=== PATIENT | female | born 1960 | race Native Hawaiian/Other Pacific Islander ===

== ENCOUNTER 2018-09-24 17:10 | Inpatient (IN) | payer MEDICAID ==
[2018-09-24 17:11] VITALS: BMI 19.1
[2018-09-24] MEDS ORDERED: Albuterol-Ipratrop 3 mg / 0.5 (3 ml) UD INH STA (17:33)
[2018-09-24] MEDS ORDERED: Albuterol-Ipratrop 3 mg / 0.5 (3 ml) UD IH STA ×2 (17:33→18:46)
--- NOTE | 2018-09-24 17:37 | ED PDOC ---
HPI: SOB/CHF/COPD Time Seen by Provider: 09/24/18 17:21 Chief Complaint (Nursing): Respiratory Distress Chief Complaint (Provider): Syncope History Per: Patient History/Exam Limitations: clinical condition Onset/Duration Of Symptoms: Days (today) Additional Complaint(s): Pt. with hx of renal failure who missed dialysis today had a syncope episode today morning. Also sats went to 95% on RA. Dx pneumonia and is non antibiotics, unclear which on the notes. Not talking, but moves extremities on will and squirms to pain. Limited H and P due to condition. Past Medical History Reviewed: Historical Data, Nursing Documentation, Vital Signs Vital Signs: Last Vital Signs Temp 96.7 F L 09/24/18 17:15 Pulse 67 09/24/18 17:15 Resp 18 09/24/18 17:15 BP 141/61 09/24/18 17:15 Pulse Ox 99 09/24/18 17:15 - Medical History PMH: HTN, Pneumonia, End Stage Renal Disease, Chronic Kidney Disease - Family History Family History: States: Unknown Family Hx - Living Arrangements Living Arrangements: [facility] - Home Medications Home Medications: Ambulatory Orders Medication Instructions Recorded Aspirin [Ecotrin] 81 mg PO DAILY 09/02/18 amLODIPine [Norvasc] 10 mg PO DAILY 09/02/18 Acetaminophen [Tylenol 325mg tab] 650 mg PO Q4 PRN 09/24/18 Acetaminophen [Tylenol 325mg tab] 650 mg PO Q4 PRN 09/24/18 Atorvastatin [Lipitor] 40 mg PO HS 09/24/18 B Complex W-C No.20/Folic Acid 1 cap PO DAILY 09/24/18 [Nephrocaps Softgel] Carvedilol [Coreg] 12.5 mg PO Q12 09/24/18 Insulin Regular [HumuLIN R] 1 - 7 unit SC ACHS 09/24/18 Levothyroxine [Synthroid] 50 mcg PO DAILY 09/24/18 Losartan [Cozaar] 100 mg PO DAILY 09/24/18 SITagliptin [Januvia] 25 mg PO DAILY 09/24/18 Sevelamer Carbonate [Renvela] 800 mg PO TID 09/24/18 Ticagrelor [Brilinta] 90 mg PO Q12 09/24/18 Vancomycin 750mg [Vancomycin 750 750 mg IVPB TUTHSA 09/24/18 mg in NS] Vitamin A & D [Vitamin A & D Oint 1 appl TOP DAILY 09/24/18 UD Foilpak] ceFAZolin [Ancef] 1 g[facility] 09/24/18 hydrALAZINE [Apresoline] 50 mg PO .BID@MOWEFR 09/24/18 hydrALAZINE [Apresoline] 50 mg PO .TID@SUTUTH 09/24/18 - Allergies Allergies/Adverse Reactions: Allergies Allergy/AdvReac Type Severity Reaction Status Date / Time shrimp Allergy Severe ANAPHYLAXIS Verified 09/24/18 17:14 Review of Systems Review Of Systems: ROS cannot be obtained secondary to pt's inabilty to answer questions. Physical Exam - Reviewed Nursing Documentation Reviewed: Yes Vital Signs Reviewed: Yes - Physical Exam Appears: Positive for: Uncomfortable Head Exam: Positive for: ATRAUMATIC, NORMAL INSPECTION, NORMOCEPHALIC Skin: Positive for: Normal Color, Warm, DRY Eye Exam: Positive for: EOMI, Normal appearance, PERRL ENT: Positive for: Normal ENT Inspection Neck: Positive for: Normal, Painless ROM, Supple Cardiovascular/Chest: Positive for: Regular Rate, Rhythm. Negative for: Edema Respiratory: Positive for: Decreased Breath Sounds, Crackles (diffuse). Negative for: Respiratory Distress Gastrointestinal/Abdominal: Positive for: Normal Exam, Soft. Negative for: Tenderness Back: Positive for: Normal Inspection. Negative for: L CVA Tenderness, R CVA Tenderness Extremity: Negative for: Tenderness, Pedal Edema Neurologic/Psych: Positive for: Other (not answering questions; but responds to name; moving all extremities with no issues on her own will.) - Laboratory Results Result Diagrams: 09/24/18 17:45 09/24/18 17:45 Lab Results: 34 bun - ECG ECG: Positive for: Interpreted By Me, Viewed By Me ECG Rhythm: Positive for: Normal QRS, Normal ST Segment, Sinus Rhythm O2 Sat by Pulse Oximetry: 99 Pulse Ox Interpretation: Normal - Radiology X-Ray: Read By Radiologist X-Ray Interpretation: Other (chf and infiltrates) - Progress ED Course And Treament: 1900: Stable. Sats go down to 85%. Will give 2019: Feels better and more awake. Tolerating bipap well. Wants to eat. 2030: Sats go down, so will continue bipap. Will consider ICU. Spoke with Dr. Higginbotham. Will admit. Spoke with Dr. Mojica. Will admit ICU. Does not meet sepsis criteria. - Critical Care Total Time (In Min): 30 Documented Critical Care: Time excludes all time spent performint seperately b illable procedures Disposition - Clinical Impression Clinical Impression: Pneumonia, CHF (congestive heart failure) - Patient ED Disposition Is Patient to be Admitted: Yes Counseled Patient/Family Regarding: Studies Performed, Diagnosis - Disposition Disposition Time: 18:30 Condition: FAIR - Pt Status Changed To: Hospital Disposition Of: Inpatient - Admit Certification Admit to Inpatient:: After my assessment, the patient will require hospitalization for at least two midnights. This is because of the severity of symptoms shown, intensity of services needed, and/or the medical risk in this patient being treated as an outpatient. - POA Present On Arrival: None
[2018-09-24] MEDS ORDERED: cefTRIAXone (Rocephin) 1 gm Inj IV ONE (17:38)
[2018-09-24] MEDS ORDERED: Albuterol-Ipratrop 3 mg / 0.5 (3 ml) UD ONE (17:42)
[2018-09-24] MEDS ORDERED: Azithromycin 500 MG in Sodium Chloride 0.9% 250 ML IVPB ONE (17:45)
[2018-09-24] MEDS: Sodium Chloride 0.9% 500 ML IV STA ×2 (17:57→21:51)
[2018-09-24] MEDS ORDERED: cefTRIAXone (Rocephin) 1 gm Inj ONE (18:10)
[2018-09-24] MEDS ORDERED: Azithromycin 500 MG IV IVPB ONE (18:10)
[2018-09-24 18:16] LABS: BASO # 0.2 K/uL (0.0-0.2); BASO % 1.1 % (0.0-2.0); EOS # 0.1 K/uL (0.0-0.7); EOS % 1.1 % (0.0-4.0); HEMOGLOBIN 8.9 g/dL (12.0-16.0); LYMPH # 0.7 K/uL (1.0-4.3); LYMPH % 4.9 % (20.0-40.0); MEAN CELL VOLUME 86.8 fl (81.0-99.0); MEAN CORPUSCULAR HEMOGLOBIN 28.2 pg (27.0-31.0); MEAN CORPUSCULAR HGB CONC 32.5 g/dL (33.0-37.0); MEAN PLATELET VOLUME 8.5 fl (7.2-11.7); MONO % 7.2 % (0.0-10.0); NEUT # 11.6 K/uL (1.8-7.0); NEUT % 85.7 % (50.0-75.0); NRBC % 0.1 % (0.0-0.0); PLATELET COUNT 263 K/uL (130-400); RBC 3.16 Mil/uL (3.80-5.20); RED CELL DISTRIBUTION WIDTH 16.1 % (11.5-14.5); WHITE BLOOD COUNT 13.6 K/uL (4.8-10.8)
[2018-09-24 18:26] LABS: ALB/GLOB RATIO 0.8 (1.0-2.1); ALBUMIN 3.2 g/dL (3.5-5.0); CALCIUM 7.7 mg/dL (8.4-10.2)
[2018-09-24 18:33] LABS: ABG ALLEN TEST YES; ARTERIAL BLOOD GAS HCO3 32.4 mmol/L (21-28); ARTERIAL BLOOD GAS O2 SAT 98.6 % (95-98); ARTERIAL BLOOD GAS PCO2 51 mm/Hg (35-45); ARTERIAL BLOOD GAS PH 7.45 (7.35-7.45); ARTERIAL BLOOD GAS PO2 65 mm/Hg (80-100)
[2018-09-24 18:34] LABS: PROTHROMBIN TIME 11.8 Seconds (9.8-13.1)
[2018-09-24 18:37] LABS: PARTIAL THROMBOPLASTIN TIME 36.2 Seconds (25.6-37.1)
--- NOTE | 2018-09-24 19:13 | RAD ---
Date of service: 09/24/2018 HISTORY: dyspnea COMPARISON: No prior. FINDINGS: LUNGS: Total right central venous dialysis catheter identified terminating at the cavoatrial junction. Left chest catheter questioned position terminating at the mid to inferior left hemithorax. Hazy density at the bilateral lung bases appreciate as well as prominent vascular markings suspicious for pulmonary vascular congestion and bilateral pleural effusions, left greater than right. Underlying airspace disease not excluded bilaterally. No pneumothorax bilaterally. PLEURA: As above. CARDIOVASCULAR: No aortic atherosclerotic calcification present. Prominent appearing cardiac silhouette with some component due to technical magnification. See discussion in lung section above. OSSEOUS STRUCTURES: No significant abnormalities. VISUALIZED UPPER ABDOMEN: Normal. OTHER FINDINGS: None. IMPRESSION: Likely CHF with bilateral pleural effusions and potential infiltrates at the bases. Atelectasis is the differential diagnosis for basilar patchy density.
[2018-09-24 21:03] LABS: ANISOCYTOSIS MODERATE; BANDS 1 % (0-2); BASOPHIL 1 % (0-2); EOSINOPHIL 2 % (0-7); LYMPHOCYTE 7 % (20-50); MONOCYTE 6 % (0-10); NEUTROPHIL 83 % (42-75); PLATELET ESTIMATE NORMAL (NORMAL); POIKILOCYTOSIS SLIGHT; TOTAL CELLS COUNTED 100
[2018-09-24 21:04] LABS: TARGET CELLS SLIGHT
[2018-09-24] MEDS ORDERED: Oxycodone/Acetaminophen 5/325 mg Tab PO PRN (21:27)
--- NOTE | 2018-09-24 21:49 | CP.PCM.CON ---
History of Present Illness - History of Present Illness History of Present Illness: 57 yo Female with hx of HTN, DM-II, HLD, hypothyroidism, CAD s/p PCI, ESRD on HD via left chest permacath MWF with chronic left sided effusion (work up apparently transudate) s/p left pigtail cath and chronic hypoxic respiratory failure on home O2 was sent from [facility] to ED with syncopal episode. Apparently patient refused to go to his HD today and c/o generalized body ache and malaise and later on had a syncopal episode and was unresponsive briefly and confused after that and was sent to the ED. Still somewhat confused and not able to provide much information and the data mostly coming for ED physician and MD papers. In the ED patient was found to be hypoxic in 80s requiring bipap and medical consult was called to assess. Unable to obtain ROS and PMSF as patient is confused Review of Systems - Review of Systems Systems not reviewed;Unavailable: Altered Mental Status Past Patient History - Past Social History Smoking Status: Heavy Smoker > 10 Cigarettes Daily - CARDIAC Hx Hypertension: Yes - PULMONARY Hx Pneumonia: Yes - RENAL Hx Chronic Kidney Disease: Yes - ENDOCRINE/METABOLIC Hx Diabetes Mellitus Type 2: Yes - PSYCHIATRIC Hx Substance Use: No - SURGICAL HISTORY Hx Hysterectomy: Yes Meds Allergies/Adverse Reactions: Allergies Allergy/AdvReac Type Severity Reaction Status Date / Time shrimp Allergy Severe ANAPHYLAXIS Verified 09/24/18 17:14 - Medications Medications: Current Medications Acetaminophen (Tylenol 325mg Tab) 650 mg PO Q6H PRN PRN Reason: Pain, Mild (1-3) Acetaminophen (Tylenol 325mg Tab) 650 mg PO Q6H PRN PRN Reason: Fever >100.4 F Amlodipine Besylate (Norvasc) 10 mg PO DAILY [facility] Aspirin (Ecotrin) 81 mg PO DAILY [facility] Atorvastatin Calcium (Lipitor) 40 mg PO HS [facility] Carvedilol (Coreg) 12.5 mg PO Q12 [facility] Heparin Sodium (Porcine) (Heparin) 5,000 units SC Q12 [facility]; Protocol Hydralazine HCl (Apresoline) 50 mg PO .BID@MOWEFR [facility] Sodium Chloride (Sodium Chloride 0.9%) 500 mls @ 100 mls/hr IV .Q5H STA Stop: 09/24/18 22:32 Insulin Human Regular (Humulin R) 0 units SC ACHS [facility]; Protocol Levothyroxine Sodium (Synthroid) 50 mcg PO DAILY [facility] Losartan Potassium (Cozaar) 100 mg PO DAILY [facility] Ondansetron HCl (Zofran Inj) 4 mg IVP Q6H PRN PRN Reason: Nausea/Vomiting Oxycodone/Acetaminophen (Percocet 5/325 Mg Tab) 1 tab PO Q4H PRN PRN Reason: Pain, moderate (4-7) Stop: 09/27/18 21:28 Pantoprazole Sodium (Protonix Ec Tab) 40 mg PO DAILY [facility] Sevelamer Carbonate (Renvela) 800 mg PO TID [facility] Sitagliptin Phosphate (Januvia) 25 mg PO DAILY [facility] Ticagrelor (Brilinta) 90 mg PO Q12 [facility] Vitamin A (Vitamin A & D Oint Ud Foilpak) ea TOP DAILY [facility] Vitamin B Complex/Vit C/Folic Acid (Nephro-Buster) 1 tab PO DAILY [facility] Physical Exam - Constitutional Appears: Non-toxic, Confused - Head Exam Head Exam: ATRAUMATIC, NORMOCEPHALIC - Eye Exam Eye Exam: EOMI, PERRL - ENT Exam ENT Exam: Mucous Membranes Moist, Normal Exam - Neck Exam Neck exam: Positive for: Full Rom - Respiratory Exam Additional comments: Decreased breathing sounds bibasilarly - Cardiovascular Exam Cardiovascular Exam: REGULAR RHYTHM, RRR, +S1, +S2 - GI/Abdominal Exam GI & Abdominal Exam: Soft Additional comments: NT/ND - Rectal Exam Rectal Exam: Deferred - Exam Additional comments: deferred - Extremities Exam Extremities exam: Positive for: full ROM Additional comments: no joint deformity - Neurological Exam Additional comments: Patient mildly confused but oriented x2 and to the extent possible exam was non- focal Results - Vital Signs Recent Vital Signs: Last Vital Signs Temp 96.8 F L 09/24/18 18:19 Pulse 65 09/24/18 21:27 Resp 16 09/24/18 21:27 BP 139/64 09/24/18 21:27 Pulse Ox 98 09/24/18 21:27 - Labs Result Diagrams: 09/24/18 17:45 09/24/18 17:45 Labs: Laboratory Results - last 24 hr 09/24/18 09/24/18 09/24/18 17:45 17:45 17:45 WBC 13.6 H RBC 3.16 L Hgb 8.9 L Hct 27.4 L MCV 86.8 MCH 28.2 MCHC 32.5 L RDW 16.1 H Plt Count 263 MPV 8.5 Neut % (Auto) 85.7 H Lymph % (Auto) 4.9 L Gregory % (Auto) 7.2 Eos % (Auto) 1.1 Baso % (Auto) 1.1 Neut # (Auto) 11.6 H Lymph # (Auto) 0.7 L Gregory # (Auto) 1.0 H Eos # (Auto) 0.1 Baso # (Auto) 0.2 Neutrophils % (Manual) 83 H Band Neutrophils % 1 Lymphocytes % (Manual) 7 L Monocytes % (Manual) 6 Eosinophils % (Manual) 2 Basophils % (Manual) 1 Platelet Estimate Normal Poikilocytosis (manual Slight Anisocytosis (manual) Moderate Target Cells Slight PT 11.8 INR 1.0 APTT 36.2 pCO2 pO2 HCO3 ABG pH ABG Total CO2 ABG O2 Saturation ABG Base Excess Praveen Test ABG Potassium A-a O2 Difference Glucose Lactate FiO2 Sodium 134 Potassium 3.9 Chloride 91 L Carbon Dioxide 29 Anion Gap 18 BUN 34 H Creatinine 4.2 H Est GFR ( Amer) 13 Est GFR (Non-Af Amer) 11 Random Glucose 148 H Calcium 7.7 L Phosphorus 5.2 H Magnesium 2.3 Total Bilirubin 0.4 AST 43 H ALT 7 L Alkaline Phosphatase 114 Total Protein 7.1 Albumin 3.2 L Globulin 3.9 Albumin/Globulin Ratio 0.8 L Arterial Blood Potassium Influenza Typ A,B (EIA) 09/24/18 09/24/18 17:45 18:28 WBC RBC Hgb Hct MCV MCH MCHC RDW Plt Count MPV Neut % (Auto) Lymph % (Auto) Gregory % (Auto) Eos % (Auto) Baso % (Auto) Neut # (Auto) Lymph # (Auto) Gregory # (Auto) Eos # (Auto) Baso # (Auto) Neutrophils % (Manual) Band Neutrophils % Lymphocytes % (Manual) Monocytes % (Manual) Eosinophils % (Manual) Basophils % (Manual) Platelet Estimate Poikilocytosis (manual Anisocytosis (manual) Target Cells PT INR APTT pCO2 51 H pO2 65 L HCO3 32.4 H ABG pH 7.45 ABG Total CO2 37.0 H ABG O2 Saturation 98.6 H ABG Base Excess 9.7 H Praveen Test Yes ABG Potassium 3.7 A-a O2 Difference 584.0 Glucose 133 H Lactate 1.2 FiO2 100.0 Sodium 134.0 Potassium Chloride 100.0 Carbon Dioxide Anion Gap BUN Creatinine Est GFR ( Amer) Est GFR (Non-Af Amer) Random Glucose Calcium Phosphorus Magnesium Total Bilirubin AST ALT Alkaline Phosphatase Total Protein Albumin Globulin Albumin/Globulin Ratio Arterial Blood Potassium 3.7 Influenza Typ A,B (EIA) Negative for flu a/b - EKG Data EKG Interpreted by: Myself EKG shows normal: Sinus rhythm Rate: Normal - EKG Data EKG comments: NSR at 64/min with Poor R progression - Imaging and Cardiology Chest x-ray Status: Image reviewed by me Additional comment: Bibasilar infiltrate/effusion Assessment & Plan - Assessment and Plan (Free Text) Assessment: Sycope Acute on chronic hypoxic respiratory failure Plan: Likely acute on chronic hypoxic respiratory failure due to fluid overload and non-compliance with HD Continue bipap Admit to ICU Monitor hemodynamic and respiratory status closely Consult nephrology for HD in am Received Rocephin and Zithromax in the ED; was on Ancef and Vanco at [facility]. Not frankly septic. Will hold antibiotic and will clarify wit primary attending in the morning. Meanwhile will follow culture results I spent total of 30 min of critical care time trying to stabilize this critically unstable patient excluding any time spent for procedures
[2018-09-25 05:12] LABS: HEMOGLOBIN 8.7 g/dL (12.0-16.0); MEAN CELL VOLUME 86.6 fl (81.0-99.0); MEAN CORPUSCULAR HEMOGLOBIN 28.6 pg (27.0-31.0); RBC 3.04 Mil/uL (3.80-5.20); RED CELL DISTRIBUTION WIDTH 16.1 % (11.5-14.5); WHITE BLOOD COUNT 8.5 K/uL (4.8-10.8)
[2018-09-25 05:27] LABS: CALCIUM 7.3 mg/dL (8.4-10.2)
[2018-09-25] MEDS: Levothyroxine 50 MCG TAB PO SCH (06:40)
[2018-09-25] MEDS: Insulin Regular 100 units/ml SC SCH ×5 (06:41→21:05)
[2018-09-25] MEDS: Multivitamin Vitamin B Complex (Nephro-Vite) Tab PO SCH (08:47)
[2018-09-25] MEDS: Vitamins A & D Oint UD Foilpak TOP SCH (08:47)
[2018-09-25] MEDS: Pantoprazole 40 mg EC Tab PO SCH (08:47)
--- NOTE | 2018-09-25 09:04 | CT ---
Date of service: 09/24/2018 PROCEDURE: CT HEAD WITHOUT CONTRAST. HISTORY: headache COMPARISON: None available. TECHNIQUE: Axial computed tomography images were obtained through the head/brain without intravenous contrast. Radiation dose: Total exam DLP = 775.32 mGy-cm. This CT exam was performed using one or more of the following dose reduction techniques: Automated exposure control, adjustment of the mA and/or kV according to patient size, and/or use of iterative reconstruction technique. FINDINGS: HEMORRHAGE: No intracranial hemorrhage. BRAIN: No mass effect or edema. Mild atrophy. Mild chronic microvascular ischemic changes. 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 VENTRICLES: Unremarkable. No hydrocephalus. CALVARIUM: Unremarkable. PARANASAL SINUSES: Unremarkable as visualized. No significant inflammatory changes. MASTOID AIR CELLS: Unremarkable as visualized. No inflammatory changes. OTHER FINDINGS: None. IMPRESSION: No acute intracranial pathology. 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 Age-related changes.
[2018-09-25] MEDS ORDERED: EPOETIN ALFA 10,000 UNIT/ML ML IV SCH (10:00)
--- NOTE | 2018-09-25 10:58 | CP.CCUPN ---
CCU Subjective - Physician Review Subjective (Free Text): Sitting up in bed, dislikes and now is off BiPAP, on nasal cannula with 98% SPO2. Denies any CP, or SOB now at bed rest. She confirms missing HD yesterday, denies any increase in congestive symptoms which she is wary of. s/p cardiac stent 2 weeks ago and plans for AVF were placed on hold. Afebrile, no fever spikes, BP 140/60, HR 70s, RR 22. No other distress noted. ROS: No other pertinent negs or positive on 10+ system review obtainable due to sedation. Other PMSFH: All other Nursing and physician documentation reviewed to date; no new pertinent info noted relevant to current medical problems. EXAM- HEENT: no icterus, pupils equal, 3 mm and reactive, no gaze preference NECK: no visible JVD, supple, carotids equal upstroke bilat/no bruits CHEST: decreased BS bases, no wheezes audible, Rt chest permacath HEART: regular, distant, tachy S1S2, no murmur audible, no rubs. ABD: soft, no distention, no focal tenderness, BS hypoactive EXT: NO edema LEs, no calf tenderness or palpable cords, distal pulses intact and symmetrical NEURO: no gross focal motor deficits SKIN: no rashes LABS: WBC= 8.5 HGB= 8.7 PLTs = 243K Na= 135 K= 4.0 Cl= 93 HCO3= 28 BUN/Cr= 39/4.3 BS= 213 7.45/51/65 in BiPAP 10/, 40% CXR: (my interp)- R chest HD catheter in place, Left chest catheter intact, L>R effusion, + bilat congestive changes. EKG; sinus 64/min, old AWMI. IMPRESSION / MAJOR PROBLEMS NOW: 1. Acute Resp Insuff , 2 bilat pneumonia / CHF 2. S/p Syncopal Episode 3. Chronic Disease Anemia 4. ESRD on MWF HD schedule. PLAN: 1. Nasal cannula oxygen as tolerated. 2. Empiric abx coverage. Check Procalcitonin level. If CXR findings show no improvement post HD, consider empiric abx. 3. Consider CT Chest to further evaluate extent of bibasilar infiltrates and left effusion. 4. Schedule for HD today. 5. Check repeat EKG, Serial Trops, BNP. Resume Brilinta, statin, beta blockers, ASA.
--- NOTE | 2018-09-25 13:54 | CP.PCM.CON ---
History of Present Illness - History of Present Illness History of Present Illness: Nephrology Consultation Note: Assessment: Stable syncope CHF with fluid overload, missed HD Diabetic chronic Kidney Disease (E11.22) Hypertensive Chronic Kidney Disease (I12.0) End stage renal disease (N18.6) dependence on hemodialysis (Z99.2) MWF) via PC Anemia (D64.9), Hyperphosphatemia (E83.39), Secondary Hyperparathyroidism (E 21.1), HTN (I12.0) Plan: Will plan for HD today as ordered. Continue with Nephrovite 1 tab/day. PRBC as needed for anemia. on BREANA with dialysis as last Hb 8.7 Continue with phos binders, last phos level 5.2 BP control with meds as ordered. Patient on RAAS windy Glycemic control, Dialysis consistent diet Further work up/management as per primary team Dose meds/antibiotics (if needed) for ESRD status. Avoid fleets enema/magnesium based laxatives. Thanks for allowing me to participate in care of your patient. Will follow patient with you. Please call if any Qs. had d/w team Dr Lanre Sherman Office: [phone] Chief Complaint; syncope HPI: Pt is a57 F with hx of ESRD on hemodialysis (MWF) via PC, last dialysis Wed, chronic anemia, hyperphosphatemia, secondary hyperparathyroidism, Diabetes Mellitus, hypertension CHF, left pleural effusion s/p drainage and pleurax catheter cad s/p stent presented with complaints of syncope and she missed HD. feels better now Renal consult requested for ESRD management. ROS: Cardiovascular: No chest pain. Pulmonary: improved shortness of breath Gastrointestinal: denies abdominal pain No nausea. No vomiting. Genitourinary: No pain while urinating. Denies blood in urine. All other negative except as mentioned in HPI Physical Examination: General Appearance: Comfortable, in no acute respiratory distress, co-operative . Vitals reviewed and noted as below Head; Atraumatic, normocephalic ENT: no ulcers no thrush. Tongue is midline. Oropharynx: no rash or ulcers. EYES: Pupils are equal, round and reactive to light accommodation. Eye muscles and extraocular movement intact. Sclera is anicteric. Neck; supple no lymphadenopathy, no thyromegaly or bruit Lungs: Normal respiratory rate/effort. Breath sounds bilateral reduced at bases with crackles Heart: Normal rate. s1s2 normal. No rub or gallop. Extremities: no edema. No varicose veins Neurological: Patient is alert, awake and oriented to person, place and time. No focal deficit. Strength bilateral appropriate and equal Skin: Warm and dry. Normal turgor. No rash. Palpitation: Normal elasticity for age Abdomen: Abdomen is soft. Bowel sounds +. There is no abdominal tenderness, no guarding/rigidity or organomegaly Psych: normal insight and normal affect/mood MSK: no joint tenderness or swelling. Digits and nails normal, no deformity : kidney or bladder not palpable Access: pc Labs/imaging reviewed. Past medical history, past surgical history, family history, social history, allergy reviewed and noted as below Family Hx: no hx of CKD. Non contributory Past Patient History - Past Medical History & Family History Past Medical History?: Yes - Past Social History Smoking Status: Former Smoker - CARDIAC Hx Cardiac Disorders: Yes Hx Congestive Heart Failure: Yes Hx Hypercholesterolemia: Yes Hx Hypertension: Yes Other/Comment: Left chest pleural cath - PULMONARY Hx Respiratory Disorders: Yes Hx Chronic Obstructive Pulmonary Disease (COPD): Yes Hx Pneumonia: Yes - NEUROLOGICAL Hx Neurological Disorder: No - HEENT Hx HEENT Problems: No - RENAL Hx Chronic Kidney Disease: Yes Hx Dialysis: Yes Type of Dialysis Access: Right chest Permacath Date of Last Dialysis Treatment: 10/20/18 - ENDOCRINE/METABOLIC Hx Endocrine Disorders: Yes Hx Diabetes Mellitus Type 2: Yes Hx Hypothyroidism: Yes - HEMATOLOGICAL/ONCOLOGICAL Hx Blood Disorders: No - INTEGUMENTARY Hx Dermatological Problems: No - MUSCULOSKELETAL/RHEUMATOLOGICAL Hx Musculoskeletal Disorders: Yes Hx Arthritis: Yes Hx Falls: No - GASTROINTESTINAL Hx Gastrointestinal Disorders: No - GENITOURINARY/GYNECOLOGICAL Hx Genitourinary Disorders: No - PSYCHIATRIC Hx Psychophysiologic Disorder: No Hx Substance Use: No - SURGICAL HISTORY Hx Surgeries: Yes Hx Hysterectomy: Yes - ANESTHESIA Hx Anesthesia: Yes Hx Anesthesia Reactions: No Hx Malignant Hyperthermia: No Meds Allergies/Adverse Reactions: Allergies Allergy/AdvReac Type Severity Reaction Status Date / Time shrimp Allergy Severe ANAPHYLAXIS Verified 09/24/18 17:14 - Medications Medications: Current Medications Acetaminophen (Tylenol 325mg Tab) 650 mg PO Q6H PRN PRN Reason: Pain, Mild (1-3) Acetaminophen (Tylenol 325mg Tab) 650 mg PO Q6H PRN PRN Reason: Fever >100.4 F Amlodipine Besylate (Norvasc) 10 mg PO DAILY [facility] Last Admin: 09/25/18 08:42 Dose: 10 mg Aspirin (Ecotrin) 81 mg PO DAILY [facility] Last Admin: 09/25/18 08:45 Dose: 81 mg Atorvastatin Calcium (Lipitor) 40 mg PO HS [facility] Last Admin: 09/25/18 00:16 Dose: 40 mg Carvedilol (Coreg) 12.5 mg PO Q12 [facility] Last Admin: 09/25/18 08:46 Dose: 12.5 mg Epoetin Steve (Procrit) 10,000 unit IV TTS [facility] Heparin Sodium (Porcine) (Heparin) 5,000 units SC Q12 [facility]; Protocol Last Admin: 09/25/18 08:55 Dose: Not Given Hydralazine HCl (Apresoline) 50 mg PO .BID@MOWEFR [facility] Insulin Human Regular (Humulin R) 0 units SC ACHS [facility]; Protocol Last Admin: 09/25/18 12:30 Dose: 2 unit Levothyroxine Sodium (Synthroid) 50 mcg PO DAILY@0630 [facility] Last Admin: 09/25/18 06:40 Dose: 50 mcg Losartan Potassium (Cozaar) 100 mg PO DAILY [facility] Last Admin: 09/25/18 08:45 Dose: 100 mg Ondansetron HCl (Zofran Inj) 4 mg IVP Q6H PRN PRN Reason: Nausea/Vomiting Oxycodone/Acetaminophen (Percocet 5/325 Mg Tab) 1 tab PO Q4H PRN PRN Reason: Pain, moderate (4-7) Stop: 09/27/18 21:28 Pantoprazole Sodium (Protonix Ec Tab) 40 mg PO DAILY [facility] Last Admin: 09/25/18 08:47 Dose: 40 mg Sevelamer Carbonate (Renvela) 800 mg PO TID [facility] Last Admin: 09/25/18 08:46 Dose: 800 mg Sitagliptin Phosphate (Januvia) 25 mg PO DAILY [facility] Last Admin: 09/25/18 08:46 Dose: 25 mg Ticagrelor (Brilinta) 90 mg PO Q12 [facility] Last Admin: 09/25/18 11:05 Dose: 90 mg Vitamin A (Vitamin A & D Oint Ud Foilpak) 1 ea TOP DAILY [facility] Last Admin: 09/25/18 08:47 Dose: 1 ea Vitamin B Complex/Vit C/Folic Acid (Nephro-Buster) 1 tab PO DAILY [facility] Last Admin: 09/25/18 08:47 Dose: 1 tab Results - Vital Signs Recent Vital Signs: Last Vital Signs Temp 98.2 F 09/25/18 12:00 Pulse 72 09/25/18 12:00 Resp 22 09/25/18 12:00 BP 144/57 L 09/25/18 12:00 Pulse Ox 96 09/25/18 12:00 - Labs Result Diagrams: 09/25/18 04:15 09/25/18 04:15 Labs: Laboratory Results - last 24 hr 09/24/18 09/24/18 09/24/18 17:45 17:45 17:45 WBC 13.6 H RBC 3.16 L Hgb 8.9 L Hct 27.4 L MCV 86.8 MCH 28.2 MCHC 32.5 L RDW 16.1 H Plt Count 263 MPV 8.5 Neut % (Auto) 85.7 H Lymph % (Auto) 4.9 L [place] % (Auto) 7.2 Eos % (Auto) 1.1 Baso % (Auto) 1.1 Neut # (Auto) 11.6 H Lymph # (Auto) 0.7 L [place] # (Auto) 1.0 H Eos # (Auto) 0.1 Baso # (Auto) 0.2 Neutrophils % (Manual) 83 H Band Neutrophils % 1 Lymphocytes % (Manual) 7 L Monocytes % (Manual) 6 Eosinophils % (Manual) 2 Basophils % (Manual) 1 Platelet Estimate Normal Poikilocytosis (manual Slight Anisocytosis (manual) Moderate Target Cells Slight PT 11.8 INR 1.0 APTT 36.2 pCO2 pO2 HCO3 ABG pH ABG Total CO2 ABG O2 Saturation ABG Base Excess Praveen Test ABG Potassium A-a O2 Difference Glucose Lactate FiO2 Sodium 134 Potassium 3.9 Chloride 91 L Carbon Dioxide 29 Anion Gap 18 BUN 34 H Creatinine 4.2 H Est GFR ( Amer) 13 Est GFR (Non-Af Amer) 11 POC Glucose (mg/dL) Random Glucose 148 H Calcium 7.7 L Phosphorus 5.2 H Magnesium 2.3 Total Bilirubin 0.4 AST 43 H ALT 7 L Alkaline Phosphatase 114 Total Protein 7.1 Albumin 3.2 L Globulin 3.9 Albumin/Globulin Ratio 0.8 L Arterial Blood Potassium Influenza Typ A,B (EIA) 09/24/18 09/24/18 09/24/18 17:45 18:28 22:46 WBC RBC Hgb Hct MCV MCH MCHC RDW Plt Count MPV Neut % (Auto) Lymph % (Auto) [place] % (Auto) Eos % (Auto) Baso % (Auto) Neut # (Auto) Lymph # (Auto) [place] # (Auto) Eos # (Auto) Baso # (Auto) Neutrophils % (Manual) Band Neutrophils % Lymphocytes % (Manual) Monocytes % (Manual) Eosinophils % (Manual) Basophils % (Manual) Platelet Estimate Poikilocytosis (manual Anisocytosis (manual) Target Cells PT INR APTT pCO2 51 H pO2 65 L HCO3 32.4 H ABG pH 7.45 ABG Total CO2 37.0 H ABG O2 Saturation 98.6 H ABG Base Excess 9.7 H Praveen Test Yes ABG Potassium 3.7 A-a O2 Difference 584.0 Glucose 133 H Lactate 1.2 FiO2 100.0 Sodium 134.0 Potassium Chloride 100.0 Carbon Dioxide Anion Gap BUN Creatinine Est GFR ( Amer) Est GFR (Non-Af Amer) POC Glucose (mg/dL) 135 H Random Glucose Calcium Phosphorus Magnesium Total Bilirubin AST ALT Alkaline Phosphatase Total Protein Albumin Globulin Albumin/Globulin Ratio Arterial Blood Potassium 3.7 Influenza Typ A,B (EIA) Negative for flu a/b 09/25/18 09/25/18 09/25/18 04:15 04:15 05:53 WBC 8.5 RBC 3.04 L Hgb 8.7 L Hct 26.3 L MCV 86.6 MCH 28.6 MCHC 33.0 RDW 16.1 H Plt Count 243 MPV Neut % (Auto) Lymph % (Auto) [place] % (Auto) Eos % (Auto) Baso % (Auto) Neut # (Auto) Lymph # (Auto) [place] # (Auto) Eos # (Auto) Baso # (Auto) Neutrophils % (Manual) Band Neutrophils % Lymphocytes % (Manual) Monocytes % (Manual) Eosinophils % (Manual) Basophils % (Manual) Platelet Estimate Poikilocytosis (manual Anisocytosis (manual) Target Cells PT INR APTT pCO2 pO2 HCO3 ABG pH ABG Total CO2 ABG O2 Saturation ABG Base Excess Praveen Test ABG Potassium A-a O2 Difference Glucose Lactate FiO2 Sodium 135 Potassium 4.0 Chloride 93 L Carbon Dioxide 28 Anion Gap 18 BUN 39 H Creatinine 4.3 H Est GFR ( Amer) 13 Est GFR (Non-Af Amer) 11 POC Glucose (mg/dL) 181 H Random Glucose 213 H Calcium 7.3 L Phosphorus Magnesium Total Bilirubin AST ALT Alkaline Phosphatase Total Protein Albumin Globulin Albumin/Globulin Ratio Arterial Blood Potassium Influenza Typ A,B (EIA) 09/25/18 12:09 WBC RBC Hgb Hct MCV MCH MCHC RDW Plt Count MPV Neut % (Auto) Lymph % (Auto) [place] % (Auto) Eos % (Auto) Baso % (Auto) Neut # (Auto) Lymph # (Auto) [place] # (Auto) Eos # (Auto) Baso # (Auto) Neutrophils % (Manual) Band Neutrophils % Lymphocytes % (Manual) Monocytes % (Manual) Eosinophils % (Manual) Basophils % (Manual) Platelet Estimate Poikilocytosis (manual Anisocytosis (manual) Target Cells PT INR APTT pCO2 pO2 HCO3 ABG pH ABG Total CO2 ABG O2 Saturation ABG Base Excess Praveen Test ABG Potassium A-a O2 Difference Glucose Lactate FiO2 Sodium Potassium Chloride Carbon Dioxide Anion Gap BUN Creatinine Est GFR ( Amer) Est GFR (Non-Af Amer) POC Glucose (mg/dL) 239 H Random Glucose Calcium Phosphorus Magnesium Total Bilirubin AST ALT Alkaline Phosphatase Total Protein Albumin Globulin Albumin/Globulin Ratio Arterial Blood Potassium Influenza Typ A,B (EIA)
[2018-09-26 05:18] LABS: HEMOGLOBIN 8.6 g/dL (12.0-16.0); MEAN CELL VOLUME 87.3 fl (81.0-99.0); MEAN CORPUSCULAR HEMOGLOBIN 28.3 pg (27.0-31.0); MEAN CORPUSCULAR HGB CONC 32.4 g/dL (33.0-37.0); RBC 3.05 Mil/uL (3.80-5.20); RED CELL DISTRIBUTION WIDTH 16.2 % (11.5-14.5); WHITE BLOOD COUNT 14.9 K/uL (4.8-10.8)
[2018-09-26 05:59] LABS: CALCIUM 7.4 mg/dL (8.4-10.2)
[2018-09-26] MEDS: Insulin Regular 100 units/ml SC SCH ×4 (06:36→22:00)
[2018-09-26] MEDS: Levothyroxine 50 MCG TAB PO SCH (06:37)
--- NOTE | 2018-09-26 08:05 | CP.CCUPN ---
CCU Subjective - Physician Review Subjective (Free Text): Underwent uneventful HD yesterday, 3.5L UF removed. Afebrile, no fever spikes, BP 148/60, HR 70s, RR improved 16. No other distress noted. ROS: No other pertinent negs or positive on 10+ system review obtainable due to sedation. Other PMSFH: All other Nursing and physician documentation reviewed to date; no new pertinent info noted relevant to current medical problems. EXAM- HEENT: no icterus, pupils equal, 3 mm and reactive, no gaze preference NECK: no visible JVD, supple, carotids equal upstroke bilat/no bruits CHEST: decreased BS bases, no wheezes audible, Rt chest permacath HEART: regular, distant, tachy S1S2, no murmur audible, no rubs. ABD: soft, no distention, no focal tenderness, BS hypoactive EXT: NO edema LEs, no calf tenderness or palpable cords, distal pulses intact and symmetrical NEURO: no gross focal motor deficits, SCDs on bilaterally. SKIN: no rashes LABS: WBC= 14.9 HGB= 8.6 PLTs = 225K Na= 134 K= 3.5 Cl= 96 HCO3= 28 BUN/Cr= 21/2.5 BS= 146 IMPRESSION / MAJOR PROBLEMS NOW: 1. Acute Resp Insuff , 2 bilat pneumonia / CHF 2. S/p Syncopal Episode 3. Chronic Disease Anemia 4. ESRD on MWF HD schedule. PLAN: 1. Nasal cannula oxygen as tolerated. No further need for BiPAP. 2. Check Procalcitonin level. If CXR findings show no improvement post HD, consider empiric abx. 3. Consider CT Chest to further evaluate extent of bibasilar infiltrates and left effusion. 4. Resumed Brilinta, statin, beta blockers, ASA.
[2018-09-26] MEDS: Multivitamin Vitamin B Complex (Nephro-Vite) Tab PO SCH (08:30)
[2018-09-26] MEDS: Vitamins A & D Oint UD Foilpak TOP SCH (08:31)
[2018-09-26] MEDS: Pantoprazole 40 mg EC Tab PO SCH (08:46)
--- NOTE | 2018-09-26 10:20 | CARD ---
APPROVED REPORT Date of service: 09/24/2018 EKG Measurement Heart [id number] <Conclusion> Normal sinus rhythm Possible Anterior infarct, age undetermined Abnormal ECG
--- NOTE | 2018-09-26 12:26 | CP.PCM.PN ---
Subjective - Date & Time of Evaluation Date of Evaluation: 09/26/18 Time of Evaluation: 12:26 - Subjective Subjective: Nephrology Consultation Note: Assessment: Stable syncope CHF with fluid overload, missed HD Diabetic chronic Kidney Disease (E11.22) Hypertensive Chronic Kidney Disease (I12.0) End stage renal disease (N18.6) dependence on hemodialysis (Z99.2) MWF) via PC Anemia (D64.9), Hyperphosphatemia (E83.39), Secondary Hyperparathyroidism (E2 1.1), HTN (I12.0) Plan: Will plan for HD tomorrow as ordered. Continue with Nephrovite 1 tab/day. PRBC as needed for anemia. on BREANA with dialysis as last Hb 8.6 Continue with phos binders, last phos level 5.2 BP control with meds as ordered. Patient on RAAS windy Glycemic control, Dialysis consistent diet Further work up/management as per primary team Dose meds/antibiotics (if needed) for ESRD status. Avoid fleets enema/magnesium based laxatives. Thanks for allowing me to participate in care of your patient. Will follow patient with you. Please call if any Qs. had d/w team Dr Lanre Sherman Office: [phone] Chief Complaint; syncope HPI: Pt is a57 F with hx of ESRD on hemodialysis (MWF) via PC, last dialysis Wed, chronic anemia, hyperphosphatemia, secondary hyperparathyroidism, Diabetes Mellitus, hypertension CHF, left pleural effusion s/p drainage and pleurax catheter cad s/p stent presented with complaints of syncope and she missed HD. f eels better now Renal consult requested for ESRD management. ROS: Cardiovascular: No chest pain. Pulmonary: improved shortness of breath Gastrointestinal: denies abdominal pain No nausea. No vomiting. Genitourinary: No pain while urinating. Denies blood in urine. All other negative except as mentioned in HPI Physical Examination: General Appearance: Comfortable, in no acute respiratory distress, co-operative . Vitals reviewed and noted as below Head; Atraumatic, normocephalic ENT: no ulcers no thrush. Tongue is midline. Oropharynx: no rash or ulcers. EYES: Pupils are equal, round and reactive to light accommodation. Eye muscles and extraocular movement intact. Sclera is anicteric. Neck; supple no lymphadenopathy, no thyromegaly or bruit Lungs: Normal respiratory rate/effort. Breath sounds bilateral reduced at bases with crackles Heart: Normal rate. s1s2 normal. No rub or gallop. Extremities: no edema. No varicose veins Neurological: Patient is alert, awake and oriented to person, place and time. No focal deficit. Strength bilateral appropriate and equal Skin: Warm and dry. Normal turgor. No rash. Palpitation: Normal elasticity for age Abdomen: Abdomen is soft. Bowel sounds +. There is no abdominal tenderness, no guarding/rigidity or organomegaly Psych: normal insight and normal affect/mood MSK: no joint tenderness or swelling. Digits and nails normal, no deformity : kidney or bladder not palpable Access: pc Labs/imaging reviewed. Past medical history, past surgical history, family history, social history, allergy reviewed and noted as below Family Hx: no hx of CKD. Non contributory Objective - Vital Signs/Intake and Output Vital Signs (last 24 hours): Temp Pulse Resp BP Pulse Ox 98.1 F 66 16 153/58 H 96 09/26/18 08:00 09/26/18 10:00 09/26/18 10:00 09/26/18 10:00 09/26/18 10:00 - Medications Medications: Current Medications Acetaminophen (Tylenol 325mg Tab) 650 mg PO Q6H PRN PRN Reason: Pain, Mild (1-3) Acetaminophen (Tylenol 325mg Tab) 650 mg PO Q6H PRN PRN Reason: Fever >100.4 F Amlodipine Besylate (Norvasc) 10 mg PO DAILY [facility] Last Admin: 09/26/18 08:30 Dose: 10 mg Aspirin (Ecotrin) 81 mg PO DAILY [facility] Last Admin: 09/26/18 08:30 Dose: 81 mg Atorvastatin Calcium (Lipitor) 40 mg PO HS [facility] Last Admin: 09/25/18 21:05 Dose: 40 mg Carvedilol (Coreg) 12.5 mg PO Q12 [facility] Last Admin: 09/26/18 08:31 Dose: 12.5 mg Epoetin Steve (Procrit) 10,000 unit IV MWF [facility] Heparin Sodium (Porcine) (Heparin) 5,000 units SC Q12 [facility]; Protocol Last Admin: 09/25/18 20:47 Dose: Not Given Hydralazine HCl (Apresoline) 50 mg PO .BID@MOWEFR [facility] Insulin Human Regular (Humulin R) 0 units SC ACHS [facility]; Protocol Last Admin: 09/26/18 06:36 Dose: 2 unit Levothyroxine Sodium (Synthroid) 50 mcg PO DAILY@0630 [facility] Last Admin: 09/26/18 06:37 Dose: 50 mcg Losartan Potassium (Cozaar) 100 mg PO DAILY [facility] Last Admin: 09/26/18 08:30 Dose: 100 mg Ondansetron HCl (Zofran Inj) 4 mg IVP Q6H PRN PRN Reason: Nausea/Vomiting Oxycodone/Acetaminophen (Percocet 5/325 Mg Tab) 1 tab PO Q4H PRN PRN Reason: Pain, moderate (4-7) Stop: 09/27/18 21:28 Pantoprazole Sodium (Protonix Ec Tab) 40 mg PO DAILY [facility] Last Admin: 09/25/18 08:47 Dose: 40 mg Sevelamer Carbonate (Renvela) 800 mg PO TID [facility] Last Admin: 09/26/18 08:25 Dose: 800 mg Sitagliptin Phosphate (Januvia) 25 mg PO DAILY [facility] Last Admin: 09/25/18 08:46 Dose: 25 mg Ticagrelor (Brilinta) 90 mg PO Q12 [facility] Last Admin: 09/26/18 08:31 Dose: 90 mg Vitamin A (Vitamin A & D Oint Ud Foilpak) 1 ea TOP DAILY [facility] Last Admin: 09/26/18 08:31 Dose: 1 ea Vitamin B Complex/Vit C/Folic Acid (Nephro-Buster) 1 tab PO DAILY [facility] Last Admin: 09/26/18 08:30 Dose: 1 tab - Labs Labs: 09/26/18 05:00 09/26/18 05:00 PT 11.8 Seconds (9.8-13.1) 09/24/18 17:45 INR 1.0 09/24/18 17:45 APTT 36.2 Seconds (25.6-37.1) 09/24/18 17:45
--- NOTE | 2018-09-26 14:43 | RAD ---
Date of service: 09/26/2018 PROCEDURE: CHEST RADIOGRAPH, 1 VIEW HISTORY: eval of pleural effusions, CHF COMPARISON: Chest radiograph dated 09/24/2018. FINDINGS: LUNGS: Pulmonary vascular congestion. Bibasilar atelectasis. PLEURA: Small bilateral pleural effusions. CARDIOVASCULAR: Aortic atherosclerotic calcifications. Cardiomediastinal silhouette stably enlarged. OSSEOUS STRUCTURES: Unchanged. VISUALIZED UPPER ABDOMEN: Normal. OTHER FINDINGS: Left-sided large-bore chest tube unchanged. Right internal jugular access tunneled hemodialysis catheter, unchanged. IMPRESSION: Stable tubes and lines. Pulmonary vascular congestion with small bilateral pleural effusions, not significantly changed.
--- NOTE | 2018-09-27 00:35 | CP.PCM.HP ---
History of Present Illness - History of Present Illness History of Present Illness: HPI: 57 y/o female patient with hx of CKD admitted from [facility], where she had a syncopal episode and associated dyspnea. The pt missed her scheduled dialysis session prior to hospitalization. On admission, she required BIPAP for oxygenation, however her respiratory status has improved and she is now on nasal cannula O2. PMH: CKD (on dialysis -W-), CHF, hypercholesterolemia, HTN, COPD, Pneumonia, DM2, Hypothyroidism, Arthritis. PSH: Left chest pleural cath, Hysterectomy, cardiac stent (08/2018). Social History: Former smoker. Allergies: Shrimp. Present on Admission - Present on Admission Any Indicators Present on Admission: No Review of Systems - Review of Systems All systems: reviewed and no additional remarkable complaints except - Constitutional Constitutional: Fatigue, Malaise - Respiratory Additional comments: intermittent dyspnea Past Patient History - Past Medical History & Family History Past Medical History?: Yes - Past Social History Smoking Status: Former Smoker - CARDIAC Hx Cardiac Disorders: Yes Hx Congestive Heart Failure: Yes Hx Hypercholesterolemia: Yes Hx Hypertension: Yes Other/Comment: Left chest pleural cath - PULMONARY Hx Respiratory Disorders: Yes Hx Chronic Obstructive Pulmonary Disease (COPD): Yes Hx Pneumonia: Yes - NEUROLOGICAL Hx Neurological Disorder: No - HEENT Hx HEENT Problems: No - RENAL Hx Chronic Kidney Disease: Yes Hx Dialysis: Yes Type of Dialysis Access: Right chest Permacath Date of Last Dialysis Treatment: 09/22/18 - ENDOCRINE/METABOLIC Hx Endocrine Disorders: Yes Hx Diabetes Mellitus Type 2: Yes Hx Hypothyroidism: Yes - HEMATOLOGICAL/ONCOLOGICAL Hx Blood Disorders: No - INTEGUMENTARY Hx Dermatological Problems: No - MUSCULOSKELETAL/RHEUMATOLOGICAL Hx Musculoskeletal Disorders: Yes Hx Arthritis: Yes Hx Falls: No - GASTROINTESTINAL Hx Gastrointestinal Disorders: No - GENITOURINARY/GYNECOLOGICAL Hx Genitourinary Disorders: No - PSYCHIATRIC Hx Psychophysiologic Disorder: No Hx Substance Use: No - SURGICAL HISTORY Hx Surgeries: Yes Hx Hysterectomy: Yes Other/Comment: cardiac stent (08/2018) - ANESTHESIA Hx Anesthesia: Yes Hx Anesthesia Reactions: No Hx Malignant Hyperthermia: No Meds Allergies/Adverse Reactions: Allergies Allergy/AdvReac Type Severity Reaction Status Date / Time shrimp Allergy Severe ANAPHYLAXIS Verified 09/24/18 17:14 Physical Exam - Constitutional Appears: Older Than Stated Age, Chronically Ill - Head Exam Head Exam: ATRAUMATIC, NORMAL INSPECTION, NORMOCEPHALIC - Eye Exam Eye Exam: EOMI, Normal appearance, PERRL Pupil Exam: NORMAL ACCOMODATION, PERRL - ENT Exam ENT Exam: Mucous Membranes Moist, Normal Exam - Neck Exam Neck exam: Positive for: Normal Inspection - Respiratory Exam Respiratory Exam: Decreased Breath Sounds Additional comments: left chest pleural catheter. - Cardiovascular Exam Cardiovascular Exam: REGULAR RHYTHM, +S1, +S2 - GI/Abdominal Exam GI & Abdominal Exam: Normal Bowel Sounds, Soft Additional comments: Right chest permacath. - Extremities Exam Extremities exam: Positive for: full ROM, normal inspection, pedal pulses present - Back Exam Back exam: NORMAL INSPECTION - Neurological Exam Neurological exam: Alert, CN II-XII Intact, Oriented x3 - Psychiatric Exam Psychiatric exam: Normal Affect, Normal Mood - Skin Skin Exam: Dry, Pallor, Warm Results - Vital Signs Recent Vital Signs: Last Vital Signs Temp 97.5 F L 09/26/18 18:54 Pulse 72 09/26/18 21:18 Resp 18 09/26/18 18:54 BP 148/61 09/26/18 21:18 Pulse Ox 91 L 09/26/18 18:54 - Labs Result Diagrams: 09/26/18 05:00 09/26/18 05:00 Labs: Laboratory Results - last 24 hr 09/26/18 09/26/18 09/26/18 05:00 05:00 05:38 WBC 14.9 H D RBC 3.05 L Hgb 8.6 L Hct 26.6 L MCV 87.3 MCH 28.3 MCHC 32.4 L RDW 16.2 H Plt Count 225 Sodium 134 Potassium 3.5 L Chloride 96 L Carbon Dioxide 28 Anion Gap 14 BUN 21 H Creatinine 2.5 H Est GFR ( Amer) 24 Est GFR (Non-Af Amer) 20 POC Glucose (mg/dL) 203 H Random Glucose 146 H Calcium 7.4 L Procalcitonin 09/26/18 09/26/18 09/26/18 11:34 13:33 21:51 WBC RBC Hgb Hct MCV MCH MCHC RDW Plt Count Sodium Potassium Chloride Carbon Dioxide Anion Gap BUN Creatinine Est GFR ( Amer) Est GFR (Non-Af Amer) POC Glucose (mg/dL) 149 H 157 H Random Glucose Calcium Procalcitonin 0.38 Assessment & Plan (1) Pneumonia Assessment and Plan: 1.) Pneumonia/Pleural effusion/Respiratory insufficiency -previously on BIPAP, now on 3L O2 via nasal cannula. Saturating well. -consults input appreciated. -Left sided pleural catheter has scant drainage; pt reports draining it T. -Consider pulmonology referral for eval of pleural effusion and pleural cath. -serial CXR's ordered. Status: Acute (2) Chronic kidney disease Assessment and Plan: 2.) CKD -Nephrology consult input appreciated. -Resume dialysis. -monitor renal studies + electrolytes; eval for worsening anemia. Status: Acute
--- NOTE | 2018-09-27 01:04 | CP.PCM.PN ---
Subjective - Date & Time of Evaluation Date of Evaluation: 09/26/18 Time of Evaluation: 13:30 - Subjective Subjective: Pt seen and assessed at bedside. No new complaints, respiratory status has improved. Currently on nasal cannula and saturating well. At this time, the pt is stable for transfer to telemetry. Review of Systems - Review of Systems All systems: reviewed and no additional remarkable complaints except - Constitutional Constitutional: Weakness, Malaise Objective - Vital Signs/Intake and Output Vital Signs (last 24 hours): Temp Pulse Resp BP Pulse Ox 98.5 F 73 19 151/67 H 96 09/27/18 00:44 09/27/18 00:44 09/27/18 00:44 09/27/18 00:44 09/27/18 00:44 Intake and Output: 09/26/18 09/27/18 18:59 06:59 Intake Total 520 Balance 520 - Medications Medications: Current Medications Acetaminophen (Tylenol 325mg Tab) 650 mg PO Q6H PRN PRN Reason: Pain, Mild (1-3) Acetaminophen (Tylenol 325mg Tab) 650 mg PO Q6H PRN PRN Reason: Fever >100.4 F Amlodipine Besylate (Norvasc) 10 mg PO DAILY [facility] Last Admin: 09/26/18 08:30 Dose: 10 mg Aspirin (Ecotrin) 81 mg PO DAILY [facility] Last Admin: 09/26/18 08:30 Dose: 81 mg Atorvastatin Calcium (Lipitor) 40 mg PO HS [facility] Last Admin: 09/26/18 21:18 Dose: 40 mg Carvedilol (Coreg) 12.5 mg PO Q12 [facility] Last Admin: 09/26/18 21:18 Dose: 12.5 mg Epoetin Steve (Procrit) 10,000 unit IV [facility] Heparin Sodium (Porcine) (Heparin) 5,000 units SC Q12 [facility]; Protocol Last Admin: 09/26/18 21:19 Dose: Not Given Hydralazine HCl (Apresoline) 50 mg PO .BID@MOWEFR [facility] Insulin Human Regular (Humulin R) 0 units SC ACHS [facility]; Protocol Last Admin: 09/26/18 22:00 Dose: Not Given Levothyroxine Sodium (Synthroid) 50 mcg PO DAILY@0630 [facility] Last Admin: 09/26/18 06:37 Dose: 50 mcg Losartan Potassium (Cozaar) 100 mg PO DAILY [facility] Last Admin: 09/26/18 08:30 Dose: 100 mg Ondansetron HCl (Zofran Inj) 4 mg IVP Q6H PRN PRN Reason: Nausea/Vomiting Oxycodone/Acetaminophen (Percocet 5/325 Mg Tab) 1 tab PO Q4H PRN PRN Reason: Pain, moderate (4-7) Stop: 09/27/18 21:28 Pantoprazole Sodium (Protonix Ec Tab) 40 mg PO DAILY [facility] Last Admin: 09/26/18 08:46 Dose: 40 mg Sevelamer Carbonate (Renvela) 800 mg PO TID [facility] Last Admin: 09/26/18 17:02 Dose: 800 mg Sitagliptin Phosphate (Januvia) 25 mg PO DAILY [facility] Last Admin: 09/26/18 08:45 Dose: 25 mg Ticagrelor (Brilinta) 90 mg PO Q12 [facility] Last Admin: 09/26/18 21:18 Dose: 90 mg Vitamin A (Vitamin A & D Oint Ud Foilpak) 1 ea TOP DAILY [facility] Last Admin: 09/26/18 08:31 Dose: 1 ea Vitamin B Complex/Vit C/Folic Acid (Nephro-Buster) 1 tab PO DAILY [facility] Last Admin: 09/26/18 08:30 Dose: 1 tab - Labs Labs: 09/26/18 05:00 09/26/18 05:00 PT 11.8 Seconds (9.8-13.1) 09/24/18 17:45 INR 1.0 09/24/18 17:45 APTT 36.2 Seconds (25.6-37.1) 09/24/18 17:45 - Constitutional Appears: Older Than Stated Age, Chronically Ill - Head Exam Head Exam: ATRAUMATIC, NORMAL INSPECTION, NORMOCEPHALIC - Eye Exam Eye Exam: EOMI, Normal appearance, PERRL Pupil Exam: NORMAL ACCOMODATION, PERRL - ENT Exam ENT Exam: Mucous Membranes Moist, Normal Exam - Neck Exam Neck Exam: Full ROM, Normal Inspection - Respiratory Exam Respiratory Exam: Decreased Breath Sounds Additional comments: Left chest pleural catheter in place. - Cardiovascular Exam Cardiovascular Exam: REGULAR RHYTHM, +S1, +S2 Additional comments: Right chest permacath. - GI/Abdominal Exam GI & Abdominal Exam: Soft, Normal Bowel Sounds - Extremities Exam Extremities Exam: Full ROM, Normal Inspection - Back Exam Back Exam: NORMAL INSPECTION - Neurological Exam Neurological Exam: Alert, Awake, CN II-XII Intact, Oriented x3 - Psychiatric Exam Psychiatric exam: Normal Affect, Normal Mood - Skin Skin Exam: Dry, Pallor, Warm Additional comments: scabs on bilateral knees. Assessment and Plan (1) Pleural effusion Assessment & Plan: 1.) Pleural effusion -CXR ordered to monitor severity of effusions; added pulmonology consult. -Procalcitonin ordered to assess for bacterial etiology. -Maintained on 3L O2 via nasal cannula, respiratory status seems to be improving. -hx of CHF, ECHO ordered. -monitor output from left pleural catheter. Status: Acute (2) Chronic kidney disease Assessment & Plan: 2.) CKD -Nephrology consult input appreciated. -Pt resumed dialysis 09/25/18, tolerated well. -Slight downward trend in Hgb, monitor for PRBC transfusion if necessary. -Continue current tx. Status: Acute
[2018-09-27 05:34] LABS: BASO # 0.2 K/uL (0.0-0.2); BASO % 1.4 % (0.0-2.0); EOS # 0.5 K/uL (0.0-0.7); EOS % 3.1 % (0.0-4.0); HEMOGLOBIN 8.6 g/dL (12.0-16.0); LYMPH # 0.7 K/uL (1.0-4.3); LYMPH % 4.1 % (20.0-40.0); MEAN CELL VOLUME 87.2 fl (81.0-99.0); MEAN CORPUSCULAR HEMOGLOBIN 28.3 pg (27.0-31.0); MEAN CORPUSCULAR HGB CONC 32.5 g/dL (33.0-37.0); MEAN PLATELET VOLUME 8.5 fl (7.2-11.7); MONO # 1.2 K/uL (0.0-0.8); MONO % 7.1 % (0.0-10.0); NEUT # 14.3 K/uL (1.8-7.0); NEUT % 84.3 % (50.0-75.0); RBC 3.05 Mil/uL (3.80-5.20); RED CELL DISTRIBUTION WIDTH 16.5 % (11.5-14.5); WHITE BLOOD COUNT 16.9 K/uL (4.8-10.8)
[2018-09-27 05:54] LABS: ALB/GLOB RATIO 0.8 (1.0-2.1); CALCIUM 7.4 mg/dL (8.4-10.2)
[2018-09-27] MEDS: Insulin Regular 100 units/ml SC SCH ×4 (08:21→21:51)
[2018-09-27] MEDS: Multivitamin Vitamin B Complex (Nephro-Vite) Tab PO SCH (08:23)
[2018-09-27] MEDS: Pantoprazole 40 mg EC Tab PO SCH (08:24)
[2018-09-27] MEDS: Vitamins A & D Oint UD Foilpak TOP SCH (08:25)
[2018-09-27] MEDS: Levothyroxine 50 MCG TAB PO SCH (08:25)
[2018-09-27 08:55] LABS: HEPATITIS B SURFACE AG Negative (NEGATIVE)
[2018-09-27 09:01] LABS: HEPATITIS B CORE AB NEGATIVE (NEGATIVE)
--- NOTE | 2018-09-27 10:15 | CP.PCM.PN ---
Subjective - Date & Time of Evaluation Date of Evaluation: 09/27/18 Time of Evaluation: 10:17 - Subjective Subjective: Patient awake and conscious Sitting up in bed Vital signs noted and stable Objective - Vital Signs/Intake and Output Vital Signs (last 24 hours): Temp Pulse Resp BP Pulse Ox 98.6 F 76 18 163/60 H 94 L 09/27/18 08:49 09/27/18 08:49 09/27/18 08:49 09/27/18 08:49 09/27/18 08:49 Intake and Output: 09/27/18 09/27/18 06:59 18:59 Intake Total 180 Balance 180 - Medications Medications: Current Medications Acetaminophen (Tylenol 325mg Tab) 650 mg PO Q6H PRN PRN Reason: Pain, Mild (1-3) Acetaminophen (Tylenol 325mg Tab) 650 mg PO Q6H PRN PRN Reason: Fever >100.4 F Amlodipine Besylate (Norvasc) 10 mg PO DAILY [facility] Last Admin: 09/27/18 08:23 Dose: Not Given Aspirin (Ecotrin) 81 mg PO DAILY [facility] Last Admin: 09/27/18 08:20 Dose: 81 mg Atorvastatin Calcium (Lipitor) 40 mg PO HS [facility] Last Admin: 09/26/18 21:18 Dose: 40 mg Carvedilol (Coreg) 12.5 mg PO Q12 [facility] Last Admin: 09/27/18 08:19 Dose: Not Given Epoetin Steve (Procrit) 10,000 unit IV MWF [facility] Heparin Sodium (Porcine) (Heparin) 5,000 units SC Q12 [facility]; Protocol Last Admin: 09/27/18 08:20 Dose: Not Given Hydralazine HCl (Apresoline) 50 mg PO MWF@0900,1700 [facility] Ceftriaxone Sodium 1 gm/ (Sodium Chloride) 100 mls @ 100 mls/hr IVPB DAILY [facility]; Protocol Azithromycin 500 mg/ Sodium (Chloride) 250 mls @ 250 mls/hr IVPB DAILY [facility]; Protocol Insulin Human Regular (Humulin R) 0 units SC ACHS [facility]; Protocol Last Admin: 09/27/18 08:21 Dose: 1 unit Levothyroxine Sodium (Synthroid) 50 mcg PO DAILY@0630 [facility] Last Admin: 09/27/18 08:25 Dose: 50 mcg Losartan Potassium (Cozaar) 100 mg PO DAILY [facility] Last Admin: 09/27/18 08:19 Dose: Not Given Ondansetron HCl (Zofran Inj) 4 mg IVP Q6H PRN PRN Reason: Nausea/Vomiting Oxycodone/Acetaminophen (Percocet 5/325 Mg Tab) 1 tab PO Q4H PRN PRN Reason: Pain, moderate (4-7) Stop: 09/27/18 21:28 Pantoprazole Sodium (Protonix Ec Tab) 40 mg PO DAILY [facility] Last Admin: 09/27/18 08:24 Dose: 40 mg Sevelamer Carbonate (Renvela) 800 mg PO TID [facility] Last Admin: 09/27/18 08:25 Dose: 800 mg Sitagliptin Phosphate (Januvia) 25 mg PO DAILY [facility] Last Admin: 09/27/18 08:22 Dose: 25 mg Ticagrelor (Brilinta) 90 mg PO Q12 [facility] Last Admin: 09/27/18 08:18 Dose: 90 mg Vitamin A (Vitamin A & D Oint Ud Foilpak) 1 ea TOP DAILY [facility] Last Admin: 09/27/18 08:25 Dose: 1 ea Vitamin B Complex/Vit C/Folic Acid (Nephro-Buster) 1 tab PO DAILY [facility] Last Admin: 09/27/18 08:23 Dose: 1 tab - Labs Labs: 09/27/18 04:30 09/27/18 04:30 PT 11.8 Seconds (9.8-13.1) 09/24/18 17:45 INR 1.0 09/24/18 17:45 APTT 36.2 Seconds (25.6-37.1) 09/24/18 17:45 - Constitutional Appears: No Acute Distress - Eye Exam Eye Exam: Conjunctival injection - ENT Exam ENT Exam: Mucous Membranes Moist - Neck Exam Neck Exam: absent: Lymphadenopathy - Respiratory Exam Respiratory Exam: NORMAL BREATHING PATTERN - Cardiovascular Exam Cardiovascular Exam: absent: Gallop, JVD, Rubs - GI/Abdominal Exam GI & Abdominal Exam: Soft, Normal Bowel Sounds - Extremities Exam Extremities Exam: absent: Calf Tenderness - Back Exam Back Exam: absent: CVA tenderness (L), CVA tenderness (R) - Neurological Exam Neurological Exam: Alert - Psychiatric Exam Psychiatric exam: Normal Affect - Skin Skin Exam: absent: Cyanosis Assessment and Plan (1) Chronic kidney disease with end stage renal failure on dialysis Assessment & Plan: syncope Leukocytosis CHF with fluid overload, missed HD Small bilateral pleural effusion Diabetic chronic Kidney Disease (E11.22) Hypertensive Chronic Kidney Disease (I12.0) End stage renal disease (N18.6) dependence on hemodialysis (Z99.2) MWF) via PC Anemia (D64.9), Hyperphosphatemia (E83.39), Secondary Hyperparathyroidism (E21.1), HTN (I12.0) Plan: Scheduled for hemodialysis shortly as ordered. Continue with Nephrovite 1 tab/day. PRBC as needed for anemia. on BREANA with dialysis as last Hb 8.6 Continue with phos binders, last phos level 5.2 BP control with meds as ordered. Patient on RAAS windy Glycemic control, Dialysis consistent diet Further work up/management as per primary team Dose meds/antibiotics for ESRD status. Status: Acute
--- NOTE | 2018-09-27 11:06 | CT ---
Date of service: 09/27/2018 PROCEDURE: CT Chest without contrast HISTORY: Pneumonia, pleural effusion. COMPARISON: September 26, 2018. Single-view chest. TECHNIQUE: Contiguous axial images were obtained through the chest without intravenous contrast enhancement. Sagittal and coronal reconstructions were performed. Radiation dose: Total exam DLP = 191.24 mGy-cm. This CT exam was performed using one or more of the following dose reduction techniques: Automated exposure control, adjustment of the mA and/or kV according to patient size, and/or use of iterative reconstruction technique. FINDINGS: LUNGS: Pulmonary nodules and masses bilaterally. Spiculated mass left upper lobe measures 12 mm. Adjacent pulmonary nodule anterior segment of the left upper lobe measures 9 mm. Additional smaller pulmonary nodules identified bilaterally. Compressive atelectasis related to left pleural effusion. Subsegmental infiltrate right lower lobe. MEDIASTINUM: Unremarkable thoracic aorta. No aneurysm. Marked cardiomegaly. Trace pericardial effusion. Moderate pulmonary vascular congestion noted associated with marked cardiac enlargement. Main pulmonary artery unremarkable. No vascular congestion. No lymphadenopathy. Venous access catheter in stable, satisfactory position. Atherosclerotic calcifications identified primarily aortic arch. Similar less pronounced changes noted in the descending thoracic and upper abdominal aorta which is not aneurysmal. PLEURA: Residual partially loculated left pleural effusion without visible pneumothorax. Trace right pleural effusion. Chest tube identified inserted anteriorly and laterally left 5th intercostal space. The chest tube courses superiorly along the pericardial reflection and then courses posteriorly and medially. BONES: No fracture. No destructive lesion. UPPER ABDOMEN: Grossly unremarkable. OTHER FINDINGS: Cutaneous and subcutaneous edema and anasarca. Etiology, significance/acuity unknown. Cystic nodule left thyroid lobe. Elective ultrasound may be beneficial. IMPRESSION: 1. Bilateral pleural effusions left larger than right. 2. Chest tube in the left pleural space course and location described above. 3. Nodular densities bilaterally suspicious for metastatic disease. 4. Cardiomegaly/pulmonary vascular congestion. Additional benign and/or incidental findings described above.
[2018-09-27] MEDS: EPOETIN ALFA 10,000 UNIT/ML ML IV SCH (12:52)
--- NOTE | 2018-09-27 15:52 | CP.PCM.CON ---
History of Present Illness - History of Present Illness History of Present Illness: Pulmonary consult. 57 y/o F, P brought on 09/24/18 from [facility] to ER Ne[facility] via EMS for evaluation of syncope episode on DOA, associated to dyspnea, DOA, saturation 95%, requiring BIPAP on admission. Multiple PMHx including: COPD, PNA, ESRD on HD with missed Tx on DOA, CHF, CAD with Cardiac stent, Hypothyroidism, O/A., Left Pigtail for draining of chronic left pleural effusion Worsening symptoms: Currently Tx for PNA, Headache, anemia Hgb 8.9, WBC 13.6 Aggravated factor: ADL's. No report of: Fever, chills, n/v/d, abdominal pain, urinary symptoms, CP, palpitations, cough, sick contact. Chest CT shows: B/L pleural effusion L>R, infiltrate RLL, Cardiomegaly, pulmonary vascular congestion, pulmonary nodules and masses b/l, PAL mass 12 mm. Nodular density b/l suspicious for metastatic disease. Head CT: No acute intracranial pathology. 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 EKG: Normal sinus rhythm, possible anterior infarct, age undetermined. Review of Systems - Constitutional Constitutional: Weakness - EENT Eyes: Other (negative) Ears: Other (negtaive) Nose/Mouth/Throat: Other (negative) - Cardiovascular Cardiovascular: Other (negative) - Respiratory Respiratory: Dyspnea, Dyspnea on Exertion, Chest Congestion - Gastrointestinal Gastrointestinal: Other (negative) - Genitourinary Genitourinary: Other (negative) - Musculoskeletal Musculoskeletal: Arthralgias - Integumentary Integumentary: Other (negative) - Neurological Neurological: Headaches, Syncope - Psychiatric Psychiatric: Other (negative) - Endocrine Endocrine: Other (negative) - Hematologic/Lymphatic Hematologic: Other (anemia.) Past Patient History - Past Medical History & Family History Past Medical History?: Yes Pertinent Family History: Unknown - Past Social History Smoking Status: Former Smoker Alcohol: None Drugs: Denies Home Situation {Lives}: With Family - CARDIAC Hx Cardiac Disorders: Yes Hx Congestive Heart Failure: Yes Hx Hypercholesterolemia: Yes Hx Hypertension: Yes Other/Comment: Left chest pleural cath - PULMONARY Hx Respiratory Disorders: Yes Hx Chronic Obstructive Pulmonary Disease (COPD): Yes Hx Pneumonia: Yes - NEUROLOGICAL Hx Neurological Disorder: No - HEENT Hx HEENT Problems: No - RENAL Hx Chronic Kidney Disease: Yes Hx Dialysis: Yes Type of Dialysis Access: Right chest Permacath Date of Last Dialysis Treatment: 09/22/18 - ENDOCRINE/METABOLIC Hx Endocrine Disorders: Yes Hx Diabetes Mellitus Type 2: Yes Hx Hypothyroidism: Yes - HEMATOLOGICAL/ONCOLOGICAL Hx Blood Disorders: No - INTEGUMENTARY Hx Dermatological Problems: No - MUSCULOSKELETAL/RHEUMATOLOGICAL Hx Musculoskeletal Disorders: Yes Hx Arthritis: Yes Hx Falls: No - GASTROINTESTINAL Hx Gastrointestinal Disorders: No - GENITOURINARY/GYNECOLOGICAL Hx Genitourinary Disorders: No - PSYCHIATRIC Hx Psychophysiologic Disorder: No Hx Substance Use: No - SURGICAL HISTORY Hx Surgeries: Yes Hx Hysterectomy: Yes Other/Comment: cardiac stent (08/2018) - ANESTHESIA Hx Anesthesia: Yes Hx Anesthesia Reactions: No Hx Malignant Hyperthermia: No Meds Allergies/Adverse Reactions: Allergies Allergy/AdvReac Type Severity Reaction Status Date / Time shrimp Allergy Severe ANAPHYLAXIS Verified 09/24/18 17:14 - Medications Medications: Current Medications Acetaminophen (Tylenol 325mg Tab) 650 mg PO Q6H PRN PRN Reason: Pain, Mild (1-3) Acetaminophen (Tylenol 325mg Tab) 650 mg PO Q6H PRN PRN Reason: Fever >100.4 F Amlodipine Besylate (Norvasc) 10 mg PO DAILY [facility] Last Admin: 09/27/18 08:23 Dose: Not Given Aspirin (Ecotrin) 81 mg PO DAILY [facility] Last Admin: 09/27/18 08:20 Dose: 81 mg Atorvastatin Calcium (Lipitor) 40 mg PO HS [facility] Last Admin: 09/26/18 21:18 Dose: 40 mg Carvedilol (Coreg) 12.5 mg PO Q12 [facility] Last Admin: 09/27/18 08:19 Dose: Not Given Epoetin Steve (Procrit) 10,000 unit IV MWF [facility] Last Admin: 09/27/18 12:52 Dose: 10,000 unit Heparin Sodium (Porcine) (Heparin) 5,000 units SC Q12 [facility]; Protocol Last Admin: 09/27/18 08:20 Dose: Not Given Hydralazine HCl (Apresoline) 50 mg PO MWF@0900,1700 [facility] Last Admin: 09/27/18 12:49 Dose: Not Given Ceftriaxone Sodium 1 gm/ (Sodium Chloride) 100 mls @ 100 mls/hr IVPB DAILY [facility]; Protocol Azithromycin 500 mg/ Sodium (Chloride) 250 mls @ 250 mls/hr IVPB DAILY [facility]; Protocol Insulin Human Regular (Humulin R) 0 units SC ACHS [facility]; Protocol Last Admin: 09/27/18 12:50 Dose: 1 unit Levothyroxine Sodium (Synthroid) 50 mcg PO DAILY@0630 [facility] Last Admin: 09/27/18 08:25 Dose: 50 mcg Losartan Potassium (Cozaar) 100 mg PO DAILY [facility] Last Admin: 09/27/18 08:19 Dose: Not Given Ondansetron HCl (Zofran Inj) 4 mg IVP Q6H PRN PRN Reason: Nausea/Vomiting Oxycodone/Acetaminophen (Percocet 5/325 Mg Tab) 1 tab PO Q4H PRN PRN Reason: Pain, moderate (4-7) Stop: 09/27/18 21:28 Pantoprazole Sodium (Protonix Ec Tab) 40 mg PO DAILY [facility] Last Admin: 09/27/18 08:24 Dose: 40 mg Sevelamer Carbonate (Renvela) 800 mg PO TID [facility] Last Admin: 09/27/18 13:10 Dose: Not Given Sitagliptin Phosphate (Januvia) 25 mg PO DAILY [facility] Last Admin: 09/27/18 08:22 Dose: 25 mg Ticagrelor (Brilinta) 90 mg PO Q12 [facility] Last Admin: 09/27/18 08:18 Dose: 90 mg Vitamin A (Vitamin A & D Oint Ud Foilpak) 1 ea TOP DAILY [facility] Last Admin: 09/27/18 08:25 Dose: 1 ea Vitamin B Complex/Vit C/Folic Acid (Nephro-Buster) 1 tab PO DAILY [facility] Last Admin: 09/27/18 08:23 Dose: 1 tab Physical Exam - Constitutional Appears: No Acute Distress - Head Exam Head Exam: NORMAL INSPECTION - Eye Exam Eye Exam: PERRL - ENT Exam ENT Exam: Mucous Membranes Moist - Neck Exam Neck exam: Positive for: Normal Inspection - Respiratory Exam Respiratory Exam: Decreased Breath Sounds (b/l) Additional comments: L chest pig tail. - Cardiovascular Exam Cardiovascular Exam: REGULAR RHYTHM Additional comments: R chest Perma Cath - GI/Abdominal Exam GI & Abdominal Exam: Normal Bowel Sounds, Soft - Extremities Exam Additional comments: edema L/E - Back Exam Back exam: NORMAL INSPECTION - Neurological Exam Neurological exam: Alert, CN II-XII Intact Additional comments: Confused but oriented x2, moves all extremities - Psychiatric Exam Psychiatric exam: Normal Mood - Skin Skin Exam: Dry, Warm Results - Vital Signs Recent Vital Signs: Last Vital Signs Temp 98.4 F 09/27/18 12:59 Pulse 74 09/27/18 12:59 Resp 20 09/27/18 12:59 BP 162/72 H 09/27/18 12:59 Pulse Ox 93 L 09/27/18 12:59 reviewed Venecia - Labs Result Diagrams: 09/28/18 05:05 09/28/18 05:05 Labs: Laboratory Results - last 24 hr 09/25/18 09/26/18 09/26/18 10:00 08:56 13:33 WBC RBC Hgb Hct MCV MCH MCHC RDW Plt Count MPV Neut % (Auto) Lymph % (Auto) Walsh % (Auto) Eos % (Auto) Baso % (Auto) Neut # (Auto) Lymph # (Auto) Walsh # (Auto) Eos # (Auto) Baso # (Auto) Sodium Potassium Chloride Carbon Dioxide Anion Gap BUN Creatinine Est GFR ( Amer) Est GFR (Non-Af Amer) POC Glucose (mg/dL) Random Glucose Calcium Total Bilirubin AST ALT Alkaline Phosphatase Total Protein Albumin Globulin Albumin/Globulin Ratio Procalcitonin 0.38 Hep Bs Antigen Negative Hep B Core IgM Ab Negative Hepatitis C Antibody Negative 09/26/18 09/26/18 09/27/18 16:30 21:51 04:30 WBC 16.9 H RBC 3.05 L Hgb 8.6 L Hct 26.6 L MCV 87.2 MCH 28.3 MCHC 32.5 L RDW 16.5 H Plt Count 238 MPV 8.5 Neut % (Auto) 84.3 H Lymph % (Auto) 4.1 L Walsh % (Auto) 7.1 Eos % (Auto) 3.1 Baso % (Auto) 1.4 Neut # (Auto) 14.3 H Lymph # (Auto) 0.7 L Walsh # (Auto) 1.2 H Eos # (Auto) 0.5 Baso # (Auto) 0.2 Sodium Potassium Chloride Carbon Dioxide Anion Gap BUN Creatinine Est GFR ( Amer) Est GFR (Non-Af Amer) POC Glucose (mg/dL) 171 H 157 H Random Glucose Calcium Total Bilirubin AST ALT Alkaline Phosphatase Total Protein Albumin Globulin Albumin/Globulin Ratio Procalcitonin Hep Bs Antigen Hep B Core IgM Ab Hepatitis C Antibody 09/27/18 09/27/18 09/27/18 04:30 04:47 11:32 WBC RBC Hgb Hct MCV MCH MCHC RDW Plt Count MPV Neut % (Auto) Lymph % (Auto) Walsh % (Auto) Eos % (Auto) Baso % (Auto) Neut # (Auto) Lymph # (Auto) Walsh # (Auto) Eos # (Auto) Baso # (Auto) Sodium 133 Potassium 4.0 Chloride 99 Carbon Dioxide 28 Anion Gap 10 BUN 41 H Creatinine 3.8 H Est GFR ( Amer) 15 Est GFR (Non-Af Amer) 12 POC Glucose (mg/dL) 155 H 173 H Random Glucose 146 H Calcium 7.4 L Total Bilirubin 0.4 AST 35 ALT 16 Alkaline Phosphatase 123 Total Protein 6.6 Albumin 3.0 L Globulin 3.7 Albumin/Globulin Ratio 0.8 L Procalcitonin Hep Bs Antigen Hep B Core IgM Ab Hepatitis C Antibody reviewed J.P. - EKG Data EKG comments: reviewed J.P. - Imaging and Cardiology CT scan - chest Status: Report reviewed by me (Venecia) Chest x-ray Status: Report reviewed by me (Venecia) CT scan - head Status: Report reviewed by me (Venecia) Assessment & Plan (1) Respiratory insufficiency Status: Acute (2) PNA (pneumonia) Status: Acute Priority: High (3) Pulmonary nodules Status: Acute Priority: High Comment: r/o primary or metastatic malignancy (4) Recurrent left pleural effusion Status: Chronic Comment: Chronic , Left pigtail (5) Pleural effusion, right Status: Acute Comment: trace - Assessment and Plan (Free Text) Assessment: Nodular density b/l suspicious for metastasis. Mass PAL 12 mm. Plan: NC 3 L/m, Rocephin, Zithromax, Cytology and C-S L Pleural fluid, sputum C-S and Cytology - Date & Time Date: 09/27/18 Time: 13:30
--- NOTE | 2018-09-27 17:14 | CARD ---
APPROVED REPORT Date of service: 09/27/2018 EXAM: Two-dimensional and M-mode echocardiogram with Doppler and color Doppler. Other Information Quality : GoodRhythm : NSR INDICATION Congestive Heart Failure Surgery/Intervention Status/Post Intervention: Stent 2D DIMENSIONS IVSd1.09 (0.7-1.1cm)LVDd4.29 (3.9-5.9cm) LVOT Diameter2.24 (1.8-2.4cm)PWd0.92 (0.7-1.1cm) IVSs1.68 (0.8-1.2cm)LVDs2.34 (2.5-4.0cm) FS (%) 45.5 %PWs2.01 (0.8-1.2cm) M-Mode DIMENSIONS Left Atrium (MM)5.59 (2.5-4.0cm)IVSd1.29 (0.7-1.1cm) Aortic Root2.65 (2.2-3.7cm)LVDd4.83 (4.0-5.6cm) Aortic Cusp Exc.1.36 (1.5-2.0cm)PWd1.03 (0.7-1.1cm) IVSs1.49 cmFS (%) 49 % LVDs2.45 (2.0-3.8cm)PWs1.92 cm Aortic Valve AoV Peak Occmtnxo347.8cm/sAoV VTI33.6cmAO Peak GR.11mmHg LVOT Peak Dlcncgrb91.4cm/sLVOT VTI18.65cmAO Mean GR.5mmHg LOW (VMAX)1.43ib5SAA (VTI)1.55cm2 Mitral Valve MV E Sjsewgup420.7cm/sMV DECEL [id number] A Ovpffgud07.3cm/s MV VZT41gzV/A ratio1.2MVA (PHT)3.66cm2 TDI Lateral E' Peak V7.17cm/sMedial E' Peak V5.54cm/sE/Lateral E'16.4 E/Medial E'21.2 LEFT VENTRICLE The left ventricle is normal size. There is borderline concentric left ventricular hypertrophy. The left ventricular systolic function is normal. The estimated ejection fraction is 55-60% No regional wall motion abnormalities noted.. Transmitral Doppler flow pattern is Grade II-pseudonormal filling dynamics. No left ventricle thrombus noted on this study. There is no ventricular septal defect visualized. There is no left ventricular aneurysm. There is no mass noted in the left ventricle. RIGHT VENTRICLE The right ventricle is normal size. There is normal right ventricular wall thickness. The right ventricular systolic function is normal. ATRIA The left atrium is mild to moderately dilated. The right atrium size is normal. The interatrial septum is intact with no evidence for an atrial septal defect. AORTIC VALVE The aortic valve is normal in structure. No aortic regurgitation is present. There is no aortic valvular stenosis. There is no aortic valvular vegetation. MITRAL VALVE The mitral valve is normal in structure. There is no evidence of mitral valve prolapse. There is no mitral valve stenosis. There is mild mitral valve regurgitation noted. TRICUSPID VALVE The tricuspid valve is normal in structure. There is trace tricuspid valve regurgitation noted. There is no tricuspid valve prolapse or vegetation. There is no tricuspid valve stenosis. PULMONIC VALVE The pulmonary valve is normal in structure. There is trace pulmonic valvular regurgitation. There is no pulmonic valvular stenosis. GREAT VESSELS The aortic root is normal in size. The ascending aorta is normal in size. The pulmonary artery is normal. The IVC is normal in size and collapses >50% with inspiration. PERICARDIAL EFFUSION There is no pericardial effusion. There is large left pleural effusion. <Conclusion> There is borderline concentric left ventricular hypertrophy. The estimated ejection fraction is 55-60% Transmitral Doppler flow pattern is Grade II-pseudonormal filling dynamics. The left atrium is mild to moderately dilated. There is mild mitral valve regurgitation noted. There is trace tricuspid valve regurgitation noted. The IVC is normal in size and collapses >50% with inspiration.
[2018-09-27] MEDS: Azithromycin 500 MG in Sodium Chloride 0.9% 250 ML IVPB SCH (17:52)
--- NOTE | 2018-09-27 18:31 | CP.PCM.PN ---
Subjective - Date & Time of Evaluation Date of Evaluation: 09/27/18 Time of Evaluation: 10:00 - Subjective Subjective: patient away for echocardiogram chart reviewed discussed case with nursing staff and [employer] all available diagnostic data reviewed follow up test results monitor vitals monitor labs cont tx rest of plan as ordered Objective - Vital Signs/Intake and Output Vital Signs (last 24 hours): Temp Pulse Resp BP Pulse Ox 98.1 F 75 18 171/69 H 98 09/27/18 16:05 09/27/18 16:48 09/27/18 16:05 09/27/18 16:48 09/27/18 16:05 Intake and Output: 09/27/18 09/27/18 06:59 18:59 Intake Total 180 Balance 180 - Medications Medications: Current Medications Acetaminophen (Tylenol 325mg Tab) 650 mg PO Q6H PRN PRN Reason: Pain, Mild (1-3) Acetaminophen (Tylenol 325mg Tab) 650 mg PO Q6H PRN PRN Reason: Fever >100.4 F Amlodipine Besylate (Norvasc) 10 mg PO DAILY [facility] Last Admin: 09/27/18 16:48 Dose: 10 mg Aspirin (Ecotrin) 81 mg PO DAILY [facility] Last Admin: 09/27/18 08:20 Dose: 81 mg Atorvastatin Calcium (Lipitor) 40 mg PO HS [facility] Last Admin: 09/26/18 21:18 Dose: 40 mg Carvedilol (Coreg) 12.5 mg PO Q12 [facility] Last Admin: 09/27/18 08:19 Dose: Not Given Epoetin Steve (Procrit) 10,000 unit IV MWF [facility] Last Admin: 09/27/18 12:52 Dose: 10,000 unit Heparin Sodium (Porcine) (Heparin) 5,000 units SC Q12 [facility]; Protocol Last Admin: 09/27/18 08:20 Dose: Not Given Hydralazine HCl (Apresoline) 50 mg PO MWF@0900,1700 [facility] Last Admin: 09/27/18 16:45 Dose: 50 mg Ceftriaxone Sodium 1 gm/ (Sodium Chloride) 100 mls @ 100 mls/hr IVPB DAILY [facility]; Protocol Last Admin: 09/27/18 16:39 Dose: 100 mls/hr Azithromycin 500 mg/ Sodium (Chloride) 250 mls @ 250 mls/hr IVPB DAILY [facility]; Protocol Last Admin: 09/27/18 17:52 Dose: 250 mls/hr Insulin Human Regular (Humulin R) 0 units SC ACHS [facility]; Protocol Last Admin: 09/27/18 16:47 Dose: Not Given Levothyroxine Sodium (Synthroid) 50 mcg PO DAILY@0630 [facility] Last Admin: 09/27/18 08:25 Dose: 50 mcg Losartan Potassium (Cozaar) 100 mg PO DAILY [facility] Last Admin: 09/27/18 16:46 Dose: 100 mg Ondansetron HCl (Zofran Inj) 4 mg IVP Q6H PRN PRN Reason: Nausea/Vomiting Oxycodone/Acetaminophen (Percocet 5/325 Mg Tab) 1 tab PO Q4H PRN PRN Reason: Pain, moderate (4-7) Stop: 09/27/18 21:28 Pantoprazole Sodium (Protonix Ec Tab) 40 mg PO DAILY [facility] Last Admin: 09/27/18 08:24 Dose: 40 mg Sevelamer Carbonate (Renvela) 800 mg PO TID [facility] Last Admin: 09/27/18 16:48 Dose: 800 mg Sitagliptin Phosphate (Januvia) 25 mg PO DAILY [facility] Last Admin: 09/27/18 08:22 Dose: 25 mg Ticagrelor (Brilinta) 90 mg PO Q12 [facility] Last Admin: 09/27/18 08:18 Dose: 90 mg Vitamin A (Vitamin A & D Oint Ud Foilpak) 1 ea TOP DAILY [facility] Last Admin: 09/27/18 08:25 Dose: 1 ea Vitamin B Complex/Vit C/Folic Acid (Nephro-Buster) 1 tab PO DAILY [facility] Last Admin: 09/27/18 08:23 Dose: 1 tab - Labs Labs: 09/27/18 04:30 09/27/18 04:30 PT 11.8 Seconds (9.8-13.1) 09/24/18 17:45 INR 1.0 09/24/18 17:45 APTT 36.2 Seconds (25.6-37.1) 09/24/18 17:45
[2018-09-28 05:51] LABS: HEMOGLOBIN 8.6 g/dL (12.0-16.0); MEAN CELL VOLUME 87.1 fl (81.0-99.0); MEAN CORPUSCULAR HEMOGLOBIN 28.8 pg (27.0-31.0); RBC 3.01 Mil/uL (3.80-5.20); RED CELL DISTRIBUTION WIDTH 16.5 % (11.5-14.5); WHITE BLOOD COUNT 12.7 K/uL (4.8-10.8)
[2018-09-28 06:18] LABS: CALCIUM 7.5 mg/dL (8.4-10.2)
[2018-09-28] MEDS: Levothyroxine 50 MCG TAB PO SCH (06:23)
[2018-09-28] MEDS: Insulin Regular 100 units/ml SC SCH ×4 (09:05→22:19)
[2018-09-28] MEDS: Multivitamin Vitamin B Complex (Nephro-Vite) Tab PO SCH (09:06)
[2018-09-28] MEDS: Pantoprazole 40 mg EC Tab PO SCH (09:07)
[2018-09-28] MEDS: Vitamins A & D Oint UD Foilpak TOP SCH (09:10)
--- NOTE | 2018-09-28 10:26 | CP.PCM.PN ---
Subjective - Date & Time of Evaluation Date of Evaluation: 09/28/18 Time of Evaluation: 07:30 - Subjective Subjective: Patient awake and conscious feeling much better and less shortness of breath. Vital signs noted to be stable no nausea no vomiting Continue to have dialysis on schedule Thursday. Objective - Vital Signs/Intake and Output Vital Signs (last 24 hours): Temp Pulse Resp BP Pulse Ox 98.4 F 70 18 158/66 H 95 09/28/18 08:00 09/28/18 09:06 09/28/18 08:00 09/28/18 09:06 09/28/18 08:00 - Medications Medications: Current Medications Acetaminophen (Tylenol 325mg Tab) 650 mg PO Q6H PRN PRN Reason: Pain, Mild (1-3) Acetaminophen (Tylenol 325mg Tab) 650 mg PO Q6H PRN PRN Reason: Fever >100.4 F Amlodipine Besylate (Norvasc) 10 mg PO DAILY [facility] Last Admin: 09/28/18 09:06 Dose: 10 mg Aspirin (Ecotrin) 81 mg PO DAILY [facility] Last Admin: 09/28/18 09:03 Dose: 81 mg Atorvastatin Calcium (Lipitor) 40 mg PO HS [facility] Last Admin: 09/27/18 21:11 Dose: 40 mg Carvedilol (Coreg) 12.5 mg PO Q12 [facility] Last Admin: 09/28/18 09:02 Dose: 12.5 mg Epoetin Steve (Procrit) 10,000 unit IV MWF [facility] Last Admin: 09/27/18 12:52 Dose: 10,000 unit Heparin Sodium (Porcine) (Heparin) 5,000 units SC Q12 [facility]; Protocol Last Admin: 09/28/18 09:04 Dose: Not Given Hydralazine HCl (Apresoline) 50 mg PO MWF@0900,1700 [facility] Last Admin: 09/27/18 16:45 Dose: 50 mg Ceftriaxone Sodium 1 gm/ (Sodium Chloride) 100 mls @ 100 mls/hr IVPB DAILY [facility]; Protocol Last Admin: 09/27/18 16:39 Dose: 100 mls/hr Azithromycin 500 mg/ Sodium (Chloride) 250 mls @ 250 mls/hr IVPB DAILY [facility]; Protocol Last Admin: 09/27/18 17:52 Dose: 250 mls/hr Insulin Human Regular (Humulin R) 0 units SC ACHS [facility]; Protocol Last Admin: 09/28/18 09:05 Dose: 1 unit Levothyroxine Sodium (Synthroid) 50 mcg PO DAILY@0630 [facility] Last Admin: 09/28/18 06:23 Dose: 50 mcg Losartan Potassium (Cozaar) 100 mg PO DAILY [facility] Last Admin: 09/28/18 09:03 Dose: 100 mg Ondansetron HCl (Zofran Inj) 4 mg IVP Q6H PRN PRN Reason: Nausea/Vomiting Pantoprazole Sodium (Protonix Ec Tab) 40 mg PO DAILY [facility] Last Admin: 09/28/18 09:07 Dose: 40 mg Sevelamer Carbonate (Renvela) 800 mg PO TID [facility] Last Admin: 09/28/18 09:09 Dose: 800 mg Sitagliptin Phosphate (Januvia) 25 mg PO DAILY [facility] Last Admin: 09/28/18 09:06 Dose: 25 mg Ticagrelor (Brilinta) 90 mg PO Q12 [facility] Last Admin: 09/28/18 09:01 Dose: 90 mg Vitamin A (Vitamin A & D Oint Ud Foilpak) 1 ea TOP DAILY [facility] Last Admin: 09/28/18 09:10 Dose: 1 ea Vitamin B Complex/Vit C/Folic Acid (Nephro-Buster) 1 tab PO DAILY [facility] Last Admin: 09/28/18 09:06 Dose: 1 tab - Labs Labs: 09/28/18 05:05 09/28/18 05:05 PT 11.8 Seconds (9.8-13.1) 09/24/18 17:45 INR 1.0 09/24/18 17:45 APTT 36.2 Seconds (25.6-37.1) 09/24/18 17:45 - Constitutional Appears: No Acute Distress - Eye Exam Eye Exam: Conjunctival injection - ENT Exam ENT Exam: absent: Mucous Membranes Moist - Respiratory Exam Respiratory Exam: NORMAL BREATHING PATTERN - Cardiovascular Exam Cardiovascular Exam: absent: Clicks - GI/Abdominal Exam GI & Abdominal Exam: Soft, Normal Bowel Sounds - Extremities Exam Extremities Exam: absent: Calf Tenderness - Back Exam Back Exam: absent: CVA tenderness (L), CVA tenderness (R) - Neurological Exam Neurological Exam: Alert, Awake - Psychiatric Exam Psychiatric exam: Normal Affect - Skin Skin Exam: absent: Cyanosis Assessment and Plan (1) Chronic kidney disease with end stage renal failure on dialysis Assessment & Plan: Leukocytosis, trending down CHF with fluid overload, missed HD , improving Small bilateral pleural effusion Diabetic chronic Kidney Disease (E11.22) Hypertensive Chronic Kidney Disease (I12.0) End stage renal disease (N18.6) dependence on hemodialysis (Z99.2) MWF) via PC Anemia (D64.9), Hyperphosphatemia (E83.39), Secondary Hyperparathyroidism (E21.1), HTN (I12.0) Plan: Scheduled for hemodialysis as ordered. Continue with Nephrovite 1 tab/day. PRBC as needed for anemia. on BREANA with dialysis as last Hb 8.6 Continue with phos binders, last phos level 5.2 BP control with meds as ordered. Patient on RAAS windy Glycemic control, Dialysis consistent diet Further work up/management as per primary team Dose meds/antibiotics for ESRD status. Status: Acute
[2018-09-28] MEDS: Azithromycin 500 MG in Sodium Chloride 0.9% 250 ML IVPB SCH (11:53)
--- NOTE | 2018-09-28 13:37 | CP.PCM.PN ---
Subjective - Date & Time of Evaluation Date of Evaluation: 09/28/18 Time of Evaluation: 11:30 - Subjective Subjective: F/U Pulmonary Consult Less SOB, no cough, SOB without O2, on NC 2 l/M. No CP. Objective - Vital Signs/Intake and Output Vital Signs (last 24 hours): Temp Pulse Resp BP Pulse Ox 97.9 F 77 18 161/70 H 97 09/28/18 12:00 09/28/18 12:00 09/28/18 12:00 09/28/18 12:00 09/28/18 12:00 - Medications Medications: Current Medications Acetaminophen (Tylenol 325mg Tab) 650 mg PO Q6H PRN PRN Reason: Pain, Mild (1-3) Acetaminophen (Tylenol 325mg Tab) 650 mg PO Q6H PRN PRN Reason: Fever >100.4 F Amlodipine Besylate (Norvasc) 10 mg PO DAILY [facility] Last Admin: 09/28/18 09:06 Dose: 10 mg Aspirin (Ecotrin) 81 mg PO DAILY [facility] Last Admin: 09/28/18 09:03 Dose: 81 mg Atorvastatin Calcium (Lipitor) 40 mg PO HS [facility] Last Admin: 09/27/18 21:11 Dose: 40 mg Carvedilol (Coreg) 12.5 mg PO Q12 [facility] Last Admin: 09/28/18 09:02 Dose: 12.5 mg Epoetin Steve (Procrit) 10,000 unit IV MWF [facility] Last Admin: 09/27/18 12:52 Dose: 10,000 unit Heparin Sodium (Porcine) (Heparin) 5,000 units SC Q12 [facility]; Protocol Last Admin: 09/28/18 09:04 Dose: Not Given Hydralazine HCl (Apresoline) 50 mg PO MWF@0900,1700 [facility] Last Admin: 09/27/18 16:45 Dose: 50 mg Ceftriaxone Sodium 1 gm/ (Sodium Chloride) 100 mls @ 100 mls/hr IVPB DAILY [facility]; Protocol Last Admin: 09/28/18 10:44 Dose: 100 mls/hr Azithromycin 500 mg/ Sodium (Chloride) 250 mls @ 250 mls/hr IVPB DAILY [facility]; Protocol Last Admin: 09/28/18 11:53 Dose: 250 mls/hr Insulin Human Regular (Humulin R) 0 units SC ACHS [facility]; Protocol Last Admin: 09/28/18 12:56 Dose: 1 unit Levothyroxine Sodium (Synthroid) 50 mcg PO DAILY@0630 [facility] Last Admin: 09/28/18 06:23 Dose: 50 mcg Losartan Potassium (Cozaar) 100 mg PO DAILY [facility] Last Admin: 09/28/18 09:03 Dose: 100 mg Ondansetron HCl (Zofran Inj) 4 mg IVP Q6H PRN PRN Reason: Nausea/Vomiting Pantoprazole Sodium (Protonix Ec Tab) 40 mg PO DAILY [facility] Last Admin: 09/28/18 09:07 Dose: 40 mg Sevelamer Carbonate (Renvela) 800 mg PO TID [facility] Last Admin: 09/28/18 12:56 Dose: 800 mg Sitagliptin Phosphate (Januvia) 25 mg PO DAILY [facility] Last Admin: 09/28/18 09:06 Dose: 25 mg Ticagrelor (Brilinta) 90 mg PO Q12 [facility] Last Admin: 09/28/18 09:01 Dose: 90 mg Vitamin A (Vitamin A & D Oint Ud Foilpak) 1 ea TOP DAILY [facility] Last Admin: 09/28/18 09:10 Dose: 1 ea Vitamin B Complex/Vit C/Folic Acid (Nephro-Buster) 1 tab PO DAILY [facility] Last Admin: 09/28/18 09:06 Dose: 1 tab - Labs Labs: 09/28/18 05:05 09/28/18 05:05 PT 11.8 Seconds (9.8-13.1) 09/24/18 17:45 INR 1.0 09/24/18 17:45 APTT 36.2 Seconds (25.6-37.1) 09/24/18 17:45 - Constitutional Appears: No Acute Distress - Head Exam Head Exam: NORMAL INSPECTION - Eye Exam Eye Exam: PERRL - ENT Exam ENT Exam: Mucous Membranes Moist - Neck Exam Neck Exam: Normal Inspection - Respiratory Exam Respiratory Exam: Decreased Breath Sounds (b/l) Additional comments: L chest pig teal - Cardiovascular Exam Cardiovascular Exam: REGULAR RHYTHM - GI/Abdominal Exam GI & Abdominal Exam: Soft, Normal Bowel Sounds - Extremities Exam Additional comments: Edema L/E - Back Exam Back Exam: NORMAL INSPECTION - Neurological Exam Neurological Exam: Alert, CN II-XII Intact Additional comments: Confused but oriented x 2, moves all extremities. - Psychiatric Exam Psychiatric exam: Normal Mood - Skin Skin Exam: Dry, Warm Assessment and Plan (1) Respiratory insufficiency Status: Acute (2) PNA (pneumonia) Status: Acute (3) Pulmonary nodules Status: Acute (4) Recurrent left pleural effusion Status: Chronic (5) Pleural effusion, right Status: Acute - Assessment and Plan (Free Text) Plan: Continue Zithromax, Ceftriaxone and rest of Tx.
--- NOTE | 2018-09-28 22:04 | CP.PCM.CON ---
History of Present Illness - History of Present Illness History of Present Illness: 57 year old female with a history of uterine cancer s/p surgery 2007, HTN, DM, ESRD on HD, chronic pleural effusion s/p pleurex catheter, admitted with syncopal episode. The patient is well known to me. She had a PET CT scan in 10/2017 which did not reveal overt evidence of recurrent malignancy. Multiple cytology evaluations of her pleural fluid have returned negative for malignant cells. The patient continues to require pleural fluid drainage. A CT chest revealed b/l densities concerning for metastatic disease. Past medical history: uterine cancer s/p surgery 2007, HTN, DM, ESRD on HD, chronic pleural effusion s/p pleurex catheter, Past surgical history: Radical hysterectomy Family history: Mother had stomach cancer Social history: Former tobacco abuse Allergies: NKDA Review of systems: All remaining review of systems including HEENT, cardiovascular, respiratory, gastrointestinal, genitourinary, musculoskeletal, dermatologic, neurologic and psychiatric are negative unless mentioned in the HPI. Past Patient History - Past Medical History & Family History Past Medical History?: Yes - Past Social History Smoking Status: Former Smoker Alcohol: None Drugs: Denies Home Situation {Lives}: With Family - CARDIAC Hx Cardiac Disorders: Yes Hx Congestive Heart Failure: Yes Hx Hypercholesterolemia: Yes Hx Hypertension: Yes Other/Comment: Left chest pleural cath - PULMONARY Hx Respiratory Disorders: Yes Hx Chronic Obstructive Pulmonary Disease (COPD): Yes Hx Pneumonia: Yes - NEUROLOGICAL Hx Neurological Disorder: No - HEENT Hx HEENT Problems: No - RENAL Hx Chronic Kidney Disease: Yes Hx Dialysis: Yes Type of Dialysis Access: Right chest Permacath Date of Last Dialysis Treatment: 09/22/18 - ENDOCRINE/METABOLIC Hx Endocrine Disorders: Yes Hx Diabetes Mellitus Type 2: Yes Hx Hypothyroidism: Yes - HEMATOLOGICAL/ONCOLOGICAL Hx Blood Disorders: No - INTEGUMENTARY Hx Dermatological Problems: No - MUSCULOSKELETAL/RHEUMATOLOGICAL Hx Musculoskeletal Disorders: Yes Hx Arthritis: Yes Hx Falls: No - GASTROINTESTINAL Hx Gastrointestinal Disorders: No - GENITOURINARY/GYNECOLOGICAL Hx Genitourinary Disorders: No - PSYCHIATRIC Hx Psychophysiologic Disorder: No Hx Substance Use: No - SURGICAL HISTORY Hx Surgeries: Yes Hx Hysterectomy: Yes Other/Comment: cardiac stent (08/2018) - ANESTHESIA Hx Anesthesia: Yes Hx Anesthesia Reactions: No Hx Malignant Hyperthermia: No Meds Allergies/Adverse Reactions: Allergies Allergy/AdvReac Type Severity Reaction Status Date / Time shrimp Allergy Severe ANAPHYLAXIS Verified 09/24/18 17:14 - Medications Medications: Current Medications Acetaminophen (Tylenol 325mg Tab) 650 mg PO Q6H PRN PRN Reason: Pain, Mild (1-3) Acetaminophen (Tylenol 325mg Tab) 650 mg PO Q6H PRN PRN Reason: Fever >100.4 F Amlodipine Besylate (Norvasc) 10 mg PO DAILY [facility] Last Admin: 09/28/18 09:06 Dose: 10 mg Aspirin (Ecotrin) 81 mg PO DAILY [facility] Last Admin: 09/28/18 09:03 Dose: 81 mg Atorvastatin Calcium (Lipitor) 40 mg PO HS [facility] Last Admin: 09/27/18 21:11 Dose: 40 mg Carvedilol (Coreg) 12.5 mg PO Q12 [facility] Last Admin: 09/28/18 09:02 Dose: 12.5 mg Epoetin Steve (Procrit) 10,000 unit IV MWF [facility] Last Admin: 09/27/18 12:52 Dose: 10,000 unit Heparin Sodium (Porcine) (Heparin) 5,000 units SC Q12 [facility]; Protocol Last Admin: 09/28/18 09:04 Dose: Not Given Hydralazine HCl (Apresoline) 50 mg PO MWF@0900,1700 [facility] Last Admin: 09/27/18 16:45 Dose: 50 mg Ceftriaxone Sodium 1 gm/ (Sodium Chloride) 100 mls @ 100 mls/hr IVPB DAILY [facility]; Protocol Last Admin: 09/28/18 10:44 Dose: 100 mls/hr Azithromycin 500 mg/ Sodium (Chloride) 250 mls @ 250 mls/hr IVPB DAILY [facility]; Protocol Last Admin: 09/28/18 11:53 Dose: 250 mls/hr Insulin Human Regular (Humulin R) 0 units SC ACHS [facility]; Protocol Last Admin: 09/28/18 16:54 Dose: Not Given Levothyroxine Sodium (Synthroid) 50 mcg PO DAILY@0630 [facility] Last Admin: 09/28/18 06:23 Dose: 50 mcg Losartan Potassium (Cozaar) 100 mg PO DAILY [facility] Last Admin: 09/28/18 09:03 Dose: 100 mg Ondansetron HCl (Zofran Inj) 4 mg IVP Q6H PRN PRN Reason: Nausea/Vomiting Pantoprazole Sodium (Protonix Ec Tab) 40 mg PO DAILY [facility] Last Admin: 09/28/18 09:07 Dose: 40 mg Sevelamer Carbonate (Renvela) 800 mg PO TID [facility] Last Admin: 09/28/18 16:55 Dose: 800 mg Sitagliptin Phosphate (Januvia) 25 mg PO DAILY [facility] Last Admin: 09/28/18 09:06 Dose: 25 mg Ticagrelor (Brilinta) 90 mg PO Q12 [facility] Last Admin: 09/28/18 09:01 Dose: 90 mg Vitamin A (Vitamin A & D Oint Ud Foilpak) 1 ea TOP DAILY [facility] Last Admin: 09/28/18 09:10 Dose: 1 ea Vitamin B Complex/Vit C/Folic Acid (Nephro-Buster) 1 tab PO DAILY [facility] Last Admin: 09/28/18 09:06 Dose: 1 tab Physical Exam - Head Exam Head Exam: ATRAUMATIC - Eye Exam Eye Exam: Normal appearance - ENT Exam ENT Exam: Mucous Membranes Dry - Respiratory Exam Respiratory Exam: Decreased Breath Sounds - Cardiovascular Exam Cardiovascular Exam: +S1, +S2 - GI/Abdominal Exam GI & Abdominal Exam: Normal Bowel Sounds - Neurological Exam Neurological exam: Oriented x3 - Psychiatric Exam Psychiatric exam: Normal Affect, Normal Mood - Skin Skin Exam: Warm Results - Vital Signs Recent Vital Signs: Last Vital Signs Temp 98.2 F 09/28/18 19:58 Pulse 72 09/28/18 19:58 Resp 18 09/28/18 19:58 BP 133/73 09/28/18 19:58 Pulse Ox 94 L 09/28/18 19:58 - Labs Result Diagrams: 09/28/18 05:05 09/28/18 05:05 Labs: Laboratory Results - last 24 hr 09/25/18 09/27/18 09/28/18 10:00 12:28 05:05 WBC 12.7 H RBC 3.01 L Hgb 8.6 L Hct 26.2 L MCV 87.1 MCH 28.8 MCHC 33.0 RDW 16.5 H Plt Count 199 Sodium Potassium Chloride Carbon Dioxide Anion Gap BUN Creatinine Est GFR ( Amer) Est GFR (Non-Af Amer) POC Glucose (mg/dL) Random Glucose Calcium Cold Agglutinins Negative Hep Bs Antibody, Quant <5 L 09/28/18 09/28/18 09/28/18 05:05 05:30 10:41 WBC RBC Hgb Hct MCV MCH MCHC RDW Plt Count Sodium 132 Potassium 3.9 Chloride 98 Carbon Dioxide 28 Anion Gap 10 BUN 23 H Creatinine 2.7 H Est GFR ( Amer) 22 Est GFR (Non-Af Amer) 18 POC Glucose (mg/dL) 169 H 194 H Random Glucose 145 H Calcium 7.5 L Cold Agglutinins Hep Bs Antibody, Quant 09/28/18 16:01 WBC RBC Hgb Hct MCV MCH MCHC RDW Plt Count Sodium Potassium Chloride Carbon Dioxide Anion Gap BUN Creatinine Est GFR ( Amer) Est GFR (Non-Af Amer) POC Glucose (mg/dL) 139 H Random Glucose Calcium Cold Agglutinins Hep Bs Antibody, Quant Assessment & Plan (1) Pulmonary nodules Assessment and Plan: recommend discussing with IR if amenable to percutaneous biopsy Status: Acute Priority: High (2) Pleural effusion Assessment and Plan: chronic multiple cytology evaluations negative for malignancy Status: Acute (3) Anemia Assessment and Plan: retic count,b12, folate, ferritin to further characterize anemia of CKD on BREANA per renal Status: Acute (4) Leukocytosis Assessment and Plan: on antibiotics Thank you for this interesting consult. Status: Acute
--- NOTE | 2018-09-28 22:07 | CP.PCM.PN ---
Subjective - Date & Time of Evaluation Date of Evaluation: 09/28/18 Time of Evaluation: 11:30 - Subjective Subjective: Patient is less SOB Still with decreased breath sounds melissa on the left lower and mid lung Has no fever WBC 12 Less SOB Had HD. Objective - Vital Signs/Intake and Output Vital Signs (last 24 hours): Temp Pulse Resp BP Pulse Ox 98.2 F 72 18 133/73 94 L 09/28/18 19:58 09/28/18 19:58 09/28/18 19:58 09/28/18 19:58 09/28/18 19:58 Intake and Output: 09/28/18 09/29/18 18:59 06:59 Intake Total 1050 Balance 1050 - Medications Medications: Current Medications Acetaminophen (Tylenol 325mg Tab) 650 mg PO Q6H PRN PRN Reason: Pain, Mild (1-3) Acetaminophen (Tylenol 325mg Tab) 650 mg PO Q6H PRN PRN Reason: Fever >100.4 F Amlodipine Besylate (Norvasc) 10 mg PO DAILY [facility] Last Admin: 09/28/18 09:06 Dose: 10 mg Aspirin (Ecotrin) 81 mg PO DAILY [facility] Last Admin: 09/28/18 09:03 Dose: 81 mg Atorvastatin Calcium (Lipitor) 40 mg PO HS [facility] Last Admin: 09/27/18 21:11 Dose: 40 mg Carvedilol (Coreg) 12.5 mg PO Q12 [facility] Last Admin: 09/28/18 09:02 Dose: 12.5 mg Epoetin Steve (Procrit) 10,000 unit IV MWF [facility] Last Admin: 09/27/18 12:52 Dose: 10,000 unit Heparin Sodium (Porcine) (Heparin) 5,000 units SC Q12 [facility]; Protocol Last Admin: 09/28/18 09:04 Dose: Not Given Hydralazine HCl (Apresoline) 50 mg PO MWF@0900,1700 [facility] Last Admin: 09/27/18 16:45 Dose: 50 mg Ceftriaxone Sodium 1 gm/ (Sodium Chloride) 100 mls @ 100 mls/hr IVPB DAILY [facility]; Protocol Last Admin: 09/28/18 10:44 Dose: 100 mls/hr Azithromycin 500 mg/ Sodium (Chloride) 250 mls @ 250 mls/hr IVPB DAILY [facility]; Protocol Last Admin: 09/28/18 11:53 Dose: 250 mls/hr Insulin Human Regular (Humulin R) 0 units SC ACHS [facility]; Protocol Last Admin: 09/28/18 16:54 Dose: Not Given Levothyroxine Sodium (Synthroid) 50 mcg PO DAILY@0630 [facility] Last Admin: 09/28/18 06:23 Dose: 50 mcg Losartan Potassium (Cozaar) 100 mg PO DAILY [facility] Last Admin: 09/28/18 09:03 Dose: 100 mg Ondansetron HCl (Zofran Inj) 4 mg IVP Q6H PRN PRN Reason: Nausea/Vomiting Pantoprazole Sodium (Protonix Ec Tab) 40 mg PO DAILY [facility] Last Admin: 09/28/18 09:07 Dose: 40 mg Sevelamer Carbonate (Renvela) 800 mg PO TID [facility] Last Admin: 09/28/18 16:55 Dose: 800 mg Sitagliptin Phosphate (Januvia) 25 mg PO DAILY [facility] Last Admin: 09/28/18 09:06 Dose: 25 mg Ticagrelor (Brilinta) 90 mg PO Q12 [facility] Last Admin: 09/28/18 09:01 Dose: 90 mg Vitamin A (Vitamin A & D Oint Ud Foilpak) 1 ea TOP DAILY [facility] Last Admin: 09/28/18 09:10 Dose: 1 ea Vitamin B Complex/Vit C/Folic Acid (Nephro-Buster) 1 tab PO DAILY [facility] Last Admin: 09/28/18 09:06 Dose: 1 tab - Labs Labs: 09/28/18 05:05 09/28/18 05:05 PT 11.8 Seconds (9.8-13.1) 09/24/18 17:45 INR 1.0 09/24/18 17:45 APTT 36.2 Seconds (25.6-37.1) 09/24/18 17:45 - Head Exam Head Exam: NORMAL INSPECTION - Eye Exam Eye Exam: Normal appearance - ENT Exam ENT Exam: Mucous Membranes Moist - Respiratory Exam Respiratory Exam: Decreased Breath Sounds - Cardiovascular Exam Cardiovascular Exam: REGULAR RHYTHM - GI/Abdominal Exam GI & Abdominal Exam: Normal Bowel Sounds Assessment and Plan - Assessment and Plan (Free Text) Plan: Con tmeds Con ttx Cont HD cont phy stherapy
[2018-09-29] MEDS: Levothyroxine 50 MCG TAB PO SCH (05:56)
[2018-09-29] MEDS: Insulin Regular 100 units/ml SC SCH ×4 (08:45→21:47)
[2018-09-29] MEDS: Pantoprazole 40 mg EC Tab PO SCH (09:32)
[2018-09-29] MEDS: Multivitamin Vitamin B Complex (Nephro-Vite) Tab PO SCH (09:32)
[2018-09-29] MEDS: Vitamins A & D Oint UD Foilpak TOP SCH (09:33)
[2018-09-29] MEDS: EPOETIN ALFA 10,000 UNIT/ML ML IV SCH (09:33)
--- NOTE | 2018-09-29 13:07 | CP.PCM.PN ---
Subjective - Date & Time of Evaluation Date of Evaluation: 09/29/18 Time of Evaluation: 13:07 - Subjective Subjective: Dialysis note Patient is awake and conscious vital signs stable. She was seen on hemodialysis now discussed with the dialysis nurse Ultrafiltration of about 2000 cc as tolerated No nausea no vomiting . Objective - Vital Signs/Intake and Output Vital Signs (last 24 hours): Temp Pulse Resp BP Pulse Ox 98.7 F 75 20 156/63 H 96 09/29/18 08:46 09/29/18 08:46 09/29/18 08:46 09/29/18 08:46 09/29/18 08:46 Intake and Output: 09/29/18 09/29/18 06:59 18:59 Intake Total 1050 Balance 1050 - Medications Medications: Current Medications Acetaminophen (Tylenol 325mg Tab) 650 mg PO Q6H PRN PRN Reason: Pain, Mild (1-3) Acetaminophen (Tylenol 325mg Tab) 650 mg PO Q6H PRN PRN Reason: Fever >100.4 F Amlodipine Besylate (Norvasc) 10 mg PO DAILY [facility] Last Admin: 09/29/18 09:32 Dose: 10 mg Aspirin (Ecotrin) 81 mg PO DAILY [facility] Last Admin: 09/29/18 09:32 Dose: 81 mg Atorvastatin Calcium (Lipitor) 40 mg PO HS [facility] Last Admin: 09/28/18 22:10 Dose: 40 mg Carvedilol (Coreg) 12.5 mg PO Q12 [facility] Last Admin: 09/29/18 09:32 Dose: 12.5 mg Epoetin Steve (Procrit) 10,000 unit IV MWF [facility] Last Admin: 09/29/18 09:33 Dose: 10,000 unit Heparin Sodium (Porcine) (Heparin) 5,000 units SC Q12 [facility]; Protocol Last Admin: 09/29/18 08:38 Dose: Not Given Hydralazine HCl (Apresoline) 50 mg PO MWF@0900,1700 [facility] Last Admin: 09/29/18 09:34 Dose: 50 mg Ceftriaxone Sodium 1 gm/ (Sodium Chloride) 100 mls @ 100 mls/hr IVPB DAILY [facility]; Protocol Last Admin: 09/28/18 10:44 Dose: 100 mls/hr Azithromycin 500 mg/ Sodium (Chloride) 250 mls @ 250 mls/hr IVPB DAILY [facility]; Protocol Last Admin: 09/28/18 11:53 Dose: 250 mls/hr Insulin Human Regular (Humulin R) 0 units SC ACHS [facility]; Protocol Last Admin: 09/29/18 12:08 Dose: Not Given Levothyroxine Sodium (Synthroid) 50 mcg PO DAILY@0630 [facility] Last Admin: 09/29/18 05:56 Dose: 50 mcg Losartan Potassium (Cozaar) 100 mg PO DAILY [facility] Last Admin: 09/29/18 09:34 Dose: 100 mg Ondansetron HCl (Zofran Inj) 4 mg IVP Q6H PRN PRN Reason: Nausea/Vomiting Pantoprazole Sodium (Protonix Ec Tab) 40 mg PO DAILY [facility] Last Admin: 09/29/18 09:32 Dose: 40 mg Sevelamer Carbonate (Renvela) 800 mg PO TID [facility] Last Admin: 09/29/18 12:06 Dose: 800 mg Sitagliptin Phosphate (Januvia) 25 mg PO DAILY [facility] Last Admin: 09/29/18 09:32 Dose: 25 mg Ticagrelor (Brilinta) 90 mg PO Q12 [facility] Last Admin: 09/29/18 09:32 Dose: 90 mg Vitamin A (Vitamin A & D Oint Ud Foilpak) 1 ea TOP DAILY [facility] Last Admin: 09/29/18 09:33 Dose: 1 ea Vitamin B Complex/Vit C/Folic Acid (Nephro-Buster) 1 tab PO DAILY [facility] Last Admin: 09/29/18 09:32 Dose: 1 tab - Labs Labs: 09/28/18 05:05 09/28/18 05:05 PT 11.8 Seconds (9.8-13.1) 09/24/18 17:45 INR 1.0 09/24/18 17:45 APTT 36.2 Seconds (25.6-37.1) 09/24/18 17:45 - Constitutional Appears: No Acute Distress - Eye Exam Eye Exam: Conjunctival injection - ENT Exam ENT Exam: Mucous Membranes Moist - Respiratory Exam Respiratory Exam: NORMAL BREATHING PATTERN. absent: Chest Wall Tenderness - Cardiovascular Exam Cardiovascular Exam: absent: JVD - GI/Abdominal Exam GI & Abdominal Exam: Soft, Normal Bowel Sounds - Extremities Exam Extremities Exam: absent: Calf Tenderness - Back Exam Back Exam: absent: CVA tenderness (L), CVA tenderness (R) - Neurological Exam Neurological Exam: Alert - Psychiatric Exam Psychiatric exam: Normal Affect - Skin Skin Exam: absent: Cyanosis Assessment and Plan (1) Chronic kidney disease with end stage renal failure on dialysis Assessment & Plan: ESRD Leukocytosis, trending down CHF with fluid overload, missed HD , improving Small bilateral pleural effusion Bilateral nodular density on CT scan suggestive? Metastatic disease Diabetic chronic Kidney Disease (E11.22) Hypertensive Chronic Kidney Disease (I12.0) End stage renal disease (N18.6) dependence on hemodialysis (Z99.2) MWF) via PC Anemia (D64.9), Hyperphosphatemia (E83.39), Secondary Hyperparathyroidism (E21.1), HTN (I12.0) Plan: She was seen on hemodialysis at bedside Vital signs stable Discussed with the dialysis nurse Tolerating hemodialysis well. Discussed with the pulmonary for the CAT scan finding patient being evaluated to rule out malignancy Status: Acute
--- NOTE | 2018-09-29 15:11 | CP.PCM.PN ---
Subjective - Date & Time of Evaluation Date of Evaluation: 09/29/18 Time of Evaluation: 09:30 - Subjective Subjective: F/U Pulmonary consult. Pt feels better, breathing better, no SOB. Objective - Vital Signs/Intake and Output Vital Signs (last 24 hours): Temp Pulse Resp BP Pulse Ox 97.9 F 67 20 113/56 L 97 09/29/18 14:41 09/29/18 14:41 09/29/18 14:41 09/29/18 14:41 09/29/18 14:41 Intake and Output: 09/29/18 09/29/18 06:59 18:59 Intake Total 1050 Balance 1050 - Medications Medications: Current Medications Acetaminophen (Tylenol 325mg Tab) 650 mg PO Q6H PRN PRN Reason: Pain, Mild (1-3) Acetaminophen (Tylenol 325mg Tab) 650 mg PO Q6H PRN PRN Reason: Fever >100.4 F Amlodipine Besylate (Norvasc) 10 mg PO DAILY [facility] Last Admin: 09/29/18 09:32 Dose: 10 mg Aspirin (Ecotrin) 81 mg PO DAILY [facility] Last Admin: 09/29/18 09:32 Dose: 81 mg Atorvastatin Calcium (Lipitor) 40 mg PO HS [facility] Last Admin: 09/28/18 22:10 Dose: 40 mg Carvedilol (Coreg) 12.5 mg PO Q12 [facility] Last Admin: 09/29/18 09:32 Dose: 12.5 mg Epoetin Steve (Procrit) 10,000 unit IV MWF [facility] Last Admin: 09/29/18 09:33 Dose: 10,000 unit Heparin Sodium (Porcine) (Heparin) 5,000 units SC Q12 [facility]; Protocol Last Admin: 09/29/18 08:38 Dose: Not Given Hydralazine HCl (Apresoline) 50 mg PO MWF@0900,1700 [facility] Last Admin: 09/29/18 09:34 Dose: 50 mg Ceftriaxone Sodium 1 gm/ (Sodium Chloride) 100 mls @ 100 mls/hr IVPB DAILY [facility]; Protocol Last Admin: 09/28/18 10:44 Dose: 100 mls/hr Azithromycin 500 mg/ Sodium (Chloride) 250 mls @ 250 mls/hr IVPB DAILY [facility]; Protocol Last Admin: 09/28/18 11:53 Dose: 250 mls/hr Insulin Human Regular (Humulin R) 0 units SC ACHS [facility]; Protocol Last Admin: 09/29/18 12:08 Dose: Not Given Levothyroxine Sodium (Synthroid) 50 mcg PO DAILY@0630 [facility] Last Admin: 09/29/18 05:56 Dose: 50 mcg Losartan Potassium (Cozaar) 100 mg PO DAILY [facility] Last Admin: 09/29/18 09:34 Dose: 100 mg Ondansetron HCl (Zofran Inj) 4 mg IVP Q6H PRN PRN Reason: Nausea/Vomiting Pantoprazole Sodium (Protonix Ec Tab) 40 mg PO DAILY [facility] Last Admin: 09/29/18 09:32 Dose: 40 mg Sevelamer Carbonate (Renvela) 800 mg PO TID [facility] Last Admin: 09/29/18 12:06 Dose: 800 mg Sitagliptin Phosphate (Januvia) 25 mg PO DAILY [facility] Last Admin: 09/29/18 09:32 Dose: 25 mg Ticagrelor (Brilinta) 90 mg PO Q12 [facility] Last Admin: 09/29/18 09:32 Dose: 90 mg Vitamin A (Vitamin A & D Oint Ud Foilpak) 1 ea TOP DAILY [facility] Last Admin: 09/29/18 09:33 Dose: 1 ea Vitamin B Complex/Vit C/Folic Acid (Nephro-Buster) 1 tab PO DAILY [facility] Last Admin: 09/29/18 09:32 Dose: 1 tab - Labs Labs: 09/28/18 05:05 09/28/18 05:05 PT 11.8 Seconds (9.8-13.1) 09/24/18 17:45 INR 1.0 09/24/18 17:45 APTT 36.2 Seconds (25.6-37.1) 09/24/18 17:45 - Constitutional Appears: No Acute Distress - Head Exam Head Exam: NORMAL INSPECTION - Eye Exam Eye Exam: PERRL - ENT Exam ENT Exam: Mucous Membranes Moist - Neck Exam Neck Exam: Normal Inspection - Respiratory Exam Respiratory Exam: Decreased Breath Sounds (at bases) Additional comments: L chest pig tail - Cardiovascular Exam Cardiovascular Exam: REGULAR RHYTHM - GI/Abdominal Exam GI & Abdominal Exam: Soft, Normal Bowel Sounds - Extremities Exam Additional comments: Edema L/E - Back Exam Back Exam: CVA tenderness (L) - Neurological Exam Neurological Exam: Alert, CN II-XII Intact Additional comments: Ox2, moves all extremities. - Psychiatric Exam Psychiatric exam: Normal Mood - Skin Skin Exam: Dry, Warm Assessment and Plan (1) Respiratory insufficiency Status: Acute (2) PNA (pneumonia) Status: Acute (3) Pulmonary nodules Status: Acute (4) Recurrent left pleural effusion Status: Chronic (5) Pleural effusion, right Status: Acute - Assessment and Plan (Free Text) Plan: f/u Sputum Cytology, L pleural fluid Cytology, if negative for malignancy, repeat PET as out Patient if negative, consider L Pleurodesis and DC Left Pigtail, continue O2 NC 3 L/M, Zithromax, Rocephin, and rest of Tx.
[2018-09-29] MEDS: Azithromycin 500 MG in Sodium Chloride 0.9% 250 ML IVPB SCH (15:30)
--- NOTE | 2018-09-29 21:35 | CP.PCM.PN ---
Subjective - Date & Time of Evaluation Date of Evaluation: 09/29/18 Time of Evaluation: 18:35 - Subjective Subjective: Feeling better Discussed imaging with IR Dr. Lorenzana; no significant pathology ammenable to biopsy. Repeat imaging/PET as outpatient Objective - Vital Signs/Intake and Output Vital Signs (last 24 hours): Temp Pulse Resp BP Pulse Ox 99.1 F 81 17 128/68 99 09/29/18 19:53 09/29/18 19:53 09/29/18 19:53 09/29/18 19:53 09/29/18 19:53 - Medications Medications: Current Medications Acetaminophen (Tylenol 325mg Tab) 650 mg PO Q6H PRN PRN Reason: Pain, Mild (1-3) Acetaminophen (Tylenol 325mg Tab) 650 mg PO Q6H PRN PRN Reason: Fever >100.4 F Amlodipine Besylate (Norvasc) 10 mg PO DAILY [facility] Last Admin: 09/29/18 09:32 Dose: 10 mg Aspirin (Ecotrin) 81 mg PO DAILY [facility] Last Admin: 09/29/18 09:32 Dose: 81 mg Atorvastatin Calcium (Lipitor) 40 mg PO HS [facility] Last Admin: 09/28/18 22:10 Dose: 40 mg Carvedilol (Coreg) 12.5 mg PO Q12 [facility] Last Admin: 09/29/18 09:32 Dose: 12.5 mg Epoetin Steve (Procrit) 10,000 unit IV MWF [facility] Last Admin: 09/29/18 09:33 Dose: 10,000 unit Heparin Sodium (Porcine) (Heparin) 5,000 units SC Q12 [facility]; Protocol Last Admin: 09/29/18 08:38 Dose: Not Given Hydralazine HCl (Apresoline) 50 mg PO MWF@0900,1700 [facility] Last Admin: 09/29/18 17:40 Dose: 50 mg Ceftriaxone Sodium 1 gm/ (Sodium Chloride) 100 mls @ 100 mls/hr IVPB DAILY [facility]; Protocol Last Admin: 09/29/18 15:45 Dose: 100 mls/hr Azithromycin 500 mg/ Sodium (Chloride) 250 mls @ 250 mls/hr IVPB DAILY [facility]; Pr otocol Last Admin: 09/29/18 15:30 Dose: 250 mls/hr Insulin Human Regular (Humulin R) 0 units SC ACHS [facility]; Protocol Last Admin: 09/29/18 17:49 Dose: 1 unit Levothyroxine Sodium (Synthroid) 50 mcg PO DAILY@0630 [facility] Last Admin: 09/29/18 05:56 Dose: 50 mcg Losartan Potassium (Cozaar) 100 mg PO DAILY [facility] Last Admin: 09/29/18 09:34 Dose: 100 mg Ondansetron HCl (Zofran Inj) 4 mg IVP Q6H PRN PRN Reason: Nausea/Vomiting Pantoprazole Sodium (Protonix Ec Tab) 40 mg PO DAILY [facility] Last Admin: 09/29/18 09:32 Dose: 40 mg Sevelamer Carbonate (Renvela) 800 mg PO TID [facility] Last Admin: 09/29/18 17:40 Dose: 800 mg Sitagliptin Phosphate (Januvia) 25 mg PO DAILY [facility] Last Admin: 09/29/18 09:32 Dose: 25 mg Ticagrelor (Brilinta) 90 mg PO Q12 [facility] Last Admin: 09/29/18 09:32 Dose: 90 mg Vitamin A (Vitamin A & D Oint Ud Foilpak) 1 ea TOP DAILY [facility] Last Admin: 09/29/18 09:33 Dose: 1 ea Vitamin B Complex/Vit C/Folic Acid (Nephro-Buster) 1 tab PO DAILY [facility] Last Admin: 09/29/18 09:32 Dose: 1 tab - Labs Labs: 09/28/18 05:05 09/28/18 05:05 PT 11.8 Seconds (9.8-13.1) 09/24/18 17:45 INR 1.0 09/24/18 17:45 APTT 36.2 Seconds (25.6-37.1) 09/24/18 17:45 - Head Exam Head Exam: ATRAUMATIC - Eye Exam Eye Exam: Normal appearance - ENT Exam ENT Exam: Mucous Membranes Dry - Respiratory Exam Respiratory Exam: Decreased Breath Sounds - Cardiovascular Exam Cardiovascular Exam: +S1, +S2 - GI/Abdominal Exam GI & Abdominal Exam: Normal Bowel Sounds Assessment and Plan (1) Pulmonary nodules Assessment & Plan: reviewed by IR; not amenable to biopsy repeat outpatient imaging Status: Acute (2) Pleural effusion Assessment & Plan: several cytology evaluations negative for malignancy Status: Acute (3) Anemia Assessment & Plan: anemia of CKD BREANA per renal Status: Acute (4) Leukocytosis Assessment & Plan: on antibiotics Status: Acute
[2018-09-30] MEDS: Levothyroxine 50 MCG TAB PO SCH (05:52)
[2018-09-30 06:08] LABS: HEMOGLOBIN 8.5 g/dL (12.0-16.0); MEAN CELL VOLUME 87.6 fl (81.0-99.0); MEAN CORPUSCULAR HEMOGLOBIN 29.3 pg (27.0-31.0); MEAN CORPUSCULAR HGB CONC 33.4 g/dL (33.0-37.0); RBC 2.91 Mil/uL (3.80-5.20); RED CELL DISTRIBUTION WIDTH 17.3 % (11.5-14.5); WHITE BLOOD COUNT 10.5 K/uL (4.8-10.8)
[2018-09-30 06:20] LABS: CALCIUM 7.9 mg/dL (8.4-10.2)
[2018-09-30] MEDS: Vitamins A & D Oint UD Foilpak TOP SCH (09:01)
[2018-09-30] MEDS: Multivitamin Vitamin B Complex (Nephro-Vite) Tab PO SCH (09:02)
[2018-09-30] MEDS: Pantoprazole 40 mg EC Tab PO SCH (09:02)
[2018-09-30] MEDS: Insulin Regular 100 units/ml SC SCH ×4 (09:04→22:19)
--- NOTE | 2018-09-30 10:41 | CP.PCM.PN ---
Subjective - Date & Time of Evaluation Date of Evaluation: 09/30/18 Time of Evaluation: 10:41 - Subjective Subjective: Patient awake and conscious not in acute distress Patient feeling much better Vital signs noted Objective - Vital Signs/Intake and Output Vital Signs (last 24 hours): Temp Pulse Resp BP Pulse Ox 98.3 F 70 18 154/66 H 92 L 09/30/18 08:33 09/30/18 08:33 09/30/18 08:33 09/30/18 08:33 09/30/18 08:33 - Medications Medications: Current Medications Acetaminophen (Tylenol 325mg Tab) 650 mg PO Q6H PRN PRN Reason: Pain, Mild (1-3) Acetaminophen (Tylenol 325mg Tab) 650 mg PO Q6H PRN PRN Reason: Fever >100.4 F Amlodipine Besylate (Norvasc) 10 mg PO DAILY [facility] Last Admin: 09/30/18 09:02 Dose: 10 mg Aspirin (Ecotrin) 81 mg PO DAILY [facility] Last Admin: 09/30/18 09:02 Dose: 81 mg Atorvastatin Calcium (Lipitor) 40 mg PO HS [facility] Last Admin: 09/29/18 21:46 Dose: 40 mg Carvedilol (Coreg) 12.5 mg PO Q12 [facility] Last Admin: 09/29/18 21:46 Dose: 12.5 mg Epoetin Steve (Procrit) 10,000 unit IV MWF [facility] Last Admin: 09/29/18 09:33 Dose: 10,000 unit Heparin Sodium (Porcine) (Heparin) 5,000 units SC Q12 [facility]; Protocol Last Admin: 09/30/18 09:12 Dose: Not Given Hydralazine HCl (Apresoline) 50 mg PO MWF@0900,1700 [facility] Last Admin: 09/29/18 17:40 Dose: 50 mg Ceftriaxone Sodium 1 gm/ (Sodium Chloride) 100 mls @ 100 mls/hr IVPB DAILY [facility]; Protocol Last Admin: 09/30/18 09:01 Dose: 100 mls/hr Azithromycin 500 mg/ Sodium (Chloride) 250 mls @ 250 mls/hr IVPB DAILY [facility]; Protocol Last Admin: 09/29/18 15:30 Dose: 250 mls/hr Insulin Human Regular (Humulin R) 0 units SC ACHS [facility]; Protocol Last Admin: 09/30/18 09:04 Dose: 1 unit Levothyroxine Sodium (Synthroid) 50 mcg PO DAILY@0630 [facility] Last Admin: 09/30/18 05:52 Dose: 50 mcg Losartan Potassium (Cozaar) 100 mg PO DAILY [facility] Last Admin: 09/30/18 09:00 Dose: 100 mg Ondansetron HCl (Zofran Inj) 4 mg IVP Q6H PRN PRN Reason: Nausea/Vomiting Pantoprazole Sodium (Protonix Ec Tab) 40 mg PO DAILY [facility] Last Admin: 09/30/18 09:02 Dose: 40 mg Sevelamer Carbonate (Renvela) 800 mg PO TID [facility] Last Admin: 09/30/18 09:01 Dose: 800 mg Sitagliptin Phosphate (Januvia) 25 mg PO DAILY [facility] Last Admin: 09/30/18 09:02 Dose: 25 mg Ticagrelor (Brilinta) 90 mg PO Q12 [facility] Last Admin: 09/30/18 08:59 Dose: 90 mg Vitamin A (Vitamin A & D Oint Ud Foilpak) 1 ea TOP DAILY [facility] Last Admin: 09/30/18 09:01 Dose: 1 ea Vitamin B Complex/Vit C/Folic Acid (Nephro-Buster) 1 tab PO DAILY [facility] Last Admin: 09/30/18 09:02 Dose: 1 tab - Labs Labs: 09/30/18 04:25 09/30/18 04:25 PT 11.8 Seconds (9.8-13.1) 09/24/18 17:45 INR 1.0 09/24/18 17:45 APTT 36.2 Seconds (25.6-37.1) 09/24/18 17:45 - Constitutional Appears: No Acute Distress - Eye Exam Eye Exam: Conjunctival injection - ENT Exam ENT Exam: Mucous Membranes Moist - Respiratory Exam Respiratory Exam: Rhonchi - Cardiovascular Exam Cardiovascular Exam: absent: Gallop, JVD, Rubs - GI/Abdominal Exam GI & Abdominal Exam: Soft, Normal Bowel Sounds - Extremities Exam Extremities Exam: absent: Calf Tenderness - Back Exam Back Exam: absent: CVA tenderness (L), CVA tenderness (R) - Neurological Exam Neurological Exam: Alert - Skin Skin Exam: absent: Cyanosis Assessment and Plan (1) Chronic kidney disease with end stage renal failure on dialysis Assessment & Plan: ESRD Leukocytosis, trending down CHF with fluid overload, missed HD , improving Small bilateral pleural effusion Bilateral nodular density on CT scan suggestive? Metastatic disease Diabetic chronic Kidney Disease (E11.22) Hypertensive Chronic Kidney Disease (I12.0) End stage renal disease (N18.6) dependence on hemodialysis (Z99.2) MWF) via PC Anemia (D64.9), Hyperphosphatemia (E83.39), Secondary Hyperparathyroidism (E21.1), HTN (I12.0) Recommendation Continue hemodialysis as scheduled Pulmonary and oncology follow-up noted Status: Acute
[2018-09-30] MEDS: Azithromycin 500 MG in Sodium Chloride 0.9% 250 ML IVPB SCH (11:00)
--- NOTE | 2018-09-30 11:35 | CP.PCM.PCO ---
Assessment & Plan - Assessment and Plan (Free Text) Assessment: pt. seen and examined. c/o fatigue, sob improved lungs crackles LLL, cta R lobd labs reviewed pt. will require 7 more day of iv abx Rocephin 1gm IV daily cont. zithromaz 500 mg iv daily x 7 days
--- NOTE | 2018-09-30 12:31 | CP.PCM.PN ---
Subjective - Date & Time of Evaluation Date of Evaluation: 09/30/18 Time of Evaluation: 09:30 - Subjective Subjective: F/U Pulmonary consult. No SOB, no cough, no A/D. Objective - Vital Signs/Intake and Output Vital Signs (last 24 hours): Temp Pulse Resp BP Pulse Ox 98.2 F 70 18 153/70 H 93 L 09/30/18 12:05 09/30/18 12:05 09/30/18 12:05 09/30/18 12:05 09/30/18 12:05 - Medications Medications: Current Medications Acetaminophen (Tylenol 325mg Tab) 650 mg PO Q6H PRN PRN Reason: Pain, Mild (1-3) Acetaminophen (Tylenol 325mg Tab) 650 mg PO Q6H PRN PRN Reason: Fever >100.4 F Amlodipine Besylate (Norvasc) 10 mg PO DAILY [facility] Last Admin: 09/30/18 09:02 Dose: 10 mg Aspirin (Ecotrin) 81 mg PO DAILY [facility] Last Admin: 09/30/18 09:02 Dose: 81 mg Atorvastatin Calcium (Lipitor) 40 mg PO HS [facility] Last Admin: 09/29/18 21:46 Dose: 40 mg Carvedilol (Coreg) 12.5 mg PO Q12 [facility] Last Admin: 09/29/18 21:46 Dose: 12.5 mg Epoetin Steve (Procrit) 10,000 unit IV MWF [facility] Last Admin: 09/29/18 09:33 Dose: 10,000 unit Heparin Sodium (Porcine) (Heparin) 5,000 units SC Q12 [facility]; Protocol Last Admin: 09/30/18 09:12 Dose: Not Given Hydralazine HCl (Apresoline) 50 mg PO MWF@0900,1700 [facility] Last Admin: 09/29/18 17:40 Dose: 50 mg Ceftriaxone Sodium 1 gm/ (Sodium Chloride) 100 mls @ 100 mls/hr IVPB DAILY [facility]; Protocol Last Admin: 09/30/18 09:01 Dose: 100 mls/hr Azithromycin 500 mg/ Sodium (Chloride) 250 mls @ 250 mls/hr IVPB DAILY [facility]; Protocol Last Admin: 09/29/18 15:30 Dose: 250 mls/hr Insulin Human Regular (Humulin R) 0 units SC ACHS [facility]; Protocol Last Admin: 09/30/18 09:04 Dose: 1 unit Levothyroxine Sodium (Synthroid) 50 mcg PO DAILY@0630 [facility] Last Admin: 09/30/18 05:52 Dose: 50 mcg Losartan Potassium (Cozaar) 100 mg PO DAILY [facility] Last Admin: 09/30/18 09:00 Dose: 100 mg Ondansetron HCl (Zofran Inj) 4 mg IVP Q6H PRN PRN Reason: Nausea/Vomiting Pantoprazole Sodium (Protonix Ec Tab) 40 mg PO DAILY [facility] Last Admin: 09/30/18 09:02 Dose: 40 mg Sevelamer Carbonate (Renvela) 800 mg PO TID [facility] Last Admin: 09/30/18 09:01 Dose: 800 mg Sitagliptin Phosphate (Januvia) 25 mg PO DAILY [facility] Last Admin: 09/30/18 09:02 Dose: 25 mg Ticagrelor (Brilinta) 90 mg PO Q12 [facility] Last Admin: 09/30/18 08:59 Dose: 90 mg Vitamin A (Vitamin A & D Oint Ud Foilpak) 1 ea TOP DAILY [facility] Last Admin: 09/30/18 09:01 Dose: 1 ea Vitamin B Complex/Vit C/Folic Acid (Nephro-Buster) 1 tab PO DAILY [facility] Last Admin: 09/30/18 09:02 Dose: 1 tab - Labs Labs: 09/30/18 04:25 09/30/18 04:25 PT 11.8 Seconds (9.8-13.1) 09/24/18 17:45 INR 1.0 09/24/18 17:45 APTT 36.2 Seconds (25.6-37.1) 09/24/18 17:45 - Constitutional Appears: No Acute Distress - Head Exam Head Exam: NORMAL INSPECTION - Eye Exam Eye Exam: PERRL - ENT Exam ENT Exam: Normal Exam - Neck Exam Neck Exam: Normal Inspection - Respiratory Exam Respiratory Exam: Decreased Breath Sounds (at bases) Additional comments: L pig tail - Cardiovascular Exam Cardiovascular Exam: REGULAR RHYTHM - GI/Abdominal Exam GI & Abdominal Exam: Soft, Normal Bowel Sounds - Extremities Exam Additional comments: Edema BLE - Back Exam Back Exam: NORMAL INSPECTION - Neurological Exam Neurological Exam: Alert, CN II-XII Intact, Oriented x3 Additional comments: . - Psychiatric Exam Psychiatric exam: Normal Mood - Skin Skin Exam: Dry, Warm Assessment and Plan (1) Respiratory insufficiency Status: Acute (2) PNA (pneumonia) Assessment & Plan: Unable to determine the type of Pneumonia. Status: Acute (3) Pulmonary nodules Status: Acute (4) Recurrent left pleural effusion Status: Chronic (5) Pleural effusion, right Status: Acute - Assessment and Plan (Free Text) Plan: Continue O2 NC, Zithromax, Ceftriaxone and rest of Tx. Discussed with Dr Thomson, Hematology corporate travel consultant, He knows Pt from [facility], he had a negative Pet scan one year ago, multiple studies with Thoracentesis, pleural flu id, cytology from pig tail negative for malignancy. suggestion to keep the Pig tail, f/u cytology of L pleural fluid, if negative, f/u Pet scan as out Pt, if work up is negative, then consider Pleurodesis and DC pig tail.
--- NOTE | 2018-09-30 18:11 | CP.PCM.PN ---
Subjective - Date & Time of Evaluation Date of Evaluation: 09/30/18 Time of Evaluation: 11:00 - Subjective Subjective: patient seen and examined at bedside. Interim events noted No complaints offered at this time denies cp/sob/fever/chills. available diagnostic data reviewed Review of Systems All systems: reviewed and no additional remarkable complaints except mentioned above Objective Vital Signs Stable - Constitutional Appears: Non-toxic, No Acute Distress Head Exam: NORMAL INSPECTION Eye Exam: Normal appearance Respiratory Exam: NORMAL BREATHING PATTERN, crackles noted LLL Cardiovascular Exam: +S1, +S2 GI & Abdominal Exam: Soft Neurological Exam: Alert, Awake Psychiatric exam: Normal Affect, Normal Mood Skin Exam: Normal Color, Warm Assessment and Plan monitor vitals monitor labs Cont meds Cont tx consultants appreciated input possible need for extended IV abx dispo planning rest of plan as ordered Objective - Vital Signs/Intake and Output Vital Signs (last 24 hours): Temp Pulse Resp BP Pulse Ox 98.2 F 69 17 142/65 94 L 09/30/18 15:58 09/30/18 15:58 09/30/18 15:58 09/30/18 15:58 09/30/18 15:58 - Medications Medications: Current Medications Acetaminophen (Tylenol 325mg Tab) 650 mg PO Q6H PRN PRN Reason: Pain, Mild (1-3) Acetaminophen (Tylenol 325mg Tab) 650 mg PO Q6H PRN PRN Reason: Fever >100.4 F Amlodipine Besylate (Norvasc) 10 mg PO DAILY [facility] Last Admin: 09/30/18 09:02 Dose: 10 mg Aspirin (Ecotrin) 81 mg PO DAILY [facility] Last Admin: 09/30/18 09:02 Dose: 81 mg Atorvastatin Calcium (Lipitor) 40 mg PO HS [facility] Last Admin: 09/29/18 21:46 Dose: 40 mg Carvedilol (Coreg) 12.5 mg PO Q12 [facility] Last Admin: 09/30/18 10:15 Dose: 12.5 mg [facility]poetin Steve ([facility] Last Admin: 09/29/18 09:33 Dose: 10,000 unit Heparin Sodium (Porcine) (Heparin) 5,000 units SC Q12 [facility]; Protocol Last Admin: 09/30/18 09:12 Dose: Not Given Hydralazine HCl (Apresoline) 50 mg PO MWF@0900,1700 [facility] Last Admin: 09/29/18 17:40 Dose: 50 mg Ceftriaxone Sodium 1 gm/ (Sodium Chloride) 100 mls @ 100 mls/hr IVPB DAILY [facility]; Protocol Last Admin: 09/30/18 09:01 Dose: 100 mls/hr Azithromycin 500 mg/ Sodium (Chloride) 250 mls @ 250 mls/hr IVPB DAILY [facility]; Protocol Last Admin: 09/30/18 11:00 Dose: 250 mls/hr Insulin Human Regular (Humulin R) 0 units SC ACHS [facility]; Protocol Last Admin: 09/30/18 16:48 Dose: 1 unit Levothyroxine Sodium (Synthroid) 50 mcg PO DAILY@0630 [facility] Last Admin: 09/30/18 05:52 Dose: 50 mcg Losartan Potassium (Cozaar) 100 mg PO DAILY [facility] Last Admin: 09/30/18 09:00 Dose: 100 mg Ondansetron HCl (Zofran Inj) 4 mg IVP Q6H PRN PRN Reason: Nausea/Vomiting Pantoprazole Sodium (Protonix Ec Tab) 40 mg PO DAILY [facility] Last Admin: 09/30/18 09:02 Dose: 40 mg Sevelamer Carbonate (Renvela) 800 mg PO TID [facility] Last Admin: 09/30/18 16:47 Dose: 800 mg Sitagliptin Phosphate (Januvia) 25 mg PO DAILY [facility] Last Admin: 09/30/18 09:02 Dose: 25 mg Ticagrelor (Brilinta) 90 mg PO Q12 [facility] Last Admin: 09/30/18 08:59 Dose: 90 mg Vitamin A (Vitamin A & D Oint Ud Foilpak) 1 ea TOP DAILY [facility] Last Admin: 09/30/18 09:01 Dose: 1 ea Vitamin B Complex/Vit C/Folic Acid (Nephro-Buster) 1 tab PO DAILY [facility] Last Admin: 09/30/18 09:02 Dose: 1 tab - Labs Labs: 09/30/18 04:25 09/30/18 04:25 PT 11.8 Seconds (9.8-13.1) 09/24/18 17:45 INR 1.0 09/24/18 17:45 APTT 36.2 Seconds (25.6-37.1) 09/24/18 17:45 Assessment and Plan (1) PNA (pneumonia) Status: Acute (2) Chronic kidney disease with end 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
--- NOTE | 2018-10-01 02:23 | CP.PCM.PN ---
Subjective - Date & Time of Evaluation Date of Evaluation: 09/29/18 Time of Evaluation: 08:15 - Subjective Subjective: Pt seen and assessed at bedside. No new complaints, pt reports feeling better. Of note, recent chest CT revealed metastatic areas to the lungs. Pt has a hx of uterine CA; Oncology is following on consult. Review of Systems - Review of Systems All systems: reviewed and no additional remarkable complaints except - Constitutional Constitutional: Malaise Objective - Vital Signs/Intake and Output Vital Signs (last 24 hours): Temp Pulse Resp BP Pulse Ox 98.5 F 69 18 147/58 L 93 L 10/01/18 00:25 10/01/18 00:25 10/01/18 00:25 10/01/18 00:25 10/01/18 00:25 - Medications Medications: Current Medications Acetaminophen (Tylenol 325mg Tab) 650 mg PO Q6H PRN PRN Reason: Pain, Mild (1-3) Acetaminophen (Tylenol 325mg Tab) 650 mg PO Q6H PRN PRN Reason: Fever >100.4 F Amlodipine Besylate (Norvasc) 10 mg PO DAILY [facility] Last Admin: 09/30/18 09:02 Dose: 10 mg Aspirin (Ecotrin) 81 mg PO DAILY [facility] Last Admin: 09/30/18 09:02 Dose: 81 mg Atorvastatin Calcium (Lipitor) 40 mg PO HS [facility] Last Admin: 09/30/18 22:17 Dose: 40 mg Carvedilol (Coreg) 12.5 mg PO Q12 [facility] Last Admin: 09/30/18 22:18 Dose: 12.5 mg Epoetin Steve (Procrit) 10,000 unit IV MWF [facility] Last Admin: 09/29/18 09:33 Dose: 10,000 unit Heparin Sodium (Porcine) (Heparin) 5,000 units SC Q12 [facility]; Protocol Last Admin: 09/30/18 21:00 Dose: Not Given Hydralazine HCl (Apresoline) 50 mg PO MWF@0900,1700 [facility] Last Admin: 09/29/18 17:40 Dose: 50 mg Ceftriaxone Sodium 1 gm/ (Sodium Chloride) 100 mls @ 100 mls/hr IVPB DAILY [facility]; Protocol Last Admin: 09/30/18 09:01 Dose: 100 mls/hr Azithromycin 500 mg/ Sodium (Chloride) 250 mls @ 250 mls/hr IVPB DAILY [facility]; Protocol Last Admin: 09/30/18 11:00 Dose: 250 mls/hr Insulin Human Regular (Humulin R) 0 units SC ACHS [facility]; Protocol Last Admin: 09/30/18 22:19 Dose: 2 unit Levothyroxine Sodium (Synthroid) 50 mcg PO DAILY@0630 [facility] Last Admin: 09/30/18 05:52 Dose: 50 mcg Losartan Potassium (Cozaar) 100 mg PO DAILY [facility] Last Admin: 09/30/18 09:00 Dose: 100 mg Ondansetron HCl (Zofran Inj) 4 mg IVP Q6H PRN PRN Reason: Nausea/Vomiting Pantoprazole Sodium (Protonix Ec Tab) 40 mg PO DAILY [facility] Last Admin: 09/30/18 09:02 Dose: 40 mg Sevelamer Carbonate (Renvela) 800 mg PO TID [facility] Last Admin: 09/30/18 16:47 Dose: 800 mg Sitagliptin Phosphate (Januvia) 25 mg PO DAILY [facility] Last Admin: 09/30/18 09:02 Dose: 25 mg Ticagrelor (Brilinta) 90 mg PO Q12 [facility] Last Admin: 09/30/18 22:17 Dose: 90 mg Vitamin A (Vitamin A & D Oint Ud Foilpak) 1 ea TOP DAILY [facility] Last Admin: 09/30/18 09:01 Dose: 1 ea Vitamin B Complex/Vit C/Folic Acid (Nephro-Buster) 1 tab PO DAILY [facility] Last Admin: 09/30/18 09:02 Dose: 1 tab - Labs Labs: 09/30/18 04:25 09/30/18 04:25 PT 11.8 Seconds (9.8-13.1) 09/24/18 17:45 INR 1.0 09/24/18 17:45 APTT 36.2 Seconds (25.6-37.1) 09/24/18 17:45 - Constitutional Appears: Older Than Stated Age - Head Exam Head Exam: NORMAL INSPECTION, NORMOCEPHALIC - Eye Exam Eye Exam: EOMI, Normal appearance, PERRL Pupil Exam: NORMAL ACCOMODATION, PERRL - ENT Exam ENT Exam: Mucous Membranes Moist - Neck Exam Neck Exam: Full ROM, Normal Inspection - Respiratory Exam Respiratory Exam: Decreased Breath Sounds, Rales Additional comments: left pleural catheter - Cardiovascular Exam Cardiovascular Exam: REGULAR RHYTHM, +S1, +S2 - GI/Abdominal Exam GI & Abdominal Exam: Soft, Normal Bowel Sounds - Extremities Exam Extremities Exam: Full ROM, Normal Inspection - Back Exam Back Exam: NORMAL INSPECTION - Neurological Exam Neurological Exam: Alert, Awake - Psychiatric Exam Psychiatric exam: Normal Affect, Normal Mood - Skin Skin Exam: Dry, Normal Color, Warm Assessment and Plan (1) Pleural effusion Assessment & Plan: 1.) Pleural Effusion -CT chest revealed nodular densities bilaterally, suspicious for metastatic disease. -Procalcitonin essentially negative. -Maintained on 3L O2 via nasal cannula, respiratory status improving. -consults input appreciated. -potentially for IR guided biopsy of suspicious areas. -monitor output from left pleural catheter. -continue current tx. Status: Acute (2) Chronic kidney disease Assessment & Plan: -Continue hemodialysis as scheduled. -Nephrology consult input appreciated. Status: Acute
[2018-10-01] MEDS: Levothyroxine 50 MCG TAB PO SCH (05:54)
[2018-10-01] MEDS: Insulin Regular 100 units/ml SC SCH ×2 (06:37→12:36)
[2018-10-01] MEDS: Multivitamin Vitamin B Complex (Nephro-Vite) Tab PO SCH (09:37)
[2018-10-01] MEDS: Pantoprazole 40 mg EC Tab PO SCH (09:37)
[2018-10-01] MEDS: Vitamins A & D Oint UD Foilpak TOP SCH (09:37)
[2018-10-01] MEDS: EPOETIN ALFA 10,000 UNIT/ML ML IV SCH (09:38)
[2018-10-01] MEDS: Azithromycin 500 MG in Sodium Chloride 0.9% 250 ML IVPB SCH (09:39)
--- NOTE | 2018-10-01 10:45 | CP.PCM.PN ---
Subjective - Date & Time of Evaluation Date of Evaluation: 10/01/18 Time of Evaluation: 10:45 - Subjective Subjective: Patient awake sitting up in bed feeling much better Less shortness of breath and she appears to be comfortable Vital signs stable Objective - Vital Signs/Intake and Output Vital Signs (last 24 hours): Temp Pulse Resp BP Pulse Ox 98.9 F 71 18 148/66 93 L 10/01/18 08:00 10/01/18 08:00 10/01/18 08:00 10/01/18 08:00 10/01/18 08:00 - Medications Medications: Current Medications Acetaminophen (Tylenol 325mg Tab) 650 mg PO Q6H PRN PRN Reason: Pain, Mild (1-3) Acetaminophen (Tylenol 325mg Tab) 650 mg PO Q6H PRN PRN Reason: Fever >100.4 F Amlodipine Besylate (Norvasc) 10 mg PO DAILY [facility] Last Admin: 10/01/18 09:37 Dose: 10 mg Aspirin (Ecotrin) 81 mg PO DAILY [facility] Last Admin: 10/01/18 09:37 Dose: 81 mg Atorvastatin Calcium (Lipitor) 40 mg PO HS [facility] Last Admin: 09/30/18 22:17 Dose: 40 mg Carvedilol (Coreg) 12.5 mg PO Q12 [facility] Last Admin: 10/01/18 09:38 Dose: 12.5 mg Epoetin Steve (Procrit) 10,000 unit IV MWF [facility] Last Admin: 10/01/18 09:38 Dose: 10,000 unit Heparin Sodium (Porcine) (Heparin) 5,000 units SC Q12 [facility]; Protocol Last Admin: 10/01/18 09:06 Dose: Not Given Hydralazine HCl (Apresoline) 50 mg PO MWF@0900,1700 [facility] Last Admin: 10/01/18 09:37 Dose: 50 mg Ceftriaxone Sodium 1 gm/ (Sodium Chloride) 100 mls @ 100 mls/hr IVPB DAILY [facility]; Protocol Last Admin: 10/01/18 09:39 Dose: 100 mls/hr Azithromycin 500 mg/ Sodium (Chloride) 250 mls @ 250 mls/hr IVPB DAILY [facility]; Pr otocol Last Admin: 10/01/18 09:39 Dose: 250 mls/hr Insulin Human Regular (Humulin R) 0 units SC ACHS [facility]; Protocol Last Admin: 10/01/18 06:37 Dose: Not Given Levothyroxine Sodium (Synthroid) 50 mcg PO DAILY@0630 [facility] Last Admin: 10/01/18 05:54 Dose: 50 mcg Losartan Potassium (Cozaar) 100 mg PO DAILY [facility] Last Admin: 10/01/18 09:37 Dose: 100 mg Ondansetron HCl (Zofran Inj) 4 mg IVP Q6H PRN PRN Reason: Nausea/Vomiting Pantoprazole Sodium (Protonix Ec Tab) 40 mg PO DAILY [facility] Last Admin: 10/01/18 09:37 Dose: 40 mg Sevelamer Carbonate (Renvela) 800 mg PO TID [facility] Last Admin: 10/01/18 09:36 Dose: 800 mg Sitagliptin Phosphate (Januvia) 25 mg PO DAILY [facility] Last Admin: 10/01/18 09:37 Dose: 25 mg Ticagrelor (Brilinta) 90 mg PO Q12 [facility] Last Admin: 10/01/18 09:37 Dose: 90 mg Vitamin A (Vitamin A & D Oint Ud Foilpak) 1 ea TOP DAILY [facility] Last Admin: 10/01/18 09:37 Dose: 1 ea Vitamin B Complex/Vit C/Folic Acid (Nephro-Buster) 1 tab PO DAILY [facility] Last Admin: 10/01/18 09:37 Dose: 1 tab - Labs Labs: 09/30/18 04:25 09/30/18 04:25 PT 11.8 Seconds (9.8-13.1) 09/24/18 17:45 INR 1.0 09/24/18 17:45 APTT 36.2 Seconds (25.6-37.1) 09/24/18 17:45 - Constitutional Appears: No Acute Distress - Eye Exam Eye Exam: absent: Conjunctival injection - ENT Exam ENT Exam: Mucous Membranes Moist - Neck Exam Neck Exam: absent: Lymphadenopathy - Respiratory Exam Respiratory Exam: NORMAL BREATHING PATTERN. absent: Chest Wall Tenderness - Cardiovascular Exam Cardiovascular Exam: REGULAR RHYTHM. absent: Gallop, JVD, Rubs - GI/Abdominal Exam GI & Abdominal Exam: Soft, Normal Bowel Sounds - Extremities Exam Extremities Exam: absent: Calf Tenderness - Back Exam Back Exam: absent: CVA tenderness (L), CVA tenderness (R) - Neurological Exam Neurological Exam: Alert - Psychiatric Exam Psychiatric exam: Normal Affect - Skin Skin Exam: absent: Cyanosis Assessment and Plan (1) Chronic kidney disease with end stage renal failure on dialysis Assessment & Plan: ESRD Leukocytosis, trending down CHF with fluid overload, missed HD , improving Small bilateral pleural effusion Bilateral nodular density on CT scan see the report for detail Diabetic chronic Kidney Disease (E11.22) Hypertensive Chronic Kidney Disease (I12.0) End stage renal disease (N18.6) dependence on hemodialysis (Z99.2) MWF) via PC Anemia (D64.9), Hyperphosphatemia (E83.39), Secondary Hyperparathyroidism (E21.1), HTN (I12.0) Recommendation Continue hemodialysis as scheduled Patient scheduled to have dialysis shortly Vital signs stable Patient may be leaving to subacute rehab today follow-up with the dialysis as outpatient Continue EPO for anemia Status: Acute
[2018-10-01 12:08] VITALS: O2SAT 96
[2018-10-01 15:49] VITALS: BP 162/74; PULSE 75; RESP 17; TEMP 97.9
--- NOTE | 2018-10-03 22:38 | CP.PCM.DIS ---
Provider - Provider Date of Admission: 09/24/18 20:27 Attending physician: Atul Higginbotham MD Consults: 09/24/18 21:35 Nephrology Consult Routine Comment: Consulting Provider: Donato Prado Consulting Physician: Donato Prado Reason for Consult: ESRD 09/26/18 10:40 Social Work Referral Routine Comment: hd patient Physician Instructions: Reason For Exam: hd patient 09/26/18 12:37 Pulmonology Consult Routine Comment: Consulting Provider: Marcelino Walton Consulting Physician: Marcelino Walton Reason for Consult: chronic pleural effusion; pigtail cath eval 09/27/18 12:21 Hematology Oncology Consult Routine Comment: Consulting Provider: Bairon Thomson Consulting Physician: Bairon Thomson Reason for Consult: known to you; nodular density f/l on CT chest ? mets Time Spent in preparation of Discharge (in minutes): 30 Hospital Course - Lab Results Lab Results: Micro Results 09/24/18 17:45 Blood-Venous Blood Culture - Final NO GROWTH AFTER 5 DAYS 09/24/18 17:45 Blood-Venous Gram Stain - Final TEST NOT PERFORMED 09/24/18 18:00 Blood-Venous Blood Culture - Final NO GROWTH AFTER 5 DAYS 09/24/18 18:00 Blood-Venous Gram Stain - Final TEST NOT PERFORMED 09/26/18 04:00 Naris MRSA Culture (Admit) - Final MRSA NOT DETECTED 09/24/18 10:58 Naris MRSA Culture (Admit) - Final MRSA NOT DETECTED Most Recent Lab Values WBC 10.5 K/uL (4.8-10.8) 09/30/18 04:25 RBC 2.91 Mil/uL (3.80-5.20) L 09/30/18 04:25 Hgb 8.5 g/dL (12.0-16.0) L 09/30/18 04:25 Hct 25.5 % (34.0-47.0) L 09/30/18 04:25 MCV 87.6 fl (81.0-99.0) 09/30/18 04:25 MCH 29.3 pg (27.0-31.0) 09/30/18 04:25 MCHC 33.4 g/dL (33.0-37.0) 09/30/18 04:25 RDW 17.3 % (11.5-14.5) H 09/30/18 04:25 Plt Count 169 K/uL (130-400) 09/30/18 04:25 MPV 8.5 fl (7.2-11.7) 09/27/18 04:30 Neut % (Auto) 84.3 % (50.0-75.0) H 09/27/18 04:30 Lymph % (Auto) 4.1 % (20.0-40.0) L 09/27/18 04:30 [place]more % (Auto) 7.1 % (0.0-10.0) 09/27/18 04:30 Eos % (Auto) 3.1 % (0.0-4.0) 09/27/18 04:30 Baso % (Auto) 1.4 % (0.0-2.0) 09/27/18 04:30 Neut # (Auto) 14.3 K/uL (1.8-7.0) H 09/27/18 04:30 Lymph # (Auto) 0.7 K/uL (1.0-4.3) L 09/27/18 04:30 [place] # (Auto) 1.2 K/uL (0.0-0.8) H 09/27/18 04:30 Eos # (Auto) 0.5 K/uL (0.0-0.7) 09/27/18 04:30 Baso # (Auto) 0.2 K/uL (0.0-0.2) 09/27/18 04:30 Neutrophils % (Manual) 83 % (42-75) H 09/24/18 17:45 Band Neutrophils % 1 % (0-2) 09/24/18 17:45 Lymphocytes % (Manual) 7 % (20-50) L 09/24/18 17:45 Monocytes % (Manual) 6 % (0-10) 09/24/18 17:45 Eosinophils % (Manual) 2 % (0-7) 09/24/18 17:45 Basophils % (Manual) 1 % (0-2) 09/24/18 17:45 Platelet Estimate Normal (NORMAL) 09/24/18 17:45 Poikilocytosis (manual Slight 09/24/18 17:45 Anisocytosis (manual) Moderate 09/24/18 17:45 Target Cells Slight 09/24/18 17:45 PT 11.8 Seconds (9.8-13.1) 09/24/18 17:45 INR 1.0 09/24/18 17:45 APTT 36.2 Seconds (25.6-37.1) 09/24/18 17:45 pCO2 51 mm/Hg (35-45) H 09/24/18 18:28 pO2 65 mm/Hg (80-100) L 09/24/18 18:28 HCO3 32.4 mmol/L (21-28) H 09/24/18 18:28 ABG pH 7.45 (7.35-7.45) 09/24/18 18:28 ABG Total CO2 37.0 mmol/L (22-28) H 09/24/18 18:28 ABG O2 Saturation 98.6 % (95-98) H 09/24/18 18:28 ABG Base Excess 9.7 mmol/L (-2.0-3.0) H 09/24/18 18:28 Praveen Test Yes 09/24/18 18:28 ABG Potassium 3.7 mmol/L (3.6-5.2) 09/24/18 18:28 A-a O2 Difference 584.0 mm/Hg 09/24/18 18:28 Sodium 134.0 mmol/L (132-148) 09/24/18 18:28 Chloride 100.0 mmol/L (98-107) 09/24/18 18:28 Glucose 133 mg/dL (65-105) H 09/24/18 18:28 Lactate 1.2 mmol/L (0.7-2.1) 09/24/18 18:28 FiO2 100.0 % 09/24/18 18:28 Sodium 134 mmol/l (132-148) 09/30/18 04:25 Potassium 4.2 MMOL/L (3.6-5.0) 09/30/18 04:25 Chloride 95 mmol/L (98-107) L 09/30/18 04:25 Carbon Dioxide 28 mmol/L (22-30) 09/30/18 04:25 Anion Gap 15 (10-20) 09/30/18 04:25 BUN 22 mg/dl (7-17) H 09/30/18 04:25 Creatinine 2.6 mg/dl (0.7-1.2) H 09/30/18 04:25 Est GFR ( Amer) 23 09/30/18 04:25 Est GFR (Non-Af Amer) 09/30/18 04:25 POC Glucose (mg/dL) 86 mg/dL (65-110) 10/01/18 16:13 Random Glucose 171 mg/dL (65-105) H 09/30/18 04:25 Calcium 7.9 mg/dL (8.4-10.2) L 09/30/18 04:25 Phosphorus 5.2 mg/dl (2.5-4.5) H 09/24/18 17:45 Magnesium 2.3 MG/DL (1.6-2.3) 09/24/18 17:45 Total Bilirubin 0.4 mg/dl (0.2-1.3) 09/27/18 04:30 AST 35 U/L (14-36) 09/27/18 04:30 ALT 16 U/L (9-52) 09/27/18 04:30 Alkaline Phosphatase 123 U/L (38-126) 09/27/18 04:30 Total Protein 6.6 G/DL (6.3-8.2) 09/27/18 04:30 Albumin 3.0 g/dL (3.5-5.0) L 09/27/18 04:30 Globulin 3.7 gm/dL (2.2-3.9) 09/27/18 04:30 Albumin/Globulin Ratio 0.8 (1.0-2.1) L 09/27/18 04:30 Procalcitonin 0.38 NG/ML (0.19-0.49) 09/26/18 13:33 Arterial Blood Potassium 3.7 mmol/L (3.6-5.2) 09/24/18 18:28 Cold Agglutinins Negative (NEGATIVE) 09/27/18 12:28 Hep Bs Antigen Negative (NEGATIVE) 09/25/18 10:00 Hep Bs Antibody, Quant <5 mIU/mL (>or=10) L 09/25/18 10:00 Hep B Core IgM Ab Negative (NEGATIVE) 09/25/18 10:00 Hepatitis C Antibody Negative (NEGATIVE) 09/26/18 08:56 Influenza Typ A,B (EIA) Negative for flu a/b (NEGATIVE) 09/24/18 17:45 Ur L.pneumophila Ag Negative (NEGATIVE) 09/27/18 10:17 M.pneumoniae IgG Titer >5.00 (<=0.90) H 09/27/18 12:28 - Hospital Course Hospital Course: This is a 57 y/o female with hx of persistent pleural effusion was admitted for for syncope while at subacute rehab. She was maintained on hemodialysis and Iv antibiotics. She d was started on Phys therapy and was discharged back to subacute rehab. Discharge Exam - Head Exam Head Exam: NORMAL INSPECTION - Eye Exam Eye Exam: Normal appearance - Respiratory Exam Respiratory Exam: Decreased Breath Sounds, Clear to PA & Lateral - Cardiovascular Exam Cardiovascular Exam: REGULAR RHYTHM - GI/Abdominal Exam GI & Abdominal Exam: Normal Bowel Sounds - Psychiatric Exam Psychiatric exam: Normal Mood Discharge Plan - Discharge Medications Prescriptions: cefTRIAXone 1 gm [Rocephin 1 gram IVPB] 1 gm IVPB DAILY #5 bag Azithromycin [Zithromax] 500 mg PO DAILY #5 tablet - Follow Up Plan Condition: FAIR Disposition: REHAB FACILITY/REHAB UNIT Instructions: Heart Failure, Adult (DC), Pneumonia, Adult (DC) Additional Instructions: Cont meds Cont tx Cont PT Referrals: Atul Higginbotham MD [Family Provider] -
--- NOTE | 2018-10-03 22:54 | CP.PCM.PN ---
Subjective - Date & Time of Evaluation Date of Evaluation: 09/30/18 Time of Evaluation: 13:00 - Subjective Subjective: No complaints. Objective - Vital Signs/Intake and Output Vital Signs (last 24 hours): Temp Pulse Resp BP Pulse Ox 97.9 F 75 17 162/74 H 96 10/01/18 15:49 10/01/18 15:49 10/01/18 15:49 10/01/18 15:49 10/01/18 15:49 - Labs Labs: 09/30/18 04:25 09/30/18 04:25 PT 11.8 Seconds (9.8-13.1) 09/24/18 17:45 INR 1.0 09/24/18 17:45 APTT 36.2 Seconds (25.6-37.1) 09/24/18 17:45 - Head Exam Head Exam: ATRAUMATIC - Eye Exam Eye Exam: Normal appearance - ENT Exam ENT Exam: Mucous Membranes Dry - Respiratory Exam Respiratory Exam: NORMAL BREATHING PATTERN - Cardiovascular Exam Cardiovascular Exam: +S1, +S2 - GI/Abdominal Exam GI & Abdominal Exam: Normal Bowel Sounds Assessment and Plan (1) Pulmonary nodules Assessment & Plan: outpatient surveillance imaging Status: Acute (2) Pleural effusion Assessment & Plan: repeated cytology evaluations negative for malignancy Status: Acute (3) Anemia Assessment & Plan: anemia of CKD; BREANA per renal Status: Acute (4) Leukocytosis Assessment & Plan: on antibiotics Status: Acute
--- NOTE | 2018-10-03 22:55 | CP.PCM.PN ---
Subjective - Date & Time of Evaluation Date of Evaluation: 10/01/18 Time of Evaluation: 10:00 - Subjective Subjective: No complaints. Objective - Vital Signs/Intake and Output Vital Signs (last 24 hours): Temp Pulse Resp BP Pulse Ox 97.9 F 75 17 162/74 H 96 10/01/18 15:49 10/01/18 15:49 10/01/18 15:49 10/01/18 15:49 10/01/18 15:49 - Labs Labs: 09/30/18 04:25 09/30/18 04:25 PT 11.8 Seconds (9.8-13.1) 09/24/18 17:45 INR 1.0 09/24/18 17:45 APTT 36.2 Seconds (25.6-37.1) 09/24/18 17:45 - Head Exam Head Exam: ATRAUMATIC - Eye Exam Eye Exam: Normal appearance - ENT Exam ENT Exam: Mucous Membranes Dry - Respiratory Exam Respiratory Exam: Decreased Breath Sounds - Cardiovascular Exam Cardiovascular Exam: +S1, +S2 - GI/Abdominal Exam GI & Abdominal Exam: Normal Bowel Sounds Assessment and Plan (1) Pulmonary nodules Assessment & Plan: outpatient surveillance imaging Status: Acute (2) Pleural effusion Assessment & Plan: repeat cytology negative for malignancy Status: Acute (3) Anemia Assessment & Plan: anemia of CKD; BREANA per renal Status: Acute
== END 2018-10-01 18:10 | DRG 544 ==
LOC: H.ER 17:10 → H.ERHOLD 20:27 → H.ICU/CCU 22:18 → H.TEL 09-26 18:38
PROVIDERS: ADMIT Family Medicine; ATTEND Family Medicine
PROC: 5A09457 Assistance with Respiratory Ventilation, 24-96 Consecutive Hours, Continuous Positive Airway Pressure (ICD-10-PCS; principal; 2018-09-24)
PROC: 5A1D70Z Performance of Urinary Filtration, Intermittent, Less than 6 Hours Per Day (ICD-10-PCS; 2018-09-25)
PROC: 5A1D70Z Performance of Urinary Filtration, Intermittent, Less than 6 Hours Per Day (ICD-10-PCS; 2018-09-27)
PROC: 5A1D70Z Performance of Urinary Filtration, Intermittent, Less than 6 Hours Per Day (ICD-10-PCS; 2018-10-01)
DX: I13.2 Hypertensive heart and chronic kidney disease with heart failure and with stage 5 chronic kidney disease, or end stage renal disease (principal); J96.21 Acute and chronic respiratory failure with hypoxia; J18.9 Pneumonia, unspecified organism; J44.0 Chronic obstructive pulmonary disease with (acute) lower respiratory infection; N18.6 End stage renal disease; E11.22 Type 2 diabetes mellitus with diabetic chronic kidney disease; I50.9 Heart failure, unspecified; N25.81 Secondary hyperparathyroidism of renal origin; D63.1 Anemia in chronic kidney disease; Z91.15 Patient's noncompliance with renal dialysis; Z99.2 Dependence on renal dialysis; I25.10 Atherosclerotic heart disease of native coronary artery without angina pectoris; R91.1 Solitary pulmonary nodule; E03.9 Hypothyroidism, unspecified; E78.00 Pure hypercholesterolemia, unspecified; E83.39 Other disorders of phosphorus metabolism; M19.90 Unspecified osteoarthritis, unspecified site; Z99.81 Dependence on supplemental oxygen; Z95.5 Presence of coronary angioplasty implant and graft; Z87.891 Personal history of nicotine dependence; Z85.42 Personal history of malignant neoplasm of other parts of uterus; Z79.4 Long term (current) use of insulin; Z79.82 Long term (current) use of aspirin; Z79.84 Long term (current) use of oral hypoglycemic drugs; Z87.01 Personal history of pneumonia (recurrent); Z91.013 Allergy to seafood

== ENCOUNTER 2018-10-21 19:37 | Inpatient (IN) | payer MEDICAID ==
[2018-10-21 19:37] VITALS: BMI 19.1
[2018-10-21] MEDS ORDERED: Sodium Chloride 0.9% 1,000 ML IV STA (20:15)
[2018-10-21 20:38] LABS: ABG ALLEN TEST YES; ARTERIAL BLOOD GAS HCO3 30.8 mmol/L (21-28); ARTERIAL BLOOD GAS O2 SAT 87.8 % (95-98); ARTERIAL BLOOD GAS PCO2 45 mm/Hg (35-45); ARTERIAL BLOOD GAS PH 7.47 (7.35-7.45); ARTERIAL BLOOD GAS PO2 46 mm/Hg (80-100); ARTERIAL BLOOD GAS TCO2 34.2 mmol/L (22-28)
--- NOTE | 2018-10-21 20:46 | ED PDOC ---
HPI: SOB/CHF/COPD Time Seen by Provider: 10/21/18 19:43 Chief Complaint (Nursing): Shortness Of Breath Chief Complaint (Provider): Shortness of Breath History Per: Patient History/Exam Limitations: no limitations Onset/Duration Of Symptoms: Days (x1) Current Symptoms Are (Timing): Still Present Additional Complaint(s): 57 y/o female, with a history of Diabetes, HTN, pleural effusion, COPD, and end- stage renal disease on hemodialysis, was sent to the ER from the [facility] for SOB and fever that started today. Patient reports an episode of nonbilious and nonbloody vomiting and nonproductive cough. Denies chest pain, diarrhea, or leg swelling. Patient was hospitalized recently. She also reports hunger and is requesting to eat. PMD: Dr. Higginbotham Past Medical History Reviewed: Historical Data, Nursing Documentation, Vital Signs Vital Signs: Last Vital Signs Temp Pulse 83 10/21/18 19:46 Resp 20 10/21/18 19:46 BP 146/61 10/21/18 19:46 Pulse Ox 94 L 10/21/18 19:46 - Medical History PMH: Arthritis, CAD, CHF, COPD, Diabetes, HTN, Hypercholesterolemia, Hypothyroidism, Pneumonia, End Stage Renal Disease, Chronic Kidney Disease Other PMH: Pleural effusion - Surgical History Surgical History: No Surg Hx - Family History Family History: States: No Known Family Hx - Social History Current smoker - smoking cessation education provided: No - Immunization History Hx Influenza Vaccination: Yes (2017) Hx Pneumococcal Vaccination: No - Home Medications Home Medications: Ambulatory Orders Medication Instructions Recorded Aspirin [Ecotrin] 81 mg PO DAILY 09/02/18 amLODIPine [Norvasc] 10 mg PO DAILY 09/02/18 Acetaminophen [Tylenol 325mg tab] 650 mg PO Q4 PRN 09/24/18 Acetaminophen [Tylenol 325mg tab] 650 mg PO Q4 PRN 09/24/18 Atorvastatin [Lipitor] 40 mg PO HS 09/24/18 B Complex W-C No.20/Folic Acid 1 cap PO DAILY 09/24/18 [Nephrocaps Softgel] Carvedilol [Coreg] 12.5 mg PO Q12 09/24/18 Insulin Regular [HumuLIN R] 1 - 7 unit SC ACHS 09/24/18 Levothyroxine [Synthroid] 50 mcg PO DAILY 09/24/18 Losartan [Cozaar] 100 mg PO DAILY 09/24/18 SITagliptin [Januvia] 25 mg PO DAILY 09/24/18 Sevelamer Carbonate [Renvela] 800 mg PO TID 09/24/18 Vitamin A & D [Vitamin A & D Oint 1 appl TOP DAILY 09/24/18 UD Foilpak] hydrALAZINE [Apresoline] 50 mg PO .BID@MOWEFR 09/24/18 hydrALAZINE [Apresoline] 50 mg PO .TID@SUTUTHSA 09/24/18 Epoetin Steve [Procrit] 10,000 unit IV MWF ml 10/01/18 Heparin 5,000 units SC Q12 vial 10/01/18 Insulin Human Regular [HumuLIN R] 0 units SC ACHS ml 10/01/18 Pantoprazole [Protonix EC Tab] 40 mg PO DAILY ect 10/01/18 Albuterol/Ipratropium [Duoneb 3 1 dose NEB Q6H 10/22/18 mg/0.5 mg (3 ml) UD] Alogliptin Benzoate [Nesina] 12.5 mg PO DAILY 10/22/18 Ticagrelor [Brilinta] 90 mg PO Q12 10/22/18 - Allergies Allergies/Adverse Reactions: Allergies Allergy/AdvReac Type Severity Reaction Status Date / Time shrimp Allergy Severe ANAPHYLAXIS Verified 10/21/18 19:46 Review of Systems ROS Statement: Except As Marked, All Systems Reviewed And Found Negative (as per HPI, otherwise negative) Constitutional: Positive for: Fever Cardiovascular: Negative for: Chest Pain Respiratory: Positive for: Cough (nonproductive), Shortness of Breath Gastrointestinal: Positive for: Vomiting (nonbilious and nonbloody). Negative for: Diarrhea Musculoskeletal: Negative for: Other (leg swelling) Physical Exam - Reviewed Nursing Documentation Reviewed: Yes Vital Signs Reviewed: Yes - Physical Exam Appears: Positive for: Non-toxic, In Acute Distress (mild respiratory distress appearing chronically ill and older than given age) Head Exam: Positive for: ATRAUMATIC, NORMOCEPHALIC Skin: Positive for: Warm, Dry Eye Exam: Positive for: EOMI, PERRL ENT: Positive for: Other (dry mucus membranes) Neck: Positive for: Painless ROM, Supple Cardiovascular/Chest: Positive for: Regular Rate, Rhythm. Negative for: Murmur Respiratory: Positive for: Decreased Breath Sounds (left side), Rales (right side), Other (RIGHT upper chest wall dialysis catheter in place, LEFT lateral chest wall: dressing with secured drain (pleural)). Negative for: Accessory Muscle Use Gastrointestinal/Abdominal: Positive for: Soft. Negative for: Tenderness Back: Positive for: Normal Inspection. Negative for: Decreased ROM Extremity: Positive for: Other (Diffusely poor muscle bulk; no pedal edema, swelling, or calf tenderness) Lymphatic: Negative for: Adenopathy Neurological/Psych: Positive for: Awake, Alert. Negative for: Motor/Sensory Deficits - Laboratory Results Result Diagrams: 10/22/18 05:33 10/22/18 05:33 Lab Results: pCO2 45 mm/Hg (35-45) 10/21/18 20:31 pO2 46 mm/Hg (80-100) L 10/21/18 20:31 HCO3 30.8 mmol/L (21-28) H 10/21/18 20:31 ABG pH 7.47 (7.35-7.45) H 10/21/18 20:31 ABG Total CO2 34.2 mmol/L (22-28) H 10/21/18 20:31 ABG O2 Saturation 87.8 % (95-98) L 10/21/18 20:31 ABG Base Excess 8.0 mmol/L (-2.0-3.0) H 10/21/18 20:31 Praveen Test Yes 10/21/18 20:31 ABG Potassium 3.8 mmol/L (3.6-5.2) 10/21/18 20:31 A-a O2 Difference 611.0 mm/Hg 10/21/18 20:31 Sodium 132.0 mmol/L (132-148) 10/21/18 20:31 Chloride 97.0 mmol/L (98-107) L 10/21/18 20:31 Glucose 161 mg/dL (65-105) H 10/21/18 20:31 Lactate 1.0 mmol/L (0.7-2.1) 10/21/18 20:31 FiO2 100.0 % 10/21/18 20:31 - ECG O2 Sat by Pulse Oximetry: 94 (RA) Pulse Ox Interpretation: Abnormal - Critical Care Total Time (In Min): 30 Medical Decision Making Medical Decision Making: Initial Impression: SOB, febrile illness Differential includes but not limited to pneumonia, CHF, sepsis, UTI, pleural effusion Initial Plan: --Type and screen stat --ABG shock panel --ECG --B-type natriuretic peptide stat --CMP --Magnesium stat --Phosphorus stat --Troponin stat --CBC --PTT --Prothrombin time --Chest X-ray --Sodium chloride 1000mL IV --Blood culture --Urine culture --Influenza A B stat --Urinalysis 20:44 Patient has bilateral infiltrates on X-ray which is concerning for congestion and pneumonia. ABG demonstrates low oxygenation so patient placed on Bipap with improvement of pulse ox. IV antibiotics initiated. Lactic acid was 1.0. 22:[address] Walton, pulmonary consult, and discussed with Dr. Stoddard, shanique rhoades's PMD, for admission given high risk mortality. Will place patient in ICU. 22:[address] Waddell, hospitalist, for ICU placement. KELSEY Prado Nephrology Scribe Attestation: Documented by Donny William acting as a scribe for Kathy Lewis MD. Provider Scribe Attestation: All medical record entries made by the Scribe were at my direction and personally dictated by me. I have reviewed the chart and agree that the record accurately reflects my personal performance of the history, physical exam, medical decision making, and the department course for this patient. I have also personally directed, reviewed, and agree with the discharge instructions and disposition. Disposition - Clinical Impression Clinical Impression: CHF (congestive heart failure), Chronic kidney disease with end stage renal failure on dialysis, PNA (pneumonia), Pleural effusion Counseled Patient/Family Regarding: Studies Performed, Diagnosis - Disposition Disposition Time: 22:40 Condition: CRITICAL - Pt Status Changed To: Hospital Disposition Of: Inpatient - Admit Certification Admit to Inpatient:: After my assessment, the patient will require hospitalization for at least two midnights. This is because of the severity of symptoms shown, intensity of services needed, and/or the medical risk in this patient being treated as an outpatient. - POA Present On Arrival: [facility] (possible)
[2018-10-21 21:19] LABS: BASO % 0.3 % (0.0-2.0); EOS # 0.3 K/uL (0.0-0.7); EOS % 2.8 % (0.0-4.0); HEMOGLOBIN 10.1 g/dL (12.0-16.0); LYMPH # 0.6 K/uL (1.0-4.3); LYMPH % 5.4 % (20.0-40.0); MEAN CELL VOLUME 90.4 fl (81.0-99.0); MEAN CORPUSCULAR HEMOGLOBIN 29.1 pg (27.0-31.0); MEAN CORPUSCULAR HGB CONC 32.1 g/dL (33.0-37.0); MEAN PLATELET VOLUME 9.8 fl (7.2-11.7); MONO # 0.6 K/uL (0.0-0.8); MONO % 5.1 % (0.0-10.0); NEUT # 10.1 K/uL (1.8-7.0); NEUT % 86.4 % (50.0-75.0); PLATELET COUNT 212 K/uL (130-400); RBC 3.46 Mil/uL (3.80-5.20); RED CELL DISTRIBUTION WIDTH 19.3 % (11.5-14.5); WHITE BLOOD COUNT 11.7 K/uL (4.8-10.8)
[2018-10-21] MEDS ORDERED: Moxifloxacin IV 400mg/250ml NS 400 MG/250 ML BAG IVPB STA (21:20)
[2018-10-21] MEDS ORDERED: Piperacillin/Tazobact 3.375 GM in Sodium Chloride 0.9% 100 ML IV STA (21:20)
[2018-10-21 21:24] LABS: INR 1.1; PROTHROMBIN TIME 12.5 Seconds (9.8-13.1)
[2018-10-21 21:27] LABS: PARTIAL THROMBOPLASTIN TIME 36.4 Seconds (25.6-37.1)
[2018-10-21] MEDS ORDERED: Piperacillin/Tazobact 3.375 gm Inj IVPB ONE (21:27)
[2018-10-21 22:12] LABS: TROPONIN I 0.039 ng/mL (0.00-0.120)
[2018-10-21 22:14] LABS: ALB/GLOB RATIO 0.9 (1.0-2.1); ALBUMIN 3.6 g/dL (3.5-5.0); CALCIUM 8.3 mg/dL (8.4-10.2)
[2018-10-21 22:19] LABS: BANDS 2 % (0-2); EOSINOPHIL 3 % (0-7); LYMPHOCYTE 8 % (20-50); MONOCYTE 5 % (0-10); NEUTROPHIL 82 % (42-75); TOTAL CELLS COUNTED 100
[2018-10-21 22:20] LABS: ANISOCYTOSIS MODERATE; PLATELET ESTIMATE NORMAL (NORMAL)
[2018-10-21 22:24] LABS: POIKILOCYTOSIS SLIGHT
[2018-10-21] MEDS ORDERED: levoFLOXacin 500 mg in D5W 500 MG/100 ML BAG IVPB STA (22:44)
--- NOTE | 2018-10-21 23:12 | CP.PCM.CON ---
History of Present Illness - History of Present Illness History of Present Illness: Attending: Aubrey Stoddard MD Reason for Consult: Critical care management Chief complaint: SOB The patient was seen and examined in the ED HPI: The Hx was obtained from the patient and after review of the medical records. This is a 57 years old female with hx of HTN, DM II, ESRD on hemodialysis, comes with SOB and fever which started toda;y. She had an episode of non bloody vomitus and non productive cough. no chest pain, palpitation, headache, dizziness. No dysuria nor diarrhea. PMH: Arthritis, CAD, CHF, COPD, Diabetes, HTN, HLD, Hypothyroidism, Pneumonia, End Stage Renal Disease, ESRE on HD MWF; Chronic left side effusion s/p Left pigtail catheter in place stefanie drainage weakly; Chronic Hypoxic respiratory failure on home oxygen if necessary; Hypothyroidism; CHF? PSH: Hysterectomy; Right chest Permacath; Left chest Pigtail catheter SH: Former Smoker, No ETOH; No illegal drugs; FH: States: No known family hx Allergies: NKDA Shrimp Medication: Reviewed Review of Systems - Constitutional Constitutional: Fever. absent: Anorexia, Headache - EENT Eyes: Requires Corrective Lenses. absent: Blurred Vision, Diplopia Ears: absent: Decreased Hearing, Ear Discharge, Ear Pain Nose/Mouth/Throat: absent: Epistaxis, Nasal Congestion, Nasal Discharge, Sinus Pain, Sinus Pressure - Cardiovascular Cardiovascular: Dyspnea. absent: Chest Pain, Edema - Respiratory Respiratory: Dyspnea, Wheezing. absent: Cough, Stridor - Gastrointestinal Gastrointestinal: Nausea, Vomiting. absent: Abdominal Pain, Constipation, Diarrhea - Genitourinary Genitourinary: absent: Dysuria, Flank Pain, Urinary Frequency - Musculoskeletal Musculoskeletal: Arthralgias, Muscle Weakness - Integumentary Integumentary: absent: Pruritus, Rash, Skin Ulcer, Sores, Striae, Swelling - Neurological Neurological: absent: Confusion, Numbness, Vertigo, Weakness - Psychiatric Psychiatric: absent: Anxiety, Depression, Panic Attacks - Endocrine Endocrine: absent: Palpitations, Polydipsia, Polyphagia, Polyuria - Hematologic/Lymphatic Hematologic: absent: Easy Bleeding, Easy Bruising Past Patient History - Past Medical History & Family History Past Medical History?: Yes - Past Social History Smoking Status: Former Smoker Chewing Tobacco Use: No Cigar Use: No Alcohol: None Drugs: Denies Home Situation {Lives}: Retirement - CARDIAC Hx Congestive Heart Failure: Yes Hx Hypercholesterolemia: Yes Hx Hypertension: Yes - PULMONARY Hx Chronic Obstructive Pulmonary Disease (COPD): Yes Hx Pneumonia: Yes - NEUROLOGICAL Hx Neurological Disorder: No - HEENT Hx HEENT Problems: No - RENAL Hx Chronic Kidney Disease: Yes - ENDOCRINE/METABOLIC Hx Hypothyroidism: Yes - HEMATOLOGICAL/ONCOLOGICAL Hx Blood Disorders: No - INTEGUMENTARY Hx Dermatological Problems: No - MUSCULOSKELETAL/RHEUMATOLOGICAL Hx Arthritis: Yes - GASTROINTESTINAL Hx Gastrointestinal Disorders: No - GENITOURINARY/GYNECOLOGICAL Hx Genitourinary Disorders: No - PSYCHIATRIC Hx Psychophysiologic Disorder: No Hx Substance Use: No - SURGICAL HISTORY Hx Surgeries: Yes Hx Hysterectomy: Yes Other/Comment: cardiac stent (08/2018) - ANESTHESIA Hx Anesthesia: Yes Hx Anesthesia Reactions: No Hx Malignant Hyperthermia: No Meds Allergies/Adverse Reactions: Allergies Allergy/AdvReac Type Severity Reaction Status Date / Time shrimp Allergy Severe ANAPHYLAXIS Verified 10/21/18 19:46 - Medications Medications: Current Medications Levofloxacin/Dextrose (Levaquin 500mg) 500 mg in 100 mls @ 100 mls/hr IVPB STAT STA; Protocol Stop: 10/21/18 23:43 Last Admin: 10/21/18 22:48 Dose: 100 mls/hr Physical Exam - Constitutional Appears: In Acute Distress - Head Exam Head Exam: ATRAUMATIC, NORMAL INSPECTION, NORMOCEPHALIC - Eye Exam Eye Exam: EOMI, Normal appearance Pupil Exam: NORMAL ACCOMODATION, PERRL - ENT Exam ENT Exam: Mucous Membranes Moist, Normal Exam, Normal External Ear Exam - Neck Exam Neck exam: Positive for: Full Rom, Normal Inspection. Negative for: Lymphadenopathy, Tenderness - Respiratory Exam Additional comments: Bilateral diffuse inspiratory crackles - Cardiovascular Exam Cardiovascular Exam: REGULAR RHYTHM, RRR, +S1, +S2 - GI/Abdominal Exam GI & Abdominal Exam: Normal Bowel Sounds, Soft. absent: Mass, Organomegaly, Tenderness - Rectal Exam Rectal Exam: Deferred - Extremities Exam Extremities exam: Positive for: full ROM, normal inspection. Negative for: calf tenderness, joint swelling, pedal edema - Back Exam Back exam: NORMAL INSPECTION. absent: CVA tenderness (L), CVA tenderness (R) - Neurological Exam Neurological exam: Alert, CN II-XII Intact, Oriented x3, Reflexes Normal - Psychiatric Exam Psychiatric exam: Normal Affect, Normal Mood - Skin Skin Exam: Dry, Normal Color, Pallor, Warm Results - Vital Signs Recent Vital Signs: Last Vital Signs Temp 101.2 F H 10/21/18 22:53 Pulse 73 10/21/18 22:53 Resp 20 10/21/18 22:53 BP 160/63 H 10/21/18 22:53 Pulse Ox 100 10/21/18 22:53 - Labs Result Diagrams: 10/22/18 05:33 10/22/18 05:33 Labs: Laboratory Results - last 24 hr 10/21/18 10/21/18 10/21/18 20:31 20:56 20:56 WBC 11.7 H RBC 3.46 L Hgb 10.1 L Hct 31.3 L MCV 90.4 D MCH 29.1 MCHC 32.1 L RDW 19.3 H Plt Count 212 MPV 9.8 Neut % (Auto) 86.4 H Lymph % (Auto) 5.4 L Perry % (Auto) 5.1 Eos % (Auto) 2.8 Baso % (Auto) 0.3 Neut # (Auto) 10.1 H Lymph # (Auto) 0.6 L Perry # (Auto) 0.6 Eos # (Auto) 0.3 Baso # (Auto) 0.0 Neutrophils % (Manual) 82 H Band Neutrophils % 2 Lymphocytes % (Manual) 8 L Monocytes % (Manual) 5 Eosinophils % (Manual) 3 Platelet Estimate Normal Poikilocytosis (manual Slight Anisocytosis (manual) Moderate PT 12.5 INR 1.1 APTT 36.4 pCO2 45 pO2 46 L HCO3 30.8 H ABG pH 7.47 H ABG Total CO2 34.2 H ABG O2 Saturation 87.8 L ABG Base Excess 8.0 H Praveen Test Yes ABG Potassium 3.8 A-a O2 Difference 611.0 Sodium 132.0 Chloride 97.0 L Glucose 161 H Lactate 1.0 FiO2 100.0 Potassium Carbon Dioxide Anion Gap BUN Creatinine Est GFR ( Amer) Est GFR (Non-Af Amer) Random Glucose Calcium Phosphorus Magnesium Total Bilirubin AST ALT Alkaline Phosphatase Troponin I NT-Pro-B Natriuret Pep Total Protein Albumin Globulin Albumin/Globulin Ratio Arterial Blood Potassium 3.8 Influenza Typ A,B (EIA) 10/21/18 10/21/18 20:56 21:43 WBC RBC Hgb Hct MCV MCH MCHC RDW Plt Count MPV Neut % (Auto) Lymph % (Auto) Perry % (Auto) Eos % (Auto) Baso % (Auto) Neut # (Auto) Lymph # (Auto) Perry # (Auto) Eos # (Auto) Baso # (Auto) Neutrophils % (Manual) Band Neutrophils % Lymphocytes % (Manual) Monocytes % (Manual) Eosinophils % (Manual) Platelet Estimate Poikilocytosis (manual Anisocytosis (manual) PT INR APTT pCO2 pO2 HCO3 ABG pH ABG Total CO2 ABG O2 Saturation ABG Base Excess Praveen Test ABG Potassium A-a O2 Difference Sodium 133 Chloride 93 L Glucose Lactate FiO2 Potassium 3.8 Carbon Dioxide 29 Anion Gap 15 BUN 30 H Creatinine 4.2 H Est GFR ( Amer) 13 Est GFR (Non-Af Amer) 11 Random Glucose 139 H Calcium 8.3 L Phosphorus 4.2 Magnesium 2.0 Total Bilirubin 0.6 AST 36 ALT 27 Alkaline Phosphatase 100 Troponin I 0.0390 NT-Pro-B Natriuret Pep 60901 H Total Protein 7.7 Albumin 3.6 Globulin 4.1 H Albumin/Globulin Ratio 0.9 L Arterial Blood Potassium Influenza Typ A,B (EIA) Negative for flu a/b - EKG Data EKG comments: NSR 81/min - Imaging and Cardiology Chest x-ray Status: Image reviewed by me Additional comment: Bilateral generalized interstitial infiltrate Assessment & Plan - Assessment and Plan (Free Text) Plan: 57 years old female with hx of HTN, DM II, ESRD on hemodialysis, comes with SOB and fever which started toda;y. She had an episode of non bloody vomitus and non productive cough. no chest pain, palpitation, headache, dizziness. No dysuria nor diarrhea. #. Acute on chronic Hypoxic respiratory failure - Bipap - The patient is a DNI #. CHF ,Volume overload with Pleural effusion - Lasix - Hemodilaysis #. Pneumonia - Consult Pulmonary, Dr Walton - Asif - levofloxacin #. ESRD on Hemodialysis - Consult Nephrtology Dr Prado - Hemodialysis #. Anemia of Chronic Disease - Continue Procrit at HD - Follow Hb #. DM II insulin requiring - Humulin R sliding scale according to accucheck #. Hypothyroidism - Levothyroxin #. DVT Prophylaxis with Heparin #. Code Status DNI Andre Waddell MD - Date & Time Date: 10/21/18 Time: 23:12
[2018-10-22 02:34] LABS: ABG ALLEN TEST YES; ARTERIAL BLOOD GAS HCO3 31.3 mmol/L (21-28); ARTERIAL BLOOD GAS HEMOGLOBIN 9.3 g/dL (11.7-17.4); ARTERIAL BLOOD GAS O2 CAPACITY 12.9 mL/dL (16-24); ARTERIAL BLOOD GAS O2 CONTENT 12.7 ML/dL (15-23); ARTERIAL BLOOD GAS O2 SAT 98.8 % (95-98); ARTERIAL BLOOD GAS PCO2 41 mm/Hg (35-45); ARTERIAL BLOOD GAS PO2 80 mm/Hg (80-100); ARTERIAL BLOOD GAS TCO2 33.3 mmol/L (22-28)
[2018-10-22 05:57] LABS: BASO # 0.2 K/uL (0.0-0.2); BASO % 2.1 % (0.0-2.0); EOS # 0.5 K/uL (0.0-0.7); HEMOGLOBIN 9.6 g/dL (12.0-16.0); LYMPH # 0.9 K/uL (1.0-4.3); LYMPH % 9.5 % (20.0-40.0); MEAN CELL VOLUME 89.5 fl (81.0-99.0); MEAN CORPUSCULAR HEMOGLOBIN 29.6 pg (27.0-31.0); MEAN PLATELET VOLUME 8.6 fl (7.2-11.7); MONO # 0.9 K/uL (0.0-0.8); MONO % 10.1 % (0.0-10.0); NEUT # 6.8 K/uL (1.8-7.0); NEUT % 73.3 % (50.0-75.0); RBC 3.25 Mil/uL (3.80-5.20); RED CELL DISTRIBUTION WIDTH 18.9 % (11.5-14.5); WHITE BLOOD COUNT 9.3 K/uL (4.8-10.8)
[2018-10-22 06:02] LABS: CALCIUM 8.1 mg/dL (8.4-10.2)
[2018-10-22 06:26] LABS: ABG ALLEN TEST YES; ARTERIAL BLOOD GAS HCO3 33.1 mmol/L (21-28); ARTERIAL BLOOD GAS HEMOGLOBIN 9.9 g/dL (11.7-17.4); ARTERIAL BLOOD GAS O2 CAPACITY 13.7 mL/dL (16-24); ARTERIAL BLOOD GAS O2 CONTENT 13.6 ML/dL (15-23); ARTERIAL BLOOD GAS O2 SAT 99.6 % (95-98); ARTERIAL BLOOD GAS PCO2 42 mm/Hg (35-45); ARTERIAL BLOOD GAS PH 7.52 (7.35-7.45); ARTERIAL BLOOD GAS PO2 90 mm/Hg (80-100); ARTERIAL BLOOD GAS TCO2 35.6 mmol/L (22-28)
[2018-10-22] MEDS: Insulin Regular 100 units/ml SC SCH ×4 (07:57→22:58)
--- NOTE | 2018-10-22 08:21 | RAD ---
Date of service: 10/21/2018 HISTORY: sob COMPARISON: Frontal chest radiograph 09/26/2018. TECHNIQUE: 1 view obtained. FINDINGS: Right permanent dialysis catheter unchanged in position left chest tube stable as well. LUNGS: Diffuse bilateral pulmonary infiltrates are identified with increasing opacity bilaterally which may reflect pulmonary vascular congestion. Clinically correlate. Minimal right pleural effusion reiterated with [id number] left pleural effusion present. No pneumothorax bilaterally. PLEURA: As above. CARDIOVASCULAR: No aortic atherosclerotic calcification present. Stable cardiac size. Pulmonary vascular congestion suspected. OSSEOUS STRUCTURES: No significant abnormalities. VISUALIZED UPPER ABDOMEN: Normal. OTHER FINDINGS: None. IMPRESSION: Pattern suspicious for active pulmonary vascular congestion underlying diffuse pulmonary infiltrates not excluded. Mild right pleural effusion and moderate left pleural effusion unchanged which may be loculated given the presence of left chest tube/pleural drain. Please see discussion above.
[2018-10-22] MEDS: Albuterol-Ipratrop 3 mg / 0.5 (3 ml) UD INH SCH ×3 (08:30→19:09)
--- NOTE | 2018-10-22 08:37 | RAD ---
Date of service: 10/22/2018 HISTORY: Hypoxemia/ follow bilateral infiltrate COMPARISON: Frontal chest radiograph 10/21/2018. TECHNIQUE: 1 view obtained. FINDINGS: Permanent right central venous dialysis catheter unchanged as well as left pleural drain. LUNGS: Proved aeration is appreciated diffusely bilaterally in a pattern that suggests diminished pulmonary vascular congestion appear underlying infiltrates remain difficult exclude particularly at the left greater than right lung bases. No interval change in left basilar opacities appreciated in fact. Limited right pleural effusion reiterated. Left pleural effusion not excluded on a moderate volume basis. No pneumothorax bilaterally. PLEURA: As above. CARDIOVASCULAR: No aortic atherosclerotic calcification present. Prominent cardiac silhouette unchanged. Diminished pulmonary vascular congestion. OSSEOUS STRUCTURES: No significant abnormalities. VISUALIZED UPPER ABDOMEN: Normal. OTHER FINDINGS: None. IMPRESSION: Diminished pulmonary vascular congestion with residual bilateral pleural effusions unchanged. Underlying bilateral basilar infiltrates not excluded once again, left greater than right.
[2018-10-22] MEDS: Pantoprazole 40 mg EC Tab PO SCH (09:00)
[2018-10-22] MEDS: Levothyroxine 50 MCG TAB PO SCH (10:07)
[2018-10-22] MEDS: EPOETIN ALFA 10,000 UNIT/ML ML IV SCH (10:13)
--- NOTE | 2018-10-22 13:26 | CP.PCM.CON ---
History of Present Illness - History of Present Illness History of Present Illness: Pulmonary consult for a 57 y/o F, Pt with multiple chronic medical conditions including COPD, PNA, CKD on HD M-W-, HTN, DMII, Hypothyroidism, [facility] 10[facility]21/18, [facility], via EMS, to be ev aluated for severe SOB, associated to cough, non productive, non bloody, intermittent and tactile fever on DOA (in ER TMAx 101.1). Pt using Duoneb nebulizer Tx with no relief. 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 to continue Tx, Pt was discharged on Rocephin/Zithromax x 5 days. Worsening symptoms: PAVON, low saturation, pO2 46. Aggravated factor: Exercise. Pt denied: Chills, n/v/d, abdominal pain, urinary symptoms, syncope, CP, palpitations, sick contact, [facility] CXR: Suspicious for pulmonary vascular congestion, diffused pulmonary infiltrates, mild R pleural effusion, moderate L pleural effusion. 10/22/18 CXR: Pleural effusion unchanged, bibasilar infiltrates not excluded L > R. EKG: Normal sinus rhythm, L axis deviation. Review of Systems - Constitutional Constitutional: Fever - EENT Eyes: Other (negative) Ears: Other (negative) Nose/Mouth/Throat: Other (negative) - Cardiovascular Cardiovascular: Other (negative) - Respiratory Respiratory: Cough (dry), Dyspnea, Dyspnea on Exertion, Wheezing, Chest Congestion - Gastrointestinal Gastrointestinal: Other (negative) - Genitourinary Genitourinary: Other (negative) - Musculoskeletal Musculoskeletal: Arthralgias - Integumentary Integumentary: Other (negative) - Neurological Neurological: Other - Psychiatric Psychiatric: Other (negative) - Endocrine Endocrine: Other (negative) - Hematologic/Lymphatic Hematologic: Other (negative) Past Patient History - Past Medical History & Family History Past Medical History?: Yes Pertinent Family History: Unknown - Past Social History Smoking Status: Former Smoker Chewing Tobacco Use: No Cigar Use: No Alcohol: None Drugs: Denies Home Situation {Lives}: Senior Living - CARDIAC Hx Cardiac Disorders: Yes Hx Congestive Heart Failure: Yes Hx Hypercholesterolemia: Yes Hx Hypertension: Yes - PULMONARY Hx Respiratory Disorders: Yes Hx Chronic Obstructive Pulmonary Disease (COPD): Yes Hx Pneumonia: Yes - NEUROLOGICAL Hx Neurological Disorder: No - HEENT Hx HEENT Problems: No - RENAL Hx Chronic Kidney Disease: Yes Hx Dialysis: Yes - ENDOCRINE/METABOLIC Hx Endocrine Disorders: Yes Hx Diabetes Mellitus Type 2: Yes Hx Hypothyroidism: Yes - HEMATOLOGICAL/ONCOLOGICAL Hx Blood Disorders: No - INTEGUMENTARY Hx Dermatological Problems: No - MUSCULOSKELETAL/RHEUMATOLOGICAL Hx Musculoskeletal Disorders: Yes Hx Arthritis: Yes - GASTROINTESTINAL Hx Gastrointestinal Disorders: No - GENITOURINARY/GYNECOLOGICAL Hx Genitourinary Disorders: Yes Hx Uterine Cancer: Yes - PSYCHIATRIC Hx Psychophysiologic Disorder: No Hx Substance Use: No - SURGICAL HISTORY Hx Surgeries: Yes Hx Hysterectomy: Yes Other/Comment: cardiac stent (08/2018) - ANESTHESIA Hx Anesthesia: Yes Hx Anesthesia Reactions: No Hx Malignant Hyperthermia: No Meds Allergies/Adverse Reactions: Allergies Allergy/AdvReac Type Severity Reaction Status Date / Time shrimp Allergy Severe ANAPHYLAXIS Verified 10/21/18 19:46 - Medications Medications: Current Medications Acetaminophen (Tylenol 325mg Tab) 650 mg PO Q4 PRN PRN Reason: Fever >100.4 F Acetaminophen (Tylenol 325mg Tab) 650 mg PO Q4 PRN PRN Reason: Pain, Mild (1-3) Albuterol/Ipratropium (Duoneb 3 Mg/0.5 Mg (3 Ml) Ud) 3 ml INH Q6H [facility] Last Admin: 10/22/18 08:30 Dose: Not Given Amlodipine Besylate (Norvasc) 10 mg PO DAILY [facility] Last Admin: 10/22/18 09:00 Dose: 10 mg Aspirin (Ecotrin) 81 mg PO DAILY [facility] Last Admin: 10/22/18 09:00 Dose: 81 mg Atorvastatin Calcium (Lipitor) 40 mg PO HS [facility] Carvedilol (Coreg) 12.5 mg PO Q12 [facility] Last Admin: 10/22/18 10:09 Dose: 12.5 mg Epoetin Steve (Procrit) 10,000 unit IV MWF [facility] Last Admin: 10/22/18 10:13 Dose: 10,000 unit Heparin Sodium (Porcine) (Heparin) 5,000 units SC Q12 [facility]; Protocol Last Admin: 10/22/18 09:00 Dose: 5,000 units Hydralazine HCl (Apresoline) 50 mg PO TID [facility] Last Admin: 10/22/18 10:10 Dose: 50 mg Piperacillin Sod/Tazobactam (Sod 2.25 gm/ Sodium Chloride) 100 mls @ 100 mls/hr IVPB Q12 [facility]; Protocol Last Admin: 10/22/18 10:08 Dose: 100 mls/hr Levofloxacin/Dextrose (Levaquin 500mg) 500 mg in 100 mls @ 100 mls/hr IVPB DAILY [facility]; Protocol Insulin Human Regular (Humulin R) 0 units SC ACHS [facility]; Protocol Last Admin: 10/22/18 07:57 Dose: Not Given Levothyroxine Sodium (Synthroid) 50 mcg PO DAILY@0630 [facility] Last Admin: 10/22/18 10:07 Dose: 50 mcg Pantoprazole Sodium (Protonix Ec Tab) 40 mg PO DAILY [facility] Last Admin: 10/22/18 09:00 Dose: 40 mg Sevelamer Carbonate (Renvela) 800 mg PO TID [facility] Last Admin: 10/22/18 09:00 Dose: 800 mg Ticagrelor (Brilinta) 90 mg PO Q12 [facility] Last Admin: 10/22/18 09:00 Dose: 90 mg Physical Exam - Constitutional Appears: Older Than Stated Age, Chronically Ill - Head Exam Head Exam: NORMAL INSPECTION - Eye Exam Eye Exam: EOMI, PERRL - ENT Exam ENT Exam: Normal Exam - Neck Exam Neck exam: Positive for: Normal Inspection - Respiratory Exam Respiratory Exam: Decreased Breath Sounds (at bases), Rhonchi (scattered) Additional comments: R upper chest permacath, left lateral chest. L lateral chest wall pleural catheter. - Cardiovascular Exam Cardiovascular Exam: REGULAR RHYTHM - GI/Abdominal Exam GI & Abdominal Exam: Normal Bowel Sounds, Soft - Extremities Exam Extremities exam: Positive for: normal inspection - Back Exam Back exam: NORMAL INSPECTION - Neurological Exam Neurological exam: Alert, Oriented x3 Additional comments: Obeys commands. - Psychiatric Exam Psychiatric exam: Normal Mood - Skin Skin Exam: Dry, Warm Results - Vital Signs Recent Vital Signs: Last Vital Signs Temp 97.8 F 10/22/18 08:00 Pulse 65 10/22/18 10:10 Resp 16 10/22/18 10:00 BP 149/52 L 10/22/18 10:10 Pulse Ox 94 L 10/22/18 10:00 reviewed Venecia - Labs Result Diagrams: 10/23/18 04:45 10/23/18 04:45 Labs: Laboratory Results - last 24 hr 10/21/18 10/21/18 10/21/18 20:31 20:56 20:56 WBC 11.7 H RBC 3.46 L Hgb 10.1 L Hct 31.3 L MCV 90.4 D MCH 29.1 MCHC 32.1 L RDW 19.3 H Plt Count 212 MPV 9.8 Neut % (Auto) 86.4 H Lymph % (Auto) 5.4 L Thurston % (Auto) 5.1 Eos % (Auto) 2.8 Baso % (Auto) 0.3 Neut # (Auto) 10.1 H Lymph # (Auto) 0.6 L Thurston # (Auto) 0.6 Eos # (Auto) 0.3 Baso # (Auto) 0.0 Neutrophils % (Manual) 82 H Band Neutrophils % 2 Lymphocytes % (Manual) 8 L Monocytes % (Manual) 5 Eosinophils % (Manual) 3 Platelet Estimate Normal Poikilocytosis (manual Slight Anisocytosis (manual) Moderate PT 12.5 INR 1.1 APTT 36.4 pCO2 45 pO2 46 L HCO3 30.8 H ABG pH 7.47 H ABG Total CO2 34.2 H ABG O2 Saturation 87.8 L ABG O2 Content ABG Base Excess 8.0 H ABG Hemoglobin ABG Carboxyhemoglobin POC ABG HHb (Measured) ABG Methemoglobin ABG O2 Capacity Praveen Test Yes ABG Potassium 3.8 A-a O2 Difference 611.0 Hgb O2 Saturation Sodium 132.0 Chloride 97.0 L Glucose 161 H Lactate 1.0 Vent Mode Mechanical Rate FiO2 100.0 Inspiratory BiPAP Expiratory BiPAP Potassium Carbon Dioxide Anion Gap BUN Creatinine Est GFR ( Amer) Est GFR (Non-Af Amer) POC Glucose (mg/dL) Random Glucose Calcium Phosphorus Magnesium Total Bilirubin AST ALT Alkaline Phosphatase Troponin I NT-Pro-B Natriuret Pep Total Protein Albumin Globulin Albumin/Globulin Ratio Procalcitonin Arterial Blood Potassium 3.8 Influenza Typ A,B (EIA) Blood Type Blood Type Confirm Antibody Screen BBK History Checked 03/28/19 03/28/19 03/28/19 20:56 21:18 21:30 WBC RBC Hgb Hct MCV MCH MCHC RDW Plt Count MPV Neut % (Auto) Lymph % (Auto) Thurston % (Auto) Eos % (Auto) Baso % (Auto) Neut # (Auto) Lymph # (Auto) Thurston # (Auto) Eos # (Auto) Baso # (Auto) Neutrophils % (Manual) Band Neutrophils % Lymphocytes % (Manual) Monocytes % (Manual) Eosinophils % (Manual) Platelet Estimate Poikilocytosis (manual Anisocytosis (manual) PT INR APTT pCO2 pO2 HCO3 ABG pH ABG Total CO2 ABG O2 Saturation ABG O2 Content ABG Base Excess ABG Hemoglobin ABG Carboxyhemoglobin POC ABG HHb (Measured) ABG Methemoglobin ABG O2 Capacity Praveen Test ABG Potassium A-a O2 Difference Hgb O2 Saturation Sodium Chloride Glucose Lactate Vent Mode Mechanical Rate FiO2 Inspiratory BiPAP Expiratory BiPAP Potassium Carbon Dioxide Anion Gap BUN Creatinine Est GFR ( Amer) Est GFR (Non-Af Amer) POC Glucose (mg/dL) 146 H Random Glucose Calcium Phosphorus Magnesium Total Bilirubin AST ALT Alkaline Phosphatase Troponin I NT-Pro-B Natriuret Pep Total Protein Albumin Globulin Albumin/Globulin Ratio Procalcitonin Arterial Blood Potassium Influenza Typ A,B (EIA) Negative for flu a/b Blood Type Blood Type Confirm O POSITIVE Antibody Screen BBK History Checked 10/21/18 10/21/18 10/22/18 21:43 21:43 02:22 WBC RBC Hgb Hct MCV MCH MCHC RDW Plt Count MPV Neut % (Auto) Lymph % (Auto) Thurston % (Auto) Eos % (Auto) Baso % (Auto) Neut # (Auto) Lymph # (Auto) Thurston # (Auto) Eos # (Auto) Baso # (Auto) Neutrophils % (Manual) Band Neutrophils % Lymphocytes % (Manual) Monocytes % (Manual) Eosinophils % (Manual) Platelet Estimate Poikilocytosis (manual Anisocytosis (manual) PT INR APTT pCO2 41 pO2 80 HCO3 31.3 H ABG pH 7.50 H ABG Total CO2 33.3 H ABG O2 Saturation 98.8 H ABG O2 Content 12.7 L ABG Base Excess 8.1 H ABG Hemoglobin 9.3 L ABG Carboxyhemoglobin 1.7 H POC ABG HHb (Measured) 1.2 ABG Methemoglobin 0.7 ABG O2 Capacity 12.9 L Praveen Test Yes ABG Potassium A-a O2 Difference 582.0 Hgb O2 Saturation 96.4 Sodium 133 Chloride 93 L Glucose Lactate Vent Mode Bipap Mechanical Rate 12 FiO2 100.0 Inspiratory BiPAP 10 Expiratory BiPAP 5 Potassium 3.8 Carbon Dioxide 29 Anion Gap 15 BUN 30 H Creatinine 4.2 H Est GFR ( Amer) 13 Est GFR (Non-Af Amer) 11 POC Glucose (mg/dL) Random Glucose 139 H Calcium 8.3 L Phosphorus 4.2 Magnesium 2.0 Total Bilirubin 0.6 AST 36 ALT 27 Alkaline Phosphatase 100 Troponin I 0.0390 NT-Pro-B Natriuret Pep 51824 H Total Protein 7.7 Albumin 3.6 Globulin 4.1 H Albumin/Globulin Ratio 0.9 L Procalcitonin Arterial Blood Potassium Influenza Typ A,B (EIA) Blood Type O POSITIVE Blood Type Confirm Antibody Screen Negative BBK History Checked No verified bt 10/22/18 10/22/18 10/22/18 04:33 05:33 05:33 WBC 9.3 RBC 3.25 L Hgb 9.6 L Hct 29.1 L MCV 89.5 MCH 29.6 MCHC 33.0 RDW 18.9 H Plt Count 142 MPV 8.6 Neut % (Auto) 73.3 Lymph % (Auto) 9.5 L Thurston % (Auto) 10.1 H Eos % (Auto) 5.0 H Baso % (Auto) 2.1 H Neut # (Auto) 6.8 Lymph # (Auto) 0.9 L Thurston # (Auto) 0.9 H Eos # (Auto) 0.5 Baso # (Auto) 0.2 Neutrophils % (Manual) Band Neutrophils % Lymphocytes % (Manual) Monocytes % (Manual) Eosinophils % (Manual) Platelet Estimate Poikilocytosis (manual Anisocytosis (manual) PT INR APTT pCO2 pO2 HCO3 ABG pH ABG Total CO2 ABG O2 Saturation ABG O2 Content ABG Base Excess ABG Hemoglobin ABG Carboxyhemoglobin POC ABG HHb (Measured) ABG Methemoglobin ABG O2 Capacity Praveen Test ABG Potassium A-a O2 Difference Hgb O2 Saturation Sodium Chloride Glucose Lactate Vent Mode Mechanical Rate FiO2 Inspiratory BiPAP Expiratory BiPAP Potassium Carbon Dioxide Anion Gap BUN Creatinine Est GFR ( Amer) Est GFR (Non-Af Amer) POC Glucose (mg/dL) 93 Random Glucose Calcium Phosphorus Magnesium Total Bilirubin AST ALT Alkaline Phosphatase Troponin I NT-Pro-B Natriuret Pep Total Protein Albumin Globulin Albumin/Globulin Ratio Procalcitonin 0.25 Arterial Blood Potassium Influenza Typ A,B (EIA) Blood Type Blood Type Confirm Antibody Screen BBK History Checked 10/22/18 10/22/18 05:33 06:10 WBC RBC Hgb Hct MCV MCH MCHC RDW Plt Count MPV Neut % (Auto) Lymph % (Auto) Thurston % (Auto) Eos % (Auto) Baso % (Auto) Neut # (Auto) Lymph # (Auto) Thurston # (Auto) Eos # (Auto) Baso # (Auto) Neutrophils % (Manual) Band Neutrophils % Lymphocytes % (Manual) Monocytes % (Manual) Eosinophils % (Manual) Platelet Estimate Poikilocytosis (manual Anisocytosis (manual) PT INR APTT pCO2 42 pO2 90 HCO3 33.1 H ABG pH 7.52 H ABG Total CO2 35.6 H ABG O2 Saturation 99.6 H ABG O2 Content 13.6 L ABG Base Excess 10.4 H ABG Hemoglobin 9.9 L ABG Carboxyhemoglobin 1.4 POC ABG HHb (Measured) 0.4 ABG Methemoglobin 1.0 ABG O2 Capacity 13.7 L Praveen Test Yes ABG Potassium A-a O2 Difference 571.0 Hgb O2 Saturation 97.1 Sodium 134 Chloride 94 L Glucose Lactate Vent Mode Mechanical Rate 10 FiO2 100.0 Inspiratory BiPAP 10 Expiratory BiPAP 5 Potassium 3.4 L Carbon Dioxide 29 Anion Gap 14 BUN 34 H Creatinine 4.6 H Est GFR ( Amer) 12 Est GFR (Non-Af Amer) 10 POC Glucose (mg/dL) Random Glucose 103 Calcium 8.1 L Phosphorus Magnesium Total Bilirubin AST ALT Alkaline Phosphatase Troponin I NT-Pro-B Natriuret Pep Total Protein Albumin Globulin Albumin/Globulin Ratio Procalcitonin Arterial Blood Potassium Influenza Typ A,B (EIA) Blood Type Blood Type Confirm Antibody Screen BBK History Checked reviewed J.P. - EKG Data EKG comments: reviewed J.P. - Imaging and Cardiology Chest x-ray Status: Report reviewed by me (J.P.) Assessment & Plan (1) PNA (pneumonia) Status: Acute Priority: High (2) Pleural effusion Status: Acute Priority: High (3) CHF (congestive heart failure) Status: Acute Priority: High - Assessment and Plan (Free Text) Plan: Continue O2 NC, abx coverage, Duoneb, HD, further recommendation after review of CT Chest. - Date & Time Date: 10/22/18 Time: 13:00
--- NOTE | 2018-10-22 13:29 | CP.PCM.CON ---
History of Present Illness - History of Present Illness History of Present Illness: This patient who is 57 years of age female receiving hemodialysis at [facility] dialysis unit 3 times a week Thursday. Presented with shortness of breath and also fever and x-ray was consistent with what appears to be pneumonia perhaps Patient has been admitted in this hospital and has previous many admission in t he past. And she has a chronic left-sided pleural effusion where she has permanent catheter and she has a drainage of the pleural effusion twice a week at the [facility] PMH: Arthritis, CAD, CHF, COPD, Diabetes, HTN, HLD, Hypothyroidism, Pneumonia, End Stage Renal Disease, ESRE on HD MWF; Chronic left side effusion s/p Left pigtail catheter in place stefanie drainage weakly; Chronic Hypoxic respiratory failure on home oxygen if necessary; Hypothyroidism; CHF? PSH: Hysterectomy; Right chest Permacath; Left chest Pigtail catheter SH: Former Smoker, No ETOH; No illegal drugs; FH: States: No known family hx Allergies: NKDA Shrimp Medication: Reviewed Review of Systems - Constitutional Constitutional: Anorexia, Chills - EENT Eyes: absent: Exophthalmos Nose/Mouth/Throat: absent: Epistaxis, Nasal Congestion - Cardiovascular Cardiovascular: Dyspnea. absent: Chest Pain, Edema, Leg Ulcers, Pedal Edema - Respiratory Respiratory: Cough, Chest Congestion. absent: Hemoptysis - Gastrointestinal Gastrointestinal: absent: Abdominal Pain, Coffee Ground Emesis, Constipation, Nausea - Genitourinary Genitourinary: Nocturia - Musculoskeletal Musculoskeletal: Atrophy, Back Pain, Muscle Weakness. absent: Numbness - Integumentary Integumentary: Dry Skin. absent: Acne - Neurological Neurological: Weakness. absent: Confusion, Convulsions, Syncope - Endocrine Endocrine: Fatigue - Hematologic/Lymphatic Hematologic: absent: Easy Bleeding Past Patient History - Past Medical History & Family History Past Medical History?: Yes - Past Social History Smoking Status: Former Smoker Chewing Tobacco Use: No Cigar Use: No Alcohol: None Drugs: Denies Home Situation {Lives}: Detention - CARDIAC Hx Congestive Heart Failure: Yes Hx Hypercholesterolemia: Yes Hx Hypertension: Yes - PULMONARY Hx Chronic Obstructive Pulmonary Disease (COPD): Yes Hx Pneumonia: Yes - NEUROLOGICAL Hx Neurological Disorder: No - HEENT Hx HEENT Problems: No - RENAL Hx Chronic Kidney Disease: Yes - ENDOCRINE/METABOLIC Hx Hypothyroidism: Yes - HEMATOLOGICAL/ONCOLOGICAL Hx Blood Disorders: No - INTEGUMENTARY Hx Dermatological Problems: No - MUSCULOSKELETAL/RHEUMATOLOGICAL Hx Arthritis: Yes - GASTROINTESTINAL Hx Gastrointestinal Disorders: No - GENITOURINARY/GYNECOLOGICAL Hx Genitourinary Disorders: No - PSYCHIATRIC Hx Psychophysiologic Disorder: No Hx Substance Use: No - SURGICAL HISTORY Hx Surgeries: Yes Hx Hysterectomy: Yes Other/Comment: cardiac stent (08/2018) - ANESTHESIA Hx Anesthesia: Yes Hx Anesthesia Reactions: No Hx Malignant Hyperthermia: No Meds Allergies/Adverse Reactions: Allergies Allergy/AdvReac Type Severity Reaction Status Date / Time shrimp Allergy Severe ANAPHYLAXIS Verified 10/21/18 19:46 - Medications Medications: Current Medications Acetaminophen (Tylenol 325mg Tab) 650 mg PO Q4 PRN PRN Reason: Fever >100.4 F Acetaminophen (Tylenol 325mg Tab) 650 mg PO Q4 PRN PRN Reason: Pain, Mild (1-3) Albuterol/Ipratropium (Duoneb 3 Mg/0.5 Mg (3 Ml) Ud) 3 ml INH Q6H [facility] Last Admin: 10/22/18 08:30 Dose: Not Given Amlodipine Besylate (Norvasc) 10 mg PO DAILY [facility] Last Admin: 10/22/18 09:00 Dose: 10 mg Aspirin (Ecotrin) 81 mg PO DAILY [facility] Last Admin: 10/22/18 09:00 Dose: 81 mg Atorvastatin Calcium (Lipitor) 40 mg PO HS [facility] Carvedilol (Coreg) 12.5 mg PO Q12 [facility] Last Admin: 10/22/18 10:09 Dose: 12.5 mg Epoetin Steve (Procrit) 10,000 unit IV MWF [facility] Last Admin: 10/22/18 10:13 Dose: 10,000 unit Heparin Sodium (Porcine) (Heparin) 5,000 units SC Q12 [facility]; Protocol Last Admin: 10/22/18 09:00 Dose: 5,000 units Hydralazine HCl (Apresoline) 50 mg PO TID [facility] Last Admin: 10/22/18 10:10 Dose: 50 mg Piperacillin Sod/Tazobactam (Sod 2.25 gm/ Sodium Chloride) 100 mls @ 100 mls/hr IVPB Q12 [facility]; Protocol Last Admin: 10/22/18 10:08 Dose: 100 mls/hr Levofloxacin/Dextrose (Levaquin 500mg) 500 mg in 100 mls @ 100 mls/hr IVPB DAILY [facility]; Protocol Insulin Human Regular (Humulin R) 0 units SC ACHS [facility]; Protocol Last Admin: 10/22/18 07:57 Dose: Not Given Levothyroxine Sodium (Synthroid) 50 mcg PO DAILY@0630 [facility] Last Admin: 10/22/18 10:07 Dose: 50 mcg Pantoprazole Sodium (Protonix Ec Tab) 40 mg PO DAILY [facility] Last Admin: 10/22/18 09:00 Dose: 40 mg Sevelamer Carbonate (Renvela) 800 mg PO TID [facility] Last Admin: 10/22/18 09:00 Dose: 800 mg Ticagrelor (Brilinta) 90 mg PO Q12 [facility] Last Admin: 10/22/18 09:00 Dose: 90 mg Physical Exam - Constitutional Appears: No Acute Distress, Chronically Ill - Eye Exam Eye Exam: Conjunctival injection - ENT Exam ENT Exam: Mucous Membranes Moist - Neck Exam Neck exam: Negative for: Lymphadenopathy - Respiratory Exam Respiratory Exam: Rhonchi, NORMAL BREATHING PATTERN. absent: Chest Wall Tenderness - Cardiovascular Exam Cardiovascular Exam: absent: Gallop, JVD, Rubs - GI/Abdominal Exam GI & Abdominal Exam: Normal Bowel Sounds. absent: Guarding, Rigid - Extremities Exam Extremities exam: Negative for: calf tenderness, pedal edema - Back Exam Back exam: absent: CVA tenderness (L), CVA tenderness (R) - Neurological Exam Neurological exam: Alert - Psychiatric Exam Psychiatric exam: Normal Affect Results - Vital Signs Recent Vital Signs: Last Vital Signs Temp 97.8 F 10/22/18 08:00 Pulse 65 10/22/18 10:10 Resp 16 10/22/18 10:00 BP 149/52 L 10/22/18 10:10 Pulse Ox 94 L 10/22/18 10:00 - Labs Result Diagrams: 10/22/18 05:33 10/22/18 05:33 Labs: Laboratory Results - last 24 hr 10/21/18 10/21/18 10/21/18 20:31 20:56 20:56 WBC 11.7 H RBC 3.46 L Hgb 10.1 L Hct 31.3 L MCV 90.4 D MCH 29.1 MCHC 32.1 L RDW 19.3 H Plt Count 212 MPV 9.8 Neut % (Auto) 86.4 H Lymph % (Auto) 5.4 L Angelina % (Auto) 5.1 Eos % (Auto) 2.8 Baso % (Auto) 0.3 Neut # (Auto) 10.1 H Lymph # (Auto) 0.6 L Angelina # (Auto) 0.6 Eos # (Auto) 0.3 Baso # (Auto) 0.0 Neutrophils % (Manual) 82 H Band Neutrophils % 2 Lymphocytes % (Manual) 8 L Monocytes % (Manual) 5 Eosinophils % (Manual) 3 Platelet Estimate Normal Poikilocytosis (manual Slight Anisocytosis (manual) Moderate PT 12.5 INR 1.1 APTT 36.4 pCO2 45 pO2 46 L HCO3 30.8 H ABG pH 7.47 H ABG Total CO2 34.2 H ABG O2 Saturation 87.8 L ABG O2 Content ABG Base Excess 8.0 H ABG Hemoglobin ABG Carboxyhemoglobin POC ABG HHb (Measured) ABG Methemoglobin ABG O2 Capacity Praveen Test Yes ABG Potassium 3.8 A-a O2 Difference 611.0 Hgb O2 Saturation Sodium 132.0 Chloride 97.0 L Glucose 161 H Lactate 1.0 Vent Mode Mechanical Rate FiO2 100.0 Inspiratory BiPAP Expiratory BiPAP Potassium Carbon Dioxide Anion Gap BUN Creatinine Est GFR ( Amer) Est GFR (Non-Af Amer) POC Glucose (mg/dL) Random Glucose Calcium Phosphorus Magnesium Total Bilirubin AST ALT Alkaline Phosphatase Troponin I NT-Pro-B Natriuret Pep Total Protein Albumin Globulin Albumin/Globulin Ratio Procalcitonin Arterial Blood Potassium 3.8 Influenza Typ A,B (EIA) Blood Type Blood Type Confirm Antibody Screen BBK History Checked 10/21/18 10/21/18 10/21/18 20:56 21:18 21:30 WBC RBC Hgb Hct MCV MCH MCHC RDW Plt Count MPV Neut % (Auto) Lymph % (Auto) Angelina % (Auto) Eos % (Auto) Baso % (Auto) Neut # (Auto) Lymph # (Auto) Angelina # (Auto) Eos # (Auto) Baso # (Auto) Neutrophils % (Manual) Band Neutrophils % Lymphocytes % (Manual) Monocytes % (Manual) Eosinophils % (Manual) Platelet Estimate Poikilocytosis (manual Anisocytosis (manual) PT INR APTT pCO2 pO2 HCO3 ABG pH ABG Total CO2 ABG O2 Saturation ABG O2 Content ABG Base Excess ABG Hemoglobin ABG Carboxyhemoglobin POC ABG HHb (Measured) ABG Methemoglobin ABG O2 Capacity Praveen Test ABG Potassium A-a O2 Difference Hgb O2 Saturation Sodium Chloride Glucose Lactate Vent Mode Mechanical Rate FiO2 Inspiratory BiPAP Expiratory BiPAP Potassium Carbon Dioxide Anion Gap BUN Creatinine Est GFR ( Amer) Est GFR (Non-Af Amer) POC Glucose (mg/dL) 146 H Random Glucose Calcium Phosphorus Magnesium Total Bilirubin AST ALT Alkaline Phosphatase Troponin I NT-Pro-B Natriuret Pep Total Protein Albumin Globulin Albumin/Globulin Ratio Procalcitonin Arterial Blood Potassium Influenza Typ A,B (EIA) Negative for flu a/b Blood Type Blood Type Confirm O POSITIVE Antibody Screen BBK History Checked 10/21/18 10/21/18 10/22/18 21:43 21:43 02:22 WBC RBC Hgb Hct MCV MCH MCHC RDW Plt Count MPV Neut % (Auto) Lymph % (Auto) Angelina % (Auto) Eos % (Auto) Baso % (Auto) Neut # (Auto) Lymph # (Auto) Angelina # (Auto) Eos # (Auto) Baso # (Auto) Neutrophils % (Manual) Band Neutrophils % Lymphocytes % (Manual) Monocytes % (Manual) Eosinophils % (Manual) Platelet Estimate Poikilocytosis (manual Anisocytosis (manual) PT INR APTT pCO2 41 pO2 80 HCO3 31.3 H ABG pH 7.50 H ABG Total CO2 33.3 H ABG O2 Saturation 98.8 H ABG O2 Content 12.7 L ABG Base Excess 8.1 H ABG Hemoglobin 9.3 L ABG Carboxyhemoglobin 1.7 H POC ABG HHb (Measured) 1.2 ABG Methemoglobin 0.7 ABG O2 Capacity 12.9 L Praveen Test Yes ABG Potassium A-a O2 Difference 582.0 Hgb O2 Saturation 96.4 Sodium 133 Chloride 93 L Glucose Lactate Vent Mode Bipap Mechanical Rate 12 FiO2 100.0 Inspiratory BiPAP 10 Expiratory BiPAP 5 Potassium 3.8 Carbon Dioxide 29 Anion Gap 15 BUN 30 H Creatinine 4.2 H Est GFR ( Amer) 13 Est GFR (Non-Af Amer) 11 POC Glucose (mg/dL) Random Glucose 139 H Calcium 8.3 L Phosphorus 4.2 Magnesium 2.0 Total Bilirubin 0.6 AST 36 ALT 27 Alkaline Phosphatase 100 Troponin I 0.0390 NT-Pro-B Natriuret Pep 60839 H Total Protein 7.7 Albumin 3.6 Globulin 4.1 H Albumin/Globulin Ratio 0.9 L Procalcitonin Arterial Blood Potassium Influenza Typ A,B (EIA) Blood Type O POSITIVE Blood Type Confirm Antibody Screen Negative BBK History Checked No verified bt 10/22/18 10/22/18 10/22/18 04:33 05:33 05:33 WBC 9.3 RBC 3.25 L Hgb 9.6 L Hct 29.1 L MCV 89.5 MCH 29.6 MCHC 33.0 RDW 18.9 H Plt Count 142 MPV 8.6 Neut % (Auto) 73.3 Lymph % (Auto) 9.5 L Angelina % (Auto) 10.1 H Eos % (Auto) 5.0 H Baso % (Auto) 2.1 H Neut # (Auto) 6.8 Lymph # (Auto) 0.9 L Angelina # (Auto) 0.9 H Eos # (Auto) 0.5 Baso # (Auto) 0.2 Neutrophils % (Manual) Band Neutrophils % Lymphocytes % (Manual) Monocytes % (Manual) Eosinophils % (Manual) Platelet Estimate Poikilocytosis (manual Anisocytosis (manual) PT INR APTT pCO2 pO2 HCO3 ABG pH ABG Total CO2 ABG O2 Saturation ABG O2 Content ABG Base Excess ABG Hemoglobin ABG Carboxyhemoglobin POC ABG HHb (Measured) ABG Methemoglobin ABG O2 Capacity Praveen Test ABG Potassium A-a O2 Difference Hgb O2 Saturation Sodium Chloride Glucose Lactate Vent Mode Mechanical Rate FiO2 Inspiratory BiPAP Expiratory BiPAP Potassium Carbon Dioxide Anion Gap BUN Creatinine Est GFR ( Amer) Est GFR (Non-Af Amer) POC Glucose (mg/dL) 93 Random Glucose Calcium Phosphorus Magnesium Total Bilirubin AST ALT Alkaline Phosphatase Troponin I NT-Pro-B Natriuret Pep Total Protein Albumin Globulin Albumin/Globulin Ratio Procalcitonin 0.25 Arterial Blood Potassium Influenza Typ A,B (EIA) Blood Type Blood Type Confirm Antibody Screen BBK History Checked 10/22/18 10/22/18 05:33 06:10 WBC RBC Hgb Hct MCV MCH MCHC RDW Plt Count MPV Neut % (Auto) Lymph % (Auto) Angelina % (Auto) Eos % (Auto) Baso % (Auto) Neut # (Auto) Lymph # (Auto) Angelina # (Auto) Eos # (Auto) Baso # (Auto) Neutrophils % (Manual) Band Neutrophils % Lymphocytes % (Manual) Monocytes % (Manual) Eosinophils % (Manual) Platelet Estimate Poikilocytosis (manual Anisocytosis (manual) PT INR APTT pCO2 42 pO2 90 HCO3 33.1 H ABG pH 7.52 H ABG Total CO2 35.6 H ABG O2 Saturation 99.6 H ABG O2 Content 13.6 L ABG Base Excess 10.4 H ABG Hemoglobin 9.9 L ABG Carboxyhemoglobin 1.4 POC ABG HHb (Measured) 0.4 ABG Methemoglobin 1.0 ABG O2 Capacity 13.7 L Praveen Test Yes ABG Potassium A-a O2 Difference 571.0 Hgb O2 Saturation 97.1 Sodium 134 Chloride 94 L Glucose Lactate Vent Mode Mechanical Rate 10 FiO2 100.0 Inspiratory BiPAP 10 Expiratory BiPAP 5 Potassium 3.4 L Carbon Dioxide 29 Anion Gap 14 BUN 34 H Creatinine 4.6 H Est GFR ( Amer) 12 Est GFR (Non-Af Amer) 10 POC Glucose (mg/dL) Random Glucose 103 Calcium 8.1 L Phosphorus Magnesium Total Bilirubin AST ALT Alkaline Phosphatase Troponin I NT-Pro-B Natriuret Pep Total Protein Albumin Globulin Albumin/Globulin Ratio Procalcitonin Arterial Blood Potassium Influenza Typ A,B (EIA) Blood Type Blood Type Confirm Antibody Screen BBK History Checked Assessment & Plan (1) CHF (congestive heart failure) Status: Acute (2) Chronic kidney disease with end stage renal failure on dialysis Assessment and Plan: ESRD Fever with pneumonia CHF with fluid overload, , Small bilateral pleural effusion Diabetic chronic Kidney Disease (E11.22) Hypertensive Chronic Kidney Disease (I12.0) End stage renal disease (N18.6) dependence on hemodialysis (Z99.2) MWF) via PC Anemia (D64.9), Hyperphosphatemia (E83.39), Secondary Hyperparathyroidism (E21.1), HTN (I12.0) Recommendation Patient scheduled to have dialysis shortly. Dialysis ordered has been discussed with the dialysis nurse Antibiotics considering GFR with end-stage renal disease . EPO to be given on dialysis Serum phosphorus Phosphorus binder Serum PTH Status: Acute (3) PNA (pneumonia) Status: Acute Priority: High (4) Pleural effusion Status: Acute (5) Anemia Status: Acute (6) Leukocytosis Status: Acute
--- NOTE | 2018-10-22 15:29 | CP.CCUPN ---
CCU Subjective - Physician Review Subjective (Free Text): Tolerated off BiPAP, on nasal cannula at 5 LPM. Still awaiting routine HD today, slightly labored breathing during conversation, but no overt distress. No recurrent fever spikes, SBP 140s, HR 60s, SPO2 98% on NC. ROS: No other pertinent negs or positive on 10+ system review. Other PMSFH: All other Nursing and physician documentation reviewed to date; no new pertinent info noted relevant to current medical problems. EXAM- HEENT: no icterus, pupils equal, 3 mm and reactive, no nystagmus NECK: no visible JVD, supple, carotids equal upstroke bilat/no bruits CHEST: decreased BS bases, no wheezes audible, R chest permacath, Left chest pigtail, sites intact without tenderness or redness. HEART: regular, distant, S1S2, no murmur audible, no rubs. ABD: soft, no distention, no focal tenderness, BS hypoactive. EXT: no edema, no mottling, warm, no cyanosis, no calf tenderness or palpable cords, distal pulses intact and symmetrical, +muscle atrophy NEURO: no gross focal motor deficits SKIN: warm and dry, no rashes LABS: WBC= 9.3 HGB= 9.6 PLTs = 142K Na= 134 K= 3.4 Cl= 94 HCO3= 29 BUN/Cr= 34/4.6 BS= 103 7.52/42/90 when on BiPAP 10/, 100% Trop #1 negative BNP = 238[address] Procalcitonin normal. CXR: (my interp)- left chest catheter intact, left effusion, RLL haziness and effusion, cardiomegaly. IMPRESSION / MAJOR PROBLEMS NOW: 1. Acute Resp Hypoxemic Failure 2 pulm vasc congestion- CHF with DDysfx/ chronic effusion. 2. CRF on CAHD 3. Chronic Disease Anemia 4. Cardiomyopathy with DDysfx PLAN: 1. HD- ultrafiltration as tolerated 2. Empiric abx coverage with dual meds: on Levaquin and Zosyn. But aware that Procalcitonin level is normal. She did have fever of 101.2F on admission. r/o Bacteremia 3. Continue BiPAP / HFNC support. 4. DNI Advance Directives noted.
--- NOTE | 2018-10-22 16:42 | CARD ---
APPROVED REPORT Date of service: 10/21/2018 EKG Measurement Heart [id number] <Conclusion> Normal sinus rhythm Left axis deviation Abnormal ECG
[2018-10-23] MEDS: Albuterol-Ipratrop 3 mg / 0.5 (3 ml) UD INH SCH ×4 (01:39→19:19)
[2018-10-23 06:33] LABS: MEAN CELL VOLUME 90.7 fl (81.0-99.0); MEAN CORPUSCULAR HEMOGLOBIN 30.7 pg (27.0-31.0); MEAN CORPUSCULAR HGB CONC 33.8 g/dL (33.0-37.0); RBC 3.26 Mil/uL (3.80-5.20); RED CELL DISTRIBUTION WIDTH 19.3 % (11.5-14.5); WHITE BLOOD COUNT 9.4 K/uL (4.8-10.8)
[2018-10-23] MEDS: Levothyroxine 50 MCG TAB PO SCH (06:48)
[2018-10-23] MEDS: Insulin Regular 100 units/ml SC SCH ×4 (07:53→22:38)
--- NOTE | 2018-10-23 08:04 | CP.CCUPN ---
CCU Subjective - Physician Review Subjective (Free Text): Less dyspneic during conversation, otherwise no new complaints. No recurrent fever spikes, but temos have been 99-100F with Tmax 100.7F overnight, SBP 160s. HR 60s. Spo2 100% on NC. ROS: No other pertinent negs or positive on 10+ system review. Other PMSFH: All other Nursing and physician documentation reviewed to date; no new pertinent info noted relevant to current medical problems. EXAM- HEENT: no icterus, pupils equal, 3 mm and reactive, no nystagmus NECK: no visible JVD, supple, carotids equal upstroke bilat/no bruits CHEST: decreased BS bases, no wheezes audible, R chest permacath, Left chest pigtail, sites intact without tenderness or redness. HEART: regular, distant, S1S2, no murmur audible, no rubs. ABD: soft, no distention, no focal tenderness, BS hypoactive. EXT: no edema, no mottling, warm, no cyanosis, no calf tenderness or palpable cords, distal pulses intact and symmetrical, +muscle atrophy NEURO: no gross focal motor deficits SKIN: warm and dry, no rashes LABS: WBC= 9.4 HGB= 10.0 PLTs = 128K Na= 134 K= 4.1 Cl= 98 HCO3= 27 BUN/Cr= 17/2.9 BS= 96 7.52/42/90 when on BiPAP 10/5, 100% Trop #1 negative BNP = 60752 Procalcitonin normal. CXR: (my interp)- left chest catheter intact, left effusion, RLL haziness and effusion, cardiomegaly. IMPRESSION / MAJOR PROBLEMS NOW: 1. Acute Resp Hypoxemic Failure 2 pulm vasc congestion- CHF with DDysfx/ chronic effusion. 2. CRF on CAHD 3. Chronic Disease Anemia 4. Cardiomyopathy with DDysfx PLAN: 1. HD- ultrafiltration overnight for approx. 2.0L. 2. Empiric abx coverage with dual meds: on Levaquin and Zosyn. But aware that Procalcitonin level is normal. She did have fever of 101.2F on admission. r/o Bacteremia. 3. Has averted need for further BiPAP support. Consider Pulm eval to re- assess effusion and any need for further drainage. 4. DNI Advance Directives noted. 5. Stable for Tele bed.
[2018-10-23] MEDS: levoFLOXacin 500 mg in D5W 500 MG/100 ML BAG IVPB SCH (08:35)
[2018-10-23] MEDS: Pantoprazole 40 mg EC Tab PO SCH (08:36)
--- NOTE | 2018-10-23 16:50 | CP.PCM.PN ---
Subjective - Date & Time of Evaluation Date of Evaluation: 10/23/18 Time of Evaluation: 11:20 - Subjective Subjective: F/U PNA/Pleural effusion. Pt breathing well after HD yesterday, no SOB with O2 NC. Objective - Vital Signs/Intake and Output Vital Signs (last 24 hours): Temp Pulse Resp BP Pulse Ox 98.1 F 62 28 H 130/53 L 96 10/23/18 16:00 10/23/18 16:00 10/23/18 14:00 10/23/18 16:18 10/23/18 16:00 Intake and Output: 10/23/18 10/23/18 06:59 18:59 Intake Total 320 Output Total 2000 Balance -1680 - Medications Medications: Current Medications Acetaminophen (Tylenol 325mg Tab) 650 mg PO Q4 PRN PRN Reason: Fever >100.4 F Last Admin: 10/23/18 01:39 Dose: 650 mg Acetaminophen (Tylenol 325mg Tab) 650 mg PO Q4 PRN PRN Reason: Pain, Mild (1-3) Albuterol/Ipratropium (Duoneb 3 Mg/0.5 Mg (3 Ml) Ud) 3 ml INH Q6H [facility] Last Admin: 10/23/18 14:21 Dose: 3 ml Amlodipine Besylate (Norvasc) 10 mg PO DAILY [facility] Last Admin: 10/23/18 08:36 Dose: 10 mg Aspirin (Ecotrin) 81 mg PO DAILY [facility] Last Admin: 10/23/18 08:35 Dose: 81 mg Atorvastatin Calcium (Lipitor) 40 mg PO HS [facility] Last Admin: 10/22/18 22:30 Dose: 40 mg Carvedilol (Coreg) 12.5 mg PO Q12 [facility] Last Admin: 10/23/18 08:34 Dose: 12.5 mg Epoetin Steve (Procrit) 10,000 unit IV MWF [facility] Last Admin: 10/22/18 10:13 Dose: 10,000 unit Heparin Sodium (Porcine) (Heparin) 5,000 units SC Q12 [facility]; Protocol Last Admin: 10/23/18 08:39 Dose: Not Given Hydralazine HCl (Apresoline) 50 mg PO TID [facility] Last Admin: 10/23/18 16:18 Dose: 50 mg Piperacillin Sod/Tazobactam (Sod 2.25 gm/ Sodium Chloride) 100 mls @ 100 mls/hr IVPB Q12 [facility]; Protocol Last Admin: 10/23/18 08:36 Dose: 100 mls/hr Levofloxacin/Dextrose (Levaquin 500mg) 500 mg in 100 mls @ 100 mls/hr IVPB DAILY [facility]; Protocol Last Admin: 10/23/18 08:35 Dose: 100 mls/hr Insulin Human Regular (Humulin R) 0 units SC ACHS [facility]; Protocol Last Admin: 10/23/18 16:39 Dose: Not Given Levothyroxine Sodium (Synthroid) 50 mcg PO DAILY@0630 [facility] Last Admin: 10/23/18 06:48 Dose: 50 mcg Pantoprazole Sodium (Protonix Ec Tab) 40 mg PO DAILY [facility] Last Admin: 10/23/18 08:36 Dose: 40 mg Sevelamer Carbonate (Renvela) 800 mg PO TID [facility] Last Admin: 10/23/18 16:18 Dose: 800 mg Ticagrelor (Brilinta) 90 mg PO Q12 [facility] Last Admin: 10/23/18 08:34 Dose: 90 mg - Labs Labs: 10/23/18 04:45 10/23/18 04:45 PT 12.5 Seconds (9.8-13.1) 10/21/18 20:56 INR 1.1 10/21/18 20:56 APTT 36.4 Seconds (25.6-37.1) 10/21/18 20:56 - Constitutional Appears: Chronically Ill - Head Exam Head Exam: NORMAL INSPECTION - Eye Exam Eye Exam: EOMI, PERRL - ENT Exam ENT Exam: Normal Exam - Neck Exam Neck Exam: Normal Inspection - Respiratory Exam Respiratory Exam: Decreased Breath Sounds (at bases) Additional comments: Crackles at bases, R chest permacath and L pigtail catheter in place with dressing. - Cardiovascular Exam Cardiovascular Exam: REGULAR RHYTHM - GI/Abdominal Exam GI & Abdominal Exam: Soft, Normal Bowel Sounds - Extremities Exam Extremities Exam: Normal Inspection - Back Exam Back Exam: NORMAL INSPECTION - Neurological Exam Neurological Exam: Alert, Oriented x3 - Psychiatric Exam Psychiatric exam: Normal Mood - Skin Skin Exam: Normal Color, Warm Assessment and Plan (1) PNA (pneumonia) Status: Acute (2) Pleural effusion Status: Acute (3) CHF (congestive heart failure) Status: Acute - Assessment and Plan (Free Text) Plan: CT Chest moderate L effusion possible loculated, LLL > PAL atelectasis,Pulmo nary venous congestion, Patient with current clinical condition is not candidate at this moment for Pleurodesis, continue DuoNeb, Levaquin, Zosyn and rest of Tx
--- NOTE | 2018-10-23 17:43 | CT ---
Date of service: 10/23/2018 PROCEDURE: CT Chest without contrast HISTORY: PNA, Pleural Effusion, CHF COMPARISON: Comparison made with chest radiograph 10/21/2018. TECHNIQUE: Contiguous axial images were obtained through the chest without intravenous contrast enhancement. Sagittal and coronal reconstructions were performed. Radiation dose: Total exam DLP = 124.73 mGy-cm. This CT exam was performed using one or more of the following dose reduction techniques: Automated exposure control, adjustment of the mA and/or kV according to patient size, and/or use of iterative reconstruction technique. FINDINGS: In situ left-sided chest tube which may be partially occluded.. In situ right IJ dialysis catheter present. LUNGS: Moderate size residual left-sided effusion and mild [id number] left lower lobe atelectasis with lesser atelectasis seen in the left upper lobe.. Note that the possibility of some loculated component cannot be completely excluded. The there is a small right-sided effusion and right lower lobe atelectasis as well. Moderate pulmonary venous congestive changes with diffuse ground-glass opacities MEDIASTINUM: Heart is markedly enlarged. There is a moderate-sized pericardial effusion. At ascending thoracic aorta measures approximately 2.7 cm and descending thoracic aorta measures approximately 2.1 cm. Mild aortic calculus sclerotic calcification. Pulmonary trunk measures approximately 2.9 cm; rule out underlying pulmonary arterial hypertension. Evaluation for mediastinal and hilar adenopathy slightly limited in part due to pericardial effusion however no significant mediastinal adenopathy is identified. In the There is an ill-defined area low-attenuation left lobe thyroid gland for which thyroid ultrasound recommended. PLEURA: As above. No evidence of pneumothorax. BONES: Mild multilevel degenerative spondylosis of the thoracic spine. UPPER ABDOMEN: Grossly unremarkable. OTHER FINDINGS: There is an ill-defined area low attenuation seen IMPRESSION: Moderate size residual left-sided effusion and mild [id number] left lower lobe atelectasis with lesser atelectasis seen in the left upper lobe.. Note that the possibility of some loculated component cannot be completely excluded. The there is a small right-sided effusion and right lower lobe atelectasis as well. In situ left-sided chest tube which may be partially occluded. Moderate pulmonary venous congestive changes with diffuse ground-glass opacities Cardiomegaly with moderately large pericardial effusion. Low-attenuation lesion left lobe thyroid gland for which thyroid ultrasound follow-up recommended
--- NOTE | 2018-10-23 18:22 | CP.PCM.PN ---
Subjective - Date & Time of Evaluation Date of Evaluation: 10/23/18 Time of Evaluation: 18:18 - Subjective Subjective: renal follow up note no events overnight vitals reviewed heent normal op moist s1s2 present no resp distress abd soft nt nd no edema ao times 3 cooperative ESRD Fever with pneumonia CHF with fluid overload, , Small bilateral pleural effusion Diabetic chronic Kidney Disease (E11.22) Hypertensive Chronic Kidney Disease (I12.0) End stage renal disease (N18.6) dependence on hemodialysis (Z99.2) MWF) via PC Anemia (D64.9), Hyperphosphatemia (E83.39), Secondary Hyperparathyroidism (E21.1), HTN (I12.0) hd continue per schedule mwf per schedule lytes reviewed anemia stable bp ok monitor phos levels Objective - Vital Signs/Intake and Output Vital Signs (last 24 hours): Temp Pulse Resp BP Pulse Ox 98.1 F 63 31 H 148/58 L 95 10/23/18 16:00 10/23/18 18:00 10/23/18 18:00 10/23/18 18:00 10/23/18 18:00 Intake and Output: 10/23/18 10/23/18 06:59 18:59 Intake Total 320 Output Total 2000 Balance -1680 - Medications Medications: Current Medications Acetaminophen (Tylenol 325mg Tab) 650 mg PO Q4 PRN PRN Reason: Fever >100.4 F Last Admin: 10/23/18 01:39 Dose: 650 mg Acetaminophen (Tylenol 325mg Tab) 650 mg PO Q4 PRN PRN Reason: Pain, Mild (1-3) Albuterol/Ipratropium (Duoneb 3 Mg/0.5 Mg (3 Ml) Ud) 3 ml INH Q6H [facility] Last Admin: 10/23/18 14:21 Dose: 3 ml Amlodipine Besylate (Norvasc) 10 mg PO DAILY [facility] Last Admin: 10/23/18 08:36 Dose: 10 mg Aspirin (Ecotrin) 81 mg PO DAILY [facility] Last Admin: 10/23/18 08:35 Dose: 81 mg Atorvastatin Calcium (Lipitor) 40 mg PO HS [facility] Last Admin: 10/22/18 22:30 Dose: 40 mg Carvedilol (Coreg) 12.5 mg PO Q12 [facility] Last Admin: 10/23/18 08:34 Dose: 12.5 mg Epoetin Steve (Procrit) 10,000 unit IV MWF [facility] Last Admin: 10/22/18 10:13 Dose: 10,000 unit Heparin Sodium (Porcine) (Heparin) 5,000 units SC Q12 [facility]; Protocol Last Admin: 10/23/18 08:39 Dose: Not Given Hydralazine HCl (Apresoline) 50 mg PO TID [facility] Last Admin: 10/23/18 16:18 Dose: 50 mg Piperacillin Sod/Tazobactam (Sod 2.25 gm/ Sodium Chloride) 100 mls @ 100 mls/hr IVPB Q12 [facility]; Protocol Last Admin: 10/23/18 08:36 Dose: 100 mls/hr Levofloxacin/Dextrose (Levaquin 500mg) 500 mg in 100 mls @ 100 mls/hr IVPB DAILY [facility]; Protocol Last Admin: 10/23/18 08:35 Dose: 100 mls/hr Insulin Human Regular (Humulin R) 0 units SC ACHS [facility]; Protocol Last Admin: 10/23/18 16:39 Dose: Not Given Levothyroxine Sodium (Synthroid) 50 mcg PO DAILY@0630 [facility] Last Admin: 10/23/18 06:48 Dose: 50 mcg Pantoprazole Sodium (Protonix Ec Tab) 40 mg PO DAILY [facility] Last Admin: 10/23/18 08:36 Dose: 40 mg Sevelamer Carbonate (Renvela) 800 mg PO TID [facility] Last Admin: 10/23/18 16:18 Dose: 800 mg Ticagrelor (Brilinta) 90 mg PO Q12 [facility] Last Admin: 10/23/18 08:34 Dose: 90 mg - Labs Labs: 10/23/18 04:45 10/23/18 04:45 PT 12.5 Seconds (9.8-13.1) 10/21/18 20:56 INR 1.1 10/21/18 20:56 APTT 36.4 Seconds (25.6-37.1) 10/21/18 20:56
[2018-10-24] MEDS: Albuterol-Ipratrop 3 mg / 0.5 (3 ml) UD INH SCH ×4 (01:00→19:23)
[2018-10-24] MEDS: Levothyroxine 50 MCG TAB PO SCH (05:34)
[2018-10-24] MEDS: Insulin Regular 100 units/ml SC SCH ×4 (09:09→21:52)
[2018-10-24] MEDS: levoFLOXacin 500 mg in D5W 500 MG/100 ML BAG IVPB SCH (09:09)
[2018-10-24] MEDS: Pantoprazole 40 mg EC Tab PO SCH (09:10)
--- NOTE | 2018-10-24 16:13 | CP.PCM.PN ---
Subjective - Date & Time of Evaluation Date of Evaluation: 10/24/18 Time of Evaluation: 13:40 - Subjective Subjective: no AD , at times intermittent SOB, Pt on NC O2 Objective - Vital Signs/Intake and Output Vital Signs (last 24 hours): Temp Pulse Resp BP Pulse Ox 98.1 F 72 19 160/65 H 96 10/24/18 07:55 10/24/18 09:10 10/24/18 07:55 10/24/18 12:50 10/24/18 07:55 Intake and Output: 10/24/18 10/24/18 06:59 18:59 Intake Total 130 Balance 130 - Medications Medications: Current Medications Acetaminophen (Tylenol 325mg Tab) 650 mg PO Q4 PRN PRN Reason: Fever >100.4 F Last Admin: 10/23/18 01:39 Dose: 650 mg Acetaminophen (Tylenol 325mg Tab) 650 mg PO Q4 PRN PRN Reason: Pain, Mild (1-3) Albuterol/Ipratropium (Duoneb 3 Mg/0.5 Mg (3 Ml) Ud) 3 ml INH Q6H [facility] Last Admin: 10/24/18 13:40 Dose: 3 ml Amlodipine Besylate (Norvasc) 10 mg PO DAILY [facility] Last Admin: 10/24/18 09:10 Dose: 10 mg Aspirin (Ecotrin) 81 mg PO DAILY [facility] Last Admin: 10/24/18 09:08 Dose: 81 mg Atorvastatin Calcium (Lipitor) 40 mg PO HS [facility] Last Admin: 10/23/18 21:41 Dose: 40 mg Carvedilol (Coreg) 12.5 mg PO Q12 [facility] Last Admin: 10/24/18 09:08 Dose: 12.5 mg Epoetin Steve (Procrit) 10,000 unit IV MWF [facility] Last Admin: 10/22/18 10:13 Dose: 10,000 unit Heparin Sodium (Porcine) (Heparin) 5,000 units SC Q12 [facility]; Protocol Last Admin: 10/24/18 09:09 Dose: Not Given Hydralazine HCl (Apresoline) 50 mg PO TID [facility] Last Admin: 10/24/18 12:50 Dose: 50 mg Piperacillin Sod/Tazobactam (Sod 2.25 gm/ Sodium Chloride) 100 mls @ 100 mls/hr IVPB Q12 [facility]; Protocol Last Admin: 10/24/18 09:10 Dose: 100 mls/hr Levofloxacin/Dextrose (Levaquin 500mg) 500 mg in 100 mls @ 100 mls/hr IVPB DAILY [facility]; Protocol Last Admin: 10/24/18 09:09 Dose: 100 mls/hr Insulin Human Regular (Humulin R) 0 units SC ACHS [facility]; Protocol Last Admin: 10/24/18 16:12 Dose: Not Given Levothyroxine Sodium (Synthroid) 50 mcg PO DAILY@0630 [facility] Last Admin: 10/24/18 05:34 Dose: 50 mcg Pantoprazole Sodium (Protonix Ec Tab) 40 mg PO DAILY [facility] Last Admin: 10/24/18 09:10 Dose: 40 mg Sevelamer Carbonate (Renvela) 800 mg PO TID [facility] Last Admin: 10/24/18 12:50 Dose: 800 mg Ticagrelor (Brilinta) 90 mg PO Q12 [facility] Last Admin: 10/24/18 09:08 Dose: 90 mg - Labs Labs: 10/23/18 04:45 10/23/18 04:45 PT 12.5 Seconds (9.8-13.1) 10/21/18 20:56 INR 1.1 10/21/18 20:56 APTT 36.4 Seconds (25.6-37.1) 10/21/18 20:56 - Constitutional Appears: No Acute Distress - Head Exam Head Exam: NORMAL INSPECTION - Eye Exam Eye Exam: PERRL - ENT Exam ENT Exam: Normal Exam - Neck Exam Neck Exam: Normal Inspection - Respiratory Exam Respiratory Exam: Decreased Breath Sounds (at bases) Additional comments: L Pigtail - Cardiovascular Exam Cardiovascular Exam: REGULAR RHYTHM - GI/Abdominal Exam GI & Abdominal Exam: Soft, Normal Bowel Sounds - Extremities Exam Extremities Exam: Normal Inspection - Back Exam Back Exam: NORMAL INSPECTION - Neurological Exam Neurological Exam: Alert, CN II-XII Intact, Oriented x3 Additional comments: no focal motor/sensory deficit, generalized weakness Assessment and Plan (1) PNA (pneumonia) Status: Acute (2) Pleural effusion Status: Acute (3) CHF (congestive heart failure) Status: Acute - Assessment and Plan (Free Text) Plan: continue Zosyn, Levaquin , Duoneb/ O2 NC , HD and rest of Tx
--- NOTE | 2018-10-24 23:09 | CP.PCM.HP ---
History of Present Illness - History of Present Illness History of Present Illness: This is a 57 y/o female with hx of persistent pleural effusion left, CKD, HTN DM 2 was admitetd for recurrence of SOB while at the [facility]. She was also noted to have low grade fever. She was recently hospitalized for pneumonia and was sent back to the [facility] with antibiotics. She has chronic pleural effusion mostly left and pericardial effusion. Present on Admission - Present on Admission Any Indicators Present on Admission: No History of DVT/PE: No History of Uncontrolled Diabetes: Yes Urinary Catheter: No Decubitus Ulcer Present: No Review of Systems - Constitutional Constitutional: Anorexia, Fatigue, Fever - Respiratory Respiratory: Cough, Dyspnea Past Patient History - Past Medical History & Family History Past Medical History?: Yes - Past Social History Smoking Status: Former Smoker Chewing Tobacco Use: No Cigar Use: No Alcohol: None Drugs: Denies Home Situation {Lives}: Prison - CARDIAC Hx Cardiac Disorders: Yes Hx Congestive Heart Failure: Yes Hx Hypercholesterolemia: Yes Hx Hypertension: Yes - PULMONARY Hx Respiratory Disorders: Yes Hx Chronic Obstructive Pulmonary Disease (COPD): Yes Hx Pneumonia: Yes - NEUROLOGICAL Hx Neurological Disorder: No - HEENT Hx HEENT Problems: No - RENAL Hx Chronic Kidney Disease: Yes Hx Dialysis: Yes - ENDOCRINE/METABOLIC Hx Endocrine Disorders: Yes Hx Diabetes Mellitus Type 2: Yes Hx Hypothyroidism: Yes - HEMATOLOGICAL/ONCOLOGICAL Hx Blood Disorders: No - INTEGUMENTARY Hx Dermatological Problems: No - MUSCULOSKELETAL/RHEUMATOLOGICAL Hx Musculoskeletal Disorders: Yes Hx Arthritis: Yes - GASTROINTESTINAL Hx Gastrointestinal Disorders: No - GENITOURINARY/GYNECOLOGICAL Hx Genitourinary Disorders: Yes Hx Uterine Cancer: Yes - PSYCHIATRIC Hx Psychophysiologic Disorder: No Hx Substance Use: No - SURGICAL HISTORY Hx Surgeries: Yes Hx Hysterectomy: Yes Other/Comment: cardiac stent (08/2018) - ANESTHESIA Hx Anesthesia: Yes Hx Anesthesia Reactions: No Hx Malignant Hyperthermia: No Meds Allergies/Adverse Reactions: Allergies Allergy/AdvReac Type Severity Reaction Status Date / Time shrimp Allergy Severe ANAPHYLAXIS Verified 10/21/18 19:46 Physical Exam - Constitutional Appears: In Acute Distress - ENT Exam ENT Exam: Mucous Membranes Dry - Respiratory Exam Respiratory Exam: Decreased Breath Sounds - Cardiovascular Exam Cardiovascular Exam: REGULAR RHYTHM - GI/Abdominal Exam GI & Abdominal Exam: Normal Bowel Sounds Results - Vital Signs Recent Vital Signs: Last Vital Signs Temp 98.7 F 10/24/18 16:36 Pulse 69 10/24/18 21:42 Resp 18 10/24/18 16:36 BP 150/50 L 10/24/18 21:42 Pulse Ox 93 L 10/24/18 16:36 - Labs Result Diagrams: 10/23/18 04:45 10/23/18 04:45 Labs: Laboratory Results - last 24 hr 10/24/18 10/24/18 10/24/18 05:23 10:42 15:53 POC Glucose (mg/dL) 91 139 H 116 H 10/24/18 21:08 POC Glucose (mg/dL) 149 H Assessment & Plan - Assessment and Plan (Free Text) Assessment: DX Pleural effusion CKD 5 Pericardial effusion pneumonia DM 2 Plan ICU IV antibiotics pulmonary consult resp tx cardiology eval re pericardial efusion
--- NOTE | 2018-10-24 23:10 | CP.PCM.PN ---
Subjective - Date & Time of Evaluation Date of Evaluation: 10/23/18 Time of Evaluation: 15:00 - Subjective Subjective: Patient is less SOB BP noted to be stale Has no fever Has no chest pain CT scan of the chest showed possible occlusion of the chest tube Objective - Vital Signs/Intake and Output Vital Signs (last 24 hours): Temp Pulse Resp BP Pulse Ox 98.7 F 69 18 150/50 L 93 L 10/24/18 16:36 10/24/18 21:42 10/24/18 16:36 10/24/18 21:42 10/24/18 16:36 - Medications Medications: Current Medications Acetaminophen (Tylenol 325mg Tab) 650 mg PO Q4 PRN PRN Reason: Fever >100.4 F Last Admin: 10/23/18 01:39 Dose: 650 mg Acetaminophen (Tylenol 325mg Tab) 650 mg PO Q4 PRN PRN Reason: Pain, Mild (1-3) Albuterol/Ipratropium (Duoneb 3 Mg/0.5 Mg (3 Ml) Ud) 3 ml INH Q6H [facility] Last Admin: 10/24/18 19:23 Dose: 3 ml Amlodipine Besylate (Norvasc) 10 mg PO DAILY [facility] Last Admin: 10/24/18 09:10 Dose: 10 mg Aspirin (Ecotrin) 81 mg PO DAILY [facility] Last Admin: 10/24/18 09:08 Dose: 81 mg Atorvastatin Calcium (Lipitor) 40 mg PO HS [facility] Last Admin: 10/24/18 21:42 Dose: 40 mg Carvedilol (Coreg) 25 mg PO Q12 [facility] Last Admin: 10/24/18 21:42 Dose: 25 mg Epoetin Steve (Procrit) 10,000 unit IV MWF [facility] Last Admin: 10/22/18 10:13 Dose: 10,000 unit Heparin Sodium (Porcine) (Heparin) 5,000 units SC Q12 [facility]; Protocol Last Admin: 10/24/18 21:41 Dose: Not Given Hydralazine HCl (Apresoline) 50 mg PO TID [facility] Last Admin: 10/24/18 16:46 Dose: 50 mg Piperacillin Sod/Tazobactam (Sod 2.25 gm/ Sodium Chloride) 100 mls @ 100 mls/hr IVPB Q12 [facility]; Protocol Last Admin: 10/24/18 21:42 Dose: 100 mls/hr Levofloxacin/Dextrose (Levaquin 500mg) 500 mg in 100 mls @ 100 mls/hr IVPB DAILY [facility]; Protocol Last Admin: 10/24/18 09:09 Dose: 100 mls/hr Insulin Human Regular (Humulin R) 0 units SC ACHS [facility]; Protocol Last Admin: 10/24/18 21:52 Dose: Not Given Levothyroxine Sodium (Synthroid) 50 mcg PO DAILY@0630 [facility] Last Admin: 10/24/18 05:34 Dose: 50 mcg Pantoprazole Sodium (Protonix Ec Tab) 40 mg PO DAILY [facility] Last Admin: 10/24/18 09:10 Dose: 40 mg Sevelamer Carbonate (Renvela) 800 mg PO TID [facility] Last Admin: 10/24/18 16:47 Dose: 800 mg Ticagrelor (Brilinta) 90 mg PO Q12 [facility] Last Admin: 10/24/18 21:42 Dose: 90 mg - Labs Labs: 10/23/18 04:45 10/23/18 04:45 PT 12.5 Seconds (9.8-13.1) 10/21/18 20:56 INR 1.1 10/21/18 20:56 APTT 36.4 Seconds (25.6-37.1) 10/21/18 20:56 - Head Exam Head Exam: NORMAL INSPECTION - Eye Exam Eye Exam: Normal appearance - ENT Exam ENT Exam: Mucous Membranes Moist - Respiratory Exam Respiratory Exam: Decreased Breath Sounds - Cardiovascular Exam Cardiovascular Exam: REGULAR RHYTHM - GI/Abdominal Exam GI & Abdominal Exam: Normal Bowel Sounds Assessment and Plan (1) Pleural effusion Status: Acute (2) Anemia Status: Acute (3) CHF (congestive heart failure) Status: Acute (4) Chronic kidney disease with end stage renal failure on dialysis Status: Acute (5) Diabetes mellitus type 2 in nonobese Status: Acute - Assessment and Plan (Free Text) Plan: Cont meds Cont tx followo up with pulmonary re plans on pleural effusion
--- NOTE | 2018-10-24 23:22 | CP.PCM.PN ---
Subjective - Date & Time of Evaluation Date of Evaluation: 10/24/18 Time of Evaluation: 16:00 - Subjective Subjective: Patient is stable Has no chest pain Has less SOB Has no fever. Objective - Vital Signs/Intake and Output Vital Signs (last 24 hours): Temp Pulse Resp BP Pulse Ox 98.7 F 69 18 150/50 L 93 L 10/24/18 16:36 10/24/18 21:42 10/24/18 16:36 10/24/18 21:42 10/24/18 16:36 - Medications Medications: Current Medications Acetaminophen (Tylenol 325mg Tab) 650 mg PO Q4 PRN PRN Reason: Fever >100.4 F Last Admin: 10/23/18 01:39 Dose: 650 mg Acetaminophen (Tylenol 325mg Tab) 650 mg PO Q4 PRN PRN Reason: Pain, Mild (1-3) Albuterol/Ipratropium (Duoneb 3 Mg/0.5 Mg (3 Ml) Ud) 3 ml INH Q6H [facility] Last Admin: 10/24/18 19:23 Dose: 3 ml Amlodipine Besylate (Norvasc) 10 mg PO DAILY [facility] Last Admin: 10/24/18 09:10 Dose: 10 mg Aspirin (Ecotrin) 81 mg PO DAILY [facility] Last Admin: 10/24/18 09:08 Dose: 81 mg Atorvastatin Calcium (Lipitor) 40 mg PO HS [facility] Last Admin: 10/24/18 21:42 Dose: 40 mg Carvedilol (Coreg) 25 mg PO Q12 [facility] Last Admin: 10/24/18 21:42 Dose: 25 mg Epoetin Steve (Procrit) 10,000 unit IV MWF [facility] Last Admin: 10/22/18 10:13 Dose: 10,000 unit Heparin Sodium (Porcine) (Heparin) 5,000 units SC Q12 [facility]; Protocol Last Admin: 10/24/18 21:41 Dose: Not Given Hydralazine HCl (Apresoline) 50 mg PO TID [facility] Last Admin: 10/24/18 16:46 Dose: 50 mg Piperacillin Sod/Tazobactam (Sod 2.25 gm/ Sodium Chloride) 100 mls @ 100 mls/hr IVPB Q12 [facility]; Protocol Last Admin: 10/24/18 21:42 Dose: 100 mls/hr Levofloxacin/Dextrose (Levaquin 500mg) 500 mg in 100 mls @ 100 mls/hr IVPB DAILY [facility]; Protocol Last Admin: 10/24/18 09:09 Dose: 100 mls/hr Insulin Human Regular (Humulin R) 0 units SC ACHS [facility]; Protocol Last Admin: 10/24/18 21:52 Dose: Not Given Levothyroxine Sodium (Synthroid) 50 mcg PO DAILY@0630 [facility] Last Admin: 10/24/18 05:34 Dose: 50 mcg Pantoprazole Sodium (Protonix Ec Tab) 40 mg PO DAILY [facility] Last Admin: 10/24/18 09:10 Dose: 40 mg Sevelamer Carbonate (Renvela) 800 mg PO TID [facility] Last Admin: 10/24/18 16:47 Dose: 800 mg Ticagrelor (Brilinta) 90 mg PO Q12 [facility] Last Admin: 10/24/18 21:42 Dose: 90 mg - Labs Labs: 10/23/18 04:45 10/23/18 04:45 PT 12.5 Seconds (9.8-13.1) 10/21/18 20:56 INR 1.1 10/21/18 20:56 APTT 36.4 Seconds (25.6-37.1) 10/21/18 20:56 - Head Exam Head Exam: NORMAL INSPECTION - Eye Exam Eye Exam: Normal appearance - ENT Exam ENT Exam: Mucous Membranes Moist - Respiratory Exam Respiratory Exam: Clear to Ausculation Bilateral - Cardiovascular Exam Cardiovascular Exam: REGULAR RHYTHM - GI/Abdominal Exam GI & Abdominal Exam: Normal Bowel Sounds Assessment and Plan (1) Pleural effusion Status: Acute (2) Anemia Status: Acute (3) CHF (congestive heart failure) Status: Acute (4) Chronic kidney disease with end stage renal failure on dialysis Status: Acute (5) Diabetes mellitus type 2 in nonobese Status: Acute - Assessment and Plan (Free Text) Plan: Cont meds Cont tx start phys therapy follow up with cardiology re tx plans for pericardial effusion
[2018-10-25] MEDS: Albuterol-Ipratrop 3 mg / 0.5 (3 ml) UD INH SCH ×5 (02:22→19:04)
[2018-10-25] MEDS: Levothyroxine 50 MCG TAB PO SCH (05:49)
[2018-10-25] MEDS: Insulin Regular 100 units/ml SC SCH ×4 (08:56→22:14)
[2018-10-25] MEDS: Pantoprazole 40 mg EC Tab PO SCH (08:58)
--- NOTE | 2018-10-25 09:30 | CP.PCM.PN ---
Subjective - Date & Time of Evaluation Date of Evaluation: 10/25/18 Time of Evaluation: 10:00 - Subjective Subjective: patient awake Patient feeling much better now kia Vital signs noted stable Objective - Vital Signs/Intake and Output Vital Signs (last 24 hours): Temp Pulse Resp BP Pulse Ox 97.8 F 69 18 161/69 H 93 L 10/25/18 08:24 10/25/18 08:57 10/25/18 08:24 10/25/18 08:57 10/25/18 08:24 - Medications Medications: Current Medications Acetaminophen (Tylenol 325mg Tab) 650 mg PO Q4 PRN PRN Reason: Fever >100.4 F Last Admin: 10/23/18 01:39 Dose: 650 mg Acetaminophen (Tylenol 325mg Tab) 650 mg PO Q4 PRN PRN Reason: Pain, Mild (1-3) Albuterol/Ipratropium (Duoneb 3 Mg/0.5 Mg (3 Ml) Ud) 3 ml INH Q6H [facility] Last Admin: 10/25/18 07:48 Dose: 3 ml Amlodipine Besylate (Norvasc) 10 mg PO DAILY [facility] Last Admin: 10/25/18 08:57 Dose: 10 mg Aspirin (Ecotrin) 81 mg PO DAILY [facility] Last Admin: 10/25/18 08:55 Dose: 81 mg Atorvastatin Calcium (Lipitor) 40 mg PO HS [facility] Last Admin: 10/24/18 21:42 Dose: 40 mg Carvedilol (Coreg) 25 mg PO Q12 [facility] Last Admin: 10/25/18 08:55 Dose: 25 mg Epoetin Steve (Procrit) 10,000 unit IV MWF [facility] Last Admin: 10/22/18 10:13 Dose: 10,000 unit Heparin Sodium (Porcine) (Heparin) 5,000 units SC Q12 [facility]; Protocol Last Admin: 10/25/18 08:55 Dose: Not Given Hydralazine HCl (Apresoline) 50 mg PO TID [facility] Last Admin: 10/25/18 08:54 Dose: 50 mg Levofloxacin/Dextrose (Levaquin 500mg) 500 mg in 100 mls @ 100 mls/hr IVPB DAILY [facility]; Protocol Last Admin: 10/24/18 09:09 Dose: 100 mls/hr Insulin Human Regular (Humulin R) 0 units SC ACHS [facility]; Protocol Last Admin: 10/25/18 08:56 Dose: Not Given Levothyroxine Sodium (Synthroid) 50 mcg PO DAILY@0630 [facility] Last Admin: 10/25/18 05:49 Dose: 50 mcg Pantoprazole Sodium (Protonix Ec Tab) 40 mg PO DAILY [facility] Last Admin: 10/25/18 08:58 Dose: 40 mg Sevelamer Carbonate (Renvela) 800 mg PO TID [facility] Last Admin: 10/25/18 08:58 Dose: 800 mg Ticagrelor (Brilinta) 90 mg PO Q12 [facility] Last Admin: 10/25/18 08:55 Dose: 90 mg - Labs Labs: 10/23/18 04:45 10/23/18 04:45 PT 12.5 Seconds (9.8-13.1) 10/21/18 20:56 INR 1.1 10/21/18 20:56 APTT 36.4 Seconds (25.6-37.1) 10/21/18 20:56 - Constitutional Appears: No Acute Distress - Eye Exam Eye Exam: Conjunctival injection - ENT Exam ENT Exam: Mucous Membranes Moist - Neck Exam Neck Exam: absent: Lymphadenopathy - Respiratory Exam Respiratory Exam: Rhonchi. absent: Chest Wall Tenderness - Cardiovascular Exam Cardiovascular Exam: absent: Gallop, JVD, Rubs - GI/Abdominal Exam GI & Abdominal Exam: Soft, Normal Bowel Sounds - Extremities Exam Extremities Exam: absent: Calf Tenderness - Back Exam Back Exam: absent: CVA tenderness (L), CVA tenderness (R) - Neurological Exam Neurological Exam: Alert - Psychiatric Exam Psychiatric exam: Normal Affect - Skin Skin Exam: absent: Cyanosis Assessment and Plan (1) CHF (congestive heart failure) Status: Acute (2) Chronic kidney disease with end stage renal failure on dialysis Assessment & Plan: ESRD pneumonia CHF with fluid overload, , Small bilateral pleural effusion Diabetic chronic Kidney Disease (E11.22) Hypertensive Chronic Kidney Disease (I12.0) End stage renal disease (N18.6) dependence on hemodialysis (Z99.2) MWF) Anemia (D64.9), Hyperphosphatemia (E83.39), Secondary Hyperparathyroidism (E21.1), HTN (I12.0) Recommendation Continue dialysis as scheduled which will be done shortly I spoke to the dialysis nurse and discussed the order. Continue management of pneumonia and the rest of the management as per primary team antibiotics considering GFR. Status: Acute (3) PNA (pneumonia) Status: Acute (4) Pleural effusion Status: Acute (5) Anemia Status: Acute (6) Leukocytosis Status: Acute
[2018-10-25] MEDS: levoFLOXacin 500 mg in D5W 500 MG/100 ML BAG IVPB SCH (11:35)
[2018-10-25] MEDS: EPOETIN ALFA 10,000 UNIT/ML ML IV SCH (13:41)
--- NOTE | 2018-10-25 14:31 | CP.PCM.PN ---
Subjective - Date & Time of Evaluation Date of Evaluation: 10/25/18 Time of Evaluation: 12:20 - Subjective Subjective: F/U PNA No SOB with NC, no CP Objective - Vital Signs/Intake and Output Vital Signs (last 24 hours): Temp Pulse Resp BP Pulse Ox 97.8 F 69 18 161/69 H 93 L 10/25/18 08:24 10/25/18 08:57 10/25/18 08:24 10/25/18 08:57 10/25/18 08:24 - Medications Medications: Current Medications Acetaminophen (Tylenol 325mg Tab) 650 mg PO Q4 PRN PRN Reason: Fever >100.4 F Last Admin: 10/23/18 01:39 Dose: 650 mg Acetaminophen (Tylenol 325mg Tab) 650 mg PO Q4 PRN PRN Reason: Pain, Mild (1-3) Albuterol/Ipratropium (Duoneb 3 Mg/0.5 Mg (3 Ml) Ud) 3 ml INH Q6H [facility] Last Admin: 10/25/18 13:34 Dose: 3 ml Amlodipine Besylate (Norvasc) 10 mg PO DAILY [facility] Last Admin: 10/25/18 08:57 Dose: 10 mg Aspirin (Ecotrin) 81 mg PO DAILY [facility] Last Admin: 10/25/18 08:55 Dose: 81 mg Atorvastatin Calcium (Lipitor) 40 mg PO HS [facility] Last Admin: 10/24/18 21:42 Dose: 40 mg Carvedilol (Coreg) 25 mg PO Q12 [facility] Last Admin: 10/25/18 08:55 Dose: 25 mg Epoetin Steve (Procrit) 10,000 unit IV [facility] Last Admin: 10/25/18 13:41 Dose: 10,000 unit Heparin Sodium (Porcine) (Heparin) 5,000 units SC Q12 [facility]; Protocol Last Admin: 10/25/18 08:55 Dose: Not Given Hydralazine HCl (Apresoline) 50 mg PO TID [facility] Last Admin: 10/25/18 13:39 Dose: Not Given Levofloxacin/Dextrose (Levaquin 500mg) 500 mg in 100 mls @ 100 mls/hr IVPB DAILY [facility]; Protocol Last Admin: 10/25/18 11:35 Dose: 100 mls/hr Vancomycin HCl 1 gm/ Sodium (Chloride) 250 mls @ 250 mls/hr IVPB MWF [facility]; Protocol Insulin Human Regular (Humulin R) 0 units SC ACHS [facility]; Protocol Last Admin: 10/25/18 13:45 Dose: Not Given Levothyroxine Sodium (Synthroid) 50 mcg PO DAILY@0630 [facility] Last Admin: 10/25/18 05:49 Dose: 50 mcg Pantoprazole Sodium (Protonix Ec Tab) 40 mg PO DAILY [facility] Last Admin: 10/25/18 08:58 Dose: 40 mg Sevelamer Carbonate (Renvela) 800 mg PO TID [facility] Last Admin: 10/25/18 13:42 Dose: 800 mg Ticagrelor (Brilinta) 90 mg PO Q12 [facility] Last Admin: 10/25/18 08:55 Dose: 90 mg - Labs Labs: 10/23/18 04:45 10/23/18 04:45 PT 12.5 Seconds (9.8-13.1) 10/21/18 20:56 INR 1.1 10/21/18 20:56 APTT 36.4 Seconds (25.6-37.1) 10/21/18 20:56 - Constitutional Appears: Chronically Ill - Head Exam Head Exam: NORMAL INSPECTION - Eye Exam Eye Exam: EOMI, PERRL - ENT Exam ENT Exam: Normal Exam - Neck Exam Neck Exam: Normal Inspection - Respiratory Exam Respiratory Exam: Decreased Breath Sounds ( L>R) Additional comments: R chest permacath and L pigtail catheter in place. - Cardiovascular Exam Cardiovascular Exam: REGULAR RHYTHM - GI/Abdominal Exam GI & Abdominal Exam: Soft, Normal Bowel Sounds - Extremities Exam Extremities Exam: Normal Inspection - Back Exam Back Exam: NORMAL INSPECTION - Neurological Exam Neurological Exam: Alert, CN II-XII Intact, Oriented x3 Additional comments: No focal motor/sensory deficit, generalized weakness. - Psychiatric Exam Psychiatric exam: Normal Mood - Skin Skin Exam: Dry, Warm Assessment and Plan (1) PNA (pneumonia) Status: Acute (2) Pleural effusion Status: Acute (3) CHF (congestive heart failure) Status: Acute - Assessment and Plan (Free Text) Plan: Continue Mikey Gaspar of [place].
[2018-10-25 21:15] LABS: HEPATITIS B SURFACE AG Negative (NEGATIVE)
[2018-10-25 21:20] LABS: HEPATITIS B CORE AB NEGATIVE (NEGATIVE)
--- NOTE | 2018-10-25 23:20 | CP.PCM.PN ---
Subjective - Date & Time of Evaluation Date of Evaluation: 10/25/18 Time of Evaluation: 10:30 - Subjective Subjective: patient seen and examined at bedside. Interim events noted No complaints offered at this time denies cp/sob/fever/chills. available diagnostic data reviewed Review of Systems All systems: reviewed and no additional remarkable complaints except mentioned above Objective Vital Signs Stable - Constitutional Appears: Non-toxic, No Acute Distress Head Exam: NORMAL INSPECTION Eye Exam: Normal appearance Respiratory Exam: NORMAL BREATHING PATTERN Cardiovascular Exam: +S1, +S2 GI & Abdominal Exam: Soft Neurological Exam: Alert, Awake Psychiatric exam: Normal Affect, Normal Mood Skin Exam: Normal Color, Warm Assessment and Plan monitor vitals monitor labs Cont meds Cont tx consultants appreciated input consult ID for bacteremia rest of plan as ordered Objective - Vital Signs/Intake and Output Vital Signs (last 24 hours): Temp Pulse Resp BP Pulse Ox 97.6 F 70 18 156/61 H 96 10/25/18 16:11 10/25/18 21:41 10/25/18 16:11 10/25/18 21:41 10/25/18 16:11 - Medications Medications: Current Medications Acetaminophen (Tylenol 325mg Tab) 650 mg PO Q4 PRN PRN Reason: Fever >100.4 F Last Admin: 10/23/18 01:39 Dose: 650 mg Acetaminophen (Tylenol 325mg Tab) 650 mg PO Q4 PRN PRN Reason: Pain, Mild (1-3) Last Admin: 10/25/18 21:40 Dose: 650 mg Albuterol/Ipratropium (Duoneb 3 Mg/0.5 Mg (3 Ml) Ud) 3 ml INH Q6H [facility] Last Admin: 10/25/18 19:04 Dose: 3 ml Amlodipine Besylate (Norvasc) 10 mg PO DAILY [facility] Last Admin: 10/25/18 08:57 Dose: 10 mg Aspirin (Ecotrin) 81 mg PO DAILY [facility] Last Admin: 10/25/18 08:55 Dose: 81 mg Atorvastatin Calcium (Lipitor) 40 mg PO HS [facility] Last Admin: 10/25/18 21:41 Dose: 40 mg Carvedilol (Coreg) 25 mg PO Q12 [facility] Last Admin: 10/25/18 21:41 Dose: 25 mg Epoetin Steve (Procrit) 10,000 unit IV MWF [facility] Last Admin: 10/25/18 13:41 Dose: 10,000 unit Heparin Sodium (Porcine) (Heparin) 5,000 units SC Q12 [facility]; Protocol Last Admin: 10/25/18 21:42 Dose: Not Given Hydralazine HCl (Apresoline) 50 mg PO TID [facility] Last Admin: 10/25/18 18:06 Dose: 50 mg Levofloxacin/Dextrose (Levaquin 500mg) 500 mg in 100 mls @ 100 mls/hr IVPB DAILY [facility]; Protocol Last Admin: 10/25/18 11:35 Dose: 100 mls/hr Vancomycin HCl 1 gm/ Sodium (Chloride) 250 mls @ 250 mls/hr IVPB MWF [facility]; Protocol Insulin Human Regular (Humulin R) 0 units SC ACHS [facility]; Protocol Last Admin: 10/25/18 22:14 Dose: Not Given Levothyroxine Sodium (Synthroid) 50 mcg PO DAILY@0630 [facility] Last Admin: 10/25/18 05:49 Dose: 50 mcg Metoclopramide HCl (Reglan) 10 mg IVP Q6 PRN PRN Reason: Nausea/Vomiting Pantoprazole Sodium (Protonix Ec Tab) 40 mg PO DAILY [facility] Last Admin: 10/25/18 08:58 Dose: 40 mg Sevelamer Carbonate (Renvela) 800 mg PO TID [facility] Last Admin: 10/25/18 18:05 Dose: 800 mg Ticagrelor (Brilinta) 90 mg PO Q12 [facility] Last Admin: 10/25/18 21:42 Dose: 90 mg - Labs Labs: 10/23/18 04:45 10/23/18 04:45 PT 12.5 Seconds (9.8-13.1) 10/21/18 20:56 INR 1.1 10/21/18 20:56 APTT 36.4 Seconds (25.6-37.1) 10/21/18 20:56 Assessment and Plan (1) Bacteremia Status: Acute (2) PNA (pneumonia) Status: Acute (3) Chronic kidney disease with end stage renal failure on dialysis Status: Acute
[2018-10-26] MEDS: Albuterol-Ipratrop 3 mg / 0.5 (3 ml) UD INH SCH ×4 (02:04→18:59)
[2018-10-26] MEDS: Levothyroxine 50 MCG TAB PO SCH (05:44)
[2018-10-26 06:59] LABS: HEMOGLOBIN 10.2 g/dL (12.0-16.0); MEAN CELL VOLUME 92.2 fl (81.0-99.0); MEAN CORPUSCULAR HEMOGLOBIN 29.8 pg (27.0-31.0); MEAN CORPUSCULAR HGB CONC 32.3 g/dL (33.0-37.0); RBC 3.41 Mil/uL (3.80-5.20); RED CELL DISTRIBUTION WIDTH 19.8 % (11.5-14.5); WHITE BLOOD COUNT 8.7 K/uL (4.8-10.8)
[2018-10-26 07:11] LABS: ALB/GLOB RATIO 0.8 (1.0-2.1); ALBUMIN 3.3 g/dL (3.5-5.0)
--- NOTE | 2018-10-26 08:50 | CP.PCM.PN ---
Subjective - Date & Time of Evaluation Date of Evaluation: 10/26/18 Time of Evaluation: 08:56 - Subjective Subjective: Patient is awake and conscious. Feeling much better Vital signs stable Objective - Vital Signs/Intake and Output Vital Signs (last 24 hours): Temp Pulse Resp BP Pulse Ox 98.6 F 75 18 151/68 H 96 10/25/18 23:36 10/25/18 23:36 10/25/18 23:36 10/25/18 23:36 10/25/18 23:36 - Medications Medications: Current Medications Acetaminophen (Tylenol 325mg Tab) 650 mg PO Q4 PRN PRN Reason: Fever >100.4 F Last Admin: 10/23/18 01:39 Dose: 650 mg Acetaminophen (Tylenol 325mg Tab) 650 mg PO Q4 PRN PRN Reason: Pain, Mild (1-3) Last Admin: 10/25/18 21:40 Dose: 650 mg Albuterol/Ipratropium (Duoneb 3 Mg/0.5 Mg (3 Ml) Ud) 3 ml INH Q6H [facility] Last Admin: 10/26/18 07:31 Dose: Not Given Amlodipine Besylate (Norvasc) 10 mg PO DAILY [facility] Last Admin: 10/25/18 08:57 Dose: 10 mg Aspirin (Ecotrin) 81 mg PO DAILY [facility] Last Admin: 10/25/18 08:55 Dose: 81 mg Atorvastatin Calcium (Lipitor) 40 mg PO HS [facility] Last Admin: 10/25/18 21:41 Dose: 40 mg Carvedilol (Coreg) 25 mg PO Q12 [facility] Last Admin: 10/25/18 21:41 Dose: 25 mg Epoetin Steve (Procrit) 10,000 unit IV MWF [facility] Last Admin: 10/25/18 13:41 Dose: 10,000 unit Heparin Sodium (Porcine) (Heparin) 5,000 units SC Q12 [facility]; Protocol Last Admin: 10/25/18 21:42 Dose: Not Given Hydralazine HCl (Apresoline) 50 mg PO TID [facility] Last Admin: 10/25/18 18:06 Dose: 50 mg Levofloxacin/Dextrose (Levaquin 500mg) 500 mg in 100 mls @ 100 mls/hr IVPB DAILY [facility]; Protocol Last Admin: 10/25/18 11:35 Dose: 100 mls/hr Vancomycin HCl 1 gm/ Sodium (Chloride) 250 mls @ 250 mls/hr IVPB MWF [facility]; Protocol Insulin Human Regular (Humulin R) 0 units SC ACHS [facility]; Protocol Last Admin: 10/25/18 22:14 Dose: Not Given Levothyroxine Sodium (Synthroid) 50 mcg PO DAILY@0630 [facility] Last Admin: 10/26/18 05:44 Dose: 50 mcg Metoclopramide HCl (Reglan) 10 mg IVP Q6 PRN PRN Reason: Nausea/Vomiting Pantoprazole Sodium (Protonix Ec Tab) 40 mg PO DAILY [facility] Last Admin: 10/25/18 08:58 Dose: 40 mg Sevelamer Carbonate (Renvela) 800 mg PO TID [facility] Last Admin: 10/25/18 18:05 Dose: 800 mg Ticagrelor (Brilinta) 90 mg PO Q12 [facility] Last Admin: 10/25/18 21:42 Dose: 90 mg - Labs Labs: 10/26/18 06:15 10/26/18 06:15 PT 12.5 Seconds (9.8-13.1) 10/21/18 20:56 INR 1.1 10/21/18 20:56 APTT 36.4 Seconds (25.6-37.1) 10/21/18 20:56 - Constitutional Appears: No Acute Distress - Eye Exam Eye Exam: absent: Conjunctival injection - ENT Exam ENT Exam: Mucous Membranes Moist - Respiratory Exam Respiratory Exam: absent: Rales, Rhonchi - Cardiovascular Exam Cardiovascular Exam: absent: Gallop - GI/Abdominal Exam GI & Abdominal Exam: Soft, Normal Bowel Sounds - Extremities Exam Extremities Exam: absent: Calf Tenderness - Back Exam Back Exam: absent: CVA tenderness (L), CVA tenderness (R) - Neurological Exam Neurological Exam: Alert - Psychiatric Exam Psychiatric exam: Normal Affect - Skin Skin Exam: absent: Cyanosis Assessment and Plan (1) CHF (congestive heart failure) Status: Acute (2) Chronic kidney disease with end stage renal failure on dialysis Assessment & Plan: ESRD pneumonia CHF with fluid overload, , Small bilateral pleural effusion Diabetic chronic Kidney Disease (E11.22) Hypertensive Chronic Kidney Disease (I12.0) End stage renal disease (N18.6) dependence on hemodialysis (Z99.2) MWF) Anemia (D64.9), Hyperphosphatemia (E83.39), Secondary Hyperparathyroidism (E21.1), HTN (I12.0) Recommendation please change Levaquin to be compatible with her GFR, perhaps 500 mg every 48 hours Get serum vancomycin serum level Continue hemodialysis Status: Acute (3) PNA (pneumonia) Status: Acute (4) Pleural effusion Status: Acute (5) Anemia Status: Acute (6) Leukocytosis Status: Acute
[2018-10-26] MEDS: levoFLOXacin 500 mg in D5W 500 MG/100 ML BAG IVPB SCH (08:53)
[2018-10-26] MEDS: Pantoprazole 40 mg EC Tab PO SCH (09:08)
[2018-10-26] MEDS: Insulin Regular 100 units/ml SC SCH ×4 (10:02→22:20)
--- NOTE | 2018-10-26 11:30 | CP.PCM.PN ---
Subjective - Date & Time of Evaluation Date of Evaluation: 10/26/18 Time of Evaluation: 09:00 - Subjective Subjective: less fever Objective - Vital Signs/Intake and Output Vital Signs (last 24 hours): Temp Pulse Resp BP Pulse Ox 97.9 F 68 18 147/62 96 10/26/18 08:49 10/26/18 09:09 10/26/18 08:49 10/26/18 09:09 10/26/18 08:49 - Medications Medications: Current Medications Acetaminophen (Tylenol 325mg Tab) 650 mg PO Q4 PRN PRN Reason: Fever >100.4 F Last Admin: 10/23/18 01:39 Dose: 650 mg Acetaminophen (Tylenol 325mg Tab) 650 mg PO Q4 PRN PRN Reason: Pain, Mild (1-3) Last Admin: 10/25/18 21:40 Dose: 650 mg Albuterol/Ipratropium (Duoneb 3 Mg/0.5 Mg (3 Ml) Ud) 3 ml INH Q6H [facility] Last Admin: 10/26/18 07:31 Dose: Not Given Amlodipine Besylate (Norvasc) 10 mg PO DAILY [facility] Last Admin: 10/26/18 09:06 Dose: 10 mg Aspirin (Ecotrin) 81 mg PO DAILY [facility] Last Admin: 10/26/18 09:08 Dose: 81 mg Atorvastatin Calcium (Lipitor) 40 mg PO HS [facility] Last Admin: 10/25/18 21:41 Dose: 40 mg Carvedilol (Coreg) 25 mg PO Q12 [facility] Last Admin: 10/26/18 09:09 Dose: 25 mg Epoetin Steve (Procrit) 10,000 unit IV [facility] Last Admin: 10/25/18 13:41 Dose: 10,000 unit Heparin Sodium (Porcine) (Heparin) 5,000 units SC Q12 [facility]; Protocol Last Admin: 10/26/18 08:59 Dose: Not Given Hydralazine HCl (Apresoline) 50 mg PO TID [facility] Last Admin: 10/26/18 09:07 Dose: 50 mg Vancomycin HCl 1 gm/ Sodium (Chloride) 250 mls @ 250 mls/hr IVPB MWF [facility]; Protocol Levofloxacin/Dextrose (Levaquin 500mg) 500 mg in 100 mls @ 100 mls/hr IVPB QOTHERDAY [facility]; Protocol Insulin Human Regular (Humulin R) 0 units SC ACHS [facility]; Protocol Last Admin: 10/26/18 10:02 Dose: 1 unit Levothyroxine Sodium (Synthroid) 50 mcg PO DAILY@0630 [facility] Last Admin: 10/26/18 05:44 Dose: 50 mcg Metoclopramide HCl (Reglan) 10 mg IVP Q6 PRN PRN Reason: Nausea/Vomiting Pantoprazole Sodium (Protonix Ec Tab) 40 mg PO DAILY [facility] Last Admin: 10/26/18 09:08 Dose: 40 mg Sevelamer Carbonate (Renvela) 800 mg PO TID [facility] Last Admin: 10/26/18 09:10 Dose: 800 mg Ticagrelor (Brilinta) 90 mg PO Q12 [facility] Last Admin: 10/26/18 09:09 Dose: 90 mg - Labs Labs: 10/26/18 06:15 10/26/18 06:15 PT 12.5 Seconds (9.8-13.1) 10/21/18 20:56 INR 1.1 10/21/18 20:56 APTT 36.4 Seconds (25.6-37.1) 10/21/18 20:56 - Constitutional Appears: Non-toxic, Cachectic, Chronically Ill - Head Exam Head Exam: ATRAUMATIC, NORMAL INSPECTION, NORMOCEPHALIC - Eye Exam Eye Exam: EOMI, Normal appearance, PERRL Pupil Exam: NORMAL ACCOMODATION, PERRL - ENT Exam ENT Exam: Mucous Membranes Moist, Normal Exam - Neck Exam Neck Exam: Full ROM, Normal Inspection. absent: Lymphadenopathy - Respiratory Exam Respiratory Exam: Clear to Ausculation Bilateral, NORMAL BREATHING PATTERN - Cardiovascular Exam Cardiovascular Exam: REGULAR RHYTHM, +S1, +S2. absent: Murmur - GI/Abdominal Exam GI & Abdominal Exam: Soft, Normal Bowel Sounds. absent: Tenderness - Rectal Exam Rectal Exam: Deferred - Extremities Exam Extremities Exam: Full ROM, Normal Capillary Refill, Normal Inspection. absent: Joint Swelling, Pedal Edema - Back Exam Back Exam: NORMAL INSPECTION - Neurological Exam Neurological Exam: Alert, Awake, CN II-XII Intact, Normal Gait, Oriented x3 - Psychiatric Exam Psychiatric exam: Normal Affect, Normal Mood - Skin Skin Exam: Dry, Intact, Normal Color, Warm Assessment and Plan (1) Bacteremia Status: Acute (2) Bacteremia due to coagulase-negative Staphylococcus Status: Acute (3) CHF (congestive heart failure) Status: Acute (4) Chronic kidney disease with end stage renal failure on dialysis Status: Acute (5) Diabetes mellitus type 2 in nonobese Status: Acute (6) PNA (pneumonia) Status: Acute (7) Pleural effusion Status: Acute (8) Anemia Status: Acute (9) Chronic kidney disease Status: Acute (10) Leukocytosis Status: Acute (11) Pleural effusion, right Status: Acute (12) Recurrent left pleural effusion Status: Chronic - Assessment and Plan (Free Text) Assessment: await repeat cultures cont Vanco' may need replacement of permacath consider pulm eval regarding need for chest tube
--- NOTE | 2018-10-26 12:43 | RAD ---
Date of service: 10/26/2018 HISTORY: Follow-up COMPARISON: CT chest from 10/23/2018 TECHNIQUE: Chest PA and lateral FINDINGS: LINES AND TUBES: Right-sided dialysis catheter terminates at the cavoatrial junction. LUNG AND PLEURA: The lungs are well inflated. There is moderate pulmonary venous congestion. Small right and moderate left pleural effusions. No pneumothorax. There is stable position of left-sided chest tube. HEART AND MEDIASTINUM: Persistent severe cardiomegaly. No aortic atherosclerotic calcifications present. The hilar and mediastinal contours are within normal limits. SKELETAL STRUCTURES: The bony structures are within normal limits for the patient's age. VISUALIZED UPPER ABDOMEN: Normal. OTHER FINDINGS: None. IMPRESSION: No significant interval change in small right and moderate left pleural effusions. Stable position of left-sided chest tube. Persistent severe cardiomegaly with moderate pulmonary venous congestion.
--- NOTE | 2018-10-26 15:38 | CP.PCM.PN ---
Subjective - Date & Time of Evaluation Date of Evaluation: 10/26/18 Time of Evaluation: 10:20 - Subjective Subjective: F/U PNA No SOB with O2, no CP Objective - Vital Signs/Intake and Output Vital Signs (last 24 hours): Temp Pulse Resp BP Pulse Ox 97.9 F 68 18 147/62 96 10/26/18 08:49 10/26/18 09:09 10/26/18 08:49 10/26/18 09:09 10/26/18 08:49 - Medications Medications: Current Medications Acetaminophen (Tylenol 325mg Tab) 650 mg PO Q4 PRN PRN Reason: Fever >100.4 F Last Admin: 10/23/18 01:39 Dose: 650 mg Acetaminophen (Tylenol 325mg Tab) 650 mg PO Q4 PRN PRN Reason: Pain, Mild (1-3) Last Admin: 10/25/18 21:40 Dose: 650 mg Albuterol/Ipratropium (Duoneb 3 Mg/0.5 Mg (3 Ml) Ud) 3 ml INH Q6H [facility] Last Admin: 10/26/18 13:05 Dose: 3 ml Amlodipine Besylate (Norvasc) 10 mg PO DAILY [facility] Last Admin: 10/26/18 09:06 Dose: 10 mg Aspirin (Ecotrin) 81 mg PO DAILY [facility] Last Admin: 10/26/18 09:08 Dose: 81 mg Atorvastatin Calcium (Lipitor) 40 mg PO HS [facility] Last Admin: 10/25/18 21:41 Dose: 40 mg Carvedilol (Coreg) 25 mg PO Q12 [facility] Last Admin: 10/26/18 09:09 Dose: 25 mg Epoetin Steve (Procrit) 10,000 unit IV [facility] Last Admin: 10/25/18 13:41 Dose: 10,000 unit Heparin Sodium (Porcine) (Heparin) 5,000 units SC Q12 [facility]; Protocol Last Admin: 10/26/18 08:59 Dose: Not Given Hydralazine HCl (Apresoline) 50 mg PO TID [facility] Last Admin: 10/26/18 09:07 Dose: 50 mg Vancomycin HCl 1 gm/ Sodium (Chloride) 250 mls @ 250 mls/hr IVPB MWF [facility]; Protocol Levofloxacin/Dextrose (Levaquin 500mg) 500 mg in 100 mls @ 100 mls/hr IVPB QOTHERDAY [facility]; Protocol Insulin Human Regular (Humulin R) 0 units SC ACHS [facility]; Protocol Last Admin: 10/26/18 12:07 Dose: Not Given Levothyroxine Sodium (Synthroid) 50 mcg PO DAILY@0630 [facility] Last Admin: 10/26/18 05:44 Dose: 50 mcg Metoclopramide HCl (Reglan) 10 mg IVP Q6 PRN PRN Reason: Nausea/Vomiting Pantoprazole Sodium (Protonix Ec Tab) 40 mg PO DAILY [facility] Last Admin: 10/26/18 09:08 Dose: 40 mg Sevelamer Carbonate (Renvela) 800 mg PO TID [facility] Last Admin: 10/26/18 09:10 Dose: 800 mg Ticagrelor (Brilinta) 90 mg PO Q12 [facility] Last Admin: 10/26/18 09:09 Dose: 90 mg - Labs Labs: 10/26/18 06:15 10/26/18 06:15 PT 12.5 Seconds (9.8-13.1) 10/21/18 20:56 INR 1.1 10/21/18 20:56 APTT 36.4 Seconds (25.6-37.1) 10/21/18 20:56 - Constitutional Appears: Chronically Ill - Head Exam Head Exam: NORMAL INSPECTION - Eye Exam Eye Exam: PERRL - ENT Exam ENT Exam: Normal Exam - Neck Exam Neck Exam: Normal Inspection - Respiratory Exam Respiratory Exam: Decreased Breath Sounds (at bases) Additional comments: R chest permacath, L pigtail in place - Cardiovascular Exam Cardiovascular Exam: REGULAR RHYTHM - GI/Abdominal Exam GI & Abdominal Exam: Soft, Normal Bowel Sounds - Extremities Exam Extremities Exam: Normal Inspection - Back Exam Back Exam: NORMAL INSPECTION - Neurological Exam Neurological Exam: Alert, CN II-XII Intact, Oriented x3 Additional comments: No focal motor/sensory deficit, generalized weakness. - Psychiatric Exam Psychiatric exam: Normal Mood - Skin Skin Exam: Dry, Warm Assessment and Plan (1) PNA (pneumonia) Status: Acute (2) Pleural effusion Status: Acute (3) CHF (congestive heart failure) Status: Acute - Assessment and Plan (Free Text) Plan: CXR: No significant changes in pleural effusions, moderate pulmonary venous congestion, blood C-S Staph coag (-),on Vanco continue Duoneb and rest ofTx.
[2018-10-27] MEDS: Albuterol-Ipratrop 3 mg / 0.5 (3 ml) UD INH SCH ×5 (00:59→19:05)
[2018-10-27] MEDS: Levothyroxine 50 MCG TAB PO SCH (06:25)
[2018-10-27] MEDS: Insulin Regular 100 units/ml SC SCH ×4 (10:17→21:30)
[2018-10-27] MEDS: Pantoprazole 40 mg EC Tab PO SCH (11:01)
[2018-10-27] MEDS: EPOETIN ALFA 10,000 UNIT/ML ML IV SCH (11:07)
--- NOTE | 2018-10-27 12:32 | CP.PCM.PN ---
Subjective - Date & Time of Evaluation Date of Evaluation: 10/27/18 Time of Evaluation: 11:10 - Subjective Subjective: F/U Pulmonary consult. No SOB with O2, no CP. Objective - Vital Signs/Intake and Output Vital Signs (last 24 hours): Temp Pulse Resp BP Pulse Ox 98.2 F 73 19 155/66 H 96 10/27/18 07:34 10/27/18 07:34 10/27/18 07:34 10/27/18 07:34 10/27/18 07:34 - Medications Medications: Current Medications Acetaminophen (Tylenol 325mg Tab) 650 mg PO Q4 PRN PRN Reason: Fever >100.4 F Last Admin: 10/23/18 01:39 Dose: 650 mg Acetaminophen (Tylenol 325mg Tab) 650 mg PO Q4 PRN PRN Reason: Pain, Mild (1-3) Last Admin: 10/25/18 21:40 Dose: 650 mg Albuterol/Ipratropium (Duoneb 3 Mg/0.5 Mg (3 Ml) Ud) 3 ml INH Q6H [facility] Last Admin: 10/27/18 08:11 Dose: 3 ml Amlodipine Besylate (Norvasc) 10 mg PO DAILY [facility] Last Admin: 10/26/18 09:06 Dose: 10 mg Aspirin (Ecotrin) 81 mg PO DAILY [facility] Last Admin: 10/27/18 11:00 Dose: 81 mg Atorvastatin Calcium (Lipitor) 40 mg PO HS [facility] Last Admin: 10/26/18 22:26 Dose: 40 mg Carvedilol (Coreg) 25 mg PO Q12 [facility] Last Admin: 10/26/18 22:27 Dose: 25 mg Epoetin Steve (Procrit) 10,000 unit IV [facility] Last Admin: 10/27/18 11:07 Dose: 10,000 unit Heparin Sodium (Porcine) (Heparin) 5,000 units SC Q12 [facility]; Protocol Last Admin: 10/26/18 22:19 Dose: Not Given Hydralazine HCl (Apresoline) 50 mg PO TID [facility] Last Admin: 10/26/18 17:00 Dose: 50 mg Vancomycin HCl 1 gm/ Sodium (Chloride) 250 mls @ 250 mls/hr IVPB MWF [facility]; Protocol Levofloxacin/Dextrose (Levaquin 500mg) 500 mg in 100 mls @ 100 mls/hr IVPB QOTHERDAY [facility]; Protocol Insulin Human Regular (Humulin R) 0 units SC ACHS [facility]; Protocol Last Admin: 10/27/18 10:17 Dose: 1 unit Levothyroxine Sodium (Synthroid) 50 mcg PO DAILY@0630 [facility] Last Admin: 10/27/18 06:25 Dose: 50 mcg Lorazepam (Ativan) 0.5 mg PO DAILY PRN PRN Reason: Anxiety Metoclopramide HCl (Reglan) 10 mg IVP Q6 PRN PRN Reason: Nausea/Vomiting Pantoprazole Sodium (Protonix Ec Tab) 40 mg PO DAILY [facility] Last Admin: 10/27/18 11:01 Dose: 40 mg Sevelamer Carbonate (Renvela) 800 mg PO TID [facility] Last Admin: 10/27/18 11:06 Dose: 800 mg Ticagrelor (Brilinta) 90 mg PO Q12 [facility] Last Admin: 10/27/18 11:00 Dose: 90 mg - Labs Labs: 10/26/18 06:15 10/26/18 06:15 PT 12.5 Seconds (9.8-13.1) 10/21/18 20:56 INR 1.1 10/21/18 20:56 APTT 36.4 Seconds (25.6-37.1) 10/21/18 20:56 - Constitutional Appears: Chronically Ill - Head Exam Head Exam: NORMAL INSPECTION - Eye Exam Eye Exam: PERRL - Neck Exam Neck Exam: Normal Inspection - Respiratory Exam Respiratory Exam: Decreased Breath Sounds (at bases) Additional comments: R chest permacath, L pigtail in place. - Cardiovascular Exam Cardiovascular Exam: REGULAR RHYTHM - GI/Abdominal Exam GI & Abdominal Exam: Soft, Normal Bowel Sounds - Extremities Exam Extremities Exam: Normal Inspection - Back Exam Back Exam: NORMAL INSPECTION - Neurological Exam Neurological Exam: Alert, CN II-XII Intact, Oriented x3 Additional comments: No focal motor/sensory deficit, generalized weakness. - Psychiatric Exam Psychiatric exam: Normal Mood - Skin Skin Exam: Normal Color, Warm Assessment and Plan (1) PNA (pneumonia) Status: Acute (2) Pleural effusion Status: Acute (3) CHF (congestive heart failure) Status: Acute - Assessment and Plan (Free Text) Plan: No draining yesterday from pigtail, continue O2 NC, Vanco, Levaquin, Duoneb and rest of Tx.
--- NOTE | 2018-10-27 13:11 | CP.PCM.PN ---
Subjective - Date & Time of Evaluation Date of Evaluation: 10/27/18 Time of Evaluation: 13:09 - Subjective Subjective: Patient is conscious alert not in acute distress patient is comfortable Vital signs stable Objective - Vital Signs/Intake and Output Vital Signs (last 24 hours): Temp Pulse Resp BP Pulse Ox 98.2 F 73 19 155/66 H 96 10/27/18 07:34 10/27/18 07:34 10/27/18 07:34 10/27/18 07:34 10/27/18 07:34 - Medications Medications: Current Medications Acetaminophen (Tylenol 325mg Tab) 650 mg PO Q4 PRN PRN Reason: Fever >100.4 F Last Admin: 10/23/18 01:39 Dose: 650 mg Acetaminophen (Tylenol 325mg Tab) 650 mg PO Q4 PRN PRN Reason: Pain, Mild (1-3) Last Admin: 10/25/18 21:40 Dose: 650 mg Albuterol/Ipratropium (Duoneb 3 Mg/0.5 Mg (3 Ml) Ud) 3 ml INH Q6H [facility] Last Admin: 10/27/18 08:11 Dose: 3 ml Amlodipine Besylate (Norvasc) 10 mg PO DAILY [facility] Last Admin: 10/26/18 09:06 Dose: 10 mg Aspirin (Ecotrin) 81 mg PO DAILY [facility] Last Admin: 10/27/18 11:00 Dose: 81 mg Atorvastatin Calcium (Lipitor) 40 mg PO HS [facility] Last Admin: 10/26/18 22:26 Dose: 40 mg Carvedilol (Coreg) 25 mg PO Q12 [facility] Last Admin: 10/26/18 22:27 Dose: 25 mg Epoetin Steve (Procrit) 10,000 unit IV [facility] [facility] Last Admin: 10/27/18 11:07 Dose: 10,000 unit Heparin Sodium (Porcine) (Heparin) 5,000 units SC Q12 [facility]; Protocol Last Admin: 10/26/18 22:19 Dose: Not Given Hydralazine HCl (Apresoline) 50 mg PO TID [facility] Last Admin: 10/26/18 17:00 Dose: 50 mg Vancomycin HCl 1 gm/ Sodium (Chloride) 250 mls @ 250 mls/hr IVPB [facility]; Protocol Levofloxacin/Dextrose (Levaquin 500mg) 500 mg in 100 mls @ 100 mls/hr IVPB QOTHERDAY [facility]; Protocol Insulin Human Regular (Humulin R) 0 units SC ACHS [facility]; Protocol Last Admin: 10/27/18 10:17 Dose: 1 unit Levothyroxine Sodium (Synthroid) 50 mcg PO DAILY@0630 [facility] Last Admin: 10/27/18 06:25 Dose: 50 mcg Lorazepam (Ativan) 0.5 mg PO DAILY PRN PRN Reason: Anxiety Metoclopramide HCl (Reglan) 10 mg IVP Q6 PRN PRN Reason: Nausea/Vomiting Pantoprazole Sodium (Protonix Ec Tab) 40 mg PO DAILY [facility] Last Admin: 10/27/18 11:01 Dose: 40 mg Sevelamer Carbonate (Renvela) 800 mg PO TID [facility] Last Admin: 10/27/18 11:06 Dose: 800 mg Ticagrelor (Brilinta) 90 mg PO Q12 [facility] Last Admin: 10/27/18 11:00 Dose: 90 mg - Labs Labs: 10/26/18 06:15 10/26/18 06:15 PT 12.5 Seconds (9.8-13.1) 10/21/18 20:56 INR 1.1 10/21/18 20:56 APTT 36.4 Seconds (25.6-37.1) 10/21/18 20:56 - Constitutional Appears: No Acute Distress - Eye Exam Eye Exam: absent: Conjunctival injection - ENT Exam ENT Exam: absent: Mucous Membranes Moist - Neck Exam Neck Exam: absent: Lymphadenopathy - Respiratory Exam Respiratory Exam: NORMAL BREATHING PATTERN. absent: Chest Wall Tenderness - Cardiovascular Exam Cardiovascular Exam: absent: Gallop, JVD, Rubs - GI/Abdominal Exam GI & Abdominal Exam: Soft, Normal Bowel Sounds - Extremities Exam Extremities Exam: absent: Calf Tenderness - Back Exam Back Exam: absent: CVA tenderness (L), CVA tenderness (R) - Neurological Exam Neurological Exam: Alert - Psychiatric Exam Psychiatric exam: Normal Affect - Skin Skin Exam: absent: Cyanosis Assessment and Plan (1) CHF (congestive heart failure) Status: Acute (2) Chronic kidney disease with end stage renal failure on dialysis Assessment & Plan: ESRD pneumonia CHF with fluid overload, , Small bilateral pleural effusion Diabetic chronic Kidney Disease (E11.22) Hypertensive Chronic Kidney Disease (I12.0) End stage renal disease (N18.6) dependence on hemodialysis (Z99.2) MWF) Anemia (D64.9), Hyperphosphatemia (E83.39), Secondary Hyperparathyroidism (E21.1), HTN (I12.0) Recommendation Hemodialysis shortly as scheduled discussed with the dialysis nurse Continue as per primary team with antibiotics Levaquin has been changed to every other day Status: Acute (3) PNA (pneumonia) Status: Acute (4) Pleural effusion Status: Acute (5) Anemia Status: Acute (6) Leukocytosis Status: Acute
--- NOTE | 2018-10-27 14:10 | CP.PCM.PN ---
Subjective - Date & Time of Evaluation Date of Evaluation: 10/27/18 Time of Evaluation: 09:00 - Subjective Subjective: c/o SOB and weakness appears anxious denies fever Objective - Vital Signs/Intake and Output Vital Signs (last 24 hours): Temp Pulse Resp BP Pulse Ox 98.2 F 73 19 155/66 H 96 10/27/18 07:34 10/27/18 07:34 10/27/18 07:34 10/27/18 07:34 10/27/18 07:34 - Medications Medications: Current Medications Acetaminophen (Tylenol 325mg Tab) 650 mg PO Q4 PRN PRN Reason: Fever >100.4 F Last Admin: 10/23/18 01:39 Dose: 650 mg Acetaminophen (Tylenol 325mg Tab) 650 mg PO Q4 PRN PRN Reason: Pain, Mild (1-3) Last Admin: 10/25/18 21:40 Dose: 650 mg Albuterol/Ipratropium (Duoneb 3 Mg/0.5 Mg (3 Ml) Ud) 3 ml INH Q6H [facility] Last Admin: 10/27/18 13:41 Dose: 3 ml Amlodipine Besylate (Norvasc) 10 mg PO DAILY [facility] Last Admin: 10/26/18 09:06 Dose: 10 mg Aspirin (Ecotrin) 81 mg PO DAILY [facility] Last Admin: 10/27/18 11:00 Dose: 81 mg Atorvastatin Calcium (Lipitor) 40 mg PO HS [facility] Last Admin: 10/26/18 22:26 Dose: 40 mg Carvedilol (Coreg) 25 mg PO Q12 [facility] Last Admin: 10/26/18 22:27 Dose: 25 mg Epoetin Steve (Procrit) 10,000 unit IV [facility] [place] Last Admin: 10/27/18 11:07 Dose: 10,000 unit Heparin Sodium (Porcine) (Heparin) 5,000 units SC Q12 [facility]; Protocol Last Admin: 10/27/18 13:35 Dose: Not Given Hydralazine HCl (Apresoline) 50 mg PO TID [facility] Last Admin: 10/26/18 17:00 Dose: 50 mg Vancomycin HCl 1 gm/ Sodium (Chloride) 250 mls @ 250 mls/hr IVPB MWF [facility]; Protocol Levofloxacin/Dextrose (Levaquin 500mg) 500 mg in 100 mls @ 100 mls/hr IVPB QOTHERDAY [facility]; Protocol Insulin Human Regular (Humulin R) 0 units SC ACHS [facility]; Protocol Last Admin: 10/27/18 13:33 Dose: 165 unit Levothyroxine Sodium (Synthroid) 50 mcg PO DAILY@0630 [facility] Last Admin: 10/27/18 06:25 Dose: 50 mcg Lorazepam (Ativan) 0.5 mg PO DAILY PRN PRN Reason: Anxiety Metoclopramide HCl (Reglan) 10 mg IVP Q6 PRN PRN Reason: Nausea/Vomiting Pantoprazole Sodium (Protonix Ec Tab) 40 mg PO DAILY [facility] Last Admin: 10/27/18 11:01 Dose: 40 mg Sevelamer Carbonate (Renvela) 800 mg PO TID [facility] Last Admin: 10/27/18 11:06 Dose: 800 mg Ticagrelor (Brilinta) 90 mg PO Q12 [facility] Last Admin: 10/27/18 11:00 Dose: 90 mg - Labs Labs: 10/26/18 06:15 10/26/18 06:15 PT 12.5 Seconds (9.8-13.1) 10/21/18 20:56 INR 1.1 10/21/18 20:56 APTT 36.4 Seconds (25.6-37.1) 10/21/18 20:56 - Constitutional Appears: Non-toxic, Cachectic, Chronically Ill - Head Exam Head Exam: ATRAUMATIC, NORMOCEPHALIC - Eye Exam Eye Exam: absent: Scleral icterus - ENT Exam ENT Exam: Mucous Membranes Dry - Neck Exam Neck Exam: absent: Lymphadenopathy - Respiratory Exam Respiratory Exam: Decreased Breath Sounds, Rhonchi - Cardiovascular Exam Cardiovascular Exam: REGULAR RHYTHM, +S1, +S2 - GI/Abdominal Exam GI & Abdominal Exam: Distended, Soft. absent: Tenderness - Rectal Exam Rectal Exam: Deferred - Exam Exam: NORMAL INSPECTION - Extremities Exam Extremities Exam: absent: Pedal Edema - Back Exam Back Exam: absent: CVA tenderness (L), CVA tenderness (R) - Neurological Exam Neurological Exam: Alert, Awake, CN II-XII Intact, Oriented x3 - Psychiatric Exam Psychiatric exam: Depressed - Skin Skin Exam: Dry Assessment and Plan (1) Bacteremia Status: Acute (2) Bacteremia due to coagulase-negative Staphylococcus Status: Acute (3) CHF (congestive heart failure) Status: Acute (4) Chronic kidney disease with end stage renal failure on dialysis Status: Acute (5) Diabetes mellitus type 2 in nonobese Status: Acute (6) PNA (pneumonia) Status: Acute (7) Pleural effusion Status: Acute (8) Anemia Status: Acute (9) Chronic kidney disease Status: Acute (10) Leukocytosis Status: Acute (11) Pleural effusion, right Status: Acute (12) Recurrent left pleural effusion Status: Chronic - Assessment and Plan (Free Text) Assessment: CXR shows persistent Left effusion would ask cardiology to review echo- ? severe cardiomyopathy repeat blood cultures pending may need removal / replacement of Permacath consider sending pleural fluid for analysis to r/o exudate and if exudate then send AFB smears/ cultures
--- NOTE | 2018-10-27 22:00 | CP.PCM.PN ---
Subjective - Date & Time of Evaluation Date of Evaluation: 10/27/18 Time of Evaluation: 07:45 - Subjective Subjective: Pt seen and assessed at bedside. Reports doing well, however states having periodic dyspnea with associated anxiety. Subjective Review of Systems: reviewed and no additional remarkable complaints except anxie ty and intermittent dyspnea. Objective Vital Signs Stable Appears: Non-toxic, No Acute Distress. Head Exam: NORMAL INSPECTION, normocephalic. Eye Exam: Normal appearance, PERRLA, EOMI. Respiratory Exam: NORMAL BREATHING PATTERN, decreased breath sounds at bilateral bases. Left pleural/pigtail catheter noted. Right chest permacath observed. Cardiovascular Exam: +S1, +S2. RRR. GI & Abdominal Exam: Soft, non-tender, non-distended. Neurological Exam: Alert, Awake, Oriented with periods of forgetfulness. Psychiatric exam: Mild anxiety noted; otherwise calm and cooperative. Skin Exam: Pallor, Warm, Dry. Assessment/Impression/Plan: 1.) PNA/Pleural effusion -Monitor pigtail catheter drainage; assess benefit vs infection risk. -All consults appreciated input. -Continue vancomycin. -Supplemental O2 via nasal cannula; BIPAP at night. -Added on Ativan 0.5 mg for mild anxiety. -Hemodialysis M-W-. -Obtain serial CXRs to monitor pleural effusion and pulmonary vascular congestion. Objective - Vital Signs/Intake and Output Vital Signs (last 24 hours): Temp Pulse Resp BP Pulse Ox 97.6 F 70 20 174/62 H 99 10/27/18 16:09 10/27/18 21:12 10/27/18 16:09 10/27/18 21:12 10/27/18 16:09 - Medications Medications: Current Medications Acetaminophen (Tylenol 325mg Tab) 650 mg PO Q4 PRN PRN Reason: Fever >100.4 F Last Admin: 10/23/18 01:39 Dose: 650 mg Acetaminophen (Tylenol 325mg Tab) 650 mg PO Q4 PRN PRN Reason: Pain, Mild (1-3) Last Admin: 10/25/18 21:40 Dose: 650 mg Albuterol/Ipratropium (Duoneb 3 Mg/0.5 Mg (3 Ml) Ud) 3 ml INH Q6H [facility] Last Admin: 10/27/18 19:05 Dose: 3 ml Amlodipine Besylate (Norvasc) 10 mg PO DAILY [facility] Last Admin: 10/27/18 15:04 Dose: Not Given Aspirin (Ecotrin) 81 mg PO DAILY [facility] Last Admin: 10/27/18 11:00 Dose: 81 mg Atorvastatin Calcium (Lipitor) 40 mg PO HS [facility] Last Admin: 10/27/18 21:14 Dose: 40 mg Carvedilol (Coreg) 25 mg PO Q12 [facility] Last Admin: 10/27/18 21:12 Dose: 25 mg Epoetin Steve (Procrit) 10,000 unit SC [facility] Heparin Sodium (Porcine) (Heparin) 5,000 units SC Q12 [facility]; Protocol Last Admin: 10/27/18 21:14 Dose: Not Given Hydralazine HCl (Apresoline) 50 mg PO TID [facility] Last Admin: 10/27/18 17:36 Dose: Not Given Vancomycin HCl 1 gm/ Sodium (Chloride) 250 mls @ 250 mls/hr IVPB [facility]; Protocol Last Admin: 10/27/18 14:59 Dose: 250 mls/hr Levofloxacin/Dextrose (Levaquin 500mg) 500 mg in 100 mls @ 100 mls/hr IVPB Q OTHERDAY [facility]; Protocol Insulin Human Regular (Humulin R) 0 units SC ACHS [facility]; Protocol Last Admin: 10/27/18 21:30 Dose: Not Given Levothyroxine Sodium (Synthroid) 50 mcg PO DAILY@0630 [facility] Last Admin: 10/27/18 06:25 Dose: 50 mcg Lorazepam (Ativan) 0.5 mg PO DAILY PRN PRN Reason: Anxiety Metoclopramide HCl (Reglan) 10 mg IVP Q6 PRN PRN Reason: Nausea/Vomiting Pantoprazole Sodium (Protonix Ec Tab) 40 mg PO DAILY [facility] Last Admin: 10/27/18 11:01 Dose: 40 mg Sevelamer Carbonate (Renvela) 800 mg PO TID [facility] Last Admin: 10/27/18 17:35 Dose: 800 mg Ticagrelor (Brilinta) 90 mg PO Q12 [facility] Last Admin: 10/27/18 21:11 Dose: 90 mg - Labs Labs: 10/26/18 06:15 10/26/18 06:15 PT 12.5 Seconds (9.8-13.1) 10/21/18 20:56 INR 1.1 10/21/18 20:56 APTT 36.4 Seconds (25.6-37.1) 10/21/18 20:56 Assessment and Plan (1) PNA (pneumonia) Status: Acute (2) Pleural effusion Status: Acute
[2018-10-28] MEDS: Albuterol-Ipratrop 3 mg / 0.5 (3 ml) UD INH SCH ×4 (03:31→19:02)
[2018-10-28] MEDS: Levothyroxine 50 MCG TAB PO SCH (06:35)
[2018-10-28 07:43] LABS: BASO # 0.1 K/uL (0.0-0.2); BASO % 1.4 % (0.0-2.0); EOS # 0.6 K/uL (0.0-0.7); EOS % 5.2 % (0.0-4.0); LYMPH # 0.6 K/uL (1.0-4.3); LYMPH % 5.7 % (20.0-40.0); MEAN CELL VOLUME 92.6 fl (81.0-99.0); MEAN CORPUSCULAR HEMOGLOBIN 29.8 pg (27.0-31.0); MEAN CORPUSCULAR HGB CONC 32.2 g/dL (33.0-37.0); MEAN PLATELET VOLUME 8.2 fl (7.2-11.7); MONO # 1.1 K/uL (0.0-0.8); MONO % 10.3 % (0.0-10.0); NEUT # 8.3 K/uL (1.8-7.0); NEUT % 77.4 % (50.0-75.0); PLATELET COUNT 143 K/uL (130-400); RBC 3.68 Mil/uL (3.80-5.20); RED CELL DISTRIBUTION WIDTH 19.8 % (11.5-14.5); WHITE BLOOD COUNT 10.7 K/uL (4.8-10.8)
[2018-10-28 08:02] LABS: ALB/GLOB RATIO 0.9 (1.0-2.1); ALBUMIN 3.6 g/dL (3.5-5.0); CALCIUM 8.4 mg/dL (8.4-10.2)
[2018-10-28] MEDS: levoFLOXacin 500 mg in D5W 500 MG/100 ML BAG IVPB SCH (09:08)
[2018-10-28] MEDS: Insulin Regular 100 units/ml SC SCH ×4 (09:10→22:27)
[2018-10-28] MEDS: Pantoprazole 40 mg EC Tab PO SCH (09:10)
[2018-10-28 10:27] LABS: BASOPHIL 1 % (0-2); EOSINOPHIL 4 % (0-7); LYMPHOCYTE 6 % (20-50); MONOCYTE 8 % (0-10); NEUTROPHIL 81 % (42-75); OVALOCYTES SLIGHT; PLATELET ESTIMATE NORMAL (NORMAL); TOTAL CELLS COUNTED 100
[2018-10-28 10:28] LABS: TEARDROP CELLS SLIGHT
--- NOTE | 2018-10-28 10:30 | CP.PCM.PN ---
Subjective - Date & Time of Evaluation Date of Evaluation: 10/28/18 Time of Evaluation: 10:25 - Subjective Subjective: Patient awake and conscious not in acute distress Vital signs stable Still having intermittent coughing Objective - Vital Signs/Intake and Output Vital Signs (last 24 hours): Temp Pulse Resp BP Pulse Ox 97.5 F L 72 20 167/71 H 100 10/28/18 07:41 10/28/18 09:10 10/28/18 07:41 10/28/18 09:10 10/28/18 07:41 - Medications Medications: Current Medications Acetaminophen (Tylenol 325mg Tab) 650 mg PO Q4 PRN PRN Reason: Fever >100.4 F Last Admin: 10/23/18 01:39 Dose: 650 mg Acetaminophen (Tylenol 325mg Tab) 650 mg PO Q4 PRN PRN Reason: Pain, Mild (1-3) Last Admin: 10/25/18 21:40 Dose: 650 mg Albuterol/Ipratropium (Duoneb 3 Mg/0.5 Mg (3 Ml) Ud) 3 ml INH Q6H [facility] Last Admin: 10/28/18 07:55 Dose: 3 ml Amlodipine Besylate (Norvasc) 10 mg PO DAILY [facility] Last Admin: 10/28/18 09:10 Dose: 10 mg Aspirin (Ecotrin) 81 mg PO DAILY [facility] Last Admin: 10/28/18 09:09 Dose: 81 mg Atorvastatin Calcium (Lipitor) 40 mg PO HS [facility] Last Admin: 10/27/18 21:14 Dose: 40 mg Carvedilol (Coreg) 25 mg PO Q12 [facility] Last Admin: 10/28/18 09:09 Dose: 25 mg Epoetin Steve (Procrit) 10,000 unit SC [facility] [place] Heparin Sodium (Porcine) (Heparin) 5,000 units SC Q12 [facility]; Protocol Last Admin: 10/28/18 09:04 Dose: Not Given Hydralazine HCl (Apresoline) 50 mg PO TID [facility] Last Admin: 10/28/18 09:09 Dose: 50 mg Vancomycin HCl 1 gm/ Sodium (Chloride) 250 mls @ 250 mls/hr IVPB [facility]; Protocol Last Admin: 10/27/18 14:59 Dose: 250 mls/hr Levofloxacin/Dextrose (Levaquin 500mg) 500 mg in 100 mls @ 100 mls/hr IVPB Q OTHERDAY [facility]; Protocol Last Admin: 10/28/18 09:08 Dose: 100 mls/hr Insulin Human Regular (Humulin R) 0 units SC ACHS [facility]; Protocol Last Admin: 10/28/18 09:10 Dose: 1 unit Levothyroxine Sodium (Synthroid) 50 mcg PO DAILY@0630 [facility] Last Admin: 10/28/18 06:35 Dose: 50 mcg Lorazepam (Ativan) 0.5 mg PO DAILY PRN PRN Reason: Anxiety Metoclopramide HCl (Reglan) 10 mg IVP Q6 PRN PRN Reason: Nausea/Vomiting Pantoprazole Sodium (Protonix Ec Tab) 40 mg PO DAILY [facility] Last Admin: 10/28/18 09:10 Dose: 40 mg Sevelamer Carbonate (Renvela) 800 mg PO TID [facility] Last Admin: 10/28/18 09:09 Dose: 800 mg Ticagrelor (Brilinta) 90 mg PO Q12 [facility] Last Admin: 10/28/18 09:09 Dose: 90 mg - Labs Labs: 10/28/18 06:45 10/28/18 06:45 PT 12.5 Seconds (9.8-13.1) 10/21/18 20:56 INR 1.1 10/21/18 20:56 APTT 36.4 Seconds (25.6-37.1) 10/21/18 20:56 - Constitutional Appears: No Acute Distress - Eye Exam Eye Exam: Conjunctival injection - ENT Exam ENT Exam: Mucous Membranes Moist - Neck Exam Neck Exam: absent: Lymphadenopathy - Respiratory Exam Respiratory Exam: Rhonchi, NORMAL BREATHING PATTERN. absent: Chest Wall Tenderness - GI/Abdominal Exam GI & Abdominal Exam: Soft, Normal Bowel Sounds - Extremities Exam Extremities Exam: absent: Calf Tenderness - Back Exam Back Exam: absent: CVA tenderness (L), CVA tenderness (R) - Neurological Exam Neurological Exam: Alert - Psychiatric Exam Psychiatric exam: Normal Affect - Skin Skin Exam: absent: Cyanosis Assessment and Plan (1) CHF (congestive heart failure) Status: Acute (2) Chronic kidney disease with end stage renal failure on dialysis Assessment & Plan: Assessment & Plan: ESRD pneumonia CHF with fluid overload, , Small bilateral pleural effusion Diabetic chronic Kidney Disease (E11.22) Hypertensive Chronic Kidney Disease (I12.0) End stage renal disease (N18.6) dependence on hemodialysis (Z99.2) MWF) Anemia (D64.9), Hyperphosphatemia (E83.39), Secondary Hyperparathyroidism (E21.1), HTN (I12.0) Recommendation Hemodialysis as scheduled discussed with the dialysis nurse Continue as per primary team with antibiotics Levaquin has been changed to every other day As per primary team pulmonary and infectious disease Status: Acute (3) PNA (pneumonia) Status: Acute (4) Pleural effusion Status: Acute (5) Anemia Status: Acute (6) Leukocytosis Status: Acute
--- NOTE | 2018-10-28 14:22 | CP.PCM.PN ---
Subjective - Date & Time of Evaluation Date of Evaluation: 10/28/18 Time of Evaluation: 09:30 - Subjective Subjective: F/U PNA, Pleural effusion. Pt with mild SOB with O2. Objective - Vital Signs/Intake and Output Vital Signs (last 24 hours): Temp Pulse Resp BP Pulse Ox 97.5 F L 72 20 167/71 H 100 10/28/18 09:00 10/28/18 09:10 10/28/18 09:00 10/28/18 09:10 10/28/18 09:00 - Medications Medications: Current Medications Acetaminophen (Tylenol 325mg Tab) 650 mg PO Q4 PRN PRN Reason: Fever >100.4 F Last Admin: 10/23/18 01:39 Dose: 650 mg Acetaminophen (Tylenol 325mg Tab) 650 mg PO Q4 PRN PRN Reason: Pain, Mild (1-3) Last Admin: 10/25/18 21:40 Dose: 650 mg Albuterol/Ipratropium (Duoneb 3 Mg/0.5 Mg (3 Ml) Ud) 3 ml INH Q6H [facility] Last Admin: 10/28/18 13:33 Dose: 3 ml Amlodipine Besylate (Norvasc) 10 mg PO DAILY [facility] Last Admin: 10/28/18 09:10 Dose: 10 mg Aspirin (Ecotrin) 81 mg PO DAILY [facility] Last Admin: 10/28/18 09:09 Dose: 81 mg Atorvastatin Calcium (Lipitor) 40 mg PO HS [facility] Last Admin: 10/27/18 21:14 Dose: 40 mg Carvedilol (Coreg) 25 mg PO Q12 [facility] Last Admin: 10/28/18 09:09 Dose: 25 mg Epoetin Steve (Procrit) 10,000 unit SC [facility] Heparin Sodium (Porcine) (Heparin) 5,000 units SC Q12 [facility]; Protocol Last Admin: 10/28/18 09:04 Dose: Not Given Hydralazine HCl (Apresoline) 50 mg PO TID [facility] Last Admin: 10/28/18 09:09 Dose: 50 mg Vancomycin HCl 1 gm/ Sodium (Chloride) 250 mls @ 250 mls/hr IVPB MWF [facility]; Protocol Last Admin: 10/27/18 14:59 Dose: 250 mls/hr Levofloxacin/Dextrose (Levaquin 500mg) 500 mg in 100 mls @ 100 mls/hr IVPB QOTHERDAY [facility]; Protocol Last Admin: 10/28/18 09:08 Dose: 100 mls/hr Insulin Human Regular (Humulin R) 0 units SC ACHS [facility]; Protocol Last Admin: 10/28/18 13:13 Dose: Not Given Levothyroxine Sodium (Synthroid) 50 mcg PO DAILY@0630 [facility] Last Admin: 10/28/18 06:35 Dose: 50 mcg Lorazepam (Ativan) 0.5 mg PO DAILY PRN PRN Reason: Anxiety Metoclopramide HCl (Reglan) 10 mg IVP Q6 PRN PRN Reason: Nausea/Vomiting Pantoprazole Sodium (Protonix Ec Tab) 40 mg PO DAILY [facility] Last Admin: 10/28/18 09:10 Dose: 40 mg Sevelamer Carbonate (Renvela) 800 mg PO TID [facility] Last Admin: 10/28/18 13:13 Dose: 800 mg Ticagrelor (Brilinta) 90 mg PO Q12 [facility] Last Admin: 10/28/18 09:09 Dose: 90 mg - Labs Labs: 10/28/18 06:45 10/28/18 06:45 PT 12.5 Seconds (9.8-13.1) 10/21/18 20:56 INR 1.1 10/21/18 20:56 APTT 36.4 Seconds (25.6-37.1) 10/21/18 20:56 - Constitutional Appears: Chronically Ill - Head Exam Head Exam: NORMAL INSPECTION - Eye Exam Eye Exam: PERRL - ENT Exam ENT Exam: Normal Exam - Neck Exam Neck Exam: Normal Inspection - Respiratory Exam Respiratory Exam: Decreased Breath Sounds (at bases) Additional comments: R chest permacath, L pigtail in place. - Cardiovascular Exam Cardiovascular Exam: REGULAR RHYTHM - GI/Abdominal Exam GI & Abdominal Exam: Soft, Normal Bowel Sounds - Extremities Exam Extremities Exam: Normal Inspection - Back Exam Back Exam: NORMAL INSPECTION - Neurological Exam Neurological Exam: Alert, CN II-XII Intact, Oriented x3 Additional comments: No focal motor/sensory deficit, generalized weakness. - Psychiatric Exam Psychiatric exam: Normal Mood - Skin Skin Exam: Normal Color, Warm Assessment and Plan (1) PNA (pneumonia) Status: Acute (2) Pleural effusion Status: Acute (3) CHF (congestive heart failure) Status: Acute - Assessment and Plan (Free Text) Plan: Continue Vanco, Levaquin, Duoneb and rest of Tx., f/u blood C-S
[2018-10-29] MEDS: Albuterol-Ipratrop 3 mg / 0.5 (3 ml) UD INH SCH ×4 (01:45→19:58)
[2018-10-29] MEDS: Levothyroxine 50 MCG TAB PO SCH (06:36)
[2018-10-29] MEDS ORDERED: EPOETIN ALFA 10,000 UNIT/ML ML SC SCH (09:00)
[2018-10-29] MEDS: Pantoprazole 40 mg EC Tab PO SCH (09:42)
[2018-10-29] MEDS: Insulin Regular 100 units/ml SC SCH ×4 (09:42→23:04)
--- NOTE | 2018-10-29 10:44 | CP.PCM.PN ---
Subjective - Date & Time of Evaluation Date of Evaluation: 10/29/18 Time of Evaluation: 10:42 - Subjective Subjective: Dialysis note She was seen on hemodialysis Patient tolerating Vital signs stable No nausea or vomiting Objective - Vital Signs/Intake and Output Vital Signs (last 24 hours): Temp Pulse Resp BP Pulse Ox 97.8 F 72 19 168/66 H 98 10/29/18 07:43 10/29/18 07:43 10/29/18 07:43 10/29/18 07:43 10/29/18 07:43 - Medications Medications: Current Medications Acetaminophen (Tylenol 325mg Tab) 650 mg PO Q4 PRN PRN Reason: Fever >100.4 F Last Admin: 10/23/18 01:39 Dose: 650 mg Acetaminophen (Tylenol 325mg Tab) 650 mg PO Q4 PRN PRN Reason: Pain, Mild (1-3) Last Admin: 10/25/18 21:40 Dose: 650 mg Albuterol/Ipratropium (Duoneb 3 Mg/0.5 Mg (3 Ml) Ud) 3 ml INH Q6H [facility] Last Admin: 10/29/18 07:48 Dose: 3 ml Amlodipine Besylate (Norvasc) 10 mg PO DAILY [facility] Last Admin: 10/29/18 09:08 Dose: Not Given Aspirin (Ecotrin) 81 mg PO DAILY [facility] Last Admin: 10/29/18 09:42 Dose: 81 mg Atorvastatin Calcium (Lipitor) 40 mg PO HS [facility] Last Admin: 10/28/18 22:24 Dose: 40 mg Carvedilol (Coreg) 25 mg PO Q12 [facility] Last Admin: 10/29/18 09:08 Dose: Not Given Epoetin Steve (Procrit) 10,000 unit SC [facility] [place] Last Admin: 10/29/18 09:44 Dose: 10,000 unit Heparin Sodium (Porcine) (Heparin) 5,000 units SC Q12 [facility]; Protocol Last Admin: 10/29/18 09:49 Dose: Not Given Hydralazine HCl (Apresoline) 50 mg PO TID [facility] Last Admin: 10/29/18 09:08 Dose: Not Given Vancomycin HCl 1 gm/ Sodium (Chloride) 250 mls @ 250 mls/hr IVPB [facility] [place]; Protocol Last Admin: 10/29/18 09:44 Dose: 250 mls/hr Levofloxacin/Dextrose (Levaquin 500mg) 500 mg in 100 mls @ 100 mls/hr IVPB QOTHERDAY [facility]; Protocol Last Admin: 10/28/18 09:08 Dose: 100 mls/hr Insulin Human Regular (Humulin R) 0 units SC ACHS [facility]; Protocol Last Admin: 10/29/18 09:42 Dose: Not Given Levothyroxine Sodium (Synthroid) 50 mcg PO DAILY@0630 [facility] Last Admin: 10/29/18 06:36 Dose: 50 mcg Lorazepam (Ativan) 0.5 mg PO DAILY PRN PRN Reason: Anxiety Metoclopramide HCl (Reglan) 10 mg IVP Q6 PRN PRN Reason: Nausea/Vomiting Pantoprazole Sodium (Protonix Ec Tab) 40 mg PO DAILY [facility] Last Admin: 10/29/18 09:42 Dose: 40 mg Sevelamer Carbonate (Renvela) 800 mg PO TID [facility] Last Admin: 10/29/18 09:42 Dose: 800 mg Ticagrelor (Brilinta) 90 mg PO Q12 [facility] Last Admin: 10/29/18 09:41 Dose: 90 mg - Labs Labs: 10/28/18 06:45 10/28/18 06:45 PT 12.5 Seconds (9.8-13.1) 10/21/18 20:56 INR 1.1 10/21/18 20:56 APTT 36.4 Seconds (25.6-37.1) 10/21/18 20:56 - Constitutional Appears: No Acute Distress - Eye Exam Eye Exam: Conjunctival injection - ENT Exam ENT Exam: Mucous Membranes Moist - Neck Exam Neck Exam: absent: Lymphadenopathy - Respiratory Exam Respiratory Exam: NORMAL BREATHING PATTERN. absent: Chest Wall Tenderness, Rhonchi - Cardiovascular Exam Cardiovascular Exam: absent: Gallop, JVD, Rubs - GI/Abdominal Exam GI & Abdominal Exam: Soft, Normal Bowel Sounds - Extremities Exam Extremities Exam: absent: Calf Tenderness - Back Exam Back Exam: absent: CVA tenderness (L), CVA tenderness (R) - Neurological Exam Neurological Exam: Alert - Psychiatric Exam Psychiatric exam: Normal Affect - Skin Skin Exam: absent: Cyanosis Assessment and Plan (1) CHF (congestive heart failure) Status: Acute (2) Chronic kidney disease with end stage renal failure on dialysis Assessment & Plan: Assessment & Plan: ESRD pneumonia CHF with fluid overload, , Small bilateral pleural effusion Diabetic chronic Kidney Disease (E11.22) Hypertensive Chronic Kidney Disease (I12.0) End stage renal disease (N18.6) dependence on hemodialysis (Z99.2) MWF) Anemia (D64.9), Hyperphosphatemia (E83.39), Secondary Hyperparathyroidism (E21. 1), HTN (I12.0) Recommendation She was seen on hemodialysis Discussed with the dialysis nurse Vital signs stable Antibiotics and the rest of the respiratory management as per primary team was infectious disease and pulmonary Hemoglobin noted to be 11. Decreased EPO 50% from 10,000 units to 5000 unit Status: Acute (3) PNA (pneumonia) Status: Acute (4) Pleural effusion Status: Acute (5) Anemia Status: Acute (6) Leukocytosis Status: Acute
[2018-10-29] MEDS ORDERED: Epoetin Alfa 20000 UNIT/ML Inj IV SCH (11:00)
--- NOTE | 2018-10-29 12:15 | CP.PCM.PN ---
Subjective - Date & Time of Evaluation Date of Evaluation: 10/29/18 Time of Evaluation: 08:00 - Subjective Subjective: repeat blood c/s positive will need removal / replacement of permacath Objective - Vital Signs/Intake and Output Vital Signs (last 24 hours): Temp Pulse Resp BP Pulse Ox 97.8 F 72 19 168/66 H 98 10/29/18 07:43 10/29/18 07:43 10/29/18 07:43 10/29/18 07:43 10/29/18 07:43 - Medications Medications: Current Medications Acetaminophen (Tylenol 325mg Tab) 650 mg PO Q4 PRN PRN Reason: Fever >100.4 F Last Admin: 10/23/18 01:39 Dose: 650 mg Acetaminophen (Tylenol 325mg Tab) 650 mg PO Q4 PRN PRN Reason: Pain, Mild (1-3) Last Admin: 10/25/18 21:40 Dose: 650 mg Albuterol/Ipratropium (Duoneb 3 Mg/0.5 Mg (3 Ml) Ud) 3 ml INH Q6H [facility] Last Admin: 10/29/18 07:48 Dose: 3 ml Amlodipine Besylate (Norvasc) 10 mg PO DAILY [facility] Last Admin: 10/29/18 09:08 Dose: Not Given Aspirin (Ecotrin) 81 mg PO DAILY [facility] Last Admin: 10/29/18 09:42 Dose: 81 mg Atorvastatin Calcium (Lipitor) 40 mg PO HS [facility] Last Admin: 10/28/18 22:24 Dose: 40 mg Carvedilol (Coreg) 25 mg PO Q12 [facility] Last Admin: 10/29/18 09:08 Dose: Not Given Epoetin Steve (Procrit) 5,000 unit IV [facility] [place] Last Admin: 10/29/18 11:33 Dose: Not Given Heparin Sodium (Porcine) (Heparin) 5,000 units SC Q12 [facility]; Protocol Last Admin: 10/29/18 09:49 Dose: Not Given Hydralazine HCl (Apresoline) 50 mg PO TID [facility] Last Admin: 10/29/18 09:08 Dose: Not Given Vancomycin HCl 1 gm/ Sodium (Chloride) 250 mls @ 250 mls/hr IVPB [facility] [place]; Protocol Last Admin: 10/29/18 09:44 Dose: 250 mls/hr Levofloxacin/Dextrose (Levaquin 500mg) 500 mg in 100 mls @ 100 mls/hr IVPB QOTHERDAY [facility]; Protocol Last Admin: 10/28/18 09:08 Dose: 100 mls/hr Insulin Human Regular (Humulin R) 0 units SC ACHS [facility]; Protocol Last Admin: 10/29/18 09:42 Dose: Not Given Levothyroxine Sodium (Synthroid) 50 mcg PO DAILY@0630 [facility] Last Admin: 10/29/18 06:36 Dose: 50 mcg Lorazepam (Ativan) 0.5 mg PO DAILY PRN PRN Reason: Anxiety Metoclopramide HCl (Reglan) 10 mg IVP Q6 PRN PRN Reason: Nausea/Vomiting Pantoprazole Sodium (Protonix Ec Tab) 40 mg PO DAILY [facility] Last Admin: 10/29/18 09:42 Dose: 40 mg Sevelamer Carbonate (Renvela) 800 mg PO TID [facility] Last Admin: 10/29/18 09:42 Dose: 800 mg Ticagrelor (Brilinta) 90 mg PO Q12 [facility] Last Admin: 10/29/18 09:41 Dose: 90 mg - Labs Labs: 10/28/18 06:45 10/28/18 06:45 PT 12.5 Seconds (9.8-13.1) 10/21/18 20:56 INR 1.1 10/21/18 20:56 APTT 36.4 Seconds (25.6-37.1) 10/21/18 20:56 - Constitutional Appears: Non-toxic, Chronically Ill - Head Exam Head Exam: NORMOCEPHALIC - Eye Exam Eye Exam: absent: Scleral icterus - ENT Exam ENT Exam: Mucous Membranes Dry - Neck Exam Neck Exam: absent: Lymphadenopathy - Respiratory Exam Respiratory Exam: Decreased Breath Sounds - Cardiovascular Exam Cardiovascular Exam: REGULAR RHYTHM - GI/Abdominal Exam GI & Abdominal Exam: Distended, Soft - Rectal Exam Rectal Exam: Deferred - Exam Exam: NORMAL INSPECTION - Extremities Exam Extremities Exam: absent: Pedal Edema - Back Exam Back Exam: absent: CVA tenderness (L), CVA tenderness (R) - Neurological Exam Neurological Exam: Alert, Awake, Oriented x3 - Psychiatric Exam Psychiatric exam: Depressed Assessment and Plan (1) Bacteremia Status: Acute (2) Bacteremia due to coagulase-negative Staphylococcus Status: Acute (3) CHF (congestive heart failure) Status: Acute (4) Chronic kidney disease with end stage renal failure on dialysis Status: Acute (5) Diabetes mellitus type 2 in nonobese Status: Acute (6) PNA (pneumonia) Status: Acute (7) Pleural effusion Status: Acute (8) Anemia Status: Acute (9) Chronic kidney disease Status: Acute (10) Leukocytosis Status: Acute (11) Pleural effusion, right Status: Acute (12) Recurrent left pleural effusion Status: Chronic - Assessment and Plan (Free Text) Assessment: repeat blood c/s positive will need removal / replacement of permacath will need removal of pleural catheter pleorodesis if necessary
[2018-10-29] MEDS ORDERED: Lidocaine Hydrochloride 1% 0 ML ONE (14:03)
--- NOTE | 2018-10-29 14:13 | PCM.SURG1 ---
Surgeon's Initial Post Op Note - Surgeon's Notes Surgeon: Nash Rojas MD Straightedge Worker: NONE Type of Anesthesia: None Pre-Operative Diagnosis: Infection, HD catheter Operative Findings: RIGHT IJV HD CATHETER IN PLACE Post-Operative Diagnosis: Infection Operation Performed: HD catheter removal Specimen/Specimens Removed: CATHETER TIP Estimated Blood Loss: EBL {In ML}: 0 Blood Products Given: N/A Drains Used: No Drains Post-Op Condition: Fair Date of Surgery/Procedure: 10/29/18 Time of Surgery/Procedure: 14:00
--- NOTE | 2018-10-29 14:36 | CP.PCM.PN ---
Subjective - Date & Time of Evaluation Date of Evaluation: 10/28/18 Time of Evaluation: 10:30 - Subjective Subjective: patient seen and examined at bedside. Interim events noted No complaints offered at this time, states slept better last night denies cp/sob/fever/chills. available diagnostic data reviewed Review of Systems All systems: reviewed and no additional remarkable complaints except mentioned above Objective Vital Signs Stable - Constitutional Appears: Non-toxic, No Acute Distress Head Exam: NORMAL INSPECTION Eye Exam: Normal appearance Respiratory Exam: NORMAL BREATHING PATTERN Cardiovascular Exam: +S1, +S2 GI & Abdominal Exam: Soft Neurological Exam: Alert, Awake Psychiatric exam: Normal Affect, Normal Mood Skin Exam: Normal Color, Warm Assessment and Plan monitor vitals monitor labs Cont meds Cont tx consultants appreciated input pending cultures, possible need to remove line if positive rest of plan as ordered Assessment and Plan (1) Bacteremia Status: Acute (2) PNA (pneumonia) Status: Acute (3) Chronic kidney disease with end stage renal failure on dialysis Status: Acute
--- NOTE | 2018-10-29 15:25 | CP.PCM.CON ---
Past Patient History - Past Medical History & Family History Past Medical History?: Yes - Past Social History Smoking Status: Former Smoker Chewing Tobacco Use: No Cigar Use: No Alcohol: None Drugs: Denies Home Situation {Lives}: [facility] - CARDIAC Hx Cardiac Disorders: Yes Hx Congestive Heart Failure: Yes Hx Hypercholesterolemia: Yes Hx Hypertension: Yes - PULMONARY Hx Respiratory Disorders: Yes Hx Chronic Obstructive Pulmonary Disease (COPD): Yes Hx Pneumonia: Yes - NEUROLOGICAL Hx Neurological Disorder: No - HEENT Hx HEENT Problems: No - RENAL Hx Chronic Kidney Disease: Yes Hx Dialysis: Yes - ENDOCRINE/METABOLIC Hx Endocrine Disorders: Yes Hx Diabetes Mellitus Type 2: Yes Hx Hypothyroidism: Yes - HEMATOLOGICAL/ONCOLOGICAL Hx Blood Disorders: No - INTEGUMENTARY Hx Dermatological Problems: No - MUSCULOSKELETAL/RHEUMATOLOGICAL Hx Musculoskeletal Disorders: Yes Hx Arthritis: Yes - GASTROINTESTINAL Hx Gastrointestinal Disorders: No - GENITOURINARY/GYNECOLOGICAL Hx Genitourinary Disorders: Yes Hx Uterine Cancer: Yes - PSYCHIATRIC Hx Psychophysiologic Disorder: No Hx Substance Use: No - SURGICAL HISTORY Hx Surgeries: Yes Hx Hysterectomy: Yes Other/Comment: cardiac stent (08/2018) - ANESTHESIA Hx Anesthesia: Yes Hx Anesthesia Reactions: No Hx Malignant Hyperthermia: No Meds Allergies/Adverse Reactions: Allergies Allergy/AdvReac Type Severity Reaction Status Date / Time shrimp Allergy Severe ANAPHYLAXIS Verified 10/21/18 19:46 - Medications Medications: Current Medications Acetaminophen (Tylenol 325mg Tab) 650 mg PO Q4 PRN PRN Reason: Fever >100.4 F Last Admin: 10/23/18 01:39 Dose: 650 mg Acetaminophen (Tylenol 325mg Tab) 650 mg PO Q4 PRN PRN Reason: Pain, Mild (1-3) Last Admin: 10/25/18 21:40 Dose: 650 mg Albuterol/Ipratropium (Duoneb 3 Mg/0.5 Mg (3 Ml) Ud) 3 ml INH Q6H [facility] Last Admin: 10/29/18 13:48 Dose: Not Given Amlodipine Besylate (Norvasc) 10 mg PO DAILY [facility] Last Admin: 10/29/18 09:08 Dose: Not Given Aspirin (Ecotrin) 81 mg PO DAILY [facility] Last Admin: 10/29/18 09:42 Dose: 81 mg Atorvastatin Calcium (Lipitor) 40 mg PO HS [facility] Last Admin: 10/28/18 22:24 Dose: 40 mg Carvedilol (Coreg) 25 mg PO Q12 [facility] Last Admin: 10/29/18 09:08 Dose: Not Given Epoetin Steve (Procrit) 5,000 unit IV MWF [facility] Last Admin: 10/29/18 11:33 Dose: Not Given Heparin Sodium (Porcine) (Heparin) 5,000 units SC Q12 [facility]; Protocol Last Admin: 10/29/18 09:49 Dose: Not Given Hydralazine HCl (Apresoline) 50 mg PO TID [facility] Last Admin: 10/29/18 12:26 Dose: Not Given Vancomycin HCl 1 gm/ Sodium (Chloride) 250 mls @ 250 mls/hr IVPB MWF [facility]; Protocol Last Admin: 10/29/18 09:44 Dose: 250 mls/hr Levofloxacin/Dextrose (Levaquin 500mg) 500 mg in 100 mls @ 100 mls/hr IVPB QOTHERDAY [facility]; Protocol Last Admin: 10/28/18 09:08 Dose: 100 mls/hr Insulin Human Regular (Humulin R) 0 units SC ACHS [facility]; Protocol Last Admin: 10/29/18 12:36 Dose: 1 unit Levothyroxine Sodium (Synthroid) 50 mcg PO DAILY@0630 [facility] Last Admin: 10/29/18 06:36 Dose: 50 mcg Lorazepam (Ativan) 0.5 mg PO DAILY PRN PRN Reason: Anxiety Metoclopramide HCl (Reglan) 10 mg IVP Q6 PRN PRN Reason: Nausea/Vomiting Pantoprazole Sodium (Protonix Ec Tab) 40 mg PO DAILY [facility] Last Admin: 10/29/18 09:42 Dose: 40 mg Sevelamer Carbonate (Renvela) 800 mg PO TID [facility] Last Admin: 10/29/18 12:36 Dose: 800 mg Ticagrelor (Brilinta) 90 mg PO Q12 [facility] Last Admin: 10/29/18 09:41 Dose: 90 mg Results - Vital Signs Recent Vital Signs: Last Vital Signs Temp 97.1 F L 10/29/18 14:05 Pulse 72 10/29/18 07:43 Resp 18 10/29/18 14:05 BP 167/76 H 10/29/18 14:05 Pulse Ox 98 10/29/18 07:43 - Labs Result Diagrams: 10/28/18 06:45 10/28/18 06:45 Labs: Laboratory Results - last 24 hr 10/26/18 10/28/18 10/28/18 20:30 15:43 21:01 POC Glucose (mg/dL) 197 H 147 H Vancomycin Trough TB Test (QFT) Nil 0.02 TB Test Mitogen - Nil 7.29 TB Test Antigen - Nil 0.11 TB Test TB - Nil 0.16 TB Test (QFT) Negative 10/29/18 10/29/18 10/29/18 05:11 10:55 11:12 POC Glucose (mg/dL) 115 H 155 H Vancomycin Trough 11.1 H TB Test (QFT) Nil TB Test Mitogen - Nil TB Test Antigen - Nil TB Test TB - Nil TB Test (QFT) Assessment & Plan (1) Preop cardiovascular exam Status: Acute (2) CAD (coronary artery disease) Status: Acute (3) History of coronary artery stent placement Status: Acute (4) Chronic kidney disease with end stage renal failure on dialysis Status: Acute (5) Diabetes mellitus type 2 in nonobese Status: Acute (6) Pleural effusion Status: Acute Priority: High - Assessment and Plan (Free Text) Plan: PT MAY PROCEED WITH PLEURODESIS. SHE SHOULD BE CONSIDERED INTERMEDIATE RISK FOR ANESTHESIA GIVEN HER RECENT PCI. I RECOMMEND NOT STOPPING ASA OR BRILINTA. PT HAS GRADE 2 DIASTOLIC DYSFUNCTION, SUCH WOULD KEEP HR BETWEEN 55-65 FOR OPTIMAL CARDIAC FUNCTION AND DECREASED CHF SYMPTOMS. CURRENTLY THE PT HAS NO ORTHOPNEA OR EDEMA. NO RECURRENT ANGINA SINCE STENT. E SSENTIALLY NO ACTIVE SYMPTOMS OF CAD.
--- NOTE | 2018-10-29 17:05 | CP.PCM.PN ---
Subjective - Date & Time of Evaluation Date of Evaluation: 10/29/18 Time of Evaluation: 13:00 - Subjective Subjective: F/U PNA, Pleural efusion Objective - Vital Signs/Intake and Output Vital Signs (last 24 hours): Temp Pulse Resp BP Pulse Ox 99.5 F 78 20 162/69 H 99 10/29/18 16:23 10/29/18 16:39 10/29/18 16:23 10/29/18 16:39 10/29/18 16:23 - Medications Medications: Current Medications Acetaminophen (Tylenol 325mg Tab) 650 mg PO Q4 PRN PRN Reason: Fever >100.4 F Last Admin: 10/23/18 01:39 Dose: 650 mg Acetaminophen (Tylenol 325mg Tab) 650 mg PO Q4 PRN PRN Reason: Pain, Mild (1-3) Last Admin: 10/25/18 21:40 Dose: 650 mg Albuterol/Ipratropium (Duoneb 3 Mg/0.5 Mg (3 Ml) Ud) 3 ml INH Q6H [facility] Last Admin: 10/29/18 13:48 Dose: Not Given Amlodipine Besylate (Norvasc) 10 mg PO DAILY [facility] Last Admin: 10/29/18 09:08 Dose: Not Given Aspirin (Ecotrin) 81 mg PO DAILY [facility] Last Admin: 10/29/18 09:42 Dose: 81 mg Atorvastatin Calcium (Lipitor) 40 mg PO HS [facility] Last Admin: 10/28/18 22:24 Dose: 40 mg Carvedilol (Coreg) 25 mg PO Q12 [facility] Last Admin: 10/29/18 09:08 Dose: Not Given Epoetin Steve (Procrit) 5,000 unit IV [facility] [place] Last Admin: 10/29/18 11:33 Dose: Not Given Heparin Sodium (Porcine) (Heparin) 5,000 units SC Q12 [facility]; Protocol Last Admin: 10/29/18 09:49 Dose: Not Given Hydralazine HCl (Apresoline) 50 mg PO TID [facility] Last Admin: 10/29/18 16:39 Dose: 50 mg Vancomycin HCl 1 gm/ Sodium (Chloride) 250 mls @ 250 mls/hr IVPB [facility] [place]; Protocol Last Admin: 10/29/18 09:44 Dose: 250 mls/hr Levofloxacin/Dextrose (Levaquin 500mg) 500 mg in 100 mls @ 100 mls/hr IVPB QOTHERDAY [facility]; Protocol Last Admin: 10/28/18 09:08 Dose: 100 mls/hr Insulin Human Regular (Humulin R) 0 units SC ACHS [facility]; Protocol Last Admin: 10/29/18 16:40 Dose: 2 unit Levothyroxine Sodium (Synthroid) 50 mcg PO DAILY@0630 [facility] Last Admin: 10/29/18 06:36 Dose: 50 mcg Lorazepam (Ativan) 0.5 mg PO DAILY PRN PRN Reason: Anxiety Metoclopramide HCl (Reglan) 10 mg IVP Q6 PRN PRN Reason: Nausea/Vomiting Pantoprazole Sodium (Protonix Ec Tab) 40 mg PO DAILY [facility] Last Admin: 10/29/18 09:42 Dose: 40 mg Sevelamer Carbonate (Renvela) 800 mg PO TID [facility] Last Admin: 10/29/18 16:40 Dose: 800 mg Ticagrelor (Brilinta) 90 mg PO Q12 [facility] Last Admin: 10/29/18 09:41 Dose: 90 mg - Labs Labs: 10/28/18 06:45 10/28/18 06:45 PT 12.5 Seconds (9.8-13.1) 10/21/18 20:56 INR 1.1 10/21/18 20:56 APTT 36.4 Seconds (25.6-37.1) 10/21/18 20:56 - Constitutional Appears: Chronically Ill - Head Exam Head Exam: NORMAL INSPECTION - Eye Exam Eye Exam: PERRL - ENT Exam ENT Exam: Normal Exam - Neck Exam Neck Exam: Normal Inspection - Respiratory Exam Respiratory Exam: Decreased Breath Sounds (at bases) Additional comments: R chest permacath, L chest pigtail in place - Cardiovascular Exam Cardiovascular Exam: REGULAR RHYTHM - GI/Abdominal Exam GI & Abdominal Exam: Soft, Normal Bowel Sounds - Extremities Exam Extremities Exam: Normal Inspection - Back Exam Back Exam: NORMAL INSPECTION - Neurological Exam Neurological Exam: Alert, CN II-XII Intact, Oriented x3 Additional comments: No focal motor/sensory deficit. - Psychiatric Exam Psychiatric exam: Normal Mood - Skin Skin Exam: Normal Color, Warm Assessment and Plan (1) PNA (pneumonia) Status: Acute (2) Pleural effusion Status: Acute (3) CHF (congestive heart failure) Status: Acute - Assessment and Plan (Free Text) Plan: blood C-S Coag Staph (-) positive , Patient to have removal of R IJVD Cath, f/u blood C-S L Pleural effusion, if Positive Patient will need removal of L Pleural Cath, f/u Cardiac consult, Patient will need VATS Pleurodesis after blood C-S negative and L Pleural fluid C-S negative
[2018-10-30] MEDS: Albuterol-Ipratrop 3 mg / 0.5 (3 ml) UD INH SCH ×4 (01:59→19:05)
[2018-10-30] MEDS: Levothyroxine 50 MCG TAB PO SCH (07:02)
[2018-10-30] MEDS: Insulin Regular 100 units/ml SC SCH ×4 (09:24→21:32)
[2018-10-30] MEDS: levoFLOXacin 500 mg in D5W 500 MG/100 ML BAG IVPB SCH (09:24)
[2018-10-30] MEDS: Pantoprazole 40 mg EC Tab PO SCH (09:25)
--- NOTE | 2018-10-30 12:33 | CP.PCM.PN ---
Subjective - Date & Time of Evaluation Date of Evaluation: 10/30/18 Time of Evaluation: 09:00 - Subjective Subjective: patient seen and examined at bedside. Interim events noted No complaints offered at this time, HD catheter removed yesterday denies cp/sob/fever/chills. available diagnostic data reviewed Review of Systems All systems: reviewed and no additional remarkable complaints except mentioned above Objective Vital Signs Stable - Constitutional Appears: Non-toxic, No Acute Distress Head Exam: NORMAL INSPECTION Eye Exam: Normal appearance Respiratory Exam: NORMAL BREATHING PATTERN Cardiovascular Exam: +S1, +S2 GI & Abdominal Exam: Soft Neurological Exam: Alert, Awake Psychiatric exam: Normal Affect, Normal Mood Skin Exam: Normal Color, Warm Assessment and Plan monitor vitals monitor labs Cont meds Cont tx consultants appreciated input pending cultures HD scheduled for thursday rest of plan as ordered Objective - Vital Signs/Intake and Output Vital Signs (last 24 hours): Temp Pulse Resp BP Pulse Ox 98.7 F 75 20 150/61 100 10/30/18 08:58 10/30/18 09:25 10/30/18 08:58 10/30/18 09:25 10/30/18 08:58 - Medications Medications: Current Medications Acetaminophen (Tylenol 325mg Tab) 650 mg PO Q4 PRN PRN Reason: Fever >100.4 F Last Admin: 10/23/18 01:39 Dose: 650 mg Acetaminophen (Tylenol 325mg Tab) 650 mg PO Q4 PRN PRN Reason: Pain, Mild (1-3) Last Admin: 10/25/18 21:40 Dose: 650 mg Albuterol/Ipratropium (Duoneb 3 Mg/0.5 Mg (3 Ml) Ud) 3 ml INH Q6H [facility] Last Admin: 10/30/18 07:19 Dose: 3 ml Amlodipine Besylate (Norvasc) 10 mg PO DAILY [facility] Last Admin: 10/30/18 09:25 Dose: 10 mg Aspirin (Ecotrin) 81 mg PO DAILY [facility] Last Admin: 10/30/18 09:23 Dose: 81 mg Atorvastatin Calcium (Lipitor) 40 mg PO HS [facility] Last Admin: 10/29/18 21:54 Dose: 40 mg Carvedilol (Coreg) 25 mg PO Q12 [facility] Last Admin: 10/30/18 09:22 Dose: 25 mg Docusate Sodium (Colace) 100 mg PO BID [facility] Last Admin: 10/30/18 09:21 Dose: 100 mg Epoetin Steve (Procrit) 5,000 unit IV MWF [facility] Last Admin: 10/29/18 11:33 Dose: Not Given Heparin Sodium (Porcine) (Heparin) 5,000 units SC Q12 [facility]; Protocol Last Admin: 10/30/18 09:23 Dose: Not Given Hydralazine HCl (Apresoline) 50 mg PO TID [facility] Last Admin: 10/30/18 09:21 Dose: 50 mg Vancomycin HCl 1 gm/ Sodium (Chloride) 250 mls @ 250 mls/hr IVPB MWF [facility]; Protocol Last Admin: 10/29/18 09:44 Dose: 250 mls/hr Levofloxacin/Dextrose (Levaquin 500mg) 500 mg in 100 mls @ 100 mls/hr IVPB QOTHERDAY [facility]; Protocol Last Admin: 10/30/18 09:24 Dose: 100 mls/hr Insulin Human Regular (Humulin R) 0 units SC ACHS [facility]; Protocol Last Admin: 10/30/18 11:37 Dose: 1 unit Levothyroxine Sodium (Synthroid) 50 mcg PO DAILY@0630 [facility] Last Admin: 10/30/18 07:02 Dose: 50 mcg Lorazepam (Ativan) 0.5 mg PO DAILY PRN PRN Reason: Anxiety Metoclopramide HCl (Reglan) 10 mg IVP Q6 PRN PRN Reason: Nausea/Vomiting Pantoprazole Sodium (Protonix Ec Tab) 40 mg PO DAILY [facility] Last Admin: 10/30/18 09:25 Dose: 40 mg Sevelamer Carbonate (Renvela) 800 mg PO TID [facility] Last Admin: 10/30/18 09:25 Dose: 800 mg Ticagrelor (Brilinta) 90 mg PO Q12 [facility] Last Admin: 10/30/18 09:21 Dose: 90 mg Vitamin B Complex/Vit C/Folic Acid (Nephro-Buster) 1 tab PO DAILY [facility] - Labs Labs: 10/28/18 06:45 10/28/18 06:45 PT 12.5 Seconds (9.8-13.1) 10/21/18 20:56 INR 1.1 10/21/18 20:56 APTT 36.4 Seconds (25.6-37.1) 03/28/19 20:56 Assessment and Plan (1) Bacteremia Status: Acute (2) PNA (pneumonia) Status: Acute (3) Chronic kidney disease with end stage renal failure on dialysis Status: Acute
[2018-10-30] MEDS: Multivitamin Vitamin B Complex (Nephro-Vite) Tab PO SCH (13:01)
--- NOTE | 2018-10-30 15:30 | CARD ---
APPROVED REPORT Date of service: 10/30/2018 EXAM: Two-dimensional and M-mode echocardiogram with Doppler and color Doppler. Other Information Quality : GoodRhythm : NSR INDICATION Pericardial Effusion Pleural Effusion Limited Study 2D DIMENSIONS IVSd1.16 (0.7-1.1cm)LVDd3.73 (3.9-5.9cm) PWd1.55 (0.7-1.1cm)IVSs1.59 (0.8-1.2cm) LVDs2.44 (2.5-4.0cm)FS (%) 34.6 % PWs1.79 (0.8-1.2cm) Mitral Valve E/A ratio0.0 TDI E/Lateral E'0.0E/Medial E'0.0 LEFT VENTRICLE The left ventricle is normal size. The left ventricular function is normal. The left ventricular ejection fraction is within the normal range. LVEF is 55-60%. There is normal LV segmental wall motion. Incomplete evaluation. RIGHT VENTRICLE The right ventricle is normal size. The right ventricular systolic function is normal. ATRIA The left atrium is not well visualized. The right atrium is not well visualized. AORTIC VALVE The aortic valve opens well. No aortic regurgitation is present. There is no aortic valvular stenosis. MITRAL VALVE The mitral valve is not well visualized. There is no mitral valve stenosis. There is no mitral valve regurgitation noted. TRICUSPID VALVE The tricuspid valve is normal in structure. Not assessed PULMONIC VALVE Not visualized. Not visualized. GREAT VESSELS Not visualized. Not visualized. PERICARDIAL EFFUSION There is a trace pericardial effusion. <Conclusion> Limited echo to evaluate pericardial and pleural effusion LVEF% is normal -55% There is trace pericardial effusion. No pleural effusion is in this limited study. Correlate clinically.
--- NOTE | 2018-10-30 16:39 | CP.PCM.PN ---
Subjective - Date & Time of Evaluation Date of Evaluation: 10/30/18 Time of Evaluation: 16:37 - Subjective Subjective: Nephrology Consultation Note: Assessment: Stable permacath related sepsis CHF with pleural and pericardial effusion Diabetic chronic Kidney Disease (E11.22) Hypertensive Chronic Kidney Disease (I12.0) End stage renal disease (N18.6) dependence on hemodialysis (Z99.2) MWF) via PC Anemia (D64.9), Hyperphosphatemia (E83.39), Secondary Hyperparathyroidism (E21.1), HTN (I12.0) Plan: Will plan for HD MWF as ordered. Continue with Nephrovite 1 tab/day. PRBC as needed for anemia. on lower dose BREANA with dialysis as last Hb 11 Continue with phos binders, last phos level 5.2 BP control with meds as ordered. Patient on RAAS windy Glycemic control, Dialysis consistent diet Further work up/management as per primary team Dose meds/antibiotics (if needed) for ESRD status. Avoid fleets enema/magnesium based laxatives. check echo as CT showed moderate pericardial effusion will check ANCA and lupus serology as well. Thanks for allowing me to participate in care of your patient. Will follow patient with you. Please call if any Qs. Dr Lanre Sherman Office: [phone] Chief Complaint; syncope HPI: Pt is a57 F with hx of ESRD on hemodialysis (MWF) via PC, last dialysis Wed, chronic anemia, hyperphosphatemia, secondary hyperparathyroidism, Diabetes Mellitus, hypertension CHF, left pleural effusion s/p drainage and pleurax catheter cad s/p stent presented with complaints of syncope and she missed HD. feels better now Renal consult requested for ESRD management. ROS: Cardiovascular: No chest pain. Pulmonary: improved shortness of breath Gastrointestinal: denies abdominal pain No nausea. No vomiting. Genitourinary: No pain while urinating. Denies blood in urine. All other negative except as mentioned in HPI Physical Examination: General Appearance: Comfortable, in no acute respiratory distress, co-operative . Vitals reviewed and noted as below Head; Atraumatic, normocephalic ENT: no ulcers no thrush. Tongue is midline. Oropharynx: no rash or ulcers. EYES: Pupils are equal, round and reactive to light accommodation. Eye muscles and extraocular movement intact. Sclera is anicteric. Neck; supple no lymphadenopathy, no thyromegaly or bruit Lungs: Normal respiratory rate/effort. Breath sounds bilateral reduced at bases with crackles Heart: Normal rate. s1s2 normal. No rub or gallop. Extremities: no edema. No varicose veins Neurological: Patient is alert, awake and oriented to person, place and time. No focal deficit. Strength bilateral appropriate and equal Skin: Warm and dry. Normal turgor. No rash. Palpitation: Normal elasticity for age Abdomen: Abdomen is soft. Bowel sounds +. There is no abdominal tenderness, no guarding/rigidity or organomegaly Psych: normal insight and normal affect/mood MSK: no joint tenderness or swelling. Digits and nails normal, no deformity : kidney or bladder not palpable Access: pc removed Labs/imaging reviewed. Past medical history, past surgical history, family history, social history, allergy reviewed and noted as below Family Hx: no hx of CKD. Non contributory Objective - Vital Signs/Intake and Output Vital Signs (last 24 hours): Temp Pulse Resp BP Pulse Ox 98.8 F 73 20 140/66 99 10/30/18 16:30 10/30/18 16:29 10/30/18 08:58 10/30/18 16:29 10/30/18 16:30 - Medications Medications: Current Medications Acetaminophen (Tylenol 325mg Tab) 650 mg PO Q4 PRN PRN Reason: Fever >100.4 F Last Admin: 10/23/18 01:39 Dose: 650 mg Acetaminophen (Tylenol 325mg Tab) 650 mg PO Q4 PRN PRN Reason: Pain, Mild (1-3) Last Admin: 10/25/18 21:40 Dose: 650 mg Albuterol/Ipratropium (Duoneb 3 Mg/0.5 Mg (3 Ml) Ud) 3 ml INH Q6H [facility] Last Admin: 10/30/18 13:24 Dose: 3 ml Amlodipine Besylate (Norvasc) 10 mg PO DAILY [facility] Last Admin: 10/30/18 09:25 Dose: 10 mg Aspirin (Ecotrin) 81 mg PO DAILY [facility] Last Admin: 10/30/18 09:23 Dose: 81 mg Atorvastatin Calcium (Lipitor) 40 mg PO HS [facility] Last Admin: 10/29/18 21:54 Dose: 40 mg Carvedilol (Coreg) 25 mg PO Q12 [facility] Last Admin: 10/30/18 09:22 Dose: 25 mg Docusate Sodium (Colace) 100 mg PO BID [facility] Last Admin: 10/30/18 16:19 Dose: 100 mg Epoetin Steve (Procrit) 5,000 unit IV F [facility] Last Admin: 10/29/18 11:33 Dose: Not Given Heparin Sodium (Porcine) (Heparin) 5,000 units SC Q12 [facility]; Protocol Last Admin: 10/30/18 09:23 Dose: Not Given Hydralazine HCl (Apresoline) 50 mg PO TID [facility] Last Admin: 10/30/18 16:19 Dose: 50 mg Vancomycin HCl 1 gm/ Sodium (Chloride) 250 mls @ 250 mls/hr IVPB [facility]; Protocol Last Admin: 10/29/18 09:44 Dose: 250 mls/hr Levofloxacin/Dextrose (Levaquin 500mg) 500 mg in 100 mls @ 100 mls/hr IVPB QOTHERDAY [facility]; Protocol Last Admin: 10/30/18 09:24 Dose: 100 mls/hr Insulin Human Regular (Humulin R) 0 units SC ACHS [facility]; Protocol Last Admin: 10/30/18 11:37 Dose: 1 unit Levothyroxine Sodium (Synthroid) 50 mcg PO DAILY@0630 [facility] Last Admin: 10/30/18 07:02 Dose: 50 mcg Lorazepam (Ativan) 0.5 mg PO DAILY PRN PRN Reason: Anxiety Metoclopramide HCl (Reglan) 10 mg IVP Q6 PRN PRN Reason: Nausea/Vomiting Pantoprazole Sodium (Protonix Ec Tab) 40 mg PO DAILY [facility] Last Admin: 10/30/18 09:25 Dose: 40 mg Sevelamer Carbonate (Renvela) 800 mg PO TID [facility] Last Admin: 10/30/18 16:20 Dose: 800 mg Ticagrelor (Brilinta) 90 mg PO Q12 [facility] Last Admin: 10/30/18 09:21 Dose: 90 mg Vitamin B Complex/Vit C/Folic Acid (Nephro-Buster) 1 tab PO DAILY [facility] Last Admin: 10/30/18 13:01 Dose: 1 tab - Labs Labs: 10/28/18 06:45 10/28/18 06:45 PT 12.5 Seconds (9.8-13.1) 10/21/18 20:56 INR 1.1 10/21/18 20:56 APTT 36.4 Seconds (25.6-37.1) 10/21/18 20:56
--- NOTE | 2018-10-30 17:25 | CP.PCM.PN ---
Subjective - Date & Time of Evaluation Date of Evaluation: 10/30/18 Time of Evaluation: 14:20 - Subjective Subjective: F/U PNA, Pleural effusion. no SOB on O2NC Objective - Vital Signs/Intake and Output Vital Signs (last 24 hours): Temp Pulse Resp BP Pulse Ox 98.8 F 73 20 140/66 99 10/30/18 16:30 10/30/18 16:29 10/30/18 08:58 10/30/18 16:29 10/30/18 16:30 - Medications Medications: Current Medications Acetaminophen (Tylenol 325mg Tab) 650 mg PO Q4 PRN PRN Reason: Fever >100.4 F Last Admin: 10/23/18 01:39 Dose: 650 mg Acetaminophen (Tylenol 325mg Tab) 650 mg PO Q4 PRN PRN Reason: Pain, Mild (1-3) Last Admin: 10/25/18 21:40 Dose: 650 mg Albuterol/Ipratropium (Duoneb 3 Mg/0.5 Mg (3 Ml) Ud) 3 ml INH Q6H [facility] Last Admin: 10/30/18 13:24 Dose: 3 ml Amlodipine Besylate (Norvasc) 10 mg PO DAILY [facility] Last Admin: 10/30/18 09:25 Dose: 10 mg Aspirin (Ecotrin) 81 mg PO DAILY [facility] Last Admin: 10/30/18 09:23 Dose: 81 mg Atorvastatin Calcium (Lipitor) 40 mg PO HS [facility] Last Admin: 10/29/18 21:54 Dose: 40 mg Carvedilol (Coreg) 25 mg PO Q12 [facility] Last Admin: 10/30/18 09:22 Dose: 25 mg Docusate Sodium (Colace) 100 mg PO BID [facility] Last Admin: 10/30/18 16:19 Dose: 100 mg Epoetin Steve (Procrit) 5,000 unit IV [facility] Last Admin: 10/29/18 11:33 Dose: Not Given Heparin Sodium (Porcine) (Heparin) 5,000 units SC Q12 [facility]; Protocol Last Admin: 10/30/18 09:23 Dose: Not Given Hydralazine HCl (Apresoline) 50 mg PO TID [facility] Last Admin: 10/30/18 16:19 Dose: 50 mg Vancomycin HCl 1 gm/ Sodium (Chloride) 250 mls @ 250 mls/hr IVPB [facility]; Protocol Last Admin: 10/29/18 09:44 Dose: 250 mls/hr Levofloxacin/Dextrose (Levaquin 500mg) 500 mg in 100 mls @ 100 mls/hr IVPB QOTHERDAY [facility]; Protocol Last Admin: 10/30/18 09:24 Dose: 100 mls/hr Insulin Human Regular (Humulin R) 0 units SC ACHS [facility]; Protocol Last Admin: 10/30/18 16:38 Dose: Not Given Levothyroxine Sodium (Synthroid) 50 mcg PO DAILY@0630 [facility] Last Admin: 10/30/18 07:02 Dose: 50 mcg Lorazepam (Ativan) 0.5 mg PO DAILY PRN PRN Reason: Anxiety Metoclopramide HCl (Reglan) 10 mg IVP Q6 PRN PRN Reason: Nausea/Vomiting Pantoprazole Sodium (Protonix Ec Tab) 40 mg PO DAILY [facility] Last Admin: 10/30/18 09:25 Dose: 40 mg Sevelamer Carbonate (Renvela) 800 mg PO TID [facility] Last Admin: 10/30/18 16:20 Dose: 800 mg Ticagrelor (Brilinta) 90 mg PO Q12 [facility] Last Admin: 10/30/18 09:21 Dose: 90 mg Vitamin B Complex/Vit C/Folic Acid (Nephro-Buster) 1 tab PO DAILY [facility] Last Admin: 10/30/18 13:01 Dose: 1 tab - Labs Labs: 10/28/18 06:45 10/28/18 06:45 PT 12.5 Seconds (9.8-13.1) 10/21/18 20:56 INR 1.1 10/21/18 20:56 APTT 36.4 Seconds (25.6-37.1) 10/21/18 20:56 - Constitutional Appears: Chronically Ill - Head Exam Head Exam: NORMAL INSPECTION - Eye Exam Eye Exam: PERRL - ENT Exam ENT Exam: Normal Exam - Neck Exam Neck Exam: Normal Inspection - Respiratory Exam Respiratory Exam: Decreased Breath Sounds (at bases) Additional comments: R IJV Cath was removed was , L lateral chest Pleural cath in place - Cardiovascular Exam Cardiovascular Exam: REGULAR RHYTHM - GI/Abdominal Exam GI & Abdominal Exam: Soft, Normal Bowel Sounds - Extremities Exam Extremities Exam: Normal Inspection - Back Exam Back Exam: NORMAL INSPECTION - Neurological Exam Neurological Exam: Alert, CN II-XII Intact, Oriented x3 Additional comments: No focal motor/sensory deficit. Generalized weakness. - Psychiatric Exam Psychiatric exam: Normal Mood - Skin Skin Exam: Normal Color, Warm Assessment and Plan (1) PNA (pneumonia) Status: Acute (2) Pleural effusion Status: Acute (3) CHF (congestive heart failure) Status: Acute - Assessment and Plan (Free Text) Plan: R IJC Cath was CD, f/u Blood C-S on Thursday, f/u L Pleural fluid C-S, continue Vanco, Levaquin and rest of Tx
[2018-10-31] MEDS: Albuterol-Ipratrop 3 mg / 0.5 (3 ml) UD INH SCH ×4 (02:47→19:05)
[2018-10-31] MEDS: Levothyroxine 50 MCG TAB PO SCH (06:35)
[2018-10-31] MEDS: Insulin Regular 100 units/ml SC SCH ×4 (09:00→21:16)
[2018-10-31] MEDS: Multivitamin Vitamin B Complex (Nephro-Vite) Tab PO SCH (09:00)
[2018-10-31] MEDS: Pantoprazole 40 mg EC Tab PO SCH (09:02)
--- NOTE | 2018-10-31 12:09 | CP.PCM.PN ---
Subjective - Date & Time of Evaluation Date of Evaluation: 10/31/18 Time of Evaluation: 12:08 - Subjective Subjective: Nephrology Consultation Note: Assessment: Stable permacath related sepsis CHF with pleural and pericardial effusion Diabetic chronic Kidney Disease (E11.22) Hypertensive Chronic Kidney Disease (I12.0) End stage renal disease (N18.6) dependence on hemodialysis (Z99.2) MWF) via PC Anemia (D64.9), Hyperphosphatemia (E83.39), Secondary Hyperparathyroidism (E21.1), HTN (I12.0) Plan: Will plan for HD MWF as ordered (once new dialysis access in place). Continue with Nephrovite 1 tab/day. PRBC as needed for anemia. on lower dose BREANA with dialysis as last Hb 11 Continue with phos binders, last phos level 5.2 BP control with meds as ordered. Patient on RAAS windy Glycemic control, Dialysis consistent diet Further work up/management as per primary team Dose meds/antibiotics (if needed) for ESRD status. Avoid fleets enema/magnesium based laxatives. checked echo as CT showed moderate pericardial effusion but small effusion on e cho will check ANCA and lupus serology as well. senna 2 tab today Thanks for allowing me to participate in care of your patient. Will follow patient with you. Please call if any Qs. Dr Lanre Sherman Office: [phone] Chief Complaint; syncope HPI: Pt is a57 F with hx of ESRD on hemodialysis (MWF) via PC, last dialysis Wed, chronic anemia, hyperphosphatemia, secondary hyperparathyroidism, Diabetes Mellitus, hypertension CHF, left pleural effusion s/p drainage and pleurax catheter cad s/p stent presented with complaints of syncope and she missed HD. feels better now Renal consult requested for ESRD management. ROS: c/o constipation Cardiovascular: No chest pain. Pulmonary: improved shortness of breath Gastrointestinal: denies abdominal pain No nausea. No vomiting. Genitourinary: No pain while urinating. Denies blood in urine. All other negative except as mentioned in HPI Physical Examination: General Appearance: Comfortable, in no acute respiratory distress, co-operative . Vitals reviewed and noted as below Head; Atraumatic, normocephalic ENT: no ulcers no thrush. Tongue is midline. Oropharynx: no rash or ulcers. EYES: Pupils are equal, round and reactive to light accommodation. Eye muscles and extraocular movement intact. Sclera is anicteric. Neck; supple no lymphadenopathy, no thyromegaly or bruit Lungs: Normal respiratory rate/effort. Breath sounds bilateral reduced at bases with crackles Heart: Normal rate. s1s2 normal. No rub or gallop. Extremities: no edema. No varicose veins Neurological: Patient is alert, awake and oriented to person, place and time. No focal deficit. Strength bilateral appropriate and equal Skin: Warm and dry. Normal turgor. No rash. Palpitation: Normal elasticity for age Abdomen: Abdomen is soft. Bowel sounds +. There is no abdominal tenderness, no guarding/rigidity or organomegaly Psych: normal insight and normal affect/mood MSK: no joint tenderness or swelling. Digits and nails normal, no deformity : kidney or bladder not palpable Access: pc removed Labs/imaging reviewed. Past medical history, past surgical history, family history, social history, allergy reviewed and noted as below Family Hx: no hx of CKD. Non contributory Objective - Vital Signs/Intake and Output Vital Signs (last 24 hours): Temp Pulse Resp BP Pulse Ox 98 F 72 18 135/62 100 10/31/18 08:46 10/31/18 09:05 10/31/18 08:46 10/31/18 09:05 10/31/18 08:46 - Medications Medications: Current Medications Acetaminophen (Tylenol 325mg Tab) 650 mg PO Q4 PRN PRN Reason: Fever >100.4 F Last Admin: 10/23/18 01:39 Dose: 650 mg Acetaminophen (Tylenol 325mg Tab) 650 mg PO Q4 PRN PRN Reason: Pain, Mild (1-3) Last Admin: 10/25/18 21:40 Dose: 650 mg Albuterol/Ipratropium (Duoneb 3 Mg/0.5 Mg (3 Ml) Ud) 3 ml INH Q6H [facility] Last Admin: 10/31/18 07:15 Dose: 3 ml Amlodipine Besylate (Norvasc) 10 mg PO DAILY [facility] Last Admin: 10/31/18 09:05 Dose: 10 mg Aspirin (Ecotrin) 81 mg PO DAILY [facility] Last Admin: 10/31/18 09:03 Dose: 81 mg Atorvastatin Calcium (Lipitor) 40 mg PO HS [facility] Last Admin: 10/30/18 21:31 Dose: 40 mg Carvedilol (Coreg) 25 mg PO Q12 [facility] Last Admin: 10/31/18 09:02 Dose: 25 mg Docusate Sodium (Colace) 100 mg PO BID [facility] Last Admin: 10/31/18 09:02 Dose: 100 mg Epoetin Steve (Procrit) 5,000 unit IV F [facility] Last Admin: 10/29/18 11:33 Dose: Not Given Heparin Sodium (Porcine) (Heparin) 5,000 units SC Q12 [facility]; Protocol Last Admin: 10/31/18 09:04 Dose: Not Given Hydralazine HCl (Apresoline) 50 mg PO TID [facility] Last Admin: 10/31/18 09:01 Dose: 50 mg Vancomycin HCl 1 gm/ Sodium (Chloride) 250 mls @ 250 mls[facility]; Protocol Last Admin: 10/29/18 09:44 Dose: 250 mls/hr Levofloxacin/Dextrose (Levaquin 500mg) 500 mg in 100 mls @ 100 mls/hr IVPB QOTHERDAY [facility]; Protocol Last Admin: 10/30/18 09:24 Dose: 100 mls/hr Insulin Human Regular (Humulin R) 0 units SC ACHS [facility]; Protocol Last Admin: 10/31/18 09:00 Dose: Not Given Levothyroxine Sodium (Synthroid) 50 mcg PO DAILY@0630 [facility] Last Admin: 10/31/18 06:35 Dose: 50 mcg Lorazepam (Ativan) 0.5 mg PO DAILY PRN PRN Reason: Anxiety Metoclopramide HCl (Reglan) 10 mg IVP Q6 PRN PRN Reason: Nausea/Vomiting Pantoprazole Sodium (Protonix Ec Tab) 40 mg PO DAILY [facility] Last Admin: 10/31/18 09:02 Dose: 40 mg Sevelamer Carbonate (Renvela) 800 mg PO TID [facility] Last Admin: 10/31/18 09:01 Dose: 800 mg Ticagrelor (Brilinta) 90 mg PO Q12 [facility] Last Admin: 10/31/18 09:01 Dose: 90 mg Vitamin B Complex/Vit C/Folic Acid (Nephro-Buster) 1 tab PO DAILY [facility] Last Admin: 10/31/18 09:00 Dose: 1 tab - Labs Labs: 10/28/18 06:45 10/28/18 06:45 PT 12.5 Seconds (9.8-13.1) 10/21/18 20:56 INR 1.1 10/21/18 20:56 APTT 36.4 Seconds (25.6-37.1) 10/21/18 20:56
--- NOTE | 2018-10-31 15:34 | CP.PCM.PN ---
Subjective - Date & Time of Evaluation Date of Evaluation: 10/31/18 Time of Evaluation: 09:00 - Subjective Subjective: afeb in nad Objective - Vital Signs/Intake and Output Vital Signs (last 24 hours): Temp Pulse Resp BP Pulse Ox 98 F 70 18 157/62 H 100 10/31/18 08:46 10/31/18 13:52 10/31/18 08:46 10/31/18 13:52 10/31/18 08:46 - Medications Medications: Current Medications Acetaminophen (Tylenol 325mg Tab) 650 mg PO Q4 PRN PRN Reason: Fever >100.4 F Last Admin: 10/23/18 01:39 Dose: 650 mg Acetaminophen (Tylenol 325mg Tab) 650 mg PO Q4 PRN PRN Reason: Pain, Mild (1-3) Last Admin: 10/25/18 21:40 Dose: 650 mg Albuterol/Ipratropium (Duoneb 3 Mg/0.5 Mg (3 Ml) Ud) 3 ml INH Q6H [facility] Last Admin: 10/31/18 13:01 Dose: 3 ml Amlodipine Besylate (Norvasc) 10 mg PO DAILY [facility] Last Admin: 10/31/18 09:05 Dose: 10 mg Aspirin (Ecotrin) 81 mg PO DAILY [facility] Last Admin: 10/31/18 09:03 Dose: 81 mg Atorvastatin Calcium (Lipitor) 40 mg PO HS [facility] Last Admin: 10/30/18 21:31 Dose: 40 mg Carvedilol (Coreg) 25 mg PO Q12 [facility] Last Admin: 10/31/18 09:02 Dose: 25 mg Docusate Sodium (Colace) 100 mg PO BID [facility] Last Admin: 10/31/18 09:02 Dose: 100 mg Epoetin Steve (Procrit) 5,000 unit IV [facility] [place] Last Admin: 10/29/18 11:33 Dose: Not Given Heparin Sodium (Porcine) (Heparin) 5,000 units SC Q12 [facility]; Protocol Last Admin: 10/31/18 09:04 Dose: Not Given Hydralazine HCl (Apresoline) 50 mg PO TID [facility] Last Admin: 10/31/18 13:52 Dose: 50 mg Vancomycin HCl 1 gm/ Sodium (Chloride) 250 mls @ 250 mls/hr IVPB [facility] [place]; Protocol Last Admin: 10/29/18 09:44 Dose: 250 mls/hr Levofloxacin/Dextrose (Levaquin 500mg) 500 mg in 100 mls @ 100 mls/hr IVPB QOTHERDAY [facility]; Protocol Last Admin: 10/30/18 09:24 Dose: 100 mls/hr Insulin Human Regular (Humulin R) 0 units SC ACHS [facility]; Protocol Last Admin: 10/31/18 12:48 Dose: Not Given Levothyroxine Sodium (Synthroid) 50 mcg PO DAILY@0630 [facility] Last Admin: 10/31/18 06:35 Dose: 50 mcg Lorazepam (Ativan) 0.5 mg PO DAILY PRN PRN Reason: Anxiety Metoclopramide HCl (Reglan) 10 mg IVP Q6 PRN PRN Reason: Nausea/Vomiting Pantoprazole Sodium (Protonix Ec Tab) 40 mg PO DAILY [facility] Last Admin: 10/31/18 09:02 Dose: 40 mg Sennosides (Senokot Tab) 8.6 mg PO HS [facility] Sevelamer Carbonate (Renvela) 800 mg PO TID [facility] Last Admin: 10/31/18 13:52 Dose: 800 mg Ticagrelor (Brilinta) 90 mg PO Q12 [facility] Last Admin: 10/31/18 09:01 Dose: 90 mg Vitamin B Complex/Vit C/Folic Acid (Nephro-Buster) 1 tab PO DAILY [facility] Last Admin: 10/31/18 09:00 Dose: 1 tab - Labs Labs: 10/28/18 06:45 10/28/18 06:45 PT 12.5 Seconds (9.8-13.1) 10/21/18 20:56 INR 1.1 10/21/18 20:56 APTT 36.4 Seconds (25.6-37.1) 10/21/18 20:56 - Constitutional Appears: Non-toxic, Chronically Ill - Head Exam Head Exam: NORMOCEPHALIC - Eye Exam Eye Exam: absent: Scleral icterus - ENT Exam ENT Exam: Mucous Membranes Dry - Neck Exam Neck Exam: absent: Lymphadenopathy - Respiratory Exam Respiratory Exam: Decreased Breath Sounds - Cardiovascular Exam Cardiovascular Exam: REGULAR RHYTHM - GI/Abdominal Exam GI & Abdominal Exam: Distended, Soft - Rectal Exam Rectal Exam: Deferred - Exam Exam: NORMAL INSPECTION - Extremities Exam Extremities Exam: absent: Pedal Edema - Back Exam Back Exam: absent: CVA tenderness (L), paraspinal tenderness - Neurological Exam Neurological Exam: Alert, Awake, Oriented x3 Assessment and Plan (1) Bacteremia Status: Acute (2) Bacteremia due to coagulase-negative Staphylococcus Status: Acute (3) CHF (congestive heart failure) Status: Acute (4) Chronic kidney disease with end stage renal failure on dialysis Status: Acute (5) Diabetes mellitus type 2 in nonobese Status: Acute (6) PNA (pneumonia) Status: Acute (7) Pleural effusion Status: Acute (8) Anemia Status: Acute (9) Chronic kidney disease Status: Acute (10) Leukocytosis Status: Acute (11) Pleural effusion, right Status: Acute (12) Recurrent left pleural effusion Status: Chronic - Assessment and Plan (Free Text) Assessment: for placement of new Tessio cath cont IV Vanco for 14 days
--- NOTE | 2018-10-31 16:54 | CP.PCM.PN ---
Subjective - Date & Time of Evaluation Date of Evaluation: 10/31/18 Time of Evaluation: 14:20 - Subjective Subjective: no SOB with O2 NC, no AD Objective - Vital Signs/Intake and Output Vital Signs (last 24 hours): Temp Pulse Resp BP Pulse Ox 97.2 F L 73 20 148/63 99 10/31/18 16:14 10/31/18 16:14 10/31/18 16:14 10/31/18 16:14 10/31/18 16:14 - Medications Medications: Current Medications Acetaminophen (Tylenol 325mg Tab) 650 mg PO Q4 PRN PRN Reason: Fever >100.4 F Last Admin: 10/23/18 01:39 Dose: 650 mg Acetaminophen (Tylenol 325mg Tab) 650 mg PO Q4 PRN PRN Reason: Pain, Mild (1-3) Last Admin: 10/25/18 21:40 Dose: 650 mg Albuterol/Ipratropium (Duoneb 3 Mg/0.5 Mg (3 Ml) Ud) 3 ml INH Q6H [facility] Last Admin: 10/31/18 13:01 Dose: 3 ml Amlodipine Besylate (Norvasc) 10 mg PO DAILY [facility] Last Admin: 10/31/18 09:05 Dose: 10 mg Aspirin (Ecotrin) 81 mg PO DAILY [facility] Last Admin: 10/31/18 09:03 Dose: 81 mg Atorvastatin Calcium (Lipitor) 40 mg PO HS [facility] Last Admin: 10/30/18 21:31 Dose: 40 mg Carvedilol (Coreg) 25 mg PO Q12 [facility] Last Admin: 10/31/18 09:02 Dose: 25 mg Docusate Sodium (Colace) 100 mg PO BID [facility] Last Admin: 10/31/18 09:02 Dose: 100 mg Epoetin Steve (Procrit) 5,000 unit IV [facility] [place] Last Admin: 10/29/18 11:33 Dose: Not Given Heparin Sodium (Porcine) (Heparin) 5,000 units SC Q12 [facility]; Protocol Last Admin: 10/31/18 09:04 Dose: Not Given Hydralazine HCl (Apresoline) 50 mg PO TID [facility] Last Admin: 10/31/18 13:52 Dose: 50 mg Vancomycin HCl 1 gm/ Sodium (Chloride) 250 mls @ 250 mls/hr IVPB [facility] [place]; Protocol Last Admin: 10/29/18 09:44 Dose: 250 mls/hr Levofloxacin/Dextrose (Levaquin 500mg) 500 mg in 100 mls @ 100 mls/hr IVPB QOTHERDAY [facility]; Protocol Last Admin: 10/30/18 09:24 Dose: 100 mls/hr Insulin Human Regular (Humulin R) 0 units SC ACHS [facility]; Protocol Last Admin: 10/31/18 12:48 Dose: Not Given Levothyroxine Sodium (Synthroid) 50 mcg PO DAILY@0630 [facility] Last Admin: 10/31/18 06:35 Dose: 50 mcg Lorazepam (Ativan) 0.5 mg PO DAILY PRN PRN Reason: Anxiety Metoclopramide HCl (Reglan) 10 mg IVP Q6 PRN PRN Reason: Nausea/Vomiting Pantoprazole Sodium (Protonix Ec Tab) 40 mg PO DAILY [facility] Last Admin: 10/31/18 09:02 Dose: 40 mg Sennosides (Senokot Tab) 8.6 mg PO HS [facility] Sevelamer Carbonate (Renvela) 800 mg PO TID [facility] Last Admin: 10/31/18 13:52 Dose: 800 mg Ticagrelor (Brilinta) 90 mg PO Q12 [facility] Last Admin: 10/31/18 09:01 Dose: 90 mg Vitamin B Complex/Vit C/Folic Acid (Nephro-Buster) 1 tab PO DAILY [facility] Last Admin: 10/31/18 09:00 Dose: 1 tab - Labs Labs: 10/28/18 06:45 10/28/18 06:45 PT 12.5 Seconds (9.8-13.1) 10/21/18 20:56 INR 1.1 10/21/18 20:56 APTT 36.4 Seconds (25.6-37.1) 10/21/18 20:56 - Constitutional Appears: Chronically Ill - Head Exam Head Exam: NORMAL INSPECTION - Eye Exam Eye Exam: PERRL - ENT Exam ENT Exam: Normal Exam - Neck Exam Neck Exam: Normal Inspection - Respiratory Exam Respiratory Exam: Decreased Breath Sounds (at bases) Additional comments: L lateral chest pigtail in place - Cardiovascular Exam Cardiovascular Exam: REGULAR RHYTHM - GI/Abdominal Exam GI & Abdominal Exam: Soft, Normal Bowel Sounds - Extremities Exam Extremities Exam: Normal Inspection - Back Exam Back Exam: NORMAL INSPECTION - Neurological Exam Neurological Exam: Alert, CN II-XII Intact, Oriented x3 Additional comments: No focal motor/sensory deficit, generalized weakness. - Psychiatric Exam Psychiatric exam: Normal Mood - Skin Skin Exam: Normal Color, Warm Assessment and Plan (1) PNA (pneumonia) Status: Acute (2) Pleural effusion Status: Acute (3) CHF (congestive heart failure) Status: Acute - Assessment and Plan (Free Text) Plan: Continue Vanco, R IJC was removed with for staph coag negative bacteremia, follow-up repeated blood C-S on , no growth 48 hours, follow-up on 10-30-17 Left pleural fluid CS, for reinsertion of dialysis cath in a.m., Vanco IV for 14 days as per ID
--- NOTE | 2018-10-31 18:22 | CP.PCM.PN ---
<Marcelino Walton - Last Filed: 10/31/18 23:50> Objective - Vital Signs/Intake and Output Vital Signs (last 24 hours): Temp Pulse Resp BP Pulse Ox 97.2 F L 76 20 114/66 99 10/31/18 17:00 10/31/18 21:48 10/31/18 17:00 10/31/18 21:48 10/31/18 17:00 - Medications Medications: Current Medications Acetaminophen (Tylenol 325mg Tab) 650 mg PO Q4 PRN PRN Reason: Fever >100.4 F Last Admin: 10/23/18 01:39 Dose: 650 mg Acetaminophen (Tylenol 325mg Tab) 650 mg PO Q4 PRN PRN Reason: Pain, Mild (1-3) Last Admin: 10/25/18 21:40 Dose: 650 mg Albuterol/Ipratropium (Duoneb 3 Mg/0.5 Mg (3 Ml) Ud) 3 ml INH Q6H [facility] Last Admin: 10/31/18 19:05 Dose: 3 ml Amlodipine Besylate (Norvasc) 10 mg PO DAILY [facility] Last Admin: 10/31/18 09:05 Dose: 10 mg Aspirin (Ecotrin) 81 mg PO DAILY [facility] Last Admin: 10/31/18 09:03 Dose: 81 mg Atorvastatin Calcium (Lipitor) 40 mg PO HS [facility] Last Admin: 10/31/18 21:06 Dose: 40 mg Carvedilol (Coreg) 25 mg PO Q12 [facility] Last Admin: 10/31/18 21:48 Dose: 25 mg Docusate Sodium (Colace) 100 mg PO BID [facility] Last Admin: 10/31/18 18:34 Dose: 100 mg Epoetin Steve (Procrit) 5,000 unit IV [facility] [place] Last Admin: 10/29/18 11:33 Dose: Not Given Heparin Sodium (Porcine) (Heparin) 5,000 units SC Q12 [facility]; Protocol Last Admin: 10/31/18 21:07 Dose: Not Given Hydralazine HCl (Apresoline) 50 mg PO TID [facility] Last Admin: 10/31/18 18:32 Dose: 50 mg Vancomycin HCl 1 gm/ Sodium (Chloride) 250 mls [facility]; Protocol Last Admin: 10/29/18 09:44 Dose: 250 mls/hr Levofloxacin/Dextrose (Levaquin 500mg) 500 mg in 100 mls @ 100 mls/hr IVPB QOTHERDAY [facility]; Protocol Last Admin: 10/30/18 09:24 Dose: 100 mls/hr Insulin Human Regular (Humulin R) 0 units SC ACHS [facility]; Protocol Last Admin: 10/31/18 21:16 Dose: Not Given Levothyroxine Sodium (Synthroid) 50 mcg PO DAILY@0630 [facility] Last Admin: 10/31/18 06:35 Dose: 50 mcg Lorazepam (Ativan) 0.5 mg PO DAILY PRN PRN Reason: Anxiety Metoclopramide HCl (Reglan) 10 mg IVP Q6 PRN PRN Reason: Nausea/Vomiting Pantoprazole Sodium (Protonix Ec Tab) 40 mg PO DAILY [facility] Last Admin: 10/31/18 09:02 Dose: 40 mg Sennosides (Senokot Tab) 8.6 mg PO HS [facility] Last Admin: 10/31/18 21:12 Dose: Not Given Sevelamer Carbonate (Renvela) 800 mg PO TID [facility] Last Admin: 10/31/18 18:34 Dose: 800 mg Ticagrelor (Brilinta) 90 mg PO Q12 [facility] Last Admin: 10/31/18 21:05 Dose: 90 mg Vitamin B Complex/Vit C/Folic Acid (Nephro-Buster) 1 tab PO DAILY [facility] Last Admin: 10/31/18 09:00 Dose: 1 tab - Labs Labs: 10/28/18 06:45 10/28/18 06:45 PT 12.5 Seconds (9.8-13.1) 10/21/18 20:56 INR 1.1 10/21/18 20:56 APTT 36.4 Seconds (25.6-37.1) 10/21/18 20:56 Assessment and Plan (1) PNA (pneumonia) Status: Acute (2) Pleural effusion Status: Acute (3) CHF (congestive heart failure) Status: Acute <Kaya Davis - Last Filed: 11/01/18 21:41> Subjective - Date & Time of Evaluation Date of Evaluation: 10/31/18 Time of Evaluation: 18:19 - Subjective Subjective: PT WITH CONTINUED DYSPNEA. Objective - Vital Signs/Intake and Output Vital Signs (last 24 hours): Temp Pulse Resp BP Pulse Ox 97.2 F L 73 20 148/63 99 10/31/18 17:00 10/31/18 17:00 10/31/18 17:00 10/31/18 17:00 10/31/18 17:00 - Medications Medications: Current Medications Acetaminophen (Tylenol 325mg Tab) 650 mg PO Q4 PRN PRN Reason: Fever >100.4 F Last Admin: 10/23/18 01:39 Dose: 650 mg Acetaminophen (Tylenol 325mg Tab) 650 mg PO Q4 PRN PRN Reason: Pain, Mild (1-3) Last Admin: 10/25/18 21:40 Dose: 650 mg Albuterol/Ipratropium (Duoneb 3 Mg/0.5 Mg (3 Ml) Ud) 3 ml INH Q6H [facility] Last Admin: 10/31/18 13:01 Dose: 3 ml Amlodipine Besylate (Norvasc) 10 mg PO DAILY [facility] Last Admin: 10/31/18 09:05 Dose: 10 mg Aspirin (Ecotrin) 81 mg PO DAILY [facility] Last Admin: 10/31/18 09:03 Dose: 81 mg Atorvastatin Calcium (Lipitor) 40 mg PO HS [facility] Last Admin: 10/30/18 21:31 Dose: 40 mg Carvedilol (Coreg) 25 mg PO Q12 [facility] Last Admin: 10/31/18 09:02 Dose: 25 mg Docusate Sodium (Colace) 100 mg PO BID [facility] Last Admin: 10/31/18 09:02 Dose: 100 mg Epoetin Steve (Procrit) 5,000 unit IV [facility] [place] Last Admin: 10/29/18 11:33 Dose: Not Given Heparin Sodium (Porcine) (Heparin) 5,000 units SC Q12 [facility]; Protocol Last Admin: 10/31/18 09:04 Dose: Not Given Hydralazine HCl (Apresoline) 50 mg PO TID [facility] Last Admin: 10/31/18 13:52 Dose: 50 mg Vancomycin HCl 1 gm/ Sodium (Chloride) 250 mls @ 250 mls/hr IVPB MWF [facility]; Protocol Last Admin: 10/29/18 09:44 Dose: 250 mls/hr Levofloxacin/Dextrose (Levaquin 500mg) 500 mg in 100 mls @ 100 mls/hr IVPB QOTHERDAY [facility]; Protocol Last Admin: 04/06/19 09:24 Dose: 100 mls/hr Insulin Human Regular (Humulin R) 0 units SC ACHS [facility]; Protocol Last Admin: 10/31/18 12:48 Dose: Not Given Levothyroxine Sodium (Synthroid) 50 mcg PO DAILY@0630 [facility] Last Admin: 10/31/18 06:35 Dose: 50 mcg Lorazepam (Ativan) 0.5 mg PO DAILY PRN PRN Reason: Anxiety Metoclopramide HCl (Reglan) 10 mg IVP Q6 PRN PRN Reason: Nausea/Vomiting Pantoprazole Sodium (Protonix Ec Tab) 40 mg PO DAILY [facility] Last Admin: 10/31/18 09:02 Dose: 40 mg Sennosides (Senokot Tab) 8.6 mg PO [facility] Sevelamer Carbonate (Renvela) 800 mg PO TID [facility] Last Admin: 10/31/18 13:52 Dose: 800 mg Ticagrelor (Brilinta) 90 mg PO Q12 [facility] Last Admin: 10/31/18 09:01 Dose: 90 mg Vitamin B Complex/Vit C/Folic Acid (Nephro-Buster) 1 tab PO DAILY [facility] Last Admin: 10/31/18 09:00 Dose: 1 tab - Labs Labs: 10/28/18 06:45 10/28/18 06:45 PT 12.5 Seconds (9.8-13.1) 10/21/18 20:56 INR 1.1 10/21/18 20:56 APTT 36.4 Seconds (25.6-37.1) 10/21/18 20:56 - Constitutional Appears: No Acute Distress - Head Exam Head Exam: ATRAUMATIC, NORMAL INSPECTION, NORMOCEPHALIC - Eye Exam Eye Exam: EOMI, Normal appearance, PERRL. absent: Conjunctival injection, Nystagmus, Periorbital swelling, Periorbital tenderness, Scleral icterus Pupil Exam: NORMAL ACCOMODATION, PERRL - ENT Exam ENT Exam: Mucous Membranes Dry, Normal Exam. absent: Mucous Membranes Moist, Normal External Ear Exam, Normal Oropharynx, TM's Normal Bilaterally - Neck Exam Neck Exam: Full ROM, Normal Inspection. absent: Lymphadenopathy, Meningismus, Tenderness, Thyromegaly - Respiratory Exam Respiratory Exam: Decreased Breath Sounds, Rales. absent: Accessory Muscle Use, Chest Wall Tenderness, Clear to Ausculation Bilateral, Prolonged Expiratory Phase, Rhonchi, Wheezes, Respiratory Distress, Stridor, NORMAL BREATHING PATTERN - Cardiovascular Exam Cardiovascular Exam: REGULAR RHYTHM, +S1, +S2, Murmur. absent: Bradycardia, Clicks, Diastolic murmur, Gallop, JVD, RRR, Rubs, +S4 - GI/Abdominal Exam GI & Abdominal Exam: Soft, Normal Bowel Sounds. absent: Bruit, Distended, Firm, Guarding, Rigid, Tenderness, Diminished Bowel Sounds, Hernia, Hyperactive Bowel Sounds, Hypoactive Bowel Sounds, Organomegaly, Pulsatile Mass, Rebound, Mass - Rectal Exam Rectal Exam: Deferred - Extremities Exam Extremities Exam: Full ROM, Normal Capillary Refill, Normal Inspection. absent: Joint Swelling, Pedal Edema - Back Exam Back Exam: NORMAL INSPECTION. absent: CVA tenderness (L), CVA tenderness (R), Full ROM, muscle spasm, paraspinal tenderness, rash noted, tenderness, vertebral tenderness - Neurological Exam Neurological Exam: Alert, Awake, CN II-XII Intact, Oriented x3. absent: Abnormal Gait, Altered, Motor Sensory Deficit, Reflexes Normal - Psychiatric Exam Psychiatric exam: Normal Affect, Normal Mood - Skin Skin Exam: Dry, Intact, Normal Color, Warm Assessment and Plan (1) Preop cardiovascular exam Status: Acute (2) CAD (coronary artery disease) Status: Acute (3) History of coronary artery stent placement Status: Acute (4) Chronic kidney disease with end stage renal failure on dialysis Status: Acute (5) Diabetes mellitus type 2 in nonobese Status: Acute (6) Pleural effusion Status: Acute - Assessment and Plan (Free Text) Plan: ECHO SHOWS MOD LVH (LIKELY DUE TO HTN, HOWEVER CONSIDERATION SHOULD BE GIVEN TO INFILTRATIVE PROCESSES WELL), MILD SMALL INFERIOR PERICARDIAL FLUID WITHOUT TAMPONADE PHYSIOLOGY. PTS VS ARE STABLE. SHOULD CONSIDER EVAL FOR AMYLOID AND SARCOID. 45 MIN TOTAL CARE TIME
[2018-11-01] MEDS: Albuterol-Ipratrop 3 mg / 0.5 (3 ml) UD INH SCH ×4 (01:00→19:26)
[2018-11-01] MEDS: Levothyroxine 50 MCG TAB PO SCH (06:10)
[2018-11-01 06:24] LABS: PROTHROMBIN TIME 11.8 Seconds (9.8-13.1)
[2018-11-01 06:34] LABS: HEMOGLOBIN 10.9 g/dL (12.0-16.0); MEAN CELL VOLUME 90.9 fl (81.0-99.0); MEAN CORPUSCULAR HEMOGLOBIN 29.8 pg (27.0-31.0); MEAN CORPUSCULAR HGB CONC 32.8 g/dL (33.0-37.0); RBC 3.64 Mil/uL (3.80-5.20); RED CELL DISTRIBUTION WIDTH 18.6 % (11.5-14.5); WHITE BLOOD COUNT 10.3 K/uL (4.8-10.8)
[2018-11-01 06:36] LABS: CALCIUM 8.5 mg/dL (8.4-10.2)
[2018-11-01] MEDS: Insulin Regular 100 units/ml SC SCH ×4 (07:55→22:33)
[2018-11-01] MEDS: Pantoprazole 40 mg EC Tab PO SCH (09:40)
[2018-11-01] MEDS: Multivitamin Vitamin B Complex (Nephro-Vite) Tab PO SCH (09:40)
--- NOTE | 2018-11-01 10:55 | CP.PCM.PN ---
Subjective - Date & Time of Evaluation Date of Evaluation: 11/01/18 Time of Evaluation: 10:55 - Subjective Subjective: Patient awake and conscious not in any acute distress she appears to be comfortable. Vital signs stable. Objective - Vital Signs/Intake and Output Vital Signs (last 24 hours): Temp Pulse Resp BP Pulse Ox 97.8 F 73 19 134/57 L 98 11/01/18 08:17 11/01/18 08:17 11/01/18 08:17 11/01/18 08:17 11/01/18 08:17 - Medications Medications: Current Medications Acetaminophen (Tylenol 325mg Tab) 650 mg PO Q4 PRN PRN Reason: Fever >100.4 F Last Admin: 10/23/18 01:39 Dose: 650 mg Acetaminophen (Tylenol 325mg Tab) 650 mg PO Q4 PRN PRN Reason: Pain, Mild (1-3) Last Admin: 10/25/18 21:40 Dose: 650 mg Albuterol/Ipratropium (Duoneb 3 Mg/0.5 Mg (3 Ml) Ud) 3 ml INH Q6H [facility] Last Admin: 11/01/18 07:45 Dose: 3 ml Amlodipine Besylate (Norvasc) 10 mg PO DAILY [facility] Last Admin: 10/31/18 09:05 Dose: 10 mg Aspirin (Ecotrin) 81 mg PO DAILY [facility] Last Admin: 11/01/18 09:41 Dose: Not Given Atorvastatin Calcium (Lipitor) 40 mg PO HS [facility] Last Admin: 10/31/18 21:06 Dose: 40 mg Carvedilol (Coreg) 25 mg PO Q12 [facility] Last Admin: 10/31/18 21:48 Dose: 25 mg Docusate Sodium (Colace) 100 mg PO BID [facility] Last Admin: 11/01/18 09:41 Dose: Not Given Epoetin Steve (Procrit) 5,000 unit IV [facility] [place] Last Admin: 10/29/18 11:33 Dose: Not Given Heparin Sodium (Porcine) (Heparin) 5,000 units SC Q12 [facility]; Protocol Last Admin: 10/31/18 21:07 Dose: Not Given Hydralazine HCl (Apresoline) 50 mg PO TID [facility] Last Admin: 10/31/18 18:32 Dose: 50 mg Vancomycin HCl 1 gm/ Sodium (Chloride) 250 mls @ 250 mls/hr IVPB [facility] Protocol Last Admin: 10/29/18 09:44 Dose: 250 mls/hr Levofloxacin/Dextrose (Levaquin 500mg) 500 mg in 100 mls @ 100 mls/hr IVPB QOTHERDAY [facility]; Protocol Last Admin: 10/30/18 09:24 Dose: 100 mls/hr Insulin Human Regular (Humulin R) 0 units SC ACHS [facility]; Protocol Last Admin: 11/01/18 07:55 Dose: Not Given Levothyroxine Sodium (Synthroid) 50 mcg PO DAILY@0630 [facility] Last Admin: 11/01/18 06:10 Dose: 50 mcg Lorazepam (Ativan) 0.5 mg PO DAILY PRN PRN Reason: Anxiety Metoclopramide HCl (Reglan) 10 mg IVP Q6 PRN PRN Reason: Nausea/Vomiting Pantoprazole Sodium (Protonix Ec Tab) 40 mg PO DAILY [facility] Last Admin: 11/01/18 09:40 Dose: Not Given Sennosides (Senokot Tab) 8.6 mg PO HS [facility] Last Admin: 10/31/18 21:12 Dose: Not Given Sevelamer Carbonate (Renvela) 800 mg PO TID [facility] Last Admin: 11/01/18 09:40 Dose: Not Given Ticagrelor (Brilinta) 90 mg PO Q12 [facility] Last Admin: 11/01/18 09:41 Dose: Not Given Vitamin B Complex/Vit C/Folic Acid (Nephro-Buster) 1 tab PO DAILY [facility] Last Admin: 11/01/18 09:40 Dose: Not Given - Labs Labs: 11/01/18 05:50 11/01/18 05:50 PT 11.8 Seconds (9.8-13.1) 11/01/18 05:50 INR 1.0 11/01/18 05:50 APTT 36.4 Seconds (25.6-37.1) 10/21/18 20:56 - Constitutional Appears: No Acute Distress - Eye Exam Eye Exam: Conjunctival injection - ENT Exam ENT Exam: Mucous Membranes Moist - Neck Exam Neck Exam: absent: Lymphadenopathy - Respiratory Exam Respiratory Exam: NORMAL BREATHING PATTERN. absent: Chest Wall Tenderness - Cardiovascular Exam Cardiovascular Exam: absent: Gallop, JVD, Rubs - GI/Abdominal Exam GI & Abdominal Exam: Soft, Normal Bowel Sounds - Extremities Exam Extremities Exam: absent: Calf Tenderness - Back Exam Back Exam: absent: CVA tenderness (L), CVA tenderness (R) - Neurological Exam Neurological Exam: Alert - Psychiatric Exam Psychiatric exam: Normal Affect - Skin Skin Exam: absent: Cyanosis Assessment and Plan (1) CHF (congestive heart failure) Status: Acute (2) Chronic kidney disease with end stage renal failure on dialysis Assessment & Plan: Assessment: Stable permacath related sepsis CHF with pleural and pericardial effusion Diabetic chronic Kidney Disease (E11.22) Hypertensive Chronic Kidney Disease (I12.0) End stage renal disease (N18.6) dependence on hemodialysis (Z99.2) MWF) via PC Anemia (D64.9), Hyperphosphatemia (E83.39), Secondary Hyperparathyroidism (E21.1), HTN (I12.0) Recommendation Continue hemodialysis as scheduled. Patient having replacement of dialysis catheter was permacath. Workup for lupus and ANCA Antibiotics as per GFR with infectious disease Status: Acute (3) PNA (pneumonia) Status: Acute (4) Pleural effusion Status: Acute (5) Anemia Status: Acute (6) Leukocytosis Status: Acute
[2018-11-01] MEDS: levoFLOXacin 500 mg in D5W 500 MG/100 ML BAG IVPB SCH (11:23)
--- NOTE | 2018-11-01 12:26 | CP.PCM.PN ---
Subjective - Date & Time of Evaluation Date of Evaluation: 11/01/18 Time of Evaluation: 09:00 - Subjective Subjective: afeb iv rx in progress Objective - Vital Signs/Intake and Output Vital Signs (last 24 hours): Temp Pulse Resp BP Pulse Ox 97.8 F 73 19 137/54 L 98 11/01/18 08:17 11/01/18 11:23 11/01/18 08:17 11/01/18 11:23 11/01/18 08:17 - Medications Medications: Current Medications Acetaminophen (Tylenol 325mg Tab) 650 mg PO Q4 PRN PRN Reason: Fever >100.4 F Last Admin: 10/23/18 01:39 Dose: 650 mg Acetaminophen (Tylenol 325mg Tab) 650 mg PO Q4 PRN PRN Reason: Pain, Mild (1-3) Last Admin: 10/25/18 21:40 Dose: 650 mg Albuterol/Ipratropium (Duoneb 3 Mg/0.5 Mg (3 Ml) Ud) 3 ml INH Q6H [facility] Last Admin: 11/01/18 07:45 Dose: 3 ml Amlodipine Besylate (Norvasc) 10 mg PO DAILY [facility] Last Admin: 11/01/18 11:23 Dose: 10 mg Aspirin (Ecotrin) 81 mg PO DAILY [facility] Last Admin: 11/01/18 09:41 Dose: Not Given Atorvastatin Calcium (Lipitor) 40 mg PO HS [facility] Last Admin: 10/31/18 21:06 Dose: 40 mg Carvedilol (Coreg) 25 mg PO Q12 [facility] Last Admin: 11/01/18 11:22 Dose: 25 mg Docusate Sodium (Colace) 100 mg PO BID [facility] Last Admin: 11/01/18 09:41 Dose: Not Given Epoetin Steve (Procrit) 5,000 unit IV [facility] [place] Last Admin: 10/29/18 11:33 Dose: Not Given Heparin Sodium (Porcine) (Heparin) 5,000 units SC Q12 [facility]; Protocol Last Admin: 11/01/18 11:15 Dose: Not Given Hydralazine HCl (Apresoline) 50 mg PO TID [facility] Last Admin: 11/01/18 11:22 Dose: 50 mg Vancomycin HCl 1 gm/ Sodium (Chloride) 250 mls @ 250 mls/hr IVPB [facility] [place]; Protocol Last Admin: 10/29/18 09:44 Dose: 250 mls/hr Levofloxacin/Dextrose (Levaquin 500mg) 500 mg in 100 mls @ 100 mls/hr IVPB QOTHERDAY [facility]; Protocol Last Admin: 11/01/18 11:23 Dose: 100 mls/hr Insulin Human Regular (Humulin R) 0 units SC ACHS [facility]; Protocol Last Admin: 11/01/18 12:18 Dose: Not Given Levothyroxine Sodium (Synthroid) 50 mcg PO DAILY@0630 [facility] Last Admin: 11/01/18 06:10 Dose: 50 mcg Lorazepam (Ativan) 0.5 mg PO DAILY PRN PRN Reason: Anxiety Metoclopramide HCl (Reglan) 10 mg IVP Q6 PRN PRN Reason: Nausea/Vomiting Pantoprazole Sodium (Protonix Ec Tab) 40 mg PO DAILY [facility] Last Admin: 11/01/18 09:40 Dose: Not Given Sennosides (Senokot Tab) 8.6 mg PO HS [facility] Last Admin: 10/31/18 21:12 Dose: Not Given Sevelamer Carbonate (Renvela) 800 mg PO TID [facility] Last Admin: 11/01/18 12:18 Dose: Not Given Ticagrelor (Brilinta) 90 mg PO Q12 [facility] Last Admin: 11/01/18 09:41 Dose: Not Given Vitamin B Complex/Vit C/Folic Acid (Nephro-Buster) 1 tab PO DAILY [facility] Last Admin: 11/01/18 09:40 Dose: Not Given - Labs Labs: 11/01/18 05:50 11/01/18 05:50 PT 11.8 Seconds (9.8-13.1) 11/01/18 05:50 INR 1.0 11/01/18 05:50 APTT 36.4 Seconds (25.6-37.1) 10/21/18 20:56 - Constitutional Appears: No Acute Distress, Cachectic, Chronically Ill - Head Exam Head Exam: ATRAUMATIC, NORMAL INSPECTION, NORMOCEPHALIC - Eye Exam Eye Exam: EOMI, Normal appearance, PERRL Pupil Exam: NORMAL ACCOMODATION, PERRL - ENT Exam ENT Exam: Mucous Membranes Moist, Normal Exam - Neck Exam Neck Exam: Full ROM, Normal Inspection. absent: Lymphadenopathy - Respiratory Exam Respiratory Exam: Clear to Ausculation Bilateral, NORMAL BREATHING PATTERN - Cardiovascular Exam Cardiovascular Exam: REGULAR RHYTHM, +S1, +S2. absent: Murmur - GI/Abdominal Exam GI & Abdominal Exam: Soft, Normal Bowel Sounds. absent: Tenderness - Rectal Exam Rectal Exam: Deferred - Extremities Exam Extremities Exam: Full ROM, Normal Capillary Refill, Normal Inspection. absent: Joint Swelling, Pedal Edema - Back Exam Back Exam: NORMAL INSPECTION - Neurological Exam Neurological Exam: Alert, Awake, CN II-XII Intact, Normal Gait, Oriented x3 - Psychiatric Exam Psychiatric exam: Normal Affect, Normal Mood - Skin Skin Exam: Dry, Intact, Normal Color, Warm Assessment and Plan (1) Bacteremia Status: Acute (2) Bacteremia due to coagulase-negative Staphylococcus Status: Acute (3) CHF (congestive heart failure) Status: Acute (4) Chronic kidney disease with end stage renal failure on dialysis Status: Acute (5) Diabetes mellitus type 2 in nonobese Status: Acute (6) PNA (pneumonia) Status: Acute (7) Pleural effusion Status: Acute (8) Anemia Status: Acute (9) Chronic kidney disease Status: Acute (10) Leukocytosis Status: Acute (11) Pleural effusion, right Status: Acute (12) Recurrent left pleural effusion Status: Chronic - Assessment and Plan (Free Text) Assessment: cont iv vanco for 14 days
[2018-11-01] MEDS ORDERED: Lidocaine Hydrochloride 1% 10 ML ONE (14:18)
[2018-11-01] MEDS ORDERED: Propofol 10 mg/ml Inj (20 ML) ONE (14:20)
[2018-11-01] MEDS ORDERED: Midazolam 2 MG/2 ML VIAL ONE (14:20)
--- NOTE | 2018-11-01 15:01 | VASCULAR ---
PROCEDURE: Date of procedure: 11/01/2018 Procedure: 1. Placement of right IJ tunneled hemodialysis catheter, CPT 75569 Medications: 1 percent lidocaine, IV sedation and physiologic monitoring performed by the anesthesiologist. EBL: 5 cm Radiation:0.92 mGy Fluoro time: 9 seconds Images: 2 HISTORY: Renal failure requiring hemodialysis TECHNIQUE: Following informed consent and procedure time-out, the patient was placed supine on the interventional table and the skin was marked . A limited ultrasound patient's right neck showed a patent compressible right internal jugular vein. Under direct ultrasound guidance, the right internal jugular vein was accessed with micropuncture technique and a guidewire was advanced under fluoroscopic guidance into the superior vena cava. An image documenting ultrasound guidance for vascular access was permanently saved. A 19 centimeter cuff to tip hemodialysis catheter was then tunneled under the skin and hold the venotomy site. The venotomy was then serially dilated to accommodate the peel-away sheath. The hemodialysis catheter was then advanced through a peel-away sheath. The catheter is positioned with tip in the superior vena cava confirm with fluoroscopic image. The catheter was tested and has adequate blood flow for hemodialysis. The catheter was flushed and locked with heparin per specified amount. The catheter secured to the skin with a 0 silk suture. IMPRESSION: Placement of right tunneled hemodialysis 19 cm cuff-to-tip catheter The catheter tip is confirmed with spot radiograph and is in the superior vena cava. The catheter is functional and ready for use.
--- NOTE | 2018-11-01 16:28 | CP.PCM.PN ---
Subjective - Date & Time of Evaluation Date of Evaluation: 11/01/18 Time of Evaluation: 12:00 - Subjective Subjective: F/U PNA, Pleural effusion no AD,no SOB, on O2 NC 2Lm Objective - Vital Signs/Intake and Output Vital Signs (last 24 hours): Temp Pulse Resp BP Pulse Ox 97.4 F L 63 20 138/61 95 11/01/18 16:00 11/01/18 16:00 11/01/18 16:00 11/01/18 16:00 11/01/18 16:00 - Medications Medications: Current Medications Acetaminophen (Tylenol 325mg Tab) 650 mg PO Q4 PRN PRN Reason: Fever >100.4 F Last Admin: 10/23/18 01:39 Dose: 650 mg Acetaminophen (Tylenol 325mg Tab) 650 mg PO Q4 PRN PRN Reason: Pain, Mild (1-3) Last Admin: 10/25/18 21:40 Dose: 650 mg Albuterol/Ipratropium (Duoneb 3 Mg/0.5 Mg (3 Ml) Ud) 3 ml INH Q6H [facility] Last Admin: 11/01/18 13:51 Dose: 3 ml Amlodipine Besylate (Norvasc) 10 mg PO DAILY [facility] Last Admin: 11/01/18 11:23 Dose: 10 mg Aspirin (Ecotrin) 81 mg PO DAILY [facility] Last Admin: 11/01/18 09:41 Dose: Not Given Atorvastatin Calcium (Lipitor) 40 mg PO HS [facility] Last Admin: 10/31/18 21:06 Dose: 40 mg Carvedilol (Coreg) 25 mg PO Q12 [facility] Last Admin: 11/01/18 11:22 Dose: 25 mg Docusate Sodium (Colace) 100 mg PO BID [facility] Last Admin: 11/01/18 09:41 Dose: Not Given Epoetin Steve (Procrit) 5,000 unit [place] [facility] Last Admin: 10/29/18 11:33 Dose: Not Given Heparin Sodium (Porcine) (Heparin) 5,000 units SC Q12 [facility]; Protocol Last Admin: 11/01/18 11:15 Dose: Not Given Hydralazine HCl (Apresoline) 50 mg PO TID [facility] Last Admin: 11/01/18 14:58 Dose: Not Given Vancomycin HCl 1 gm/ Sodium (Chloride) 250 mls @ 250 mls/hr IVPB [facility] Protocol Last Admin: 11/01/18 12:30 Dose: 250 mls/hr Levofloxacin/Dextrose (Levaquin 500mg) 500 mg in 100 mls @ 100 mls/hr IVPB QOTHERDAY [facility]; Protocol Last Admin: 11/01/18 11:23 Dose: 100 mls/hr Insulin Human Regular (Humulin R) 0 units SC ACHS [facility]; Protocol Last Admin: 11/01/18 12:18 Dose: Not Given Levothyroxine Sodium (Synthroid) 50 mcg PO DAILY@0630 [facility] Last Admin: 11/01/18 06:10 Dose: 50 mcg Lorazepam (Ativan) 0.5 mg PO DAILY PRN PRN Reason: Anxiety Metoclopramide HCl (Reglan) 10 mg IVP Q6 PRN PRN Reason: Nausea/Vomiting Pantoprazole Sodium (Protonix Ec Tab) 40 mg PO DAILY [facility] Last Admin: 11/01/18 09:40 Dose: Not Given Sennosides (Senokot Tab) 8.6 mg PO HS [facility] Last Admin: 10/31/18 21:12 Dose: Not Given Sevelamer Carbonate (Renvela) 800 mg PO TID [facility] Last Admin: 11/01/18 12:18 Dose: Not Given Ticagrelor (Brilinta) 90 mg PO Q12 [facility] Last Admin: 11/01/18 09:41 Dose: Not Given Vitamin B Complex/Vit C/Folic Acid (Nephro-Buster) 1 tab PO DAILY [facility] Last Admin: 11/01/18 09:40 Dose: Not Given - Labs Labs: 11/01/18 05:50 11/01/18 05:50 PT 11.8 Seconds (9.8-13.1) 11/01/18 05:50 INR 1.0 11/01/18 05:50 APTT 36.4 Seconds (25.6-37.1) 10/21/18 20:56 - Constitutional Appears: Chronically Ill - Head Exam Head Exam: NORMAL INSPECTION - Eye Exam Eye Exam: PERRL - ENT Exam ENT Exam: Normal Exam - Neck Exam Neck Exam: Normal Inspection - Respiratory Exam Respiratory Exam: Decreased Breath Sounds (at bases) Additional comments: L chest pleural cath - Cardiovascular Exam Cardiovascular Exam: REGULAR RHYTHM - GI/Abdominal Exam GI & Abdominal Exam: Soft, Normal Bowel Sounds - Extremities Exam Extremities Exam: Normal Inspection - Back Exam Back Exam: NORMAL INSPECTION - Neurological Exam Neurological Exam: Alert, CN II-XII Intact, Oriented x3 Additional comments: No focal motor/sensory deficit, generalized weakness. - Psychiatric Exam Psychiatric exam: Normal Mood - Skin Skin Exam: Normal Color, Warm Assessment and Plan (1) PNA (pneumonia) Status: Acute (2) Pleural effusion Status: Acute (3) CHF (congestive heart failure) Status: Acute - Assessment and Plan (Free Text) Plan: to have HD Cath insertion today, 2 blood C-S 4-5-19 neg, C-S HD cath tip neg, L Pleural fluid C-S neg 24hs, Vanco 14 days as per ID, f/u L Pleural fluid C-S 48 hs, attempt of L Pleurodesis and DC L Pleural Cath to be done after compl etion of i4 days of Vanco
--- NOTE | 2018-11-01 20:42 | CP.PCM.PN ---
Subjective - Date & Time of Evaluation Date of Evaluation: 10/31/18 Time of Evaluation: 11:00 - Subjective Subjective: patient seen and examined at bedside. Interim events noted No complaints offered at this time denies cp/sob/fever/chills. available diagnostic data reviewed Review of Systems All systems: reviewed and no additional remarkable complaints except mentioned above Objective Vital Signs Stable - Constitutional Appears: Non-toxic, No Acute Distress Head Exam: NORMAL INSPECTION Eye Exam: Normal appearance Respiratory Exam: NORMAL BREATHING PATTERN Cardiovascular Exam: +S1, +S2 GI & Abdominal Exam: Soft Neurological Exam: Alert, Awake Psychiatric exam: Normal Affect, Normal Mood Skin Exam: Normal Color, Warm Assessment and Plan monitor vitals monitor labs Cont meds Cont tx consultants appreciated input cultures NGTD HD scheduled for thursday, replace catheter in AM rest of plan as ordered Objective - Vital Signs/Intake and Output Vital Signs (last 24 hours): Temp Pulse Resp BP Pulse Ox 97.1 F L 62 20 145/58 L 100 11/01/18 17:03 11/01/18 17:03 11/01/18 17:03 11/01/18 17:03 11/01/18 17:03 - Medications Medications: Current Medications Acetaminophen (Tylenol 325mg Tab) 650 mg PO Q4 PRN PRN Reason: Fever >100.4 F Last Admin: 10/23/18 01:39 Dose: 650 mg Acetaminophen (Tylenol 325mg Tab) 650 mg PO Q4 PRN PRN Reason: Pain, Mild (1-3) Last Admin: 10/25/18 21:40 Dose: 650 mg Albuterol/Ipratropium (Duoneb 3 Mg/0.5 Mg (3 Ml) Ud) 3 ml INH Q6H [facility] Last Admin: 11/01/18 19:26 Dose: 3 ml Amlodipine Besylate (Norvasc) 10 mg PO DAILY [facility] Last Admin: 11/01/18 11:23 Dose: 10 mg Aspirin (Ecotrin) 81 mg PO DAILY [facility] Last Admin: 11/01/18 09:41 Dose: Not Given Atorvastatin Calcium (Lipitor) 40 mg PO HS [facility] Last Admin: 10/31/18 21:06 Dose: 40 mg Carvedilol (Coreg) 25 mg PO Q12 [facility] Last Admin: 11/01/18 11:22 Dose: 25 mg Docusate Sodium (Colace) 100 mg PO BID [facility] Last Admin: 11/01/18 16:45 Dose: 100 mg Epoetin Steve (Procrit) 5,000 unit IV MWF [facility] Last Admin: 10/29/18 11:33 Dose: Not Given Heparin Sodium (Porcine) (Heparin) 5,000 units SC Q12 [facility]; Protocol Last Admin: 11/01/18 11:15 Dose: Not Given Hydralazine HCl (Apresoline) 50 mg PO TID [facility] Last Admin: 11/01/18 16:44 Dose: 50 mg Vancomycin HCl 1 gm/ Sodium (Chloride) 250 mls @ 250 mls/hr IVPB MWF [facility]; Protocol Last Admin: 11/01/18 12:30 Dose: 250 mls/hr Levofloxacin/Dextrose (Levaquin 500mg) 500 mg in 100 mls @ 100 mls/hr IVPB QOTHERDAY [facility]; Protocol Last Admin: 11/01/18 11:23 Dose: 100 mls/hr Insulin Human Regular (Humulin R) 0 units SC ACHS [facility]; Protocol Last Admin: 11/01/18 16:41 Dose: Not Given Levothyroxine Sodium (Synthroid) 50 mcg PO DAILY@0630 [facility] Last Admin: 11/01/18 06:10 Dose: 50 mcg Lorazepam (Ativan) 0.5 mg PO DAILY PRN PRN Reason: Anxiety Metoclopramide HCl (Reglan) 10 mg IVP Q6 PRN PRN Reason: Nausea/Vomiting Pantoprazole Sodium (Protonix Ec Tab) 40 mg PO DAILY [facility] Last Admin: 11/01/18 09:40 Dose: Not Given Sennosides (Senokot Tab) 8.6 mg PO HS [facility] Last Admin: 10/31/18 21:12 Dose: Not Given Sevelamer Carbonate (Renvela) 800 mg PO TID [facility] Last Admin: 11/01/18 16:46 Dose: 800 mg Ticagrelor (Brilinta) 90 mg PO Q12 [facility] Last Admin: 11/01/18 09:41 Dose: Not Given Vitamin B Complex/Vit C/Folic Acid (Nephro-Buster) 1 tab PO DAILY [facility] Last Admin: 11/01/18 09:40 Dose: Not Given - Labs Labs: 11/01/18 05:50 11/01/18 05:50 PT 11.8 Seconds (9.8-13.1) 11/01/18 05:50 INR 1.0 11/01/18 05:50 APTT 36.4 Seconds (25.6-37.1) 10/21/18 20:56 Assessment and Plan (1) Bacteremia Status: Acute (2) PNA (pneumonia) Status: Acute (3) Chronic kidney disease with end stage renal failure on dialysis Status: Acute
--- NOTE | 2018-11-01 20:44 | CP.PCM.PN ---
Subjective - Date & Time of Evaluation Date of Evaluation: 11/01/18 Time of Evaluation: 09:00 - Subjective Subjective: patient seen and examined at bedside. Interim events noted No complaints offered at this time denies cp/sob/fever/chills. available diagnostic data reviewed Review of Systems All systems: reviewed and no additional remarkable complaints except mentioned above Objective Vital Signs Stable - Constitutional Appears: Non-toxic, No Acute Distress Head Exam: NORMAL INSPECTION Eye Exam: Normal appearance Respiratory Exam: NORMAL BREATHING PATTERN Cardiovascular Exam: +S1, +S2 GI & Abdominal Exam: Soft Neurological Exam: Alert, Awake Psychiatric exam: Normal Affect, Normal Mood Skin Exam: Normal Color, Warm Assessment and Plan monitor vitals monitor labs Cont meds Cont tx consultants appreciated input cultures NGTD Catheter to be placed today and HD scheduled for today will need elongated course of IV abx rest of plan as ordered Objective - Vital Signs/Intake and Output Vital Signs (last 24 hours): Temp Pulse Resp BP Pulse Ox 97.1 F L 62 20 145/58 L 100 11/01/18 17:03 11/01/18 17:03 11/01/18 17:03 11/01/18 17:03 11/01/18 17:03 - Medications Medications: Current Medications Acetaminophen (Tylenol 325mg Tab) 650 mg PO Q4 PRN PRN Reason: Fever >100.4 F Last Admin: 10/23/18 01:39 Dose: 650 mg Acetaminophen (Tylenol 325mg Tab) 650 mg PO Q4 PRN PRN Reason: Pain, Mild (1-3) Last Admin: 10/25/18 21:40 Dose: 650 mg Albuterol/Ipratropium (Duoneb 3 Mg/0.5 Mg (3 Ml) Ud) 3 ml INH Q6H [facility] Last Admin: 11/01/18 19:26 Dose: 3 ml Amlodipine Besylate (Norvasc) 10 mg PO DAILY [facility] Last Admin: 11/01/18 11:23 Dose: 10 mg Aspirin (Ecotrin) 81 mg PO DAILY [facility] Last Admin: 11/01/18 09:41 Dose: Not Given Atorvastatin Calcium (Lipitor) 40 mg PO HS [facility] Last Admin: 10/31/18 21:06 Dose: 40 mg Carvedilol (Coreg) 25 mg PO Q12 [facility] Last Admin: 11/01/18 11:22 Dose: 25 mg Docusate Sodium (Colace) 100 mg PO BID [facility] Last Admin: 11/01/18 16:45 Dose: 100 mg Epoetin Steve (Procrit) 5,000 unit IV [facility] Last Admin: 10/29/18 11:33 Dose: Not Given Heparin Sodium (Porcine) (Heparin) 5,000 units SC Q12 [facility]; Protocol Last Admin: 11/01/18 11:15 Dose: Not Given Hydralazine HCl (Apresoline) 50 mg PO TID [facility] Last Admin: 11/01/18 16:44 Dose: 50 mg Vancomycin HCl 1 gm/ Sodium (Chloride) 250 mls @ 250 mls[facility]; [facility] Last Admin: 11/01/18 12:30 Dose: 250 mls/hr Levofloxacin/Dextrose (Levaquin 500mg) 500 mg in 100 mls @ 100 mls/hr IVPB QOTHERDAY [facility]; Protocol Last Admin: 11/01/18 11:23 Dose: 100 mls/hr Insulin Human Regular (Humulin R) 0 units SC ACHS [facility]; Protocol Last Admin: 11/01/18 16:41 Dose: Not Given Levothyroxine Sodium (Synthroid) 50 mcg PO DAILY@0630 [facility] Last Admin: 11/01/18 06:10 Dose: 50 mcg Lorazepam (Ativan) 0.5 mg PO DAILY PRN PRN Reason: Anxiety Metoclopramide HCl (Reglan) 10 mg IVP Q6 PRN PRN Reason: Nausea/Vomiting Pantoprazole Sodium (Protonix Ec Tab) 40 mg PO DAILY [facility] Last Admin: 11/01/18 09:40 Dose: Not Given Sennosides (Senokot Tab) 8.6 mg PO HS [facility] Last Admin: 10/31/18 21:12 Dose: Not Given Sevelamer Carbonate (Renvela) 800 mg PO TID [facility] Last Admin: 11/01/18 16:46 Dose: 800 mg Ticagrelor (Brilinta) 90 mg PO Q12 [facility] Last Admin: 11/01/18 09:41 Dose: Not Given Vitamin B Complex/Vit C/Folic Acid (Nephro-Buster) 1 tab PO DAILY [facility] Last Admin: 11/01/18 09:40 Dose: Not Given - Labs Labs: 11/01/18 05:50 11/01/18 05:50 PT 11.8 Seconds (9.8-13.1) 11/01/18 05:50 INR 1.0 11/01/18 05:50 APTT 36.4 Seconds (25.6-37.1) 10/21/18 20:56 Assessment and Plan (1) Bacteremia Status: Acute (2) PNA (pneumonia) Status: Acute (3) Chronic kidney disease with end stage renal failure on dialysis Status: Acute
[2018-11-02] MEDS: Albuterol-Ipratrop 3 mg / 0.5 (3 ml) UD INH SCH ×4 (01:11→19:10)
[2018-11-02] MEDS: Insulin Regular 100 units/ml SC SCH ×4 (09:19→22:27)
[2018-11-02] MEDS: Pantoprazole 40 mg EC Tab PO SCH (09:20)
[2018-11-02] MEDS: Levothyroxine 50 MCG TAB PO SCH (09:20)
[2018-11-02] MEDS: Multivitamin Vitamin B Complex (Nephro-Vite) Tab PO SCH (09:20)
--- NOTE | 2018-11-02 11:38 | CP.PCM.PN ---
Subjective - Date & Time of Evaluation Date of Evaluation: 11/02/18 Time of Evaluation: 11:37 - Subjective Subjective: Patient awake and conscious Vital signs stable No vomiting or nausea Objective - Vital Signs/Intake and Output Vital Signs (last 24 hours): Temp Pulse Resp BP Pulse Ox 98.6 F 92 H 21 108/72 98 11/02/18 08:14 11/02/18 09:21 11/02/18 08:14 11/02/18 09:21 11/02/18 08:14 - Medications Medications: Current Medications Acetaminophen (Tylenol 325mg Tab) 650 mg PO Q4 PRN PRN Reason: Fever >100.4 F Last Admin: 10/23/18 01:39 Dose: 650 mg Acetaminophen (Tylenol 325mg Tab) 650 mg PO Q4 PRN PRN Reason: Pain, Mild (1-3) Last Admin: 11/02/18 10:50 Dose: 650 mg Albuterol/Ipratropium (Duoneb 3 Mg/0.5 Mg (3 Ml) Ud) 3 ml INH Q6H [facility] Last Admin: 11/02/18 07:43 Dose: 3 ml Amlodipine Besylate (Norvasc) 10 mg PO DAILY [facility] Last Admin: 11/02/18 09:21 Dose: Not Given Aspirin (Ecotrin) 81 mg PO DAILY [facility] Last Admin: 11/02/18 09:18 Dose: 81 mg Atorvastatin Calcium (Lipitor) 40 mg PO HS [facility] Last Admin: 11/02/18 01:54 Dose: 40 mg Carvedilol (Coreg) 25 mg PO Q12 [facility] Last Admin: 11/02/18 09:18 Dose: 25 mg Docusate Sodium (Colace) 100 mg PO BID [facility] Last Admin: 11/02/18 09:17 Dose: 100 mg Epoetin Steve (Procrit) 5,000 unit IV [facility] Last Admin: 10/29/18 11:33 Dose: Not Given Heparin Sodium (Porcine) (Heparin) 5,000 units SC Q12 [facility]; Protocol Last Admin: 11/02/18 09:18 Dose: Not Given Hydralazine HCl (Apresoline) 50 mg PO TID [facility] Last Admin: 11/02/18 09:17 Dose: Not Given Vancomycin HCl 1 gm/ Sodium (Chloride) 250 mls @ 250 mls/hr IVPB [facility]; Protocol Last Admin: 11/01/18 12:30 Dose: 250 mls/hr Insulin Human Regular (Humulin R) 0 units SC ACHS [facility]; Protocol Last Admin: 11/02/18 09:19 Dose: Not Given Levothyroxine Sodium (Synthroid) 50 mcg PO DAILY@0630 [facility] Last Admin: 11/02/18 09:20 Dose: 50 mcg Lorazepam (Ativan) 0.5 mg PO DAILY PRN PRN Reason: Anxiety Metoclopramide HCl (Reglan) 10 mg IVP Q6 PRN PRN Reason: Nausea/Vomiting Pantoprazole Sodium (Protonix Ec Tab) 40 mg PO DAILY [facility] Last Admin: 11/02/18 09:20 Dose: 40 mg Sennosides (Senokot Tab) 8.6 mg PO HS [facility] Last Admin: 11/02/18 00:00 Dose: Not Given Sevelamer Carbonate (Renvela) 800 mg PO TID [facility] Last Admin: 11/02/18 09:20 Dose: 800 mg Ticagrelor (Brilinta) 90 mg PO Q12 [facility] Last Admin: 11/02/18 09:17 Dose: 90 mg Vitamin B Complex/Vit C/Folic Acid (Nephro-Buster) 1 tab PO DAILY [facility] Last Admin: 11/02/18 09:20 Dose: 1 tab - Labs Labs: 11/01/18 05:50 11/01/18 05:50 PT 11.8 Seconds (9.8-13.1) 11/01/18 05:50 INR 1.0 11/01/18 05:50 APTT 36.4 Seconds (25.6-37.1) 10/21/18 20:56 - Constitutional Appears: No Acute Distress - Eye Exam Eye Exam: Conjunctival injection - ENT Exam ENT Exam: Mucous Membranes Moist - Neck Exam Neck Exam: absent: Lymphadenopathy - Respiratory Exam Respiratory Exam: NORMAL BREATHING PATTERN. absent: Chest Wall Tenderness - Cardiovascular Exam Cardiovascular Exam: absent: Gallop, JVD, Rubs - GI/Abdominal Exam GI & Abdominal Exam: Soft, Normal Bowel Sounds - Extremities Exam Extremities Exam: absent: Calf Tenderness - Back Exam Back Exam: absent: CVA tenderness (L), CVA tenderness (R) - Neurological Exam Neurological Exam: Alert - Psychiatric Exam Psychiatric exam: Normal Affect - Skin Skin Exam: absent: Cyanosis Assessment and Plan (1) CHF (congestive heart failure) Status: Acute (2) Chronic kidney disease with end stage renal failure on dialysis Assessment & Plan: Assessment: Stable permacath related sepsis CHF with pleural and pericardial effusion Diabetic chronic Kidney Disease (E11.22) Hypertensive Chronic Kidney Disease (I12.0) End stage renal disease (N18.6) dependence on hemodialysis (Z99.2) MWF) via PC Anemia (D64.9), Hyperphosphatemia (E83.39), Secondary Hyperparathyroidism (E21.1), HTN (I12.0) Recommendation Continue hemodialysis as scheduled. s/p catheter replacement Workup for lupus and ANCA Antibiotics as per GFR with infectious disease Status: Acute (3) PNA (pneumonia) Status: Acute (4) Pleural effusion Status: Acute (5) Anemia Status: Acute (6) Leukocytosis Status: Acute
--- NOTE | 2018-11-02 11:45 | PCM.SURG1 ---
Surgeon's Initial Post Op Note - Surgeon's Notes Surgeon: Nash Lorenzana MD Metal Moulder: NONE Type of Anesthesia: IV Sedation Pre-Operative Diagnosis: ESRD Operative Findings: US showed a patent right IJV. Post-Operative Diagnosis: ESRD Operation Performed: HD catheter placement right IJV. 19 cm cuff to tip. Specimen/Specimens Removed: None Estimated Blood Loss: EBL {In ML}: 5 Blood Products Given: N/A Drains Used: No Drains Post-Op Condition: Fair Date of Surgery/Procedure: 11/01/18 Time of Surgery/Procedure: 14:10
--- NOTE | 2018-11-02 12:51 | VASCULAR ---
PROCEDURE: Date of procedure: 10/29/2018 Procedure: 1 Removal of right IJ tunneled hemodialysis catheter Medications: 10 cc 2 percent lidocaine Two fluoroscopic images were obtained. HISTORY: End-stage renal disease, infection: TECHNIQUE: Following informed consent and procedure time-out, the patient was placed supine on the interventional table. The existing right IJ tunneled hemodialysis catheter surrounding skin were prepped and draped in the usual sterile fashion. Spot fluoroscopic image showed a right IJ catheter in place. After the tunnel tract was anesthetized with 2 percent lidocaine, traction was applied to the existing catheter. The catheter was removed. Light pressure was applied to the venotomy site and tunnel tract until hemostasis was achieved. A dressing was applied. IMPRESSION: Removal of tunneled right IJ tunneled hemodialysis catheter.
--- NOTE | 2018-11-02 13:32 | CP.PCM.CON ---
History of Present Illness - History of Present Illness History of Present Illness: Podiatry consult note - Dr. Kerr 57F seen and evaluated for elongated painful nails. Resting comfortably receiving oxygen therapy. States her nails have been long for a while and she cannot cut them herself as she is diabetic. Reports pain and discomfort from her nails. Denies n/v/f/c and has no other acute complaints. Dr. Stoddard bedside states she is moving to [facility]. PMHx: persistent pleural effusion left, CKD, HTN DM 2 PSHx: Hysterectomy; Right chest Permacath; Left chest Pigtail catheter All: shrimp Past Patient History - Past Medical History & Family History Past Medical History?: Yes - Past Social History Smoking Status: Former Smoker Chewing Tobacco Use: No Cigar Use: No Alcohol: None Drugs: Denies Home Situation {Lives}: Residential - CARDIAC Hx Cardiac Disorders: Yes Hx Congestive Heart Failure: Yes Hx Hypercholesterolemia: Yes Hx Hypertension: Yes - PULMONARY Hx Respiratory Disorders: Yes Hx Chronic Obstructive Pulmonary Disease (COPD): Yes Hx Pneumonia: Yes - NEUROLOGICAL Hx Neurological Disorder: No - HEENT Hx HEENT Problems: No - RENAL Hx Chronic Kidney Disease: Yes Hx Dialysis: Yes - ENDOCRINE/METABOLIC Hx Endocrine Disorders: Yes Hx Diabetes Mellitus Type 2: Yes Hx Hypothyroidism: Yes - HEMATOLOGICAL/ONCOLOGICAL Hx Blood Disorders: No - INTEGUMENTARY Hx Dermatological Problems: No - MUSCULOSKELETAL/RHEUMATOLOGICAL Hx Musculoskeletal Disorders: Yes Hx Arthritis: Yes - GASTROINTESTINAL Hx Gastrointestinal Disorders: No - GENITOURINARY/GYNECOLOGICAL Hx Genitourinary Disorders: Yes Hx Uterine Cancer: Yes - PSYCHIATRIC Hx Psychophysiologic Disorder: No Hx Substance Use: No - SURGICAL HISTORY Hx Surgeries: Yes Hx Hysterectomy: Yes Other/Comment: cardiac stent (08/2018) - ANESTHESIA Hx Anesthesia: Yes Hx Anesthesia Reactions: No Hx Malignant Hyperthermia: No Meds Allergies/Adverse Reactions: Allergies Allergy/AdvReac Type Severity Reaction Status Date / Time shrimp Allergy Severe ANAPHYLAXIS Verified 10/21/18 19:46 - Medications Medications: Current Medications Acetaminophen (Tylenol 325mg Tab) 650 mg PO Q4 PRN PRN Reason: Fever >100.4 F Last Admin: 10/23/18 01:39 Dose: 650 mg Acetaminophen (Tylenol 325mg Tab) 650 mg PO Q4 PRN PRN Reason: Pain, Mild (1-3) Last Admin: 11/02/18 10:50 Dose: 650 mg Albuterol/Ipratropium (Duoneb 3 Mg/0.5 Mg (3 Ml) Ud) 3 ml INH Q6H [facility] Last Admin: 11/02/18 13:12 Dose: 3 ml Amlodipine Besylate (Norvasc) 10 mg PO DAILY [facility] Last Admin: 11/02/18 09:21 Dose: Not Given Aspirin (Ecotrin) 81 mg PO DAILY [facility] Last Admin: 11/02/18 09:18 Dose: 81 mg Atorvastatin Calcium (Lipitor) 40 mg PO HS [facility] Last Admin: 11/02/18 01:54 Dose: 40 mg Carvedilol (Coreg) 25 mg PO Q12 [facility] Last Admin: 11/02/18 09:18 Dose: 25 mg Docusate Sodium (Colace) 100 mg PO BID [facility] Last Admin: 11/02/18 09:17 Dose: 100 mg Epoetin Steve (Procrit) 5,000 unit [place] [facility] Last Admin: 10/29/18 11:33 Dose: Not Given Heparin Sodium (Porcine) (Heparin) 5,000 units SC Q12 [facility]; Protocol Last Admin: 11/02/18 09:18 Dose: Not Given Hydralazine HCl (Apresoline) 50 mg PO TID [facility] Last Admin: 11/02/18 13:05 Dose: 50 mg Vancomycin HCl 1 gm/ Sodium (Chloride) 250 mls @ 250 mls/hr IVPB [facility]; Protocol Last Admin: 11/01/18 12:30 Dose: 250 mls/hr Insulin Human Regular (Humulin R) 0 units SC [facility]; Protocol Last Admin: 11/02/18 13:00 Dose: Not Given Levothyroxine Sodium (Synthroid) 50 mcg PO DAILY@0630 [facility] Last Admin: 11/02/18 09:20 Dose: 50 mcg Lorazepam (Ativan) 0.5 mg PO DAILY PRN PRN Reason: Anxiety Metoclopramide HCl (Reglan) 10 mg IVP Q6 PRN PRN Reason: Nausea/Vomiting Pantoprazole Sodium (Protonix Ec Tab) 40 mg PO DAILY [facility] Last Admin: 11/02/18 09:20 Dose: 40 mg Sennosides (Senokot Tab) 8.6 mg PO HS [facility] Last Admin: 11/02/18 00:00 Dose: Not Given Sevelamer Carbonate (Renvela) 800 mg PO TID [facility] Last Admin: 11/02/18 13:06 Dose: 800 mg Ticagrelor (Brilinta) 90 mg PO Q12 [facility] Last Admin: 11/02/18 09:17 Dose: 90 mg Vitamin B Complex/Vit C/Folic Acid (Nephro-Buster) 1 tab PO DAILY [facility] Last Admin: 11/02/18 09:20 Dose: 1 tab Physical Exam - Constitutional Appears: Non-toxic - Head Exam Head Exam: ATRAUMATIC - Extremities Exam Additional comments: LE focused exam VASC: DP and PT pulses faintly palpable; cap refill <3 seconds to all digits; temp gradient wnl; no edema noted DERM: nails x10 are elongated and dystrophic; no other open wounds or lesions noted ORTHO: mild pain and tenderness to nail beds NEURO: gross and protective sensation intact - Neurological Exam Neurological exam: Alert, Oriented x3 - Psychiatric Exam Psychiatric exam: Normal Affect Results - Vital Signs Recent Vital Signs: Last Vital Signs Temp 98.6 F 11/02/18 08:14 Pulse 71 11/02/18 13:05 Resp 21 11/02/18 08:14 BP 159/68 H 11/02/18 13:05 Pulse Ox 98 11/02/18 08:14 - Labs Result Diagrams: 11/01/18 05:50 11/01/18 05:50 Labs: Laboratory Results - last 24 hr 11/01/18 11/01/18 11/02/18 16:19 21:59 05:17 POC Glucose (mg/dL) 106 134 H 176 H 11/02/18 10:34 POC Glucose (mg/dL) 155 H Assessment & Plan - Assessment and Plan (Free Text) Assessment: 57F with elongated and dystrophic nails Plan: Patient seen and evaluated Discussed with Dr. Kerr Nails cut with nail nipper x10 without incident - patient tolerated well Podiatry to sign off on patient Thank you for the consult - Date & Time Date: 11/02/18 Time: 13:34
--- NOTE | 2018-11-02 16:23 | CP.PCM.PN ---
Subjective - Date & Time of Evaluation Date of Evaluation: 11/02/18 - Subjective Subjective: No A/D, no SOB on NC 2 L/M, no CP. Objective - Vital Signs/Intake and Output Vital Signs (last 24 hours): Temp Pulse Resp BP Pulse Ox 98.6 F 65 21 159/68 H 100 11/02/18 08:14 11/02/18 15:05 11/02/18 08:14 11/02/18 13:05 11/02/18 15:05 - Medications Medications: Current Medications Acetaminophen (Tylenol 325mg Tab) 650 mg PO Q4 PRN PRN Reason: Fever >100.4 F Last Admin: 10/23/18 01:39 Dose: 650 mg Acetaminophen (Tylenol 325mg Tab) 650 mg PO Q4 PRN PRN Reason: Pain, Mild (1-3) Last Admin: 11/02/18 10:50 Dose: 650 mg Albuterol/Ipratropium (Duoneb 3 Mg/0.5 Mg (3 Ml) Ud) 3 ml INH Q6H [facility] Last Admin: 11/02/18 13:12 Dose: 3 ml Amlodipine Besylate (Norvasc) 10 mg PO DAILY [facility] Last Admin: 11/02/18 09:21 Dose: Not Given Aspirin (Ecotrin) 81 mg PO DAILY [facility] Last Admin: 11/02/18 09:18 Dose: 81 mg Atorvastatin Calcium (Lipitor) 40 mg PO HS [facility] Last Admin: 11/02/18 01:54 Dose: 40 mg Carvedilol (Coreg) 25 mg PO Q12 [facility] Last Admin: 11/02/18 09:18 Dose: 25 mg Docusate Sodium (Colace) 100 mg PO BID [facility] Last Admin: 11/02/18 09:17 Dose: 100 mg Epoetin Steve (Procrit) 5,000 unit IV [facility] [place] Last Admin: 10/29/18 11:33 Dose: Not Given Heparin Sodium (Porcine) (Heparin) 5,000 units SC Q12 [facility]; Protocol Last Admin: 11/02/18 09:18 Dose: Not Given Hydralazine HCl (Apresoline) 50 mg PO TID [facility] Last Admin: 11/02/18 13:05 Dose: 50 mg Vancomycin HCl 1 gm/ Sodium (Chloride) 250 mls @ 250 mls/hr IVPB [facility] [place]; Protocol Last Admin: 11/01/18 12:30 Dose: 250 mls/hr Insulin Human Regular (Humulin R) 0 units SC ACHS [facility]; Protocol Last Admin: 11/02/18 13:00 Dose: Not Given Levothyroxine Sodium (Synthroid) 50 mcg PO DAILY@0630 [facility] Last Admin: 11/02/18 09:20 Dose: 50 mcg Lorazepam (Ativan) 0.5 mg PO DAILY PRN PRN Reason: Anxiety Metoclopramide HCl (Reglan) 10 mg IVP Q6 PRN PRN Reason: Nausea/Vomiting Pantoprazole Sodium (Protonix Ec Tab) 40 mg PO DAILY [facility] Last Admin: 11/02/18 09:20 Dose: 40 mg Sennosides (Senokot Tab) 8.6 mg PO HS [facility] Last Admin: 11/02/18 00:00 Dose: Not Given Sevelamer Carbonate (Renvela) 800 mg PO TID [facility] Last Admin: 11/02/18 13:06 Dose: 800 mg Ticagrelor (Brilinta) 90 mg PO Q12 [facility] Last Admin: 11/02/18 09:17 Dose: 90 mg Vitamin B Complex/Vit C/Folic Acid (Nephro-Buster) 1 tab PO DAILY [facility] Last Admin: 11/02/18 09:20 Dose: 1 tab - Labs Labs: 11/01/18 05:50 11/01/18 05:50 PT 11.8 Seconds (9.8-13.1) 11/01/18 05:50 INR 1.0 11/01/18 05:50 APTT 36.4 Seconds (25.6-37.1) 10/21/18 20:56 Assessment and Plan (1) PNA (pneumonia) Status: Acute (2) Pleural effusion Status: Acute (3) CHF (congestive heart failure) Status: Acute - Assessment and Plan (Free Text) Plan: Pt will be transferred to [facility] to continue Vanco IV x 2 weeks, after that, Pt to have removal of the pleural catheter.
[2018-11-02 16:33] VITALS: RESP 20; TEMP 97.8; O2SAT 97
--- NOTE | 2018-11-02 17:16 | CP.PCM.DIS ---
Provider - Provider Date of Admission: 10/21/18 22:28 Attending physician: Aubrey Stoddard MD Consults: 10/21/18 22:29 Critical Care Consult Stat Comment: Consulting Provider: Andre Waddell Consulting Physician: Andre Waddell Reason for Consult: pneumonia with high risk features Nephrology Consult Stat Comment: Consulting Provider: Donato Prado Consulting Physician: Donato Prado Reason for Consult: esrd on hd Pulmonology Consult Stat Comment: Consulting Provider: Marcelino Walton Consulting Physician: Marcelino Walton Reason for Consult: pleural effusion and pneumonia 10/22/18 03:50 Nursing Referral for Wound Care Routine Comment: from custodial Physician Instructions: Reason For Exam: sacral wound 10/22/18 07:56 Social Work Referral Routine Comment: hd patient Physician Instructions: Reason For Exam: hd patient 10/25/18 10:29 Infectious Disease Consult Routine Comment: Consulting Provider: Maycol Del Castillo Consulting Physician: Maycol Del Castillo Reason for Consult: BACTEREMIA 10/29/18 13:28 Cardiology Consult Routine Comment: Consulting Provider: Kaya Davis Consulting Physician: Kaya Davis Reason for Consult: Pre-op clearance for possible pleurodesis, hx CHF, HTN, ESRD 11/02/18 11:56 Podiatry Consult Routine Comment: Consulting Provider: Guillermo Kerr Consulting Physician: Guillermo Kerr Reason for Consult: toe nail clipping Diagnosis - Discharge Diagnosis (1) PNA (pneumonia) Status: Acute Priority: High (2) Pleural effusion Status: Acute Priority: High (3) CHF (congestive heart failure) Status: Acute Priority: High Hospital Course - Lab Results Lab Results: Micro Results 10/31/18 16:17 Other: Please Indicate Mycobacterial Culture - Preliminary 10/29/18 12:50 Blood-Venous Blood Culture - Preliminary NO GROWTH AFTER 4 DAYS 10/29/18 12:55 Blood-During Dialysis Blood Culture - Preliminary NO GROWTH AFTER 4 DAYS 10/30/18 19:34 Pleural Fluid Gram Stain - Final 10/30/18 19:34 Pleural Fluid Body Fluid Culture - Preliminary NO GROWTH AFTER 2 DAYS 10/29/18 21:35 Catheter Tip Catheter Tip Culture - Final No Growth 10/26/18 20:30 Blood-Venous Blood Culture - Final NO GROWTH AFTER 5 DAYS 10/26/18 20:30 Blood-Venous Gram Stain - Final TEST NOT PERFORMED 10/27/18 15:32 Blood-During Dialysis S.aureus & Coag-Neg Staph PNA FISH - Final 10/27/18 15:32 Blood-During Dialysis Blood Culture - Final Coagulase Neg Staphylococcus 10/27/18 15:32 Blood-During Dialysis Gram Stain - Final 10/23/18 20:29 Naris MRSA Culture (Admit) - Final MRSA NOT DETECTED 10/22/18 23:38 Urine,Clean Catch Urine Culture - Final No Growth (<1,000 CFU/ML) 10/21/18 21:30 Blood Blood Culture - Final Coagulase Neg Staphylococcus 10/21/18 21:30 Blood Gram Stain - Final 10/21/18 20:56 Blood S.aureus & Coag-Neg Staph PNA FISH - Final 10/21/18 20:56 Blood Blood Culture - Final Coagulase Neg Staphylococcus 10/21/18 20:56 Blood Gram Stain - Final 10/22/18 14:00 Naris MRSA Culture (Admit) - Final MRSA NOT DETECTED Most Recent Lab Values WBC 10.3 K/uL (4.8-10.8) 11/01/18 05:50 RBC 3.64 Mil/uL (3.80-5.20) L 11/01/18 05:50 Hgb 10.9 g/dL (12.0-16.0) L 11/01/18 05:50 Hct 33.1 % (34.0-47.0) L 11/01/18 05:50 MCV 90.9 fl (81.0-99.0) 11/01/18 05:50 MCH 29.8 pg (27.0-31.0) 11/01/18 05:50 MCHC 32.8 g/dL (33.0-37.0) L 11/01/18 05:50 RDW 18.6 % (11.5-14.5) H 11/01/18 05:50 Plt Count 161 K/uL (130-400) 11/01/18 05:50 MPV 8.2 fl (7.2-11.7) 10/28/18 06:45 Neut % (Auto) 77.4 % (50.0-75.0) H 10/28/18 06:45 Lymph % (Auto) 5.7 % (20.0-40.0) L 10/28/18 06:45 Karnes % (Auto) 10.3 % (0.0-10.0) H 10/28/18 06:45 Eos % (Auto) 5.2 % (0.0-4.0) H 10/28/18 06:45 Baso % (Auto) 1.4 % (0.0-2.0) 10/28/18 06:45 Neut # (Auto) 8.3 K/uL (1.8-7.0) H 10/28/18 06:45 Lymph # (Auto) 0.6 K/uL (1.0-4.3) L 10/28/18 06:45 Karnes # (Auto) 1.1 K/uL (0.0-0.8) H 10/28/18 06:45 Eos # (Auto) 0.6 K/uL (0.0-0.7) 10/28/18 06:45 Baso # (Auto) 0.1 K/uL (0.0-0.2) 10/28/18 06:45 Neutrophils % (Manual) 81 % (42-75) H 10/28/18 06:45 Band Neutrophils % 2 % (0-2) 10/21/18 20:56 Lymphocytes % (Manual) 6 % (20-50) L 10/28/18 06:45 Monocytes % (Manual) 8 % (0-10) 10/28/18 06:45 Eosinophils % (Manual) 4 % (0-7) 10/28/18 06:45 Basophils % (Manual) 1 % (0-2) 10/28/18 06:45 Differential Comment 10/23/18 04:45 Platelet Estimate Normal (NORMAL) 10/28/18 06:45 Poikilocytosis (manual Slight 10/21/18 20:56 Anisocytosis (manual) Moderate 10/21/18 20:56 Tear Drop Cells Slight 10/28/18 06:45 Ovalocytes Slight 10/28/18 06:45 PT 11.8 Seconds (9.8-13.1) 11/01/18 05:50 INR 1.0 11/01/18 05:50 APTT 36.4 Seconds (25.6-37.1) 10/21/18 20:56 pCO2 42 mm/Hg (35-45) 10/22/18 06:10 pO2 90 mm/Hg (80-100) 10/22/18 06:10 HCO3 33.1 mmol/L (21-28) H 10/22/18 06:10 ABG pH 7.52 (7.35-7.45) H 10/22/18 06:10 ABG Total CO2 35.6 mmol/L (22-28) H 10/22/18 06:10 ABG O2 Saturation 99.6 % (95-98) H 10/22/18 06:10 ABG O2 Content 13.6 ML/dL (15-23) L 10/22/18 06:10 ABG Base Excess 10.4 mmol/L (-2.0-3.0) H 10/22/18 06:10 ABG Hemoglobin 9.9 g/dL (11.7-17.4) L 10/22/18 06:10 ABG Carboxyhemoglobin 1.4 % (0.5-1.5) 10/22/18 06:10 POC ABG HHb (Measured) 0.4 % (0.0-5.0) 10/22/18 06:10 ABG Methemoglobin 1.0 % (0.0-3.0) 10/22/18 06:10 ABG O2 Capacity 13.7 mL/dL (16-24) L 10/22/18 06:10 Praveen Test Yes 10/22/18 06:10 ABG Potassium 3.8 mmol/L (3.6-5.2) 10/21/18 20:31 A-a O2 Difference 571.0 mm/Hg 10/22/18 06:10 Hgb O2 Saturation 97.1 % (95.0-98.0) 10/22/18 06:10 Sodium 132.0 mmol/L (132-148) 10/21/18 20:31 Chloride 97.0 mmol/L (98-107) L 10/21/18 20:31 Glucose 161 mg/dL (65-105) H 10/21/18 20:31 Lactate 1.0 mmol/L (0.7-2.1) 10/21/18 20:31 Vent Mode Bipap 10/22/18 02:22 Mechanical Rate 10 10/22/18 06:10 FiO2 100.0 % 10/22/18 06:10 Inspiratory BiPAP 10 10/22/18 06:10 Expiratory BiPAP 5 10/22/18 06:10 Sodium 129 mmol/l (132-148) L 11/01/18 05:50 Potassium 4.4 MMOL/L (3.6-5.0) 11/01/18 05:50 Chloride 95 mmol/L (98-107) L 11/01/18 05:50 Carbon Dioxide 22 mmol/L (22-30) 11/01/18 05:50 Anion Gap 16 (10-20) 11/01/18 05:50 BUN 52 mg/dl (7-17) H 11/01/18 05:50 Creatinine 5.5 mg/dl (0.7-1.2) H 11/01/18 05:50 Est GFR ( Amer) 10 11/01/18 05:50 Est GFR (Non-Af Amer) 8 11/01/18 05:50 POC Glucose (mg/dL) 155 mg/dL (65-110) H 11/02/18 10:34 Random Glucose 110 mg/dL (65-105) H 11/01/18 05:50 Calcium 8.5 mg/dL (8.4-10.2) 11/01/18 05:50 Phosphorus 5.2 mg/dl (2.5-4.5) H 10/22/18 19:03 Magnesium 2.0 MG/DL (1.6-2.3) 10/21/18 21:43 Total Bilirubin 0.6 mg/dl (0.2-1.3) 10/28/18 06:45 AST 35 U/L (14-36) 10/28/18 06:45 ALT 18 U/L (9-52) 10/28/18 06:45 Alkaline Phosphatase 91 U/L (38-126) 10/28/18 06:45 Troponin I 0.0390 ng/mL (0.00-0.120) 10/21/18 21:43 NT-Pro-B Natriuret Pep 28638 pg/ml (0-900) H 10/21/18 21:43 Total Protein 7.5 G/DL (6.3-8.2) 10/28/18 06:45 Albumin 3.6 g/dL (3.5-5.0) 10/28/18 06:45 Globulin 3.9 gm/dL (2.2-3.9) 10/28/18 06:45 Albumin/Globulin Ratio 0.9 (1.0-2.1) L 10/28/18 06:45 Procalcitonin 0.32 NG/ML (0.19-0.49) 10/26/18 06:15 PTH Intact Whole Molec 232 pg/mL (14-64) H 10/22/18 19:03 Arterial Blood Potassium 3.8 mmol/L (3.6-5.2) 10/21/18 20:31 Vancomycin Trough 11.1 ug/mL (5.0-10.0) H 10/29/18 10:55 Rheumatoid Factor TNP 10/30/18 11:30 JOSE LUIS Screen TNP 10/30/18 11:30 JOSE LUIS Titer TNP 10/30/18 11:30 JOSE LUIS Pattern TNP 10/30/18 11:30 SS-A Antibody TNP 10/30/18 11:30 SS-B Antibody TNP 10/30/18 11:30 Sm (Perez) Antibody TNP 10/30/18 11:30 SM/BENCH EXAMINER Antibody TNP 10/30/18 11:30 Scl-70 Antibody TNP 10/30/18 11:30 Anti-ds DNA Titer (Crith) TNP 10/30/18 11:30 Anti-ds DNA (Crithidia) TNP 10/30/18 11:30 Ribosomal P Prot Ab TNP 10/30/18 11:30 Anti-Mitochondrial Titr TNP 10/30/18 11:30 Anti-Mitochondrial Ab TNP 10/30/18 11:30 Actin IgG Antibody TNP 10/30/18 11:30 Striated Muscle Ab TNP 10/30/18 11:30 Myocardial Ab Titer TNP 10/30/18 11:30 Anti-Myocardial Ab TNP 10/30/18 11:30 Reticulin Ab Titer TNP 10/30/18 11:30 Reticulin IgA Antibody TNP 10/30/18 11:30 Thyroperoxidase Ab TNP 10/30/18 11:30 Anti-Parietal Cell Ab TNP 10/30/18 11:30 Complement C3 TNP 10/30/18 11:30 Complement C4 TNP 10/30/18 11:30 Hep Bs Antigen Negative (NEGATIVE) 10/25/18 14:54 Hep Bs Antibody Negative (NEGATIVE) 10/25/18 14:54 Hep B Core IgM Ab Negative (NEGATIVE) 10/25/18 14:54 Influenza Typ A,B (EIA) Negative for flu a/b (NEGATIVE) 10/21/18 20:56 TB Test (QFT) Nil 0.02 IU/mL 10/26/18 20:30 TB Test Mitogen - Nil 7.29 IU/mL 10/26/18 20:30 TB Test Antigen - Nil 0.11 IU/mL 10/26/18 20:30 TB Test TB - Nil 0.16 IU/mL 10/26/18 20:30 TB Test (QFT) Negative (Negative) 10/26/18 20:30 Blood Type O POSITIVE 10/21/18 21:43 Blood Type Confirm O POSITIVE 10/21/18 21:30 Antibody Screen Negative 10/21/18 21:43 BBK History Checked No verified bt 10/21/18 21:43 Discharge Exam - Head Exam Head Exam: ATRAUMATIC Discharge Plan - Discharge Medications Prescriptions: Vancomycin 1 GM [Vancomycin 1GM in Normal Saline Addvantage] 1 gm IVPB MWF 14 Days bag - Follow Up Plan Condition: CRITICAL Disposition: REHAB FACILITY/REHAB UNIT Instructions: Hemodialysis (DC), Pleural Effusion (DC), Community-Acquired Pneumonia, Adult (DC) Additional Instructions: resident [facility] MWF Referrals: Donato Prado MD [Staff Provider] - Marcelino Walton MD [Staff Provider] -
[2018-11-02 22:28] VITALS: BP 152/84; PULSE 84
--- NOTE | 2018-11-03 00:58 | CP.PCM.DIS ---
Provider - Provider Date of Admission: 10/21/18 22:28 Attending physician: Aubrey Stoddard MD Consults: 10/21/18 22:29 Critical Care Consult Stat Comment: Consulting Provider: Andre Waddell Consulting Physician: Andre Waddell Reason for Consult: pneumonia with high risk features Nephrology Consult Stat Comment: Consulting Provider: Donato Prado Consulting Physician: Donato Prado Reason for Consult: esrd on hd Pulmonology Consult Stat Comment: Consulting Provider: Marcelino Walton Consulting Physician: Marcelino Walton Reason for Consult: pleural effusion and pneumonia 10/22/18 03:50 Nursing Referral for Wound Care Routine Comment: from alf Physician Instructions: Reason For Exam: sacral wound 10/22/18 07:56 Social Work Referral Routine Comment: hd patient Physician Instructions: Reason For Exam: hd patient 10/25/18 10:29 Infectious Disease Consult Routine Comment: Consulting Provider: Maycol Del Castillo Consulting Physician: Maycol Del Castillo Reason for Consult: BACTEREMIA 10/29/18 13:28 Cardiology Consult Routine Comment: Consulting Provider: Kaya Davis Consulting Physician: Kaya Davis Reason for Consult: Pre-op clearance for possible pleurodesis, hx CHF, HTN, ESRD 11/02/18 11:56 Podiatry Consult Routine Comment: Consulting Provider: Guillermo Kerr Consulting Physician: Guillermo Kerr Reason for Consult: toe nail clipping Time Spent in preparation of Discharge (in minutes): 30 Diagnosis - Discharge Diagnosis (1) PNA (pneumonia) Status: Acute Priority: High (2) Pleural effusion Status: Acute Priority: High Hospital Course - Lab Results Lab Results: Micro Results 10/31/18 16:17 Other: Please Indicate Mycobacterial Culture - Preliminary 10/29/18 12:50 Blood-Venous Blood Culture - Preliminary NO GROWTH AFTER 4 DAYS 10/29/18 12:55 Blood-During Dialysis Blood Culture - Preliminary NO GROWTH AFTER 4 DAYS 10/30/18 19:34 Pleural Fluid Gram Stain - Final 10/30/18 19:34 Pleural Fluid Body Fluid Culture - Preliminary NO GROWTH AFTER 2 DAYS 10/29/18 21:35 Catheter Tip Catheter Tip Culture - Final No Growth 10/26/18 20:30 Blood-Venous Blood Culture - Final NO GROWTH AFTER 5 DAYS 10/26/18 20:30 Blood-Venous Gram Stain - Final TEST NOT PERFORMED 10/27/18 15:32 Blood-During Dialysis S.aureus & Coag-Neg Staph PNA FISH - Final 10/27/18 15:32 Blood-During Dialysis Blood Culture - Final Coagulase Neg Staphylococcus 10/27/18 15:32 Blood-During Dialysis Gram Stain - Final 10/23/18 20:29 Naris MRSA Culture (Admit) - Final MRSA NOT DETECTED 10/22/18 23:38 Urine,Clean Catch Urine Culture - Final No Growth (<1,000 CFU/ML) 10/21/18 21:30 Blood Blood Culture - Final Coagulase Neg Staphylococcus 10/21/18 21:30 Blood Gram Stain - Final 10/21/18 20:56 Blood S.aureus & Coag-Neg Staph PNA FISH - Final 10/21/18 20:56 Blood Blood Culture - Final Coagulase Neg Staphylococcus 10/21/18 20:56 Blood Gram Stain - Final 10/22/18 14:00 Naris MRSA Culture (Admit) - Final MRSA NOT DETECTED Most Recent Lab Values WBC 10.3 K/uL (4.8-10.8) 11/01/18 05:50 RBC 3.64 Mil/uL (3.80-5.20) L 11/01/18 05:50 Hgb 10.9 g/dL (12.0-16.0) L 11/01/18 05:50 Hct 33.1 % (34.0-47.0) L 11/01/18 05:50 MCV 90.9 fl (81.0-99.0) 11/01/18 05:50 MCH 29.8 pg (27.0-31.0) 11/01/18 05:50 MCHC 32.8 g/dL (33.0-37.0) L 11/01/18 05:50 RDW 18.6 % (11.5-14.5) H 11/01/18 05:50 Plt Count 161 K/uL (130-400) 11/01/18 05:50 MPV 8.2 fl (7.2-11.7) 10/28/18 06:45 Neut % (Auto) 77.4 % (50.0-75.0) H 10/28/18 06:45 Lymph % (Auto) 5.7 % (20.0-40.0) L 10/28/18 06:45 [place] % (Auto) 10.3 % (0.0-10.0) H 10/28/18 06:45 Eos % (Auto) 5.2 % (0.0-4.0) H 10/28/18 06:45 Baso % (Auto) 1.4 % (0.0-2.0) 10/28/18 06:45 Neut # (Auto) 8.3 K/uL (1.8-7.0) H 10/28/18 06:45 Lymph # (Auto) 0.6 K/uL (1.0-4.3) L 10/28/18 06:45 [place] # (Auto) 1.1 K/uL (0.0-0.8) H 10/28/18 06:45 Eos # (Auto) 0.6 K/uL (0.0-0.7) 10/28/18 06:45 Baso # (Auto) 0.1 K/uL (0.0-0.2) 10/28/18 06:45 Neutrophils % (Manual) 81 % (42-75) H 10/28/18 06:45 Band Neutrophils % 2 % (0-2) 10/21/18 20:56 Lymphocytes % (Manual) 6 % (20-50) L 10/28/18 06:45 Monocytes % (Manual) 8 % (0-10) 10/28/18 06:45 Eosinophils % (Manual) 4 % (0-7) 10/28/18 06:45 Basophils % (Manual) 1 % (0-2) 10/28/18 06:45 Differential Comment 10/23/18 04:45 Platelet Estimate Normal (NORMAL) 10/28/18 06:45 Poikilocytosis (manual Slight 10/21/18 20:56 Anisocytosis (manual) Moderate 10/21/18 20:56 Tear Drop Cells Slight 10/28/18 06:45 Ovalocytes Slight 10/28/18 06:45 PT 11.8 Seconds (9.8-13.1) 11/01/18 05:50 INR 1.0 11/01/18 05:50 APTT 36.4 Seconds (25.6-37.1) 10/21/18 20:56 pCO2 42 mm/Hg (35-45) 10/22/18 06:10 pO2 90 mm/Hg (80-100) 10/22/18 06:10 HCO3 33.1 mmol/L (21-28) H 10/22/18 06:10 ABG pH 7.52 (7.35-7.45) H 10/22/18 06:10 ABG Total CO2 35.6 mmol/L (22-28) H 10/22/18 06:10 ABG O2 Saturation 99.6 % (95-98) H 10/22/18 06:10 ABG O2 Content 13.6 ML/dL (15-23) L 10/22/18 06:10 ABG Base Excess 10.4 mmol/L (-2.0-3.0) H 10/22/18 06:10 ABG Hemoglobin 9.9 g/dL (11.7-17.4) L 10/22/18 06:10 ABG Carboxyhemoglobin 1.4 % (0.5-1.5) 10/22/18 06:10 POC ABG HHb (Measured) 0.4 % (0.0-5.0) 10/22/18 06:10 ABG Methemoglobin 1.0 % (0.0-3.0) 10/22/18 06:10 ABG O2 Capacity 13.7 mL/dL (16-24) L 10/22/18 06:10 Praveen Test Yes 10/22/18 06:10 ABG Potassium 3.8 mmol/L (3.6-5.2) 10/21/18 20:31 A-a O2 Difference 571.0 mm/Hg 10/22/18 06:10 Hgb O2 Saturation 97.1 % (95.0-98.0) 10/22/18 06:10 Sodium 132.0 mmol/L (132-148) 10/21/18 20:31 Chloride 97.0 mmol/L (98-107) L 10/21/18 20:31 Glucose 161 mg/dL (65-105) H 10/21/18 20:31 Lactate 1.0 mmol/L (0.7-2.1) 10/21/18 20:31 Vent Mode Bipap 10/22/18 02:22 Mechanical Rate 10 10/22/18 06:10 FiO2 100.0 % 10/22/18 06:10 Inspiratory BiPAP 10 10/22/18 06:10 Expiratory BiPAP 5 10/22/18 06:10 Sodium 129 mmol/l (132-148) L 11/01/18 05:50 Potassium 4.4 MMOL/L (3.6-5.0) 11/01/18 05:50 Chloride 95 mmol/L (98-107) L 11/01/18 05:50 Carbon Dioxide 22 mmol/L (22-30) 11/01/18 05:50 Anion Gap 16 (10-20) 11/01/18 05:50 BUN 52 mg/dl (7-17) H 11/01/18 05:50 Creatinine 5.5 mg/dl (0.7-1.2) H 11/01/18 05:50 Est GFR ( Amer) 10 11/01/18 05:50 Est GFR (Non-Af Amer) 8 11/01/18 05:50 POC Glucose (mg/dL) 127 mg/dL (65-110) H 11/02/18 15:57 Random Glucose 110 mg/dL (65-105) H 11/01/18 05:50 Calcium 8.5 mg/dL (8.4-10.2) 11/01/18 05:50 Phosphorus 5.2 mg/dl (2.5-4.5) H 10/22/18 19:03 Magnesium 2.0 MG/DL (1.6-2.3) 10/21/18 21:43 Total Bilirubin 0.6 mg/dl (0.2-1.3) 10/28/18 06:45 AST 35 U/L (14-36) 10/28/18 06:45 ALT 18 U/L (9-52) 10/28/18 06:45 Alkaline Phosphatase 91 U/L (38-126) 10/28/18 06:45 Troponin I 0.0390 ng/mL (0.00-0.120) 10/21/18 21:43 NT-Pro-B Natriuret Pep 39884 pg/ml (0-900) H 10/21/18 21:43 Total Protein 7.5 G/DL (6.3-8.2) 10/28/18 06:45 Albumin 3.6 g/dL (3.5-5.0) 10/28/18 06:45 Globulin 3.9 gm/dL (2.2-3.9) 10/28/18 06:45 Albumin/Globulin Ratio 0.9 (1.0-2.1) L 10/28/18 06:45 Procalcitonin 0.32 NG/ML (0.19-0.49) 10/26/18 06:15 PTH Intact Whole Molec 232 pg/mL (14-64) H 10/22/18 19:03 Arterial Blood Potassium 3.8 mmol/L (3.6-5.2) 10/21/18 20:31 Vancomycin Trough 11.1 ug/mL (5.0-10.0) H 10/29/18 10:55 Rheumatoid Factor TNP 10/30/18 11:30 JOSE LUIS Screen TNP 10/30/18 11:30 JOSE LUIS Titer TNP 10/30/18 11:30 JOSE LUIS Pattern TNP 10/30/18 11:30 SS-A Antibody TNP 10/30/18 11:30 SS-B Antibody TNP 10/30/18 11:30 Sm (Perez) Antibody TNP 10/30/18 11:30 SM/BIOLOGICS SPECIALIST Antibody TNP 10/30/18 11:30 Scl-70 Antibody TNP 10/30/18 11:30 Anti-ds DNA Titer (Crith) TNP 10/30/18 11:30 Anti-ds DNA (Crithidia) TNP 10/30/18 11:30 Ribosomal P Prot Ab TNP 10/30/18 11:30 Anti-Mitochondrial Titr TNP 10/30/18 11:30 Anti-Mitochondrial Ab TNP 10/30/18 11:30 Actin IgG Antibody TNP 10/30/18 11:30 Striated Muscle Ab TNP 10/30/18 11:30 Myocardial Ab Titer TNP 10/30/18 11:30 Anti-Myocardial Ab TNP 10/30/18 11:30 Reticulin Ab Titer TNP 10/30/18 11:30 Reticulin IgA Antibody TNP 10/30/18 11:30 Thyroperoxidase Ab TNP 10/30/18 11:30 Anti-Parietal Cell Ab TNP 10/30/18 11:30 Complement C3 TNP 10/30/18 11:30 Complement C4 TNP 10/30/18 11:30 Hep Bs Antigen Negative (NEGATIVE) 10/25/18 14:54 Hep Bs Antibody Negative (NEGATIVE) 10/25/18 14:54 Hep B Core IgM Ab Negative (NEGATIVE) 10/25/18 14:54 Influenza Typ A,B (EIA) Negative for flu a/b (NEGATIVE) 10/21/18 20:56 TB Test (QFT) Nil 0.02 IU/mL 10/26/18 20:30 TB Test Mitogen - Nil 7.29 IU/mL 10/26/18 20:30 TB Test Antigen - Nil 0.11 IU/mL 10/26/18 20:30 TB Test TB - Nil 0.16 IU/mL 10/26/18 20:30 TB Test (QFT) Negative (Negative) 10/26/18 20:30 Blood Type O POSITIVE 10/21/18 21:43 Blood Type Confirm O POSITIVE 10/21/18 21:30 Antibody Screen Negative 10/21/18 21:43 BBK History Checked No verified bt 10/21/18 21:43 - Hospital Course Hospital Course: Pt presented to the ED with worsening dyspnea at [facility]. She was found to have pleural effusions/PNA. Several consults were added, including pulmonology. The pt was treated with antibiotics. During admission, a new dialysis catheter was placed. Of note, the pt has a pleural catheter to her left side. The pt was discharged back to [facility] where she will undergo 14 days of antibiotics, then have her pleural catheter removed. Discharge Exam - Head Exam Head Exam: ATRAUMATIC - Eye Exam Eye Exam: EOMI, Normal appearance, PERRL Pupil Exam: NORMAL ACCOMODATION, PERRL - ENT Exam ENT Exam: Mucous Membranes Dry - Neck Exam Neck exam: Full Rom - Respiratory Exam Respiratory Exam: Decreased Breath Sounds, NORMAL BREATHING PATTERN - Cardiovascular Exam Cardiovascular Exam: REGULAR RHYTHM, +S1, +S2 - GI/Abdominal Exam GI & Abdominal Exam: Normal Bowel Sounds, Soft - Extremities Exam Extremities exam: full ROM - Back Exam Back exam: NORMAL INSPECTION - Neurological Exam Neurological exam: Alert, CN II-XII Intact, Oriented x3 - Psychiatric Exam Psychiatric exam: Normal Affect, Normal Mood - Skin Skin Exam: Dry, Pallor, Warm Discharge Plan - Discharge Medications Prescriptions: Vancomycin 1 GM [Vancomycin 1GM in Normal Saline Addvantage] 1 gm IVPB MWF 14 Days bag - Follow Up Plan Condition: CRITICAL Disposition: REHAB FACILITY/REHAB UNIT Instructions: Hemodialysis (DC), Pleural Effusion (DC), Community-Acquired Pneumonia, Adult (DC) Additional Instructions: resident [facility] Referrals: Donato Prado MD [Staff Provider] - Marcelino Walton MD [Staff Provider] -
[2018-11-03 21:11] LABS: ANCA SCREEN NEGATIVE (NEGATIVE)
--- NOTE | 2018-11-08 16:46 | PQF ---
PROVIDER RESPONSE TEXT: Bacteremia confirmed and treated. REVIEWER QUERY TEXT: Conflicting Documentation Clarification A single mention or documentation of multiple diagnoses for the same clinical presentation appears in the record. If you agree please clarify if pt had a diagnosis of bacteremia or sepsis. Please also document if the condition is: -- Confirmed and current -- Confirmed, treated and resolved -- Ruled out -- Other, please specify The patient's Clinical Indicators include: 10/[address] Stoddard "bacteremia coagulase negative staph." 11/[address] Prado "perm a cath sepsis." Query created by: Vee Wheat on 11/04/2018 4:04 PM Electronically signed by: Marcelino Walton MD 11/08/2018 4:43 PM
== END 2018-11-02 23:05 | DRG 541 ==
LOC: H.ER 19:37 → H.ERHOLD 22:28 → H.ICU/CCU 10-22 02:14 → H.MEDSURG1 10-23 20:51
PROVIDERS: ADMIT Family Medicine; ATTEND Family Medicine
PROC: 5A1D70Z Performance of Urinary Filtration, Intermittent, Less than 6 Hours Per Day (ICD-10-PCS; 2018-10-25)
PROC: 0JPVXXZ Removal of Tunneled Vascular Access Device from Upper Extremity Subcutaneous Tissue and Fascia, External Approach (ICD-10-PCS; 2018-10-29)
PROC: 05PYX3Z Removal of Infusion Device from Upper Vein, External Approach (ICD-10-PCS; 2018-10-29)
PROC: 05HM33Z Insertion of Infusion Device into Right Internal Jugular Vein, Percutaneous Approach (ICD-10-PCS; 2018-11-01)
PROC: 0JH63XZ Insertion of Tunneled Vascular Access Device into Chest Subcutaneous Tissue and Fascia, Percutaneous Approach (ICD-10-PCS; principal; 2018-11-01 13:15)
DX: J96.21 Acute and chronic respiratory failure with hypoxia (principal); J18.9 Pneumonia, unspecified organism; R78.81 Bacteremia; N18.6 End stage renal disease; I13.2 Hypertensive heart and chronic kidney disease with heart failure and with stage 5 chronic kidney disease, or end stage renal disease; E11.22 Type 2 diabetes mellitus with diabetic chronic kidney disease; J44.0 Chronic obstructive pulmonary disease with (acute) lower respiratory infection; I50.9 Heart failure, unspecified; I42.9 Cardiomyopathy, unspecified; Z79.4 Long term (current) use of insulin; D63.8 Anemia in other chronic diseases classified elsewhere; E03.9 Hypothyroidism, unspecified; M19.90 Unspecified osteoarthritis, unspecified site; I25.10 Atherosclerotic heart disease of native coronary artery without angina pectoris; E78.00 Pure hypercholesterolemia, unspecified; Z79.82 Long term (current) use of aspirin; Z79.890 Hormone replacement therapy; Z87.891 Personal history of nicotine dependence; Z95.5 Presence of coronary angioplasty implant and graft; Z99.2 Dependence on renal dialysis; E83.39 Other disorders of phosphorus metabolism; N25.81 Secondary hyperparathyroidism of renal origin; L60.3 Nail dystrophy; I31.3 Pericardial effusion (noninflammatory); B95.7 Other staphylococcus as the cause of diseases classified elsewhere

== ENCOUNTER 2018-11-03 13:13 | Observation (INO) | payer MEDICAID ==
[2018-11-03 14:50] LABS: BASO # 0.1 K/uL (0.0-0.2); EOS # 0.5 K/uL (0.0-0.7); HEMOGLOBIN 10.5 g/dL (12.0-16.0); LYMPH # 0.6 K/uL (1.0-4.3); LYMPH % 7.9 % (20.0-40.0); MEAN CELL VOLUME 90.6 fl (81.0-99.0); MEAN CORPUSCULAR HEMOGLOBIN 29.6 pg (27.0-31.0); MEAN CORPUSCULAR HGB CONC 32.7 g/dL (33.0-37.0); MEAN PLATELET VOLUME 8.3 fl (7.2-11.7); MONO # 1.2 K/uL (0.0-0.8); MONO % 15.4 % (0.0-10.0); NEUT # 5.1 K/uL (1.8-7.0); NEUT % 68.7 % (50.0-75.0); NRBC % 0.1 % (0.0-0.0); PLATELET COUNT 152 K/uL (130-400); RBC 3.55 Mil/uL (3.80-5.20); RED CELL DISTRIBUTION WIDTH 18.1 % (11.5-14.5); WHITE BLOOD COUNT 7.5 K/uL (4.8-10.8)
[2018-11-03 15:04] LABS: INR 1.1; PROTHROMBIN TIME 12.5 Seconds (9.8-13.1)
[2018-11-03 15:06] LABS: PARTIAL THROMBOPLASTIN TIME 35.9 Seconds (25.6-37.1)
[2018-11-03] MEDS ORDERED: Absorbable Gelatin Sponge Size 12-7 ONE ×2 (15:25→22:56)
[2018-11-03 15:33] LABS: BASOPHIL 1 % (0-2); EOSINOPHIL 11 % (0-7); LYMPHOCYTE 5 % (20-50); MONOCYTE 16 % (0-10); NEUTROPHIL 66 % (42-75); PLATELET ESTIMATE NORMAL (NORMAL); REACTIVE LYMPHOCYTES 1 % (0-0); TOTAL CELLS COUNTED 100
[2018-11-03 15:34] LABS: ANISOCYTOSIS SLIGHT; HYPOCHROMIC SLIGHT; TEARDROP CELLS SLIGHT
--- NOTE | 2018-11-03 16:28 | ED PDOC ---
HPI: Wound Care - HPI Time Seen by Provider: 11/03/18 13:54 Chief Complaint (Nursing): Wound Check Chief Complaint (Provider): bleeding dialysis catheter History Per: Patient Additional Complaint(s): 57 y/o F with hx of ESRD on HD, HL, CAD s/p stents (on Brilinta) who presents with bleeding at dialysis catheter. Pt was recently admitted for worsening dyspnea at [facility]. She was found to have pleural effusions/PNA. Several consults were added, including pulmonology. The pt was treated with antibiotics. During admission, a new dialysis catheter was placed. She was discharge late last night and states that the catheter was oozing at that time. The dressing was changed 4 times at the rehab where she resides. She went for dialysis today but it was not done as her dialysis catheter was bleeding too much. She was sent to ED for further evaluation. Denies dizziness, weakness. Past Medical History Reviewed: Historical Data, Nursing Documentation, Vital Signs Vital Signs: Last Vital Signs Temp 98.6 F 11/03/18 13:23 Pulse 69 11/03/18 13:23 Resp 18 11/03/18 13:23 BP 156/66 H 11/03/18 13:23 Pulse Ox 100 11/03/18 13:23 - Medical History PMH: Arthritis, CAD, CHF, COPD, Diabetes, HTN, Hypercholesterolemia, Hypothyroidism, Pneumonia, End Stage Renal Disease, Chronic Kidney Disease - Family History Family History: States: Unknown Family Hx - Immunization History Hx Influenza Vaccination: Yes (2017) Hx Pneumococcal Vaccination: No - Home Medications Home Medications: Ambulatory Orders Medication Instructions Recorded amLODIPine [Norvasc] 10 mg PO DAILY 09/02/18 Acetaminophen [Tylenol 325mg tab] 650 mg PO Q4 PRN 09/24/18 Acetaminophen [Tylenol 325mg tab] 650 mg PO Q4 PRN 09/24/18 Atorvastatin [Lipitor] 40 mg PO HS 09/24/18 B Complex W-C No.20/Folic Acid 1 cap PO DAILY 09/24/18 [Nephrocaps Softgel] Insulin Regular [HumuLIN R] 1 - 7 unit SC ACHS 09/24/18 Levothyroxine [Synthroid] 50 mcg PO DAILY 09/24/18 Losartan [Cozaar] 100 mg PO DAILY 09/24/18 Sevelamer Carbonate [Renvela] 800 mg PO TID 09/24/18 Vitamin A & D [Vitamin A & D Oint 1 appl TOP DAILY 09/24/18 UD Foilpak] hydrALAZINE [Apresoline] 50 mg PO .BID@MOWEFR 09/24/18 hydrALAZINE [Apresoline] 50 mg PO .TID@SUTUTHSA 09/24/18 Pantoprazole [Protonix EC Tab] 40 mg PO DAILY ect 10/01/18 Albuterol/Ipratropium [Duoneb 3 3 ml IH Q6H PRN 10/22/18 mg/0.5 mg (3 ml) UD] Alogliptin Benzoate [Nesina] 12.5 mg PO DAILY 10/22/18 Carvedilol [Coreg] 25 mg PO Q12 tab 11/02/18 Docusate [Colace] 100 mg PO BID cap 11/02/18 LORazepam [Ativan] 0.5 mg PO DAILY PRN tab 11/02/18 Sennosides A and B [Senokot Tab] 8.6 mg PO HS tab 11/02/18 Aspirin [Ecotrin] 81 mg PO DAILY 11/03/18 Bacitracin OINT 1 appl TOP QPM 11/03/18 Ticagrelor [Brilinta] 90 mg PO Q12 11/03/18 Vancomycin 1 GM [Vancomycin 1GM in 1 gm IVPB MWF 11/03/18 Normal Saline Addvantage] - Allergies Allergies/Adverse Reactions: Allergies Allergy/AdvReac Type Severity Reaction Status Date / Time shrimp Allergy Severe ANAPHYLAXIS Verified 10/21/18 19:46 Review of Systems Cardiovascular: Positive for: Other (bleeding from Right chest dialysis catheteri) Neurological: Negative for: Altered Mental Status, Headache, Dizziness Physical Exam - Reviewed Nursing Documentation Reviewed: Yes Vital Signs Reviewed: Yes - Physical Exam Appears: Positive for: Non-toxic Cardiovascular/Chest: Positive for: Other (Right chest dialysis catheter with oo ze at suture site on inferior portion of catheter. Both lines flushed easily with saline and good blood return. No erythema/edema/purulent drainage.) - Laboratory Results Result Diagrams: 11/03/18 14:40 11/03/18 14:40 Lab Results: PT 12.5 Seconds (9.8-13.1) 11/03/18 14:40 INR 1.1 11/03/18 14:40 APTT 35.9 Seconds (25.6-37.1) 11/03/18 14:40 - ECG O2 Sat by Pulse Oximetry: 100 Medical Decision Making Medical Decision Making: Gel Foam placed at suture for bleeding control CBC, CMP, PT/INR, PTT, Type and screen 16:00: Case reviewed with Brian Brush NP for Dr. Higginbotham who accepted admission to Med Surg Observation for dialysis and monitoring for further bleeding. 18:00: Pt continued to bleed requiring multiple dressing changes despite gel foam placement. Re-evaluated and ooze around dialysis catheter noted after clot removal. Pressure dressing applied around dialysis catheter. Dr. Lorenzana of IR paged and case discussed with him. States that bleeding likely from uremia and that patient should have dialysis after DDAVP administered. Brian Brush NP, alerted and will place order for DDAVP and arrange for dialysis today. Care transferred at this time. Disposition - Clinical Impression Clinical Impression: ESRD (end stage renal disease) on dialysis - Patient ED Disposition Is Patient to be Admitted: Transfer of Care (Brian Brush NP for Dr. Poon) Counseled Patient/Family Regarding: Diagnosis, Need For Followup - Disposition Disposition: Transfer of Care Disposition Time: 18:30 Condition: FAIR
[2018-11-03] MEDS ORDERED: Albuterol-Ipratrop 3 mg / 0.5 (3 ml) UD IH PRN (18:42)
[2018-11-03] MEDS: Insulin Regular 100 units/ml SC SCH (23:14)
[2018-11-04] MEDS: Levothyroxine 50 MCG TAB PO SCH (05:54)
[2018-11-04 06:43] LABS: HEMOGLOBIN 9.4 g/dL (12.0-16.0); MEAN CELL VOLUME 90.1 fl (81.0-99.0); MEAN CORPUSCULAR HEMOGLOBIN 29.6 pg (27.0-31.0); MEAN CORPUSCULAR HGB CONC 32.9 g/dL (33.0-37.0); RBC 3.18 Mil/uL (3.80-5.20); WHITE BLOOD COUNT 6.4 K/uL (4.8-10.8)
[2018-11-04 06:53] LABS: CALCIUM 7.8 mg/dL (8.4-10.2)
[2018-11-04 08:38] VITALS: O2SAT 100
[2018-11-04] MEDS ORDERED: ALOGLIPTIN BENZOATE 12.5 MG PO SCH (09:00)
[2018-11-04] MEDS: Insulin Regular 100 units/ml SC SCH ×4 (09:20→22:36)
[2018-11-04] MEDS: Multivitamin Vitamin B Complex (Nephro-Vite) Tab PO SCH (09:25)
--- NOTE | 2018-11-04 09:42 | CP.PCM.CON ---
History of Present Illness - History of Present Illness History of Present Illness: Patient is a 57 years of age female who was just discharged from the hospital about 1 or 2 days ago. And she was sent back because of persistent oozing from the right permacath insertion site. And the patient has the following problem from the admission as follow Admitted because of bleeding from the dialysis catheter site permacath related sepsis CHF with pleural and pericardial effusion Diabetic chronic Kidney Disease (E11.22) Hypertensive Chronic Kidney Disease (I12.0) End stage renal disease (N18.6) dependence on hemodialysis (Z99.2) MWF) via PC Anemia (D64.9), Hyperphosphatemia (E83.39), Secondary Hyperparathyroidism (E 21.1), HTN (I12.0) She is supposed to be receiving antibiotics of vancomycin as outpatient Review of Systems - Constitutional Constitutional: Anorexia. absent: Chills - Cardiovascular Cardiovascular: absent: Acrocyanosis, Chest Pain, Chest Pain at Rest, Edema - Respiratory Respiratory: absent: Cough, Dyspnea, Hemoptysis - Musculoskeletal Musculoskeletal: Muscle Weakness. absent: Back Pain - Neurological Neurological: Weakness. absent: Confusion, Focal Weakness, Syncope - Hematologic/Lymphatic Hematologic: absent: Easy Bleeding Past Patient History - Infectious Disease Hx of Infectious Diseases: None - Past Medical History & Family History Past Medical History?: Yes - Past Social History Smoking Status: Never Smoked - CARDIAC Hx Congestive Heart Failure: Yes Hx Hypercholesterolemia: Yes Hx Hypertension: Yes - PULMONARY Hx Chronic Obstructive Pulmonary Disease (COPD): Yes Hx Pneumonia: Yes - NEUROLOGICAL Hx Neurological Disorder: No - HEENT Hx HEENT Problems: No - RENAL Hx Chronic Kidney Disease: Yes - ENDOCRINE/METABOLIC Hx Hypothyroidism: Yes - HEMATOLOGICAL/ONCOLOGICAL Hx Blood Disorders: No - INTEGUMENTARY Hx Dermatological Problems: No - MUSCULOSKELETAL/RHEUMATOLOGICAL Hx Arthritis: Yes - GASTROINTESTINAL Hx Gastrointestinal Disorders: No - GENITOURINARY/GYNECOLOGICAL Hx Genitourinary Disorders: Yes Hx Uterine Cancer: No - PSYCHIATRIC Hx Psychophysiologic Disorder: No Hx Substance Use: No - SURGICAL HISTORY Hx Surgeries: Yes Hx Hysterectomy: No Other/Comment: cardiac stent (08/2018) - ANESTHESIA Hx Anesthesia: Yes Hx Anesthesia Reactions: No Hx Malignant Hyperthermia: No Meds Allergies/Adverse Reactions: Allergies Allergy/AdvReac Type Severity Reaction Status Date / Time shrimp Allergy Severe ANAPHYLAXIS Verified 10/21/18 19:46 - Medications Medications: Current Medications Acetaminophen (Tylenol 325mg Tab) 650 mg PO Q4 PRN PRN Reason: Temp >100 Acetaminophen (Tylenol 325mg Tab) 650 mg PO Q4 PRN PRN Reason: Pain, Mild (1-3) Albuterol/Ipratropium (Duoneb 3 Mg/0.5 Mg (3 Ml) Ud) 3 ml IH RQ6 PRN PRN Reason: Shortness of Breath Amlodipine Besylate (Norvasc) 10 mg PO DAILY [facility] Last Admin: 11/04/18 09:25 Dose: 10 mg Atorvastatin Calcium (Lipitor) 40 mg PO HS [facility] Last Admin: 11/03/18 23:04 Dose: 40 mg Bacitracin (Bacitracin Oint) 1 applic TOP QPM [facility] Carvedilol (Coreg) 25 mg PO Q12 [facility] Last Admin: 11/04/18 09:24 Dose: 25 mg Docusate Sodium (Colace) 100 mg PO BID [facility] Last Admin: 11/04/18 09:24 Dose: 100 mg Hydralazine HCl (Apresoline) 50 mg PO .BID@MOWEFR [facility] Hydralazine HCl (Apresoline) 50 mg PO .TID@[facility] Insulin Human Regular (Humulin R) 0 units SC [facility]; Protocol Last Admin: 11/04/18 09:20 Dose: Not Given Levothyroxine Sodium (Synthroid) 50 mcg PO DAILY@0630 [facility] Last Admin: 11/04/18 05:54 Dose: 50 mcg Lorazepam (Ativan) 0.5 mg PO DAILY PRN PRN Reason: Anxiety Last Admin: 11/03/18 23:13 Dose: 0.5 mg Sitagliptin Phosphate (Januvia) 50 mg PO DAILY [facility] Last Admin: 11/04/18 09:25 Dose: 50 mg Vitamin B Complex/Vit C/Folic Acid (Nephro-Buster) 1 tab PO DAILY [facility] Last Admin: 11/04/18 09:25 Dose: 1 tab Physical Exam - Constitutional Appears: No Acute Distress - Eye Exam Eye Exam: Conjunctival injection - ENT Exam ENT Exam: Mucous Membranes Moist - Neck Exam Neck exam: Negative for: Lymphadenopathy - Respiratory Exam Respiratory Exam: NORMAL BREATHING PATTERN. absent: Chest Wall Tenderness - Cardiovascular Exam Cardiovascular Exam: REGULAR RHYTHM. absent: JVD, Rubs - GI/Abdominal Exam GI & Abdominal Exam: Normal Bowel Sounds. absent: Guarding - Extremities Exam Extremities exam: Negative for: calf tenderness - Back Exam Back exam: absent: CVA tenderness (L), CVA tenderness (R) - Neurological Exam Neurological exam: Alert - Psychiatric Exam Psychiatric exam: Normal Affect Results - Vital Signs Recent Vital Signs: Last Vital Signs Temp 97.8 F 11/04/18 08:37 Pulse 69 11/04/18 09:25 Resp 20 11/04/18 08:37 BP 164/65 H 11/04/18 09:25 Pulse Ox 100 11/04/18 08:37 - Labs Result Diagrams: 11/04/18 06:25 11/04/18 06:25 Labs: Laboratory Results - last 24 hr 11/03/18 11/03/18 11/03/18 14:40 14:40 14:40 WBC 7.5 RBC 3.55 L Hgb 10.5 L Hct 32.2 L MCV 90.6 MCH 29.6 MCHC 32.7 L RDW 18.1 H Plt Count 152 MPV 8.3 Neut % (Auto) 68.7 Lymph % (Auto) 7.9 L [place] % (Auto) 15.4 H Eos % (Auto) 7.0 H Baso % (Auto) 1.0 Neut # (Auto) 5.1 Lymph # (Auto) 0.6 L [place] # (Auto) 1.2 H Eos # (Auto) 0.5 Baso # (Auto) 0.1 Neutrophils % (Manual) 66 Lymphocytes % (Manual) 5 L Reactive Lymphs % 1 H Monocytes % (Manual) 16 H Eosinophils % (Manual) 11 H Basophils % (Manual) 1 Platelet Estimate Normal Hypochromasia (manual) Slight Anisocytosis (manual) Slight Tear Drop Cells Slight PT INR APTT Sodium 128 L Potassium 4.2 Chloride 95 L Carbon Dioxide 23 Anion Gap 14 BUN 42 H Creatinine 4.3 H Est GFR ( Amer) 13 Est GFR (Non-Af Amer) 11 POC Glucose (mg/dL) Random Glucose 193 H Calcium 8.0 L Blood Type O POSITIVE Antibody Screen Negative BBK History Checked Patient has bt 11/03/18 11/03/18 11/03/18 14:40 18:03 22:08 WBC RBC Hgb Hct MCV MCH MCHC RDW Plt Count MPV Neut % (Auto) Lymph % (Auto) [place] % (Auto) Eos % (Auto) Baso % (Auto) Neut # (Auto) Lymph # (Auto) [place] # (Auto) Eos # (Auto) Baso # (Auto) Neutrophils % (Manual) Lymphocytes % (Manual) Reactive Lymphs % Monocytes % (Manual) Eosinophils % (Manual) Basophils % (Manual) Platelet Estimate Hypochromasia (manual) Anisocytosis (manual) Tear Drop Cells PT 12.5 INR 1.1 APTT 35.9 Sodium Potassium Chloride Carbon Dioxide Anion Gap BUN Creatinine Est GFR ( Amer) Est GFR (Non-Af Amer) POC Glucose (mg/dL) 135 H 139 H Random Glucose Calcium Blood Type Antibody Screen BBK History Checked 11/04/18 11/04/18 11/04/18 05:42 06:25 06:25 WBC 6.4 RBC 3.18 L Hgb 9.4 L Hct 28.6 L MCV 90.1 MCH 29.6 MCHC 32.9 L RDW 18.0 H Plt Count 158 MPV Neut % (Auto) Lymph % (Auto) [place] % (Auto) Eos % (Auto) Baso % (Auto) Neut # (Auto) Lymph # (Auto) [place] # (Auto) Eos # (Auto) Baso # (Auto) Neutrophils % (Manual) Lymphocytes % (Manual) Reactive Lymphs % Monocytes % (Manual) Eosinophils % (Manual) Basophils % (Manual) Platelet Estimate Hypochromasia (manual) Anisocytosis (manual) Tear Drop Cells PT INR APTT Sodium 133 Potassium 3.8 Chloride 98 Carbon Dioxide 27 Anion Gap 12 BUN 20 H Creatinine 2.8 H Est GFR ( Amer) 21 Est GFR (Non-Af Amer) 17 POC Glucose (mg/dL) 137 H Random Glucose 144 H Calcium 7.8 L Blood Type Antibody Screen BBK History Checked Assessment & Plan - Assessment and Plan (Free Text) Assessment: Admitted because of bleeding from the dialysis catheter site permacath related sepsis CHF with pleural and pericardial effusion Diabetic chronic Kidney Disease (E11.22) Hypertensive Chronic Kidney Disease (I12.0) End stage renal disease (N18.6) dependence on hemodialysis (Z99.2) MWF) via PC Anemia (D64.9), Hyperphosphatemia (E83.39), Secondary Hyperparathyroidism (E21.1), HTN (I12.0) Recommendation I discussed with the nurse practitioner to give fresh frozen plasma if she continued to have oozing from the right subclavian catheter. As of now no oozing Also discussed to discontinue aspirin temporarily for few days if okay with the cardiology Also discussed with the nurse practitioner to continue vancomycin Continue hemodialysis as scheduled.MWF s/p catheter replacement Workup for lupus and ANCA Antibiotics as per GFR with infectious disease Status: Acute
[2018-11-04] MEDS: Pantoprazole 40 mg EC Tab PO SCH (11:33)
[2018-11-04] MEDS: Bacitracin OINT 15GM TOP SCH (17:07)
--- NOTE | 2018-11-04 19:08 | CP.PCM.HP ---
History of Present Illness - History of Present Illness History of Present Illness: 57 y/o F with hx of ESRD on HD, HL, CAD s/p stents recently admitted due to bacteremia from dialysis catheter. She was discharged in stable condition to [facility]. However, at [facility] it was noted that catheter was oozing and HD was unable to be completed, therefore sent to [facility] (formerly [facility]) for further evaluation and management. Patient seen and examined at bedside. No further oozing has happened. Nephrology on board No other complaints offered at this time other than feeling weak after yesterdays HD session Denies chest pain, sob, abdominal pain, headaches, fever, chills. Meds: as per chart Allergies: as per chart Fam hx: non contributory Present on Admission - Present on Admission Any Indicators Present on Admission: No Review of Systems - Review of Systems All systems: reviewed and no additional remarkable complaints except (mentioned above) Past Patient History - Infectious Disease Hx of Infectious Diseases: None - Past Medical History & Family History Past Medical History?: Yes - Past Social History Smoking Status: Never Smoked - CARDIAC Hx Congestive Heart Failure: Yes Hx Hypercholesterolemia: Yes Hx Hypertension: Yes - PULMONARY Hx Chronic Obstructive Pulmonary Disease (COPD): Yes Hx Pneumonia: Yes - NEUROLOGICAL Hx Neurological Disorder: No - HEENT Hx HEENT Problems: No - RENAL Hx Chronic Kidney Disease: Yes - ENDOCRINE/METABOLIC Hx Hypothyroidism: Yes - HEMATOLOGICAL/ONCOLOGICAL Hx Blood Disorders: No - INTEGUMENTARY Hx Dermatological Problems: No - MUSCULOSKELETAL/RHEUMATOLOGICAL Hx Arthritis: Yes - GASTROINTESTINAL Hx Gastrointestinal Disorders: No - GENITOURINARY/GYNECOLOGICAL Hx Genitourinary Disorders: Yes Hx Uterine Cancer: No - PSYCHIATRIC Hx Psychophysiologic Disorder: No Hx Substance Use: No - SURGICAL HISTORY Hx Surgeries: Yes Hx Hysterectomy: No Other/Comment: cardiac stent (08/2018) - ANESTHESIA Hx Anesthesia: Yes Hx Anesthesia Reactions: No Hx Malignant Hyperthermia: No Meds Allergies/Adverse Reactions: Allergies Allergy/AdvReac Type Severity Reaction Status Date / Time shrimp Allergy Severe ANAPHYLAXIS Verified 10/21/18 19:46 Physical Exam - Constitutional Appears: Non-toxic, No Acute Distress - Head Exam Head Exam: NORMAL INSPECTION - Eye Exam Eye Exam: Normal appearance - Respiratory Exam Respiratory Exam: NORMAL BREATHING PATTERN - Cardiovascular Exam Cardiovascular Exam: +S1, +S2 - GI/Abdominal Exam GI & Abdominal Exam: Soft - Neurological Exam Neurological exam: Alert, Oriented x3 - Psychiatric Exam Psychiatric exam: Normal Affect, Normal Mood - Skin Skin Exam: Normal Color, Warm Results - Vital Signs Recent Vital Signs: Last Vital Signs Temp 98.9 F 11/04/18 17:00 Pulse 75 11/04/18 17:00 Resp 20 11/04/18 17:00 BP 157/66 H 11/04/18 17:00 Pulse Ox 100 11/04/18 17:00 - Labs Result Diagrams: 11/04/18 06:25 11/04/18 06:25 Labs: Laboratory Results - last 24 hr 11/03/18 11/04/18 11/04/18 22:08 05:42 06:25 WBC 6.4 RBC 3.18 L Hgb 9.4 L Hct 28.6 L MCV 90.1 MCH 29.6 MCHC 32.9 L RDW 18.0 H Plt Count 158 Sodium Potassium Chloride Carbon Dioxide Anion Gap BUN Creatinine Est GFR ( Amer) Est GFR (Non-Af Amer) POC Glucose (mg/dL) 139 H 137 H Random Glucose Calcium 11/04/18 11/04/18 11/04/18 06:25 11:16 16:02 WBC RBC Hgb Hct MCV MCH MCHC RDW Plt Count Sodium 133 Potassium 3.8 Chloride 98 Carbon Dioxide 27 Anion Gap 12 BUN 20 H Creatinine 2.8 H Est GFR ( Amer) 21 Est GFR (Non-Af Amer) 17 POC Glucose (mg/dL) 191 H 148 H Random Glucose 144 H Calcium 7.8 L Assessment & Plan (1) ESRD (end stage renal disease) on dialysis Status: Acute (2) Hemodialysis catheter dysfunction Status: Acute - Assessment and Plan (Free Text) Plan: available diagnostic data reviewed monitor labs monitor vitals neprhology following appreciate recommendations cont iv abx rest of plan as ordered
[2018-11-05] MEDS: Levothyroxine 50 MCG TAB PO SCH (05:35)
[2018-11-05] MEDS: Insulin Regular 100 units/ml SC SCH ×4 (06:38→22:30)
[2018-11-05 06:45] VITALS: BMI 17.9
[2018-11-05] MEDS ORDERED: EPOETIN ALFA 10,000 UNIT/ML ML SC SCH (09:00)
[2018-11-05] MEDS: Multivitamin Vitamin B Complex (Nephro-Vite) Tab PO SCH (09:09)
[2018-11-05] MEDS: Pantoprazole 40 mg EC Tab PO SCH (09:09)
[2018-11-05 12:31] LABS: HEMOGLOBIN 8.6 g/dL (12.0-16.0); MEAN CELL VOLUME 90.3 fl (81.0-99.0); MEAN CORPUSCULAR HEMOGLOBIN 29.3 pg (27.0-31.0); MEAN CORPUSCULAR HGB CONC 32.5 g/dL (33.0-37.0); RBC 2.93 Mil/uL (3.80-5.20); RED CELL DISTRIBUTION WIDTH 18.2 % (11.5-14.5); WHITE BLOOD COUNT 8.1 K/uL (4.8-10.8)
--- NOTE | 2018-11-05 12:40 | CP.PCM.PN ---
Subjective - Date & Time of Evaluation Date of Evaluation: 11/05/18 Time of Evaluation: 11:00 - Subjective Subjective: Dialysis note She was seen on hemodialysis Patient tolerating well I discussed the order with the dialysis nurse at the bedside No bleeding from the dialysis catheter site Objective - Vital Signs/Intake and Output Vital Signs (last 24 hours): Temp Pulse Resp BP Pulse Ox 98.0 F 75 19 145/74 100 11/05/18 08:06 11/05/18 09:09 11/05/18 08:06 11/05/18 09:09 11/05/18 08:06 - Medications Medications: Current Medications Acetaminophen (Tylenol 325mg Tab) 650 mg PO Q4 PRN PRN Reason: Temp >100 Acetaminophen (Tylenol 325mg Tab) 650 mg PO Q4 PRN PRN Reason: Pain, Mild (1-3) Albuterol/Ipratropium (Duoneb 3 Mg/0.5 Mg (3 Ml) Ud) 3 ml IH RQ6 PRN PRN Reason: Shortness of Breath Amlodipine Besylate (Norvasc) 10 mg PO DAILY [facility] Last Admin: 11/05/18 09:09 Dose: 10 mg Atorvastatin Calcium (Lipitor) 40 mg PO HS [facility] Last Admin: 11/04/18 22:35 Dose: 40 mg Bacitracin (Bacitracin Oint) 1 applic TOP QPM [facility] Last Admin: 11/04/18 17:07 Dose: 1 applic Carvedilol (Coreg) 25 mg PO Q12 [facility] Last Admin: 11/05/18 09:08 Dose: 25 mg Docusate Sodium (Colace) 100 mg PO BID [facility] Last Admin: 11/05/18 09:06 Dose: 100 mg Hydralazine HCl (Apresoline) 50 mg PO .BID@MOWEFR [facility] Hydralazine HCl (Apresoline) [facility] Vancomycin HCl 1 gm/ Sodium (Chloride) 250 mls @ 125 mls/hr IVPB [facility]; Protocol Last Admin: 11/05/18 09:10 Dose: 125 mls/hr Insulin Human Regular (Humulin R) 0 units SC ACHS [facility]; Protocol Last Admin: 11/05/18 06:38 Dose: Not Given Levothyroxine Sodium (Synthroid) 50 mcg PO DAILY@0630 [facility] Last Admin: 11/05/18 05:35 Dose: 50 mcg Lorazepam (Ativan) 0.5 mg PO DAILY PRN PRN Reason: Anxiety Last Admin: 11/03/18 23:13 Dose: 0.5 mg Losartan Potassium (Cozaar) 100 mg PO DAILY [facility] Last Admin: 11/05/18 09:08 Dose: 100 mg Pantoprazole Sodium (Protonix Ec Tab) 40 mg PO DAILY [facility] Last Admin: 11/05/18 09:09 Dose: 40 mg Sennosides (Senokot Tab) 8.6 mg PO HS [facility] Last Admin: 11/04/18 22:49 Dose: Not Given Sevelamer Carbonate (Renvela) 800 mg PO TID [facility] Last Admin: 11/05/18 09:10 Dose: 800 mg Sitagliptin Phosphate (Januvia) 50 mg PO DAILY [facility] Last Admin: 11/05/18 09:09 Dose: 50 mg Ticagrelor (Brilinta) 90 mg PO Q12 [facility] Last Admin: 11/05/18 09:06 Dose: 90 mg Vitamin B Complex/Vit C/Folic Acid (Nephro-Buster) 1 tab PO DAILY [facility] Last Admin: 11/05/18 09:09 Dose: 1 tab - Labs Labs: 11/05/18 12:10 11/04/18 06:25 PT 12.5 Seconds (9.8-13.1) 11/03/18 14:40 INR 1.1 11/03/18 14:40 APTT 35.9 Seconds (25.6-37.1) 11/03/18 14:40 - Constitutional Appears: No Acute Distress - Eye Exam Eye Exam: Conjunctival injection - ENT Exam ENT Exam: Mucous Membranes Moist - Neck Exam Neck Exam: absent: Lymphadenopathy - Respiratory Exam Respiratory Exam: NORMAL BREATHING PATTERN. absent: Chest Wall Tenderness - Cardiovascular Exam Cardiovascular Exam: absent: Gallop, JVD, Rubs - GI/Abdominal Exam GI & Abdominal Exam: Soft, Normal Bowel Sounds - Extremities Exam Extremities Exam: absent: Calf Tenderness - Back Exam Back Exam: absent: CVA tenderness (L), CVA tenderness (R) - Neurological Exam Neurological Exam: Alert - Psychiatric Exam Psychiatric exam: Normal Affect - Skin Skin Exam: absent: Cyanosis Assessment and Plan - Assessment and Plan (Free Text) Assessment: Admitted because of bleeding from the dialysis catheter site, no more bleeding i n the last 24 hours permacath related sepsis CHF with pleural and pericardial effusion Diabetic chronic Kidney Disease (E11.22) Hypertensive Chronic Kidney Disease (I12.0) End stage renal disease (N18.6) dependence on hemodialysis (Z99.2) MWF) via PC Anemia (D64.9), Hyperphosphatemia (E83.39), Secondary Hyperparathyroidism (E21.1), HTN (I12.0) Recommendation She was seen on hemodialysis Patient tolerating well with ultrafiltration only about 1000 cc Vital signs stable on dialysis No bleeding from the dialysis catheter Antibiotics as per ID
[2018-11-05 16:32] VITALS: BP 159/67; RESP 20; TEMP 97.8
[2018-11-05] MEDS: Bacitracin OINT 15GM TOP SCH (17:28)
[2018-11-05 22:17] VITALS: PULSE 75
--- NOTE | 2018-11-05 22:38 | CP.PCM.DIS ---
Provider - Provider Date of Admission: 11/03/18 16:59 Attending physician: Atul Higginbotham MD Primary care physician: Atul Higginbotham MD Consults: 11/03/18 17:20 Nephrology Consult Routine Comment: Consulting Provider: Donato Prado Consulting Physician: Donato Prado Reason for Consult: esrd on HD; for dialysis today 11/03. 11/04/18 00:24 Social Work Referral Routine Comment: discharge planning Physician Instructions: Reason For Exam: dialysis patient 11/04/18 00:35 Case Management Referral Routine Comment: discharge planning Physician Instructions: Reason For Exam: dialysis patient Reason for Referral: Discharge Planning 11/04/18 14:35 Pastoral Care Referral Routine Comment: Physician Instructions: Reason For Exam: Advance directive info Time Spent in preparation of Discharge (in minutes): 30 Hospital Course - Lab Results Lab Results: Most Recent Lab Values WBC 8.1 K/uL (4.8-10.8) 11/05/18 12:10 RBC 2.93 Mil/uL (3.80-5.20) L 11/05/18 12:10 Hgb 8.6 g/dL (12.0-16.0) L 11/05/18 12:10 Hct 26.5 % (34.0-47.0) L 11/05/18 12:10 MCV 90.3 fl (81.0-99.0) 11/05/18 12:10 MCH 29.3 pg (27.0-31.0) 11/05/18 12:10 MCHC 32.5 g/dL (33.0-37.0) L 11/05/18 12:10 RDW 18.2 % (11.5-14.5) H 11/05/18 12:10 Plt Count 169 K/uL (130-400) 11/05/18 12:10 MPV 8.3 fl (7.2-11.7) 11/03/18 14:40 Neut % (Auto) 68.7 % (50.0-75.0) 11/03/18 14:40 Lymph % (Auto) 7.9 % (20.0-40.0) L 11/03/18 14:40 [place] % (Auto) 15.4 % (0.0-10.0) H 11/03/18 14:40 Eos % (Auto) 7.0 % (0.0-4.0) H 11/03/18 14:40 Baso % (Auto) 1.0 % (0.0-2.0) 11/03/18 14:40 Neut # (Auto) 5.1 K/uL (1.8-7.0) 11/03/18 14:40 Lymph # (Auto) 0.6 K/uL (1.0-4.3) L 11/03/18 14:40 [place] # (Auto) 1.2 K/uL (0.0-0.8) H 11/03/18 14:40 Eos # (Auto) 0.5 K/uL (0.0-0.7) 11/03/18 14:40 Baso # (Auto) 0.1 K/uL (0.0-0.2) 11/03/18 14:40 Neutrophils % (Manual) 66 % (42-75) 11/03/18 14:40 Lymphocytes % (Manual) 5 % (20-50) L 11/03/18 14:40 Reactive Lymphs % 1 % (0-0) H 11/03/18 14:40 Monocytes % (Manual) 16 % (0-10) H 11/03/18 14:40 Eosinophils % (Manual) 11 % (0-7) H 11/03/18 14:40 Basophils % (Manual) 1 % (0-2) 11/03/18 14:40 Platelet Estimate Normal (NORMAL) 11/03/18 14:40 Hypochromasia (manual) Slight 11/03/18 14:40 Anisocytosis (manual) Slight 11/03/18 14:40 Tear Drop Cells Slight 11/03/18 14:40 PT 12.5 Seconds (9.8-13.1) 11/03/18 14:40 INR 1.1 11/03/18 14:40 APTT 35.9 Seconds (25.6-37.1) 11/03/18 14:40 Sodium 133 mmol/l (132-148) 11/04/18 06:25 Potassium 3.8 MMOL/L (3.6-5.0) 11/04/18 06:25 Chloride 98 mmol/L (98-107) 11/04/18 06:25 Carbon Dioxide 27 mmol/L (22-30) 11/04/18 06:25 Anion Gap 12 (10-20) 11/04/18 06:25 BUN 20 mg/dl (7-17) H 11/04/18 06:25 Creatinine 2.8 mg/dl (0.7-1.2) H 11/04/18 06:25 Est GFR ( Amer) 21 11/04/18 06:25 Est GFR (Non-Af Amer) 17 11/04/18 06:25 POC Glucose (mg/dL) 117 mg/dL (65-110) H 11/05/18 11:19 Random Glucose 144 mg/dL (65-105) H 11/04/18 06:25 Calcium 7.8 mg/dL (8.4-10.2) L 11/04/18 06:25 Blood Type O POSITIVE 11/03/18 14:40 Antibody Screen Negative 11/03/18 14:40 BBK History Checked Patient has bt 11/03/18 14:40 - Hospital Course Hospital Course: Pt was admitted from [facility] for bleeding at the hemodialysis port site. Pressure dressing was applied and hemodialysis was done. After the hemodialysis session, the hemodialysis access site showed no signs of bleeding. The pt was transferred back to [facility]. Discharge Exam - Head Exam Head Exam: NORMAL INSPECTION - Eye Exam Eye Exam: EOMI, Normal appearance, PERRL Pupil Exam: NORMAL ACCOMODATION, PERRL - ENT Exam ENT Exam: Mucous Membranes Dry - Neck Exam Neck exam: Full Rom - Respiratory Exam Respiratory Exam: Clear to PA & Lateral, NORMAL BREATHING PATTERN - Cardiovascular Exam Cardiovascular Exam: REGULAR RHYTHM, +S1, +S2 - GI/Abdominal Exam GI & Abdominal Exam: Normal Bowel Sounds - Extremities Exam Extremities exam: full ROM - Back Exam Back exam: NORMAL INSPECTION - Neurological Exam Neurological exam: Alert, CN II-XII Intact, Oriented x3 - Psychiatric Exam Psychiatric exam: Normal Affect, Normal Mood - Skin Skin Exam: Dry, Normal Color, Warm Discharge Plan - Follow Up Plan Condition: FAIR Disposition: HOME/ ROUTINE Instructions: Renal Failure Diet (DC) Referrals: John Brush APN [Nurse Practitioner] - Atul Higginbotham MD [Primary Care Provider] - Aubrey Stoddard MD [Medical Doctor] -
== END 2018-11-05 22:30 ==
LOC: H.ER 13:13 → SUPCPDRO 13:13 → INTOOBSV 16:59 → H.ERHOLD 16:59 → H.MEDSURG1 18:31
PROVIDERS: ADMIT Family Medicine; ATTEND Family Medicine
DX: T82.838A Hemorrhage due to vascular prosthetic devices, implants and grafts, initial encounter (principal); Y84.1 Kidney dialysis as the cause of abnormal reaction of the patient, or of later complication, without mention of misadventure at the time of the procedure; N18.6 End stage renal disease; I13.2 Hypertensive heart and chronic kidney disease with heart failure and with stage 5 chronic kidney disease, or end stage renal disease; N25.81 Secondary hyperparathyroidism of renal origin; E11.22 Type 2 diabetes mellitus with diabetic chronic kidney disease; I50.9 Heart failure, unspecified; I25.10 Atherosclerotic heart disease of native coronary artery without angina pectoris; Z99.2 Dependence on renal dialysis; D64.9 Anemia, unspecified; E83.39 Other disorders of phosphorus metabolism; E03.9 Hypothyroidism, unspecified; E78.00 Pure hypercholesterolemia, unspecified; Z95.5 Presence of coronary angioplasty implant and graft; Z79.4 Long term (current) use of insulin; Z79.82 Long term (current) use of aspirin; Z87.01 Personal history of pneumonia (recurrent); Z91.013 Allergy to seafood
CPT/HCPCS: 36415; 80048; 82948; 85025; 85027; 85610; 85730; 86850; 86900; 99285; G0378; J0885

== ENCOUNTER 2018-11-14 08:38 | Inpatient (IN) | payer MEDICAID ==
[2018-11-14 08:50] VITALS: BMI 17.6
--- NOTE | 2018-11-14 09:05 | ED PDOC ---
HPI: SOB/CHF/COPD Time Seen by Provider: 11/14/18 08:42 Chief Complaint (Nursing): Shortness Of Breath History Per: Patient Onset/Duration Of Symptoms: Days (1) Current Symptoms Are (Timing): Still Present Associated Symptoms: denies: Fever, Chest Pain, Productive Cough, Ankle/Leg Swelling Additional Complaint(s): Transferred from [facility] home for low O2 sat of 70%. Pt states mild SOB but no worse than usual. Denies chest pain. Scant non-productive cough. Denies fever. H/o ESRD on dialysis, last dialyzed Thursday. Past Medical History Vital Signs: Last Vital Signs Temp 98.7 F 11/14/18 08:51 Pulse 73 11/14/18 08:51 Resp 18 11/14/18 08:51 BP 160/67 H 11/14/18 08:51 Pulse Ox 67 L 11/14/18 08:51 - Medical History PMH: Arthritis, CAD, CHF, COPD, Diabetes, HTN, Hypercholesterolemia, Hypothyroidism, Pneumonia, End Stage Renal Disease, Chronic Kidney Disease - Family History Family History: States: Unknown Family Hx - Immunization History Hx Influenza Vaccination: Yes (2018) Hx Pneumococcal Vaccination: No - Home Medications Home Medications: Ambulatory Orders Medication Instructions Recorded amLODIPine [Norvasc] 10 mg PO DAILY 09/02/18 Acetaminophen [Tylenol 325mg tab] 650 mg PO Q4 PRN 09/24/18 Acetaminophen [Tylenol 325mg tab] 650 mg PO Q4 PRN 09/24/18 Atorvastatin [Lipitor] 40 mg PO HS 09/24/18 B Complex W-C No.20/Folic Acid 1 cap PO DAILY 09/24/18 [Nephrocaps Softgel] Insulin Regular [HumuLIN R] 1 - 7 unit SC ACHS 09/24/18 Levothyroxine [Synthroid] 50 mcg PO DAILY 09/24/18 Losartan [Cozaar] 100 mg PO DAILY 09/24/18 Sevelamer Carbonate [Renvela] 800 mg PO TID 09/24/18 Vitamin A & D [Vitamin A & D Oint 1 appl TOP DAILY 09/24/18 UD Foilpak] hydrALAZINE [Apresoline] 50 mg PO .BID@MOWEFR 09/24/18 hydrALAZINE [Apresoline] 50 mg PO .TID@SUTUTH 09/24/18 Pantoprazole [Protonix EC Tab] 40 mg PO DAILY ect 10/01/18 Albuterol/Ipratropium [Duoneb 3 3 ml IH Q6H PRN 10/22/18 mg/0.5 mg (3 ml) UD] Alogliptin Benzoate [Nesina] 12.5 mg PO DAILY 10/22/18 Carvedilol [Coreg] 25 mg PO Q12 tab 11/02/18 Docusate [Colace] 100 mg PO BID cap 11/02/18 LORazepam [Ativan] 0.5 mg PO DAILY PRN tab 11/02/18 Sennosides A and B [Senokot Tab] 8.6 mg PO HS tab 11/02/18 Bacitracin OINT 1 appl TOP QPM 11/03/18 Ticagrelor [Brilinta] 90 mg PO Q12 11/03/18 Vancomycin 1 GM [Vancomycin 1GM in 1 gm IVPB MWF 11/03/18 Normal Saline Addvantage] Epoetin Steve [Procrit] 10,000 unit SC MWF ml 11/05/18 SITagliptin [Januvia] 50 mg PO DAILY tab 11/05/18 - Allergies Allergies/Adverse Reactions: Allergies Allergy/AdvReac Type Severity Reaction Status Date / Time shrimp Allergy Severe ANAPHYLAXIS Verified 10/21/18 19:46 Review of Systems ROS Statement: Except As Marked, All Systems Reviewed And Found Negative Constitutional: Negative for: Fever Cardiovascular: Negative for: Chest Pain Respiratory: Positive for: Cough, Shortness of Breath, SOB with Exertion. Negative for: Sputum Physical Exam - Reviewed Nursing Documentation Reviewed: Yes Vital Signs Reviewed: Yes - Physical Exam Appears: Positive for: Non-toxic, No Acute Distress Head Exam: Positive for: ATRAUMATIC, NORMAL INSPECTION, NORMOCEPHALIC Skin: Positive for: Normal Color, Warm, DRY Eye Exam: Positive for: EOMI, Normal appearance, PERRL ENT: Positive for: Normal ENT Inspection Neck: Positive for: Normal, Painless ROM Cardiovascular/Chest: Positive for: Regular Rate, Rhythm Respiratory: Positive for: Decreased Breath Sounds (bases). Negative for: Wheezing, Respiratory Distress Gastrointestinal/Abdominal: Positive for: Normal Exam, Soft Back: Positive for: Normal Inspection Extremity: Positive for: Normal ROM Neurological/Psych: Positive for: Awake, Alert, Normal Tone - Laboratory Results Result Diagrams: 11/14/18 09:40 11/14/18 09:40 - ECG O2 Sat by Pulse Oximetry: 67 Medical Decision Making Medical Decision Making: O2 sat improved when pt placed on 100% O2. CXR shows increased pleural effusions bilat with ? infiltratye right side. Will tx with lasix and 1 dose Zosyn Care discussed with accepting MD dr. Stoddard. Disposition - Clinical Impression Clinical Impression: Chronic kidney disease with end stage renal failure on dialysis, Recurrent left pleural effusion, Pleural effusion, right, Hypoxemia - Patient ED Disposition Is Patient to be Admitted: Yes - Disposition Disposition Time: 10:43 Condition: FAIR Forms: [employer] ([place]) - Pt Status Changed To: Hospital Disposition Of: Inpatient - Admit Certification Admit to Inpatient:: After my assessment, the patient will require hospitali zation for at least two midnights. This is because of the severity of symptoms shown, intensity of services needed, and/or the medical risk in this patient being treated as an outpatient. - POA Present On Arrival: None
[2018-11-14 09:44] LABS: ABG ALLEN TEST YES; ARTERIAL BLOOD GAS O2 SAT 74.7 % (95-98); ARTERIAL BLOOD GAS PCO2 49 mm/Hg (35-45); ARTERIAL BLOOD GAS PH 7.42 (7.35-7.45); ARTERIAL BLOOD GAS PO2 36 mm/Hg (80-100); ARTERIAL BLOOD GAS TCO2 33.3 mmol/L (22-28)
--- NOTE | 2018-11-14 09:59 | RAD ---
Date of service: 11/14/2018 HISTORY: cough COMPARISON: 10/26/2018 TECHNIQUE: 1 view obtained. FINDINGS: LUNGS: There is mild interval increase in left pleural effusion and atelectasis at the left lung base. Right pleural effusion may also be mildly increased. Persistent interstitial thickening and alveolar edema are noted, greater on the right. Right central line catheter is unchanged. Left chest tube is stable. No appreciable pneumothorax is noted. PLEURA: See above. CARDIOVASCULAR: No significant aortic atherosclerotic calcification present. Heart is enlarged. Vasculature congestion is mildly increased from prior study. OSSEOUS STRUCTURES: No significant abnormalities. VISUALIZED UPPER ABDOMEN: Normal. OTHER FINDINGS: None. IMPRESSION: Probable mild interval increasing congestion with increased bilateral effusions and atelectasis, greater on the left.
[2018-11-14 10:05] LABS: BASO % 0.3 % (0.0-2.0); EOS # 0.7 K/uL (0.0-0.7); EOS % 6.6 % (0.0-4.0); HEMOGLOBIN 9.2 g/dL (12.0-16.0); LYMPH # 0.5 K/uL (1.0-4.3); LYMPH % 4.9 % (20.0-40.0); MEAN CELL VOLUME 87.3 fl (81.0-99.0); MEAN CORPUSCULAR HGB CONC 33.2 g/dL (33.0-37.0); MEAN PLATELET VOLUME 9.6 fl (7.2-11.7); MONO # 0.7 K/uL (0.0-0.8); MONO % 7.3 % (0.0-10.0); NEUT % 80.9 % (50.0-75.0); NRBC % 0.1 % (0.0-0.0); PLATELET COUNT 137 K/uL (130-400); RBC 3.17 Mil/uL (3.80-5.20); RED CELL DISTRIBUTION WIDTH 16.4 % (11.5-14.5)
[2018-11-14 10:28] LABS: ALBUMIN 3.8 g/dL (3.5-5.0); CALCIUM 8.7 mg/dL (8.4-10.2)
[2018-11-14 11:02] LABS: BASOPHIL 2 % (0-2); EOSINOPHIL 6 % (0-7); LYMPHOCYTE 4 % (20-50); MONOCYTE 5 % (0-10); NEUTROPHIL 83 % (42-75); PLATELET ESTIMATE SLIGHTLY DECREASED (NORMAL); TOTAL CELLS COUNTED 100
[2018-11-14 11:03] LABS: ANISOCYTOSIS SLIGHT; OVALOCYTES MODERATE
[2018-11-14 11:04] LABS: HYPOCHROMIC SLIGHT; LARGE PLATELETS PRESENT
--- NOTE | 2018-11-14 15:32 | CP.PCM.CON ---
History of Present Illness - History of Present Illness History of Present Illness: Nephrology Consultation Note: Assessment: critical fluid overload with exacerbation CHF with pleural effusion acute hypoic respi failure recent PC sepsis Diabetic chronic Kidney Disease (E11.22) Hypertensive Chronic Kidney Disease (I12.0) End stage renal disease (N18.6) dependence on hemodialysis (Z99.2) MWF) via PC Anemia (D64.9), Hyperphosphatemia (E83.39), Secondary Hyperparathyroidism (E21.1), HTN (I12.0) Plan: Will plan for HD today then MWF as ordered. Continue with Nephrovite 1 tab/day. PRBC as needed for anemia. on BREANA with dialysis as last Hb <10 Continue with phos binders, last phos level 5.2 BP control with meds as ordered. Patient on RAAS windy Glycemic control, Dialysis consistent diet Further work up/management as per primary team Dose meds/antibiotics for ESRD status. Avoid fleets enema/magnesium based laxatives. Thanks for allowing me to participate in care of your patient. Will follow patient with you. Please call if any Qs. Dr Lanre Sherman Office: [phone] Chief Complaint; SOB and low oxygen HPI: Pt is a 58 F with hx of ESRD on hemodialysis (MWF) via PC, last dialysis fri, chronic anemia, hyperphosphatemia, secondary hyperparathyroidism, Diabetes Mellitus, hypertension CHF, left pleural effusion s/p drainage and pleurax catheter cad s/p stent presented with complaints of SOB and low xoygen. she was admitted recently with PC sepsis which required PC removal and new pc, vanco as abx. Renal consult requested for ESRD management. ROS: Cardiovascular: No chest pain. Pulmonary: c/o shortness of breath Gastrointestinal: denies abdominal pain No nausea. No vomiting. Genitourinary: No pain while urinating. Denies blood in urine. All other negative except as mentioned in HPI Physical Examination: General Appearance: Comfortable, in no acute respiratory distress, co-operative . Vitals reviewed and noted as below Head; Atraumatic, normocephalic ENT: no ulcers no thrush. Tongue is midline. Oropharynx: no rash or ulcers. EYES: Pupils are equal, round and reactive to light accommodation. Eye muscles and extraocular movement intact. Sclera is anicteric. Neck; supple no lymphadenopathy, no thyromegaly or bruit Lungs: Normal respiratory rate/effort. Breath sounds bilateral reduced at bases with crackles Heart: Normal rate. s1s2 normal. No rub or gallop. Extremities: no edema. No varicose veins Neurological: Patient is alert, awake and oriented to person, place and time. No focal deficit. Strength bilateral appropriate and equal Skin: Warm and dry. Normal turgor. No rash. Palpitation: Normal elasticity for age Abdomen: Abdomen is soft. Bowel sounds +. There is no abdominal tenderness, no guarding/rigidity or organomegaly Psych: normal insight and normal affect/mood MSK: no joint tenderness or swelling. Digits and nails normal, no deformity : kidney or bladder not palpable Access: pc Labs/imaging reviewed. Past medical history, past surgical history, family history, social history, allergy reviewed and noted as below Family Hx: no hx of CKD. Non contributory Past Patient History - Infectious Disease Hx of Infectious Diseases: None - Past Medical History & Family History Past Medical History?: Yes - Past Social History Smoking Status: Former Smoker - CARDIAC Hx Congestive Heart Failure: Yes Hx Hypercholesterolemia: Yes Hx Hypertension: Yes - PULMONARY Hx Chronic Obstructive Pulmonary Disease (COPD): Yes Hx Pneumonia: Yes - NEUROLOGICAL Hx Neurological Disorder: No - HEENT Hx HEENT Problems: No - RENAL Hx Chronic Kidney Disease: Yes - ENDOCRINE/METABOLIC Hx Hypothyroidism: Yes - HEMATOLOGICAL/ONCOLOGICAL Hx Blood Disorders: No Hx AIDS: No Hx Human Immunodeficiency Virus (HIV): No - INTEGUMENTARY Hx Dermatological Problems: No - MUSCULOSKELETAL/RHEUMATOLOGICAL Hx Arthritis: Yes Hx Falls: No - GASTROINTESTINAL Hx Gastrointestinal Disorders: No - GENITOURINARY/GYNECOLOGICAL Hx Uterine Cancer: No - PSYCHIATRIC Hx Psychophysiologic Disorder: No Hx Substance Use: No - SURGICAL HISTORY Hx Hysterectomy: No - ANESTHESIA Hx Anesthesia: Yes Hx Anesthesia Reactions: No Hx Malignant Hyperthermia: No Meds Allergies/Adverse Reactions: Allergies Allergy/AdvReac Type Severity Reaction Status Date / Time shrimp Allergy Severe ANAPHYLAXIS Verified 10/21/18 19:46 - Medications Medications: Current Medications Acetaminophen (Tylenol 325mg Tab) 650 mg PO Q4 PRN PRN Reason: Temp >100 Acetaminophen (Tylenol 325mg Tab) 650 mg PO Q4 PRN PRN Reason: Pain, Mild (1-3) Amlodipine Besylate (Norvasc) 10 mg PO DAILY [facility] Atorvastatin Calcium (Lipitor) 40 mg PO HS [facility] Carvedilol (Coreg) 25 mg PO Q12 [facility] Docusate Sodium (Colace) 100 mg PO BID [facility] Epoetin Steve (Procrit) 10,000 unit SC MWF [facility] Hydralazine HCl (Apresoline) 50 mg PO .BID@MOWEFR [facility] Hydralazine HCl (Apresoline) 50 mg PO .TID@[facility] Piperacillin Sod/Tazobactam (Sod 2.25 gm/ Sodium Chloride) 100 mls @ 100 mls/hr IVPB Q8 [facility]; Protocol Vancomycin HCl 1 gm/ Sodium (Chloride) 250 mls @ 166.667 mls/hr IVPB MWF [facility] Levothyroxine Sodium (Synthroid) 50 mcg PO DAILY@0630 [facility] Lorazepam (Ativan) 0.5 mg PO DAILY PRN PRN Reason: Anxiety Losartan Potassium (Cozaar) 100 mg PO DAILY [facility] Pantoprazole Sodium (Protonix Ec Tab) 40 mg PO DAILY [facility] Sennosides (Senokot Tab) 8.6 mg PO HS [facility] Sevelamer Carbonate (Renvela) 800 mg PO TID [facility] Sitagliptin Phosphate (Januvia) 25 mg PO DAILY [facility] Ticagrelor (Brilinta) 90 mg PO Q12 [facility] Vitamin A (Vitamin A & D Oint Ud Foilpak) 1 ea TOP DAILY [facility] Vitamin B Complex/Vit C/Folic Acid (Nephro-Buster) 1 tab PO DAILY [facility] Results - Vital Signs Recent Vital Signs: Last Vital Signs Temp 98.7 F 11/14/18 08:51 Pulse 72 11/14/18 12:49 Resp 20 11/14/18 12:49 BP 167/71 H 11/14/18 12:20 Pulse Ox 99 11/14/18 12:20 - Labs Result Diagrams: 11/14/18 09:40 11/14/18 09:40 Labs: Laboratory Results - last 24 hr 11/14/18 11/14/18 11/14/18 09:36 09:40 09:40 WBC 10.0 RBC 3.17 L Hgb 9.2 L Hct 27.6 L MCV 87.3 D MCH 29.0 MCHC 33.2 RDW 16.4 H Plt Count 137 MPV 9.6 Neut % (Auto) 80.9 H Lymph % (Auto) 4.9 L [place] % (Auto) 7.3 Eos % (Auto) 6.6 H Baso % (Auto) 0.3 Neut # (Auto) 8.0 H Lymph # (Auto) 0.5 L [place] # (Auto) 0.7 Eos # (Auto) 0.7 Baso # (Auto) 0.0 Neutrophils % (Manual) 83 H Lymphocytes % (Manual) 4 L Monocytes % (Manual) 5 Eosinophils % (Manual) 6 Basophils % (Manual) 2 Platelet Estimate Slightly decreased L Large Platelets Present Hypochromasia (manual) Slight Anisocytosis (manual) Slight Macrocytosis (manual) Slight Ovalocytes Moderate pCO2 49 H pO2 36 L* HCO3 29.0 H ABG pH 7.42 ABG Total CO2 33.3 H ABG O2 Saturation 74.7 L ABG Base Excess 6.1 H Praveen Test Yes ABG Potassium 3.5 L A-a O2 Difference 152.0 Sodium 134.0 135 Chloride 97.0 L 95 L Glucose 134 H Lactate 0.7 FiO2 35.0 Crit Value Called To carmen Iniguez Crit Value Called By 22 Crit Value Read Back Y Blood Gas Notified Time 944 Potassium 4.1 Carbon Dioxide 30 Anion Gap 14 BUN 42 H Creatinine 3.5 H Est GFR ( Amer) 16 Est GFR (Non-Af Amer) 13 POC Glucose (mg/dL) Random Glucose 134 H Calcium 8.7 Total Bilirubin 1.2 AST 65 H D ALT 17 Alkaline Phosphatase 99 Total Protein 7.8 Albumin 3.8 Globulin 4.0 H Albumin/Globulin Ratio 1.0 Arterial Blood Potassium 3.5 L 11/14/18 09:44 WBC RBC Hgb Hct MCV MCH MCHC RDW Plt Count MPV Neut % (Auto) Lymph % (Auto) [place] % (Auto) Eos % (Auto) Baso % (Auto) Neut # (Auto) Lymph # (Auto) [place] # (Auto) Eos # (Auto) Baso # (Auto) Neutrophils % (Manual) Lymphocytes % (Manual) Monocytes % (Manual) Eosinophils % (Manual) Basophils % (Manual) Platelet Estimate Large Platelets Hypochromasia (manual) Anisocytosis (manual) Macrocytosis (manual) Ovalocytes pCO2 pO2 HCO3 ABG pH ABG Total CO2 ABG O2 Saturation ABG Base Excess Praveen Test ABG Potassium A-a O2 Difference Sodium Chloride Glucose Lactate FiO2 Crit Value Called To Crit Value Called By Crit Value Read Back Blood Gas Notified Time Potassium Carbon Dioxide Anion Gap BUN Creatinine Est GFR ( Amer) Est GFR (Non-Af Amer) POC Glucose (mg/dL) 159 H Random Glucose Calcium Total Bilirubin AST ALT Alkaline Phosphatase Total Protein Albumin Globulin Albumin/Globulin Ratio Arterial Blood Potassium
--- NOTE | 2018-11-14 21:20 | CARD ---
APPROVED REPORT Date of service: 11/14/2018 EKG Measurement Heart [id number] [id number] <Conclusion> Sinus rhythm with an isolated PAC Possible Anterior infarct, age undetermined Abnormal ECG
[2018-11-15 05:29] LABS: HEMOGLOBIN 8.7 g/dL (12.0-16.0); MEAN CELL VOLUME 87.9 fl (81.0-99.0); MEAN CORPUSCULAR HEMOGLOBIN 29.2 pg (27.0-31.0); MEAN CORPUSCULAR HGB CONC 33.3 g/dL (33.0-37.0); RBC 2.99 Mil/uL (3.80-5.20); RED CELL DISTRIBUTION WIDTH 16.4 % (11.5-14.5); WHITE BLOOD COUNT 8.3 K/uL (4.8-10.8)
[2018-11-15 05:41] LABS: ALB/GLOB RATIO 0.9 (1.0-2.1); ALBUMIN 3.4 g/dL (3.5-5.0); CALCIUM 8.6 mg/dL (8.4-10.2)
[2018-11-15] MEDS: Levothyroxine 50 MCG TAB PO SCH (06:35)
[2018-11-15] MEDS: Pantoprazole 40 mg EC Tab PO SCH (09:09)
[2018-11-15] MEDS: Multivitamin Vitamin B Complex (Nephro-Vite) Tab PO SCH (09:09)
--- NOTE | 2018-11-15 10:26 | CP.PCM.PN ---
Subjective - Date & Time of Evaluation Date of Evaluation: 11/15/18 Time of Evaluation: 10:26 - Subjective Subjective: Patient complaining of less shortness of breath Sitting up in bed with 2 pillows Vital signs noted stable Objective - Vital Signs/Intake and Output Vital Signs (last 24 hours): Temp Pulse Resp BP Pulse Ox 97.6 F 67 18 179/68 H 94 L 11/15/18 07:59 11/15/18 07:59 11/15/18 07:59 11/15/18 07:59 11/15/18 07:59 - Medications Medications: Current Medications Acetaminophen (Tylenol 325mg Tab) 650 mg PO Q4 PRN PRN Reason: Temp >100 Acetaminophen (Tylenol 325mg Tab) 650 mg PO Q4 PRN PRN Reason: Pain, Mild (1-3) Last Admin: 11/14/18 21:59 Dose: 650 mg Amlodipine Besylate (Norvasc) 10 mg PO DAILY [facility] Last Admin: 11/15/18 09:09 Dose: 10 mg Atorvastatin Calcium (Lipitor) 40 mg PO HS [facility] Last Admin: 11/14/18 21:53 Dose: 40 mg Carvedilol (Coreg) 25 mg PO Q12 [facility] Last Admin: 11/15/18 09:08 Dose: 25 mg Docusate Sodium (Colace) 100 mg PO BID [facility] Last Admin: 11/15/18 09:06 Dose: 100 mg Epoetin Steve (Procrit) 10,000 unit SC [facility] [place] Heparin Sodium (Porcine) (Posiflush Heparin) 1,000 units IVF [facility] [place] Hydralazine HCl (Apresoline) [facility] Hydralazine HCl (Apresoline) 50 mg PO .TID@[facility] Piperacillin Sod/Tazobactam (Sod 2.25 gm/ Sodium Chloride) 100 mls @ 100 mls/hr IVPB Q8 [facility]; Protocol Last Admin: 11/15/18 09:11 Dose: 100 mls/hr Vancomycin HCl 1 gm/ Sodium (Chloride) 250 mls @ 166.667 mls/hr IVPB [facility] [place] Last Admin: 11/15/18 09:10 Dose: 166.667 mls/hr Levothyroxine Sodium (Synthroid) 50 mcg PO DAILY@0630 [facility] Last Admin: 11/15/18 06:35 Dose: 50 mcg Lorazepam (Ativan) 0.5 mg PO DAILY PRN PRN Reason: Anxiety Losartan Potassium (Cozaar) 100 mg PO DAILY [facility] Last Admin: 11/15/18 09:08 Dose: 100 mg Pantoprazole Sodium (Protonix Ec Tab) 40 mg PO DAILY [facility] Last Admin: 11/15/18 09:09 Dose: 40 mg Sennosides (Senokot Tab) 8.6 mg PO HS [facility] Last Admin: 11/14/18 21:53 Dose: 8.6 mg Sevelamer Carbonate (Renvela) 800 mg PO TID [facility] Last Admin: 11/15/18 09:10 Dose: 800 mg Sitagliptin Phosphate (Januvia) 25 mg PO DAILY [facility] Last Admin: 11/15/18 09:08 Dose: 25 mg Ticagrelor (Brilinta) 90 mg PO Q12 [facility] Last Admin: 11/15/18 09:06 Dose: 90 mg Vitamin A (Vitamin A & D Oint Ud Foilpak) 1 ea TOP DAILY [facility] Vitamin B Complex/Vit C/Folic Acid (Nephro-Buster) 1 tab PO DAILY [facility] Last Admin: 11/15/18 09:09 Dose: 1 tab - Labs Labs: 11/15/18 04:25 11/15/18 04:25 - Constitutional Appears: No Acute Distress - Eye Exam Eye Exam: Conjunctival injection - ENT Exam ENT Exam: Mucous Membranes Moist - Neck Exam Neck Exam: absent: Lymphadenopathy - Respiratory Exam Respiratory Exam: Rales, Rhonchi. absent: Chest Wall Tenderness - Cardiovascular Exam Cardiovascular Exam: JVD. absent: Gallop, Rubs - GI/Abdominal Exam GI & Abdominal Exam: Soft, Normal Bowel Sounds - Extremities Exam Extremities Exam: absent: Calf Tenderness - Back Exam Back Exam: absent: CVA tenderness (L), CVA tenderness (R) - Neurological Exam Neurological Exam: Awake - Psychiatric Exam Psychiatric exam: Normal Affect - Skin Skin Exam: absent: Cyanosis Assessment and Plan - Assessment and Plan (Free Text) Assessment: Assessment: critical fluid overload with exacerbation CHF with pleural effusion acute hypoic respi failure recent PC sepsis Diabetic chronic Kidney Disease (E11.22) Hypertensive Chronic Kidney Disease (I12.0) End stage renal disease (N18.6) dependence on hemodialysis (Z99.2) MWF) via PC Anemia (D64.9), Hyperphosphatemia (E83.39), Secondary Hyperparathyroidism (E21.1), HTN (I12.0) Plan: Will plan for HD today then MWF as ordered. Continue with Nephrovite 1 tab/day. PRBC as needed for anemia. on BREANA with dialysis as last Hb <10 Continue with phos binders, last phos level 5.2 BP control with meds as ordered. Patient on RAAS windy Glycemic control, Dialysis consistent diet Further work up/management as per primary team Dose meds/antibiotics for ESRD status. Avoid fleets enema/magnesium based laxat herman.
--- NOTE | 2018-11-15 10:42 | CP.PCM.HP ---
History of Present Illness - History of Present Illness History of Present Illness: 57 y/o F with hx of ESRD on HD, HL, CAD s/p stents recently admitted due to bacteremia from dialysis catheter and subsequent malfunction of new catheter, now presents from longterm due to dyspnea. Patient was seen and evaluated in ED, noted to have bilateral pleural effusions with hypoxemia. Patient was put on non-rebreather and given lasix. Patient states she feels a bit better now though continues with dyspnea without non-rebreather. Denies chest pain, sob, abdominal pain, headaches, fever, chills. Meds: as per chart Allergies: as per chart Fam hx: non contributory Present on Admission - Present on Admission Any Indicators Present on Admission: No Review of Systems - Review of Systems All systems: reviewed and no additional remarkable complaints except (mentioned above) Past Patient History - Infectious Disease Hx of Infectious Diseases: None - Past Medical History & Family History Past Medical History?: Yes - Past Social History Smoking Status: Former Smoker - CARDIAC Hx Congestive Heart Failure: Yes Hx Hypercholesterolemia: Yes Hx Hypertension: Yes - PULMONARY Hx Chronic Obstructive Pulmonary Disease (COPD): Yes Hx Pneumonia: Yes - NEUROLOGICAL Hx Neurological Disorder: No - HEENT Hx HEENT Problems: No - RENAL Hx Chronic Kidney Disease: Yes - ENDOCRINE/METABOLIC Hx Hypothyroidism: Yes - HEMATOLOGICAL/ONCOLOGICAL Hx Blood Disorders: No Hx AIDS: No Hx Human Immunodeficiency Virus (HIV): No - INTEGUMENTARY Hx Dermatological Problems: No - MUSCULOSKELETAL/RHEUMATOLOGICAL Hx Arthritis: Yes Hx Falls: No - GASTROINTESTINAL Hx Gastrointestinal Disorders: No - GENITOURINARY/GYNECOLOGICAL Hx Uterine Cancer: No - PSYCHIATRIC Hx Psychophysiologic Disorder: No Hx Substance Use: No - SURGICAL HISTORY Hx Hysterectomy: No - ANESTHESIA Hx Anesthesia: Yes Hx Anesthesia Reactions: No Hx Malignant Hyperthermia: No Meds Allergies/Adverse Reactions: Allergies Allergy/AdvReac Type Severity Reaction Status Date / Time shrimp Allergy Severe ANAPHYLAXIS Verified 10/21/18 19:46 Physical Exam - Constitutional Appears: Non-toxic, Chronically Ill - Head Exam Head Exam: NORMAL INSPECTION - Eye Exam Eye Exam: Normal appearance - Respiratory Exam Respiratory Exam: Decreased Breath Sounds, NORMAL BREATHING PATTERN - Cardiovascular Exam Cardiovascular Exam: +S1, +S2 - GI/Abdominal Exam GI & Abdominal Exam: Soft - Neurological Exam Neurological exam: Alert, Oriented x3 - Psychiatric Exam Psychiatric exam: Normal Affect, Normal Mood - Skin Skin Exam: Normal Color, Warm Results - Vital Signs Recent Vital Signs: Last Vital Signs Temp 97.6 F 11/15/18 07:59 Pulse 67 11/15/18 07:59 Resp 18 11/15/18 07:59 BP 179/68 H 11/15/18 07:59 Pulse Ox 94 L 11/15/18 07:59 - Labs Result Diagrams: 11/15/18 04:25 11/15/18 04:25 Labs: Laboratory Results - last 24 hr 11/14/18 11/14/18 11/15/18 09:40 09:44 04:25 WBC 8.3 RBC 2.99 L Hgb 8.7 L Hct 26.3 L MCV 87.9 MCH 29.2 MCHC 33.3 RDW 16.4 H Plt Count 139 Neutrophils % (Manual) 83 H Lymphocytes % (Manual) 4 L Monocytes % (Manual) 5 Eosinophils % (Manual) 6 Basophils % (Manual) 2 Platelet Estimate Slightly decreased L Large Platelets Present Hypochromasia (manual) Slight Anisocytosis (manual) Slight Macrocytosis (manual) Slight Ovalocytes Moderate Sodium Potassium Chloride Carbon Dioxide Anion Gap BUN Creatinine Est GFR ( Amer) Est GFR (Non-Af Amer) POC Glucose (mg/dL) 159 H Random Glucose Calcium Phosphorus Magnesium Total Bilirubin AST ALT Alkaline Phosphatase Total Protein Albumin Globulin Albumin/Globulin Ratio 11/15/18 04:25 WBC RBC Hgb Hct MCV MCH MCHC RDW Plt Count Neutrophils % (Manual) Lymphocytes % (Manual) Monocytes % (Manual) Eosinophils % (Manual) Basophils % (Manual) Platelet Estimate Large Platelets Hypochromasia (manual) Anisocytosis (manual) Macrocytosis (manual) Ovalocytes Sodium 137 Potassium 3.5 L Chloride 101 Carbon Dioxide 28 Anion Gap 12 BUN 17 Creatinine 2.5 H Est GFR ( Amer) 24 Est GFR (Non-Af Amer) 20 POC Glucose (mg/dL) Random Glucose 143 H Calcium 8.6 Phosphorus 3.4 Magnesium 2.1 Total Bilirubin 0.8 AST 48 H D ALT 18 Alkaline Phosphatase 82 Total Protein 7.1 Albumin 3.4 L Globulin 3.8 Albumin/Globulin Ratio 0.9 L Assessment & Plan (1) Pleural effusion Status: Acute Priority: High (2) Hypoxemia Status: Acute - Assessment and Plan (Free Text) Plan: available diagnostic data reviewed meds reconciled monitor labs monitor vitals monitor o2 saturation lasix nephro consult pulmonary consult procalcitonin rest of plan as ordered
[2018-11-15] MEDS: Vitamins A & D Oint UD Foilpak TOP SCH (16:29)
[2018-11-15] MEDS: EPOETIN ALFA 10,000 UNIT/ML ML SC SCH (18:34)
--- NOTE | 2018-11-15 20:41 | CON ---
DATE: 11/15/2018 HISTORY OF PRESENT ILLNESS: Ms. Francisco is a 58-year-old female who was referred for pulmonary evaluation because of shortness of breath and bilateral pleural effusions on chest x-ray. She was transferred from the intermediate because of hypoxemia. O2 saturation was in the 70s and she had shortness of breath and chest x-ray in the emergency room showed worsening bilateral pleural effusion. The patient has a history of end-stage renal disease on hemodialysis. She also has history of congestive heart failure, coronary artery disease, chronic obstructive pulmonary disease, diabetes, hypertension, hyperlipidemia, hypothyroidism, recurrent pneumonia and indicates that she was recently dialyzed with just 24 hours prior to presenting to the hospital. She has a PleurX catheter in the left chest wall area. FAMILY HISTORY: Non-revealing. SOCIAL HISTORY: She denies smoking, alcohol use and is presently in a intermediate. PHYSICAL EXAMINATION: GENERAL: The patient is alert and oriented and appears to be less distressed from shortness of breath since receiving dialysis. VITAL SIGNS: On admission, blood pressure 160/67, pulse 73, respiratory rate 18, O2 saturation 67% and temperature 98.7 degrees Fahrenheit. HEENT: Mouth shows fair hygiene. NECK: JVP flat. LUNGS: Poor aeration bilaterally with dullness at both bases. There is what appears to be a PleurX catheter in the left chest wall area. HEART: S1, S2. BREASTS: Normal. ABDOMEN: Soft, nontender organomegaly. EXTREMITIES: Shows no edema or cyanosis. CENTRAL NERVOUS SYSTEM: Grossly intact. LABORATORY DATA: Remarkable for WBC of 10.0, hemoglobin 9.2, and platelet count 137,000. Sodium 135, potassium 4.1, BUN 42, creatinine 3.5, serum glucose 134. Chest x-ray shows bilateral pleural effusions was from last chest x-ray with increased pulmonary congestion, left greater than right. There is left chest tube in place which is stable, probably a PleurX catheter. IMPRESSION: Shortness of breath due to pleural effusions which is probably secondary to end-stage renal disease, history of congestive heart failure; presently fluid overloaded, history of coronary artery disease, history of chronic obstructive pulmonary disease, history of hypothyroidism, arthritis and chronic obstructive pulmonary disease. SUGGESTIONS: Continue hemodialysis. We will continue therapy as ordered with O2 supplementation. No need for thoracentesis at present. Pleural effusion and shortness of breath should improve with the hemodialysis. We will continue to follow with you. Further therapy will depend on findings. Steffen Grajeda MD
[2018-11-16] MEDS: Levothyroxine 50 MCG TAB PO SCH (06:05)
[2018-11-16] MEDS: Pantoprazole 40 mg EC Tab PO SCH (08:56)
[2018-11-16] MEDS: Multivitamin Vitamin B Complex (Nephro-Vite) Tab PO SCH (08:58)
[2018-11-16] MEDS: Vitamins A & D Oint UD Foilpak TOP SCH (08:59)
--- NOTE | 2018-11-16 09:02 | CP.PCM.PN ---
Subjective - Date & Time of Evaluation Date of Evaluation: 11/16/18 Time of Evaluation: 09:04 - Subjective Subjective: SOB IMPROVED O2 SAT 100% ON PRESENT O2 SUPPLEMENT Objective - Vital Signs/Intake and Output Vital Signs (last 24 hours): Temp Pulse Resp BP Pulse Ox 97.8 F 92 H 18 155/67 H 100 11/16/18 07:57 11/16/18 07:57 11/16/18 07:57 11/16/18 07:57 11/16/18 07:57 - Medications Medications: Current Medications Acetaminophen (Tylenol 325mg Tab) 650 mg PO Q4 PRN PRN Reason: Temp >100 Last Admin: 11/15/18 21:21 Dose: 650 mg Acetaminophen (Tylenol 325mg Tab) 650 mg PO Q4 PRN PRN Reason: Pain, Mild (1-3) Last Admin: 11/14/18 21:59 Dose: 650 mg Amlodipine Besylate (Norvasc) 10 mg PO DAILY [facility] Last Admin: 11/15/18 09:09 Dose: 10 mg Atorvastatin Calcium (Lipitor) 40 mg PO HS [facility] Last Admin: 11/15/18 21:23 Dose: 40 mg Carvedilol (Coreg) 25 mg PO Q12 [facility] Last Admin: 11/15/18 21:23 Dose: 25 mg Docusate Sodium (Colace) 100 mg PO BID [facility] Last Admin: 11/15/18 16:29 Dose: 100 mg Epoetin Steve (Procrit) 10,000 unit SC F [facility] Last Admin: 11/15/18 18:34 Dose: 10,000 unit Heparin Sodium (Porcine) (Posiflush Heparin) 1,000 units IVF [facility] [place] Last Admin: 11/15/18 18:35 Dose: 1,000 units Hydralazine HCl (Apresoline) 50 mg PO MWF@0900,1700 [facility] Last Admin: 11/15/18 19:56 Dose: 50 mg Hydralazine HCl (Apresoline) 50 mg PO TTS@0900,1300,1700 [facility] Hydralazine HCl (Apresoline) 50 mg PO SUN@0900,1300,1700 [facility] Piperacillin Sod/Tazobactam (Sod 2.25 gm/ Sodium Chloride) 100 mls @ 100 mls/hr IVPB Q8 [facility]; Protocol Last Admin: 11/15/18 16:31 Dose: Not Given Vancomycin HCl 1 gm/ Sodium (Chloride) 250 mls @ 166.667 mls/hr IVPB MWF [facility] Last Admin: 11/15/18 09:10 Dose: 166.667 mls/hr Levothyroxine Sodium (Synthroid) 50 mcg PO DAILY@0630 [facility] Last Admin: 11/16/18 06:05 Dose: 50 mcg Lorazepam (Ativan) 0.5 mg PO DAILY PRN PRN Reason: Anxiety Last Admin: 11/15/18 21:27 Dose: 0.5 mg Losartan Potassium (Cozaar) 100 mg PO DAILY [facility] Last Admin: 11/15/18 09:08 Dose: 100 mg Pantoprazole Sodium (Protonix Ec Tab) 40 mg PO DAILY [facility] Last Admin: 11/15/18 09:09 Dose: 40 mg Sennosides (Senokot Tab) 8.6 mg PO HS [facility] Last Admin: 11/15/18 21:29 Dose: Not Given Sevelamer Carbonate (Renvela) 800 mg PO TID [facility] Last Admin: 11/15/18 16:29 Dose: 800 mg Sitagliptin Phosphate (Januvia) 25 mg PO DAILY [facility] Last Admin: 11/15/18 09:08 Dose: 25 mg Ticagrelor (Brilinta) 90 mg PO Q12 [facility] Last Admin: 11/15/18 21:23 Dose: 90 mg Vitamin A (Vitamin A & D Oint Ud Foilpak) 1 ea TOP DAILY [facility] Last Admin: 11/15/18 16:29 Dose: Not Given Vitamin B Complex/Vit C/Folic Acid (Nephro-Buster) 1 tab PO DAILY [facility] Last Admin: 11/15/18 09:09 Dose: 1 tab - Labs Labs: 11/15/18 04:25 11/15/18 04:25 - Constitutional Appears: No Acute Distress - Head Exam Head Exam: ATRAUMATIC, NORMAL INSPECTION, NORMOCEPHALIC - Eye Exam Eye Exam: EOMI, Normal appearance, PERRL Pupil Exam: NORMAL ACCOMODATION, PERRL - ENT Exam ENT Exam: Mucous Membranes Moist, Normal Exam - Neck Exam Neck Exam: Full ROM, Normal Inspection. absent: Lymphadenopathy - Respiratory Exam Respiratory Exam: Decreased Breath Sounds, Prolonged Expiratory Phase, NORMAL B REATHING PATTERN - Cardiovascular Exam Cardiovascular Exam: REGULAR RHYTHM, +S1, +S2. absent: Murmur - GI/Abdominal Exam GI & Abdominal Exam: Soft, Normal Bowel Sounds. absent: Tenderness - Rectal Exam Rectal Exam: NORMAL INSPECTION - Extremities Exam Extremities Exam: Full ROM, Normal Capillary Refill, Normal Inspection. absent: Joint Swelling, Pedal Edema - Back Exam Back Exam: NORMAL INSPECTION - Neurological Exam Neurological Exam: Alert, Awake, CN II-XII Intact, Normal Gait, Oriented x3 - Psychiatric Exam Psychiatric exam: Normal Affect, Normal Mood - Skin Skin Exam: Dry, Intact, Normal Color, Warm Assessment and Plan - Assessment and Plan (Free Text) Assessment: PLEURAL EFFUSIONS DUE TO ESRD Plan: DECREASE FIO2 TO 50% REPEAT CXR IF PLEURAL EFFUSION HAS IMPROVED;CONSIDER D/C TO [facility] IN AM POST DIALYSIS
--- NOTE | 2018-11-16 11:14 | RAD ---
Date of service: 11/16/2018 HISTORY: PLEURAL EFFUSION COMPARISON: 11/14/2018 TECHNIQUE: Chest PA and lateral views Two views FINDINGS: LUNGS: No active pulmonary disease. PLEURA: Small bilateral pleural effusion, left greater than right. Decreased mildly compared to prior examination. No pneumothorax. CARDIOVASCULAR: No aortic atherosclerotic calcification present. Mild cardiomegaly. Right central venous dialysis catheter unchanged. Left left chest tube unchanged in position. No pulmonary vascular congestion. OSSEOUS STRUCTURES: No significant abnormalities. VISUALIZED UPPER ABDOMEN: Normal. OTHER FINDINGS: None. IMPRESSION: Slight decrease in bilateral pleural effusion. Otherwise no interval change.
--- NOTE | 2018-11-16 11:29 | CP.PCM.PCO ---
Assessment/Plan - Assessment and Plan (Free Text) Assessment: Patient seen and examined this morning during rounds On [place], saturation improved today. VSS. Denies chest pain, shortness of breath nausea or vomiting. S/p dialysis yesterday with fluid removal. For CXR today, reevaluate pleural effusions on previous xray Anticipated for discharge tomorrow after HD Patient will also need IV Vancomycin for 6 more doses (MWF) with HD for bacteremia initiated previous hospital admission. Will order PT eval for today and cont to monitor.
--- NOTE | 2018-11-16 14:15 | CP.PCM.PN ---
Subjective - Date & Time of Evaluation Date of Evaluation: 11/16/18 Time of Evaluation: 14:15 - Subjective Subjective: Patient awake and conscious sitting up feeling much better Vital signs noted to be stable Objective - Vital Signs/Intake and Output Vital Signs (last 24 hours): Temp Pulse Resp BP Pulse Ox 97.8 F 77 18 171/70 H 100 11/16/18 11:43 11/16/18 11:43 11/16/18 11:43 11/16/18 11:43 11/16/18 11:43 - Medications Medications: Current Medications Acetaminophen (Tylenol 325mg Tab) 650 mg PO Q4 PRN PRN Reason: Temp >100 Last Admin: 11/15/18 21:21 Dose: 650 mg Acetaminophen (Tylenol 325mg Tab) 650 mg PO Q4 PRN PRN Reason: Pain, Mild (1-3) Last Admin: 11/14/18 21:59 Dose: 650 mg Amlodipine Besylate (Norvasc) 10 mg PO DAILY [facility] Last Admin: 11/16/18 08:59 Dose: 10 mg Atorvastatin Calcium (Lipitor) 40 mg PO HS [facility] Last Admin: 11/15/18 21:23 Dose: 40 mg Carvedilol (Coreg) 25 mg PO Q12 [facility] Last Admin: 11/16/18 08:57 Dose: 25 mg Docusate Sodium (Colace) 100 mg PO BID [facility] Last Admin: 11/16/18 08:57 Dose: Not Given Epoetin Steve (Procrit) 10,000 unit SC [facility] Last Admin: 11/15/18 18:34 Dose: 10,000 unit Heparin Sodium (Porcine) (Posiflush Heparin) 1,000 units IVF [facility] [place] Last Admin: 11/15/18 18:35 Dose: 1,000 units Hydralazine HCl (Apresoline) 50 mg PO MWF@0900,1700 [facility] Last Admin: 11/15/18 19:56 Dose: 50 mg Hydralazine HCl (Apresoline) 50 mg PO TTS@0900,1300,1700 [facility] Last Admin: 11/16/18 13:26 Dose: 50 mg Hydralazine HCl (Apresoline) 50 mg PO SUN@0900,1300,1700 [facility] Piperacillin Sod/Tazobactam (Sod 2.25 gm/ Sodium Chloride) 100 mls @ 100 mls/hr IVPB Q8 [facility]; Protocol Last Admin: 11/16/18 09:00 Dose: 100 mls/hr Vancomycin HCl 1 gm/ Sodium (Chloride) 250 mls @ 166.667 mls/hr IVPB MWF [facility] Last Admin: 11/15/18 09:10 Dose: 166.667 mls/hr Levothyroxine Sodium (Synthroid) 50 mcg PO DAILY@0630 [facility] Last Admin: 11/16/18 06:05 Dose: 50 mcg Lorazepam (Ativan) 0.5 mg PO DAILY PRN PRN Reason: Anxiety Last Admin: 11/15/18 21:27 Dose: 0.5 mg Losartan Potassium (Cozaar) 100 mg PO DAILY [facility] Last Admin: 11/16/18 08:58 Dose: 100 mg Pantoprazole Sodium (Protonix Ec Tab) 40 mg PO DAILY [facility] Last Admin: 11/16/18 08:56 Dose: 40 mg Sennosides (Senokot Tab) 8.6 mg PO HS [facility] Last Admin: 11/15/18 21:29 Dose: Not Given Sevelamer Carbonate (Renvela) 800 mg PO TID [facility] Last Admin: 11/16/18 13:27 Dose: 800 mg Sitagliptin Phosphate (Januvia) 25 mg PO DAILY [facility] Last Admin: 11/16/18 08:56 Dose: 25 mg Ticagrelor (Brilinta) 90 mg PO Q12 [facility] Last Admin: 11/16/18 09:03 Dose: Not Given Vitamin A (Vitamin A & D Oint Ud Foilpak) 1 ea TOP DAILY [facility] Last Admin: 11/16/18 08:59 Dose: 1 ea Vitamin B Complex/Vit C/Folic Acid (Nephro-Buster) 1 tab PO DAILY [facility] Last Admin: 11/16/18 08:58 Dose: 1 tab - Labs Labs: 11/15/18 04:25 11/15/18 04:25 - Constitutional Appears: No Acute Distress - Eye Exam Eye Exam: absent: Conjunctival injection - ENT Exam ENT Exam: Mucous Membranes Moist - Neck Exam Neck Exam: absent: Lymphadenopathy - Respiratory Exam Respiratory Exam: NORMAL BREATHING PATTERN. absent: Chest Wall Tenderness - Cardiovascular Exam Cardiovascular Exam: absent: Gallop, JVD, Rubs - GI/Abdominal Exam GI & Abdominal Exam: Soft, Normal Bowel Sounds - Extremities Exam Extremities Exam: absent: Calf Tenderness - Back Exam Back Exam: absent: CVA tenderness (L), CVA tenderness (R) - Neurological Exam Neurological Exam: Alert - Psychiatric Exam Psychiatric exam: Normal Affect - Skin Skin Exam: absent: Cyanosis Assessment and Plan - Assessment and Plan (Free Text) Assessment: Assessment: critical fluid overload with exacerbation CHF with pleural effusion S/P acute respi failure recent PC sepsis Diabetic chronic Kidney Disease (E11.22) Hypertensive Chronic Kidney Disease (I12.0) End stage renal disease (N18.6) dependence on hemodialysis (Z99.2) MWF) via PC Anemia (D64.9), Hyperphosphatemia (E83.39), Secondary Hyperparathyroidism (E21.1), HTN (I12.0) Plan: Continue hemodialysis Thursday continue to improve Antibiotics as recommended by ID with vancomycin as noted Continue phosphorus binder
[2018-11-16] MEDS ORDERED: Albuterol-Ipratrop 3 mg / 0.5 (3 ml) UD IH PRN (19:41)
--- NOTE | 2018-11-17 02:23 | CP.PCM.PN ---
Subjective - Date & Time of Evaluation Date of Evaluation: 11/16/18 Time of Evaluation: 09:00 - Subjective Subjective: Pt seen and assessed at bedside. Reports improvement in respiratory status, pt for CXR today. Subjective Review of Systems: reviewed and no additional remarkable complaints except intermittent dyspnea. Objective Vital Signs Stable Appears: Non-toxic, No Acute Distress. Head Exam: NORMAL INSPECTION, normocephalic. Eye Exam: Normal appearance, PERRLA, EOMI. Respiratory Exam: Intermittent dyspnea. Left chest pleural catheter in place. D iminished breath sounds at bilateral bases. Cardiovascular Exam: +S1, +S2. RRR. GI & Abdominal Exam: Soft, non-tender, non-distended. Neurological Exam: AAOx3. Psychiatric exam: Calm and cooperative. Skin Exam: Pallor, Warm, Dry. Assessment/Impression/Plan: 1.) Pleural effusion -At this time, there no need for thoracentesis. -Fluid overload/pleural effusions can likely be managed through hemodialysis sessions and possibly pulling extra fluid. -Consults input appreciated. -For CXR today; further eval of pleural effusion. -Continue Vancomycin for bacteremia ongoing since previous admission. -For possible discharge to [facility] tomorrow. Objective - Vital Signs/Intake and Output Vital Signs (last 24 hours): Temp Pulse Resp BP Pulse Ox 97.7 F 68 20 152/57 H 100 11/17/18 00:56 11/17/18 00:56 11/17/18 00:56 11/17/18 00:56 11/17/18 00:56 Intake and Output: 11/16/18 11/17/18 18:59 06:59 Intake Total 900 Output Total 2 Balance 898 - Medications Medications: Current Medications Acetaminophen (Tylenol 325mg Tab) 650 mg PO Q4 PRN PRN Reason: Temp >100 Last Admin: 11/15/18 21:21 Dose: 650 mg Acetaminophen (Tylenol 325mg Tab) 650 mg PO Q4 PRN PRN Reason: Pain, Mild (1-3) Last Admin: 11/14/18 21:59 Dose: 650 mg Albuterol/Ipratropium (Duoneb 3 Mg/0.5 Mg (3 Ml) Ud) 3 ml IH RQ6 PRN PRN Reason: Shortness of Breath Amlodipine Besylate (Norvasc) 10 mg PO DAILY [facility] Last Admin: 11/16/18 08:59 Dose: 10 mg Atorvastatin Calcium (Lipitor) 40 mg PO HS [facility] Last Admin: 11/16/18 21:25 Dose: 40 mg Carvedilol (Coreg) 25 mg PO Q12 [facility] Last Admin: 11/16/18 21:24 Dose: 25 mg Docusate Sodium (Colace) 100 mg PO BID [facility] Last Admin: 11/16/18 17:08 Dose: Not Given Epoetin Steve (Procrit) 10,000 unit SC [facility] Last Admin: 11/15/18 18:34 Dose: 10,000 unit Heparin Sodium (Porcine) (Posiflush Heparin) 1,000 units IVF [facility] Last Admin: 11/15/18 18:35 Dose: 1,000 units Hydralazine HCl (Apresoline) 50 mg PO MWF@0900,1700 [facility] Last Admin: 11/15/18 19:56 Dose: 50 mg Hydralazine HCl (Apresoline) 50 mg PO TTS@0900,1300,1700 [facility] Last Admin: 11/16/18 17:07 Dose: 50 mg Hydralazine HCl (Apresoline) 50 mg PO SUN@0900,1300,1700 [facility] Piperacillin Sod/Tazobactam (Sod 2.25 gm/ Sodium Chloride) 100 mls @ 100 mls/hr IVPB Q8 [facility]; Protocol Last Admin: 11/17/18 00:07 Dose: 100 mls/hr Vancomycin HCl 1 gm/ Sodium (Chloride) 250 mls @ 166.667 mls/hr [facility]PB [facility] Last Admin: 11/15/18 09:10 Dose: 166.667 mls/hr Levothyroxine Sodium (Synthroid) 50 mcg PO DAILY@0630 [facility] Last Admin: 11/16/18 06:05 Dose: 50 mcg Lorazepam (Ativan) 0.5 mg PO DAILY PRN PRN Reason: Anxiety Last Admin: 11/15/18 21:27 Dose: 0.5 mg Losartan Potassium (Cozaar) 100 mg PO DAILY [facility] Last Admin: 11/16/18 08:58 Dose: 100 mg Pantoprazole Sodium (Protonix Ec Tab) 40 mg PO DAILY [facility] Last Admin: 11/16/18 08:56 Dose: 40 mg Sennosides (Senokot Tab) 8.6 mg PO HS [facility] Last Admin: 11/16/18 21:24 Dose: Not Given Sevelamer Carbonate (Renvela) 800 mg PO TID [facility] Last Admin: 11/16/18 17:07 Dose: 800 mg Sitagliptin Phosphate (Januvia) 25 mg PO DAILY [facility] Last Admin: 11/16/18 08:56 Dose: 25 mg Ticagrelor (Brilinta) 90 mg PO Q12 [facility] Last Admin: 11/16/18 21:24 Dose: 90 mg Vitamin A (Vitamin A & D Oint Ud Foilpak) 1 ea TOP DAILY [facility] Last Admin: 11/16/18 08:59 Dose: 1 ea Vitamin B Complex/Vit C/Folic Acid (Nephro-Buster) 1 tab PO DAILY [facility] Last Admin: 11/16/18 08:58 Dose: 1 tab - Labs Labs: 11/15/18 04:25 11/15/18 04:25 Assessment and Plan (1) Chronic kidney disease with end stage renal failure on dialysis Status: Acute (2) Pleural effusion, right Status: Acute
--- NOTE | 2018-11-17 02:26 | CP.PCM.PN ---
Subjective - Date & Time of Evaluation Date of Evaluation: 11/15/18 Time of Evaluation: 09:00 - Subjective Subjective: Pt seen and assessed at bedside. Reports improvement in respiratory status, pt for CXR today. Subjective Review of Systems: reviewed and no additional remarkable complaints except intermittent dyspnea. Objective Vital Signs Stable Appears: Non-toxic, No Acute Distress. Head Exam: NORMAL INSPECTION, normocephalic. Eye Exam: Normal appearance, PERRLA, EOMI. Respiratory Exam: Intermittent dyspnea. Left chest pleural catheter in place. D iminished breath sounds at bilateral bases. Cardiovascular Exam: +S1, +S2. RRR. GI & Abdominal Exam: Soft, non-tender, non-distended. Neurological Exam: AAOx3. Psychiatric exam: Calm and cooperative. Skin Exam: Pallor, Warm, Dry. Assessment/Impression/Plan: 1.) Pleural effusion -At this time, there is no need for thoracentesis. -Fluid overload managed through dialysis/removal of fluid. -Monitor respiratory status. -Consults input appreciated. -Continue Hemodialysis -W-. -Continue current tx. -possible d/c back to [facility]. Objective - Vital Signs/Intake and Output Vital Signs (last 24 hours): Temp Pulse Resp BP Pulse Ox 97.7 F 68 20 152/57 H 100 11/17/18 00:56 11/17/18 00:56 11/17/18 00:56 11/17/18 00:56 11/17/18 00:56 Intake and Output: 11/16/18 11/17/18 18:59 06:59 Intake Total 900 Output Total 2 Balance 898 - Medications Medications: Current Medications Acetaminophen (Tylenol 325mg Tab) 650 mg PO Q4 PRN PRN Reason: Temp >100 Last Admin: 11/15/18 21:21 Dose: 650 mg Acetaminophen (Tylenol 325mg Tab) 650 mg PO Q4 PRN PRN Reason: Pain, Mild (1-3) Last Admin: 11/14/18 21:59 Dose: 650 mg Albuterol/Ipratropium (Duoneb 3 Mg/0.5 Mg (3 Ml) Ud) 3 ml IH RQ6 PRN PRN Reason: Shortness of Breath Amlodipine Besylate (Norvasc) 10 mg PO DAILY [facility] Last Admin: 11/16/18 08:59 Dose: 10 mg Atorvastatin Calcium (Lipitor) 40 mg PO HS [facility] Last Admin: 11/16/18 21:25 Dose: 40 mg Carvedilol (Coreg) 25 mg PO Q12 [facility] Last Admin: 11/16/18 21:24 Dose: 25 mg Docusate Sodium (Colace) 100 mg PO BID [facility] Last Admin: 11/16/18 17:08 Dose: Not Given Epoetin Steve (Procrit) 10,000 unit [place] [facility] Last Admin: 11/15/18 18:34 Dose: 10,000 unit Heparin Sodium (Porcine) (Posiflush Heparin) 1,000 units IVF [facility] Last Admin: 11/15/18 18:35 Dose: 1,000 units Hydralazine HCl (Apresoline) 50 mg PO MWF@0900,1700 [facility] Last Admin: 11/15/18 19:56 Dose: 50 mg Hydralazine HCl (Apresoline) 50 mg PO TTS@0900,1300,1700 [facility] Last Admin: 11/16/18 17:07 Dose: 50 mg Hydralazine HCl (Apresoline) 50 mg PO SUN@0900,1300,1700 [facility] Piperacillin Sod/Tazobactam (Sod 2.25 gm/ Sodium Chloride) 100 mls @ 100 mls/hr IVPB Q8 [facility]; Protocol Last Admin: 11/17/18 00:07 Dose: 100 mls/hr Vancomycin HCl 1 gm/ Sodium (Chloride) 250 mls @ 166.667 mls/hr IVPB MWF [facility] Last Admin: 11/15/18 09:10 Dose: 166.667 mls/hr Levothyroxine Sodium (Synthroid) 50 mcg PO DAILY@0630 [facility] Last Admin: 11/16/18 06:05 Dose: 50 mcg Lorazepam (Ativan) 0.5 mg PO DAILY PRN PRN Reason: Anxiety Last Admin: 11/15/18 21:27 Dose: 0.5 mg Losartan Potassium (Cozaar) 100 mg PO DAILY [facility] Last Admin: 11/16/18 08:58 Dose: 100 mg Pantoprazole Sodium (Protonix Ec Tab) 40 mg PO DAILY [facility] Last Admin: 11/16/18 08:56 Dose: 40 mg Sennosides (Senokot Tab) 8.6 mg PO [facility] Last Admin: 11/16/18 21:24 Dose: Not Given Sevelamer Carbonate (Renvela) 800 mg PO TID [facility] Last Admin: 11/16/18 17:07 Dose: 800 mg Sitagliptin Phosphate (Januvia) 25 mg PO DAILY [facility] Last Admin: 11/16/18 08:56 Dose: 25 mg Ticagrelor (Brilinta) 90 mg PO Q12 [facility] Last Admin: 11/16/18 21:24 Dose: 90 mg Vitamin A (Vitamin A & D Oint Ud Foilpak) 1 ea TOP DAILY [facility] Last Admin: 11/16/18 08:59 Dose: 1 ea Vitamin B Complex/Vit C/Folic Acid (Nephro-Buster) 1 tab PO DAILY [facility] Last Admin: 11/16/18 08:58 Dose: 1 tab - Labs Labs: 11/15/18 04:25 11/15/18 04:25 Assessment and Plan (1) Chronic kidney disease with end stage renal failure on dialysis Status: Acute (2) Pleural effusion, right Status: Acute
[2018-11-17] MEDS: Levothyroxine 50 MCG TAB PO SCH (06:22)
--- NOTE | 2018-11-17 08:44 | CP.PCM.PN ---
Subjective - Date & Time of Evaluation Date of Evaluation: 11/17/18 Time of Evaluation: 08:44 - Subjective Subjective: CLINICALLY IMPROVED SOB IMPROVED LUNGS-BETTER AERATION CXR-IMPROVEMENT OF PLEURAL EFFUSIONS AND PULMONARY CONGESTION NO FURTHER PULMONARY INTERVENTION FOR NOW WILL SIGN OFF CASE AND SEE AGAIN AT YOUR REQUEST SUGGEST SERIAL CXRS IN LONGTERM TO EVALUATE PLEURAL EFFUSIONS MAY NEED TO REMOVE PLEUREX CATHETER IF EFFUSION DOES NOT RE ACCUMULATE Objective - Vital Signs/Intake and Output Vital Signs (last 24 hours): Temp Pulse Resp BP Pulse Ox 98.1 F 79 18 158/65 H 100 11/17/18 07:47 11/17/18 07:47 11/17/18 07:47 11/17/18 07:47 11/17/18 07:47 Intake and Output: 11/17/18 11/17/18 06:59 18:59 Intake Total 900 Output Total 2 Balance 898 - Medications Medications: Current Medications Acetaminophen (Tylenol 325mg Tab) 650 mg PO Q4 PRN PRN Reason: Temp >100 Last Admin: 11/15/18 21:21 Dose: 650 mg Acetaminophen (Tylenol 325mg Tab) 650 mg PO Q4 PRN PRN Reason: Pain, Mild (1-3) Last Admin: 11/14/18 21:59 Dose: 650 mg Albuterol/Ipratropium (Duoneb 3 Mg/0.5 Mg (3 Ml) Ud) 3 ml IH RQ6 PRN PRN Reason: Shortness of Breath Amlodipine Besylate (Norvasc) 10 mg PO DAILY [facility] Last Admin: 11/16/18 08:59 Dose: 10 mg Atorvastatin Calcium (Lipitor) 40 mg PO HS [facility] Last Admin: 11/16/18 21:25 Dose: 40 mg Carvedilol (Coreg) 25 mg PO Q12 [facility] Last Admin: 11/16/18 21:24 Dose: 25 mg Docusate Sodium (Colace) 100 mg PO BID [facility] Last Admin: 11/16/18 17:08 Dose: Not Given Epoetin Steve (Procrit) 10,000 unit SC [facility] [place] Last Admin: 11/15/18 18:34 Dose: 10,000 unit Heparin Sodium (Porcine) (Posiflush Heparin) [facility] Last Admin: 11/15/18 18:35 Dose: 1,000 units Hydralazine HCl (Apresoline) 50 mg PO MWF@0900,1700 [facility] Last Admin: 11/15/18 19:56 Dose: 50 mg Hydralazine HCl (Apresoline) 50 mg PO TTS@0900,1300,1700 [facility] Last Admin: 11/16/18 17:07 Dose: 50 mg Hydralazine HCl (Apresoline) 50 mg PO SUN@0900,1300,1700 [facility] Piperacillin Sod/Tazobactam (Sod 2.25 gm/ Sodium Chloride) 100 mls @ 100 mls/hr IVPB Q8 [facility]; Protocol Last Admin: 11/17/18 00:07 Dose: 100 mls/hr Vancomycin HCl 1 gm/ Sodium (Chloride) 250 mls @ 166.667 mls/hr IVPB MWF [facility] Last Admin: 11/15/18 09:10 Dose: 166.667 mls/hr Levothyroxine Sodium (Synthroid) 50 mcg PO DAILY@0630 [facility] Last Admin: 11/17/18 06:22 Dose: 50 mcg Lorazepam (Ativan) 0.5 mg PO DAILY PRN PRN Reason: Anxiety Last Admin: 11/15/18 21:27 Dose: 0.5 mg Losartan Potassium (Cozaar) 100 mg PO DAILY [facility] Last Admin: 11/16/18 08:58 Dose: 100 mg Pantoprazole Sodium (Protonix Ec Tab) 40 mg PO DAILY [facility] Last Admin: 11/16/18 08:56 Dose: 40 mg Sennosides (Senokot Tab) 8.6 mg PO HS [facility] Last Admin: 11/16/18 21:24 Dose: Not Given Sevelamer Carbonate (Renvela) 800 mg PO TID [facility] Last Admin: 11/16/18 17:07 Dose: 800 mg Sitagliptin Phosphate (Januvia) 25 mg PO DAILY [facility] Last Admin: 11/16/18 08:56 Dose: 25 mg Ticagrelor (Brilinta) 90 mg PO Q12 [facility] Last Admin: 11/16/18 21:24 Dose: 90 mg Vitamin A (Vitamin A & D Oint Ud Foilpak) 1 ea TOP DAILY [facility] Last Admin: 11/16/18 08:59 Dose: 1 ea Vitamin B Complex/Vit C/Folic Acid (Nephro-Buster) 1 tab PO DAILY [facility] Last Admin: 11/16/18 08:58 Dose: 1 tab - Labs Labs: 11/15/18 04:25 11/15/18 04:25
[2018-11-17] MEDS: Vitamins A & D Oint UD Foilpak TOP SCH (09:58)
[2018-11-17] MEDS: Multivitamin Vitamin B Complex (Nephro-Vite) Tab PO SCH (09:58)
[2018-11-17] MEDS: Pantoprazole 40 mg EC Tab PO SCH (09:59)
[2018-11-17] MEDS: EPOETIN ALFA 10,000 UNIT/ML ML SC SCH (10:00)
--- NOTE | 2018-11-17 11:39 | PQF ---
PROVIDER RESPONSE TEXT: Agree BMI is 17.6, pt has a small frame and she is also underweight. REVIEWER QUERY TEXT: Clarification of Clinical Diagnostic Findings Physician?s Documentation Request This Form is Not a Permanent Document in the Medical Record Pt Name: RAFIA WOODARD MR #: [id number] Payor: MEDICAID HMO Unit/Bed: H.TEL-H410-1 Adm Date: 11/14/2018 10:35:00 AM Reviewer: Nisa Duarte Ext. Query Date: 11/16/2018 3:29:59 PM Clarification of Clinical Diagnostic Findings 360eMD By submitting this query, we are merely seeking further clarification of documentation to accurately reflect all conditions that you are monitoring, evaluating, treating or that extend the hospitalizati on or utilize additional resources of care. Please utilize your independent clinical judgment when ad dressing the question(s) below. Dear Doctor Aubrey Stoddard, The patient?s Clinical Indicators include: -- 2 (two) queries as follows: 1. Please clarify and document if you are in agreement with the BMII: 17.6 as listed in the EMR. 2. Is there an associated dx. to go along with the BMI: i.e Underweight or Small Frame etc. -Or: Disagree -Or: Other explanation of clinical findings Listed in the EMR: BMI:17.6 5 ft 90lb PLEASE DOCUMENT ANY ADDITIONAL DIAGNOSES AND/OR SPECIFICITY IN THE PROGRESS NOTES AND/OR DISCHARGE LEA MMARY. Clinically unable to determine/unknown Disagree with the above request Need to discuss Query created by: Nisa Duarte on 11/16/2018 3:29 PM Electronically signed by: Aubrey Stoddard 11/17/2018 11:35 AM
--- NOTE | 2018-11-17 11:39 | PQF ---
PROVIDER RESPONSE TEXT: Provider was unable to determine a response for this query. REVIEWER QUERY TEXT: Heart Failure Acuity and Type Physician?s Documentation Request This Form is Not a Permanent Document in the Medical Record Pt Name: RAFIA WOODARD MR #: [id number] Payor: MEDICAID O Unit/Bed: H.TEL-H410-1 Adm Date: 11/14/2018 10:35:00 AM Reviewer: Nisa Duarte Ext. Query Date: 11/16/2018 11:28:04 AM Heart Failure Acuity and Type 360eMD By submitting this query, we are merely seeking further clarification of documentation to accurately reflect all conditions that you are monitoring, evaluating, treating or that extend the hospitalizati on or utilize additional resources of care. Please utilize your independent clinical judgment when ad dressing the question(s) below. Dear Doctor Aubrey Stoddard, The patient?s Clinical Indicators include: --- Exacerbation of CHF is documented in the Renal consultants notes. Please document the type of CHF if in agreement and if known versus CHF ruled out etc. Such as: Type: -- Combined systolic and diastolic (heart failure with reduced ejection fraction and diastolic) dysfu nction -- Diastolic (HFpEF) -- Systolic (HFrEF) -- Left heart failure -- Right heart failure -- Right heart failure due to left heart failure -- High output failure -- End stage heart failure -- Other, please specify CXR: Probable mild interval increasing congestion with increased bilateral effusions and atelectasis, greater on the left. 11/14: Renal consult: General Appearance: Extremities: no edema Lungs; Normal respiratory rate/effort -dialysis, IV lasix, coreg PLEASE DOCUMENT ANY ADDITIONAL DIAGNOSES AND/OR SPECIFICITY IN THE PROGRESS NOTES AND/OR DISCHARGE LEA MMARY. Clinically unable to determine/unknown Disagree with the above request Need to discuss Query created by: Nisa Duarte on 11/16/2018 11:28 AM Electronically signed by: Aubrey Stoddard 11/17/2018 11:35 AM
--- NOTE | 2018-11-17 11:39 | PQF ---
PROVIDER RESPONSE TEXT: Anemia due to ESRD REVIEWER QUERY TEXT: Anemia Type Physician?s Documentation Request This Form is Not a Permanent Document in the Medical Record Pt Name: RAFIA WOODARD MR #: [id number] Payor: MEDICAID HMO Unit/Bed: H.TEL-H410-1 Adm Date: 11/14/2018 10:35:00 AM Reviewer: Nisa Roperos Ext. Query Date: 11/16/2018 11:31:10 AM Anemia Type 360eMD By submitting this query, we are merely seeking further clarification of documentation to accurately reflect all conditions that you are monitoring, evaluating, treating or that extend the hospitalizati on or utilize additional resources of care. Please utilize your independent clinical judgment when ad dressing the question(s) below. Dear Doctor Aubrey Stoddard, The patient?s Clinical Indicators include: ----- Anemia is documented in the Medical Record. Please specify the cause (includes suspected or probable cause) Such as: --Due to ESRD -- Due to acute blood loss -- Due to chronic blood loss -- Due to iron deficiency -- Due to postoperative blood loss -- Due to chronic disease -- Other, please specify H/H: 9.2/27.6->8.7/26.3 Renal consult includes: a dx. of Anemia---PRBC as needed for anemia. on BREANA with dialysis as last Hb <10 PLEASE DOCUMENT ANY ADDITIONAL DIAGNOSES AND/OR SPECIFICITY IN THE PROGRESS NOTES AND/OR DISCHARGE LEA MMARY. Clinically unable to determine/unknown Disagree with the above request Need to discuss Query created by: Nisa Duarte on 11/16/2018 11:31 AM Electronically signed by: Aubrey Stoddard 11/17/2018 11:35 AM
--- NOTE | 2018-11-17 11:49 | CP.PCM.PCO ---
Assessment and Plan - Assessment and Plan (Free Text) Assessment: pt. will require 5 more days of zosyn iv at [facility]
--- NOTE | 2018-11-17 11:58 | CP.PCM.PN ---
Subjective - Date & Time of Evaluation Date of Evaluation: 11/17/18 Time of Evaluation: 11:57 - Subjective Subjective: Patient feeling much better No chest pain no shortness of breath. Vital signs stable. No nausea no vomiting. Objective - Vital Signs/Intake and Output Vital Signs (last 24 hours): Temp Pulse Resp BP Pulse Ox 98.4 F 76 18 150/65 100 11/17/18 11:45 11/17/18 11:45 11/17/18 11:45 11/17/18 11:45 11/17/18 11:45 Intake and Output: 11/17/18 11/17/18 06:59 18:59 Intake Total 900 Output Total 2 Balance 898 - Medications Medications: Current Medications Acetaminophen (Tylenol 325mg Tab) 650 mg PO Q4 PRN PRN Reason: Temp >100 Last Admin: 11/15/18 21:21 Dose: 650 mg Acetaminophen (Tylenol 325mg Tab) 650 mg PO Q4 PRN PRN Reason: Pain, Mild (1-3) Last Admin: 11/14/18 21:59 Dose: 650 mg Albuterol/Ipratropium (Duoneb 3 Mg/0.5 Mg (3 Ml) Ud) 3 ml IH RQ6 PRN PRN Reason: Shortness of Breath Amlodipine Besylate (Norvasc) 10 mg PO DAILY [facility] Last Admin: 11/17/18 10:00 Dose: 10 mg Atorvastatin Calcium (Lipitor) 40 mg PO HS [facility] Last Admin: 11/16/18 21:25 Dose: 40 mg Carvedilol (Coreg) 25 mg PO Q12 [facility] Last Admin: 11/17/18 09:59 Dose: 25 mg Docusate Sodium (Colace) 100 mg PO BID [facility] Last Admin: 11/17/18 10:01 Dose: Not Given Epoetin Steve (Procrit) 10,000 unit SC [facility] Last Admin: 11/17/18 10:00 Dose: 10,000 unit Heparin Sodium (Porcine) (Posiflush Heparin) 1,000 units IVF [facility] Last Admin: 11/15/18 18:35 Dose: 1,000 units Hydralazine HCl (Apresoline) 50 mg PO MWF@0900,1700 [facility] Last Admin: 11/17/18 09:59 Dose: 50 mg Hydralazine HCl (Apresoline) 50 mg PO TTS@0900,1300,1700 [facility] Last Admin: 11/16/18 17:07 Dose: 50 mg Hydralazine HCl (Apresoline) 50 mg PO SUN@0900,1300,1700 [facility] Piperacillin Sod/Tazobactam (Sod 2.25 gm/ Sodium Chloride) 100 mls @ 100 mls/hr IVPB Q8 [facility]; Protocol Last Admin: 11/17/18 00:07 Dose: 100 mls/hr Vancomycin HCl 1 gm/ Sodium (Chloride) 250 mls @ 166.667 mls/hr IVPB MWF [facility] Last Admin: 11/15/18 09:10 Dose: 166.667 mls/hr Levothyroxine Sodium (Synthroid) 50 mcg PO DAILY@0630 [facility] Last Admin: 11/17/18 06:22 Dose: 50 mcg Lorazepam (Ativan) 0.5 mg PO DAILY PRN PRN Reason: Anxiety Last Admin: 11/15/18 21:27 Dose: 0.5 mg Losartan Potassium (Cozaar) 100 mg PO DAILY [facility] Last Admin: 11/17/18 10:00 Dose: 100 mg Pantoprazole Sodium (Protonix Ec Tab) 40 mg PO DAILY [facility] Last Admin: 11/17/18 09:59 Dose: 40 mg Sennosides (Senokot Tab) 8.6 mg PO HS [facility] Last Admin: 11/16/18 21:24 Dose: Not Given Sevelamer Carbonate (Renvela) 800 mg PO TID [facility] Last Admin: 11/17/18 09:58 Dose: 800 mg Sitagliptin Phosphate (Januvia) 25 mg PO DAILY [facility] Last Admin: 11/17/18 09:58 Dose: 25 mg Ticagrelor (Brilinta) 90 mg PO Q12 [facility] Last Admin: 11/17/18 09:59 Dose: 90 mg Vitamin A (Vitamin A & D Oint Ud Foilpak) 1 ea TOP DAILY [facility] Last Admin: 11/17/18 09:58 Dose: 1 ea Vitamin B Complex/Vit C/Folic Acid (Nephro-Buster) 1 tab PO DAILY [facility] Last Admin: 11/17/18 09:58 Dose: 1 tab - Labs Labs: 11/15/18 04:25 11/15/18 04:25 - Constitutional Appears: No Acute Distress - Eye Exam Eye Exam: Conjunctival injection - ENT Exam ENT Exam: absent: Mucous Membranes Moist - Neck Exam Neck Exam: absent: Lymphadenopathy - Respiratory Exam Respiratory Exam: NORMAL BREATHING PATTERN. absent: Chest Wall Tenderness - Cardiovascular Exam Cardiovascular Exam: absent: Gallop, JVD, Rubs - GI/Abdominal Exam GI & Abdominal Exam: Soft, Normal Bowel Sounds - Extremities Exam Extremities Exam: absent: Calf Tenderness - Back Exam Back Exam: absent: CVA tenderness (L), CVA tenderness (R) - Neurological Exam Neurological Exam: Alert - Psychiatric Exam Psychiatric exam: Normal Affect - Skin Skin Exam: absent: Cyanosis Assessment and Plan (1) Chronic kidney disease with end stage renal failure on dialysis Assessment & Plan: Assessment: critical fluid overload with exacerbation CHF with pleural effusion S/P acute respi failure recent PC sepsis Diabetic chronic Kidney Disease (E11.22) Hypertensive Chronic Kidney Disease (I12.0) End stage renal disease (N18.6) dependence on hemodialysis (Z99.2) MWF) via PC Anemia (D64.9), Hyperphosphatemia (E83.39), Secondary Hyperparathyroidism (E21.1), HTN (I12.0) Plan: Continue hemodialysis Thursday continue to improve Antibiotics as recommended by ID with vancomycin as noted Continue phosphorus binder Status: Acute
--- NOTE | 2018-11-18 00:44 | CP.PCM.PN ---
Subjective - Date & Time of Evaluation Date of Evaluation: 11/17/18 Time of Evaluation: 10:00 - Subjective Subjective: Pt seen and assessed at bedside. Pt for hemodialysis today, reports no pulmonary side effects at this time. Explained plan of care to pt, including potential discharge back to [facility]. Subjective Review of Systems: reviewed and no additional remarkable complaints. Objective Vital Signs Stable Appears: Non-toxic, No Acute Distress. Head Exam: NORMAL INSPECTION, normocephalic. Eye Exam: Normal appearance, PERRLA, EOMI. Respiratory Exam: Easy and non-labored. Left chest pleural catheter in place. Mildly Diminished breath sounds at bilateral bases. Cardiovascular Exam: +S1, +S2. RRR. GI & Abdominal Exam: Soft, non-tender, non-distended. Neurological Exam: AAOx3. Psychiatric exam: Calm and cooperative. Skin Exam: Pallor, Warm, Dry. Assessment/Impression/Plan: 1.) Pleural effusion -Pt for hemodialysis today (-- schedule). -Consults input appreciated. -Pt will need 5 days of Zosyn IVPB at [facility]. -For possible discharge to [facility] tomorrow. -Pt will need to return to [facility] at some point for removal of left pleural catheter that has been in place for >1 year. Given the patient's recent h/o bacteremia, the risk of keeping the pleural catheter in place outweighs the benefit of leaving it as is. Objective - Vital Signs/Intake and Output Vital Signs (last 24 hours): Temp Pulse Resp BP Pulse Ox 98.1 F 75 18 163/75 H 100 11/18/18 00:36 11/18/18 00:36 11/18/18 00:36 11/18/18 00:36 11/18/18 00:36 - Medications Medications: Current Medications Acetaminophen (Tylenol 325mg Tab) 650 mg PO Q4 PRN PRN Reason: Temp >100 Last Admin: 11/15/18 21:21 Dose: 650 mg Acetaminophen (Tylenol 325mg Tab) 650 mg PO Q4 PRN PRN Reason: Pain, Mild (1-3) Last Admin: 11/14/18 21:59 Dose: 650 mg Albuterol/Ipratropium (Duoneb 3 Mg/0.5 Mg (3 Ml) Ud) 3 ml IH RQ6 PRN PRN Reason: Shortness of Breath Amlodipine Besylate (Norvasc) 10 mg PO DAILY [facility] Last Admin: 11/17/18 10:00 Dose: 10 mg Atorvastatin Calcium (Lipitor) 40 mg PO HS [facility] Last Admin: 11/17/18 22:50 Dose: 40 mg Carvedilol (Coreg) 25 mg PO Q12 [facility] Last Admin: 11/17/18 21:48 Dose: Not Given Docusate Sodium (Colace) 100 mg PO BID [facility] Last Admin: 11/17/18 18:41 Dose: Not Given Epoetin Steve (Procrit) 10,000 unit SC [facility] Last Admin: 11/17/18 10:00 Dose: 10,000 unit Heparin Sodium (Porcine) (Posiflush Heparin) 1,000 units IVF [facility] Last Admin: 11/15/18 18:35 Dose: 1,000 units Hydralazine HCl (Apresoline) 50 mg PO MWF@0900,1700 [facility] Last Admin: 11/17/18 18:41 Dose: Not Given Hydralazine HCl (Apresoline) 50 mg PO TTS@0900,1300,1700 [facility] Last Admin: 11/16/18 17:07 Dose: 50 mg Hydralazine HCl (Apresoline) 50 mg PO SUN@0900,1300,1700 [facility] Piperacillin Sod/Tazobactam (Sod 2.25 gm/ Sodium Chloride) 100 mls @ 100 mls/hr IVPB Q8 [facility]; Protocol Last Admin: 11/17/18 09:00 Dose: Not Given Vancomycin HCl 1 gm/ Sodium (Chloride) 250 mls @ 166.667 mls/hr IVPB [facility] Last Admin: 11/15/18 09:10 Dose: 166.667 mls/hr Levothyroxine Sodium (Synthroid) 50 mcg PO DAILY@0630 [facility] Last Admin: 11/17/18 06:22 Dose: 50 mcg Lorazepam (Ativan) 0.5 mg PO DAILY PRN PRN Reason: Anxiety Last Admin: 11/17/18 22:58 Dose: 0.5 mg Losartan Potassium (Cozaar) 100 mg PO DAILY [facility] Last Admin: 11/17/18 10:00 Dose: 100 mg Pantoprazole Sodium (Protonix Ec Tab) 40 mg PO DAILY [facility] Last Admin: 11/17/18 09:59 Dose: 40 mg Sennosides (Senokot Tab) 8.6 mg PO HS [facility] Last Admin: 11/17/18 22:49 Dose: 8.6 mg Sevelamer Carbonate (Renvela) 800 mg PO TID [facility] Last Admin: 11/17/18 18:41 Dose: Not Given Sitagliptin Phosphate (Januvia) 25 mg PO DAILY [facility] Last Admin: 11/17/18 09:58 Dose: 25 mg Ticagrelor (Brilinta) 90 mg PO Q12 [facility] Last Admin: 11/17/18 21:51 Dose: Not Given Vitamin A (Vitamin A & D Oint Ud Foilpak) 1 ea TOP DAILY [facility] Last Admin: 11/17/18 09:58 Dose: 1 ea Vitamin B Complex/Vit C/Folic Acid (Nephro-Buster) 1 tab PO DAILY [facility] Last Admin: 11/17/18 09:58 Dose: 1 tab - Labs Labs: 11/15/18 04:25 11/15/18 04:25 Assessment and Plan (1) Chronic kidney disease with end stage renal failure on dialysis Status: Acute (2) Pleural effusion, right Status: Acute
[2018-11-18 05:51] LABS: BASO # 0.1 K/uL (0.0-0.2); BASO % 1.1 % (0.0-2.0); EOS # 0.7 K/uL (0.0-0.7); EOS % 7.7 % (0.0-4.0); HEMOGLOBIN 7.7 g/dL (12.0-16.0); LYMPH # 0.7 K/uL (1.0-4.3); LYMPH % 7.9 % (20.0-40.0); MEAN CELL VOLUME 87.9 fl (81.0-99.0); MEAN CORPUSCULAR HEMOGLOBIN 28.4 pg (27.0-31.0); MEAN CORPUSCULAR HGB CONC 32.3 g/dL (33.0-37.0); MEAN PLATELET VOLUME 8.6 fl (7.2-11.7); MONO # 0.9 K/uL (0.0-0.8); MONO % 10.3 % (0.0-10.0); NEUT # 6.7 K/uL (1.8-7.0); PLATELET COUNT 146 K/uL (130-400); RBC 2.71 Mil/uL (3.80-5.20); RED CELL DISTRIBUTION WIDTH 16.8 % (11.5-14.5); WHITE BLOOD COUNT 9.1 K/uL (4.8-10.8)
[2018-11-18] MEDS: Levothyroxine 50 MCG TAB PO SCH (05:56)
[2018-11-18 06:09] LABS: ALB/GLOB RATIO 0.9 (1.0-2.1); ALBUMIN 3.3 g/dL (3.5-5.0); CALCIUM 8.3 mg/dL (8.4-10.2)
[2018-11-18] MEDS: Pantoprazole 40 mg EC Tab PO SCH (09:38)
[2018-11-18] MEDS: Vitamins A & D Oint UD Foilpak TOP SCH (09:38)
[2018-11-18] MEDS: Multivitamin Vitamin B Complex (Nephro-Vite) Tab PO SCH (09:38)
--- NOTE | 2018-11-18 09:50 | RAD ---
Date of service: 11/18/2018 PROCEDURE: CHEST RADIOGRAPH, 1 VIEW HISTORY: r/o effusions COMPARISON: 11/16/2018 FINDINGS: LUNGS: No infiltrate. PLEURA: Small left pleural effusion grossly unchanged. No definite right pleural effusion. No pneumothorax. CARDIOVASCULAR: No aortic atherosclerotic calcification present. Normal heart size. Left chest tube unchanged. Right central venous dialysis catheter unchanged. No congestive change. OSSEOUS STRUCTURES: No significant abnormalities. VISUALIZED UPPER ABDOMEN: Normal. OTHER FINDINGS: None. IMPRESSION: Small left pleural effusion, unchanged. Lines and tubes unchanged.
--- NOTE | 2018-11-18 11:18 | CP.PCM.PN ---
Subjective - Date & Time of Evaluation Date of Evaluation: 11/18/18 Time of Evaluation: 11:16 - Subjective Subjective: Patient doing much better Vital signs stable Objective - Vital Signs/Intake and Output Vital Signs (last 24 hours): Temp Pulse Resp BP Pulse Ox 97.9 F 70 18 164/67 H 100 11/18/18 09:00 11/18/18 09:00 11/18/18 09:00 11/18/18 09:00 11/18/18 09:00 - Medications Medications: Current Medications Acetaminophen (Tylenol 325mg Tab) 650 mg PO Q4 PRN PRN Reason: Temp >100 Last Admin: 11/15/18 21:21 Dose: 650 mg Acetaminophen (Tylenol 325mg Tab) 650 mg PO Q4 PRN PRN Reason: Pain, Mild (1-3) Last Admin: 11/14/18 21:59 Dose: 650 mg Albuterol/Ipratropium (Duoneb 3 Mg/0.5 Mg (3 Ml) Ud) 3 ml IH RQ6 PRN PRN Reason: Shortness of Breath Amlodipine Besylate (Norvasc) 10 mg PO DAILY [facility] Last Admin: 11/18/18 09:38 Dose: 10 mg Atorvastatin Calcium (Lipitor) 40 mg PO HS [facility] Last Admin: 11/17/18 22:50 Dose: 40 mg Carvedilol (Coreg) 25 mg PO Q12 [facility] Last Admin: 11/18/18 09:38 Dose: 25 mg Docusate Sodium (Colace) 100 mg PO BID [facility] Last Admin: 11/17/18 18:41 Dose: Not Given Epoetin Steve (Procrit) 10,000 unit SC [facility] Last Admin: 11/17/18 10:00 Dose: 10,000 unit Hydralazine HCl (Apresoline) 50 mg PO MWF@0900,1700 [facility] Last Admin: 11/17/18 18:41 Dose: Not Given Hydralazine HCl (Apresoline) 50 mg PO TTS@0900,1300,1700 [facility] Last Admin: 11/18/18 09:38 Dose: 50 mg Hydralazine HCl (Apresoline) 50 mg PO SUN@0900,1300,1700 [facility] Piperacillin Sod/Tazobactam (Sod 2.25 gm/ Sodium Chloride) 100 mls @ 100 mls/hr IVPB Q8 [facility]; Protocol Last Admin: 11/18/18 09:39 Dose: 100 mls/hr Vancomycin HCl 1 gm/ Sodium (Chloride) 250 mls @ 166.667 mls/hr IVPB MWF [facility] Last Admin: 11/15/18 09:10 Dose: 166.667 mls/hr Levothyroxine Sodium (Synthroid) 50 mcg PO DAILY@0630 [facility] Last Admin: 11/18/18 05:56 Dose: 50 mcg Lorazepam (Ativan) 0.5 mg PO DAILY PRN PRN Reason: Anxiety Last Admin: 11/17/18 22:58 Dose: 0.5 mg Losartan Potassium (Cozaar) 100 mg PO DAILY [facility] Last Admin: 11/18/18 09:38 Dose: 100 mg Pantoprazole Sodium (Protonix Ec Tab) 40 mg PO DAILY [facility] Last Admin: 11/18/18 09:38 Dose: 40 mg Sennosides (Senokot Tab) 8.6 mg PO HS [facility] Last Admin: 11/17/18 22:49 Dose: 8.6 mg Sevelamer Carbonate (Renvela) 800 mg PO TID [facility] Last Admin: 11/18/18 09:38 Dose: 800 mg Sitagliptin Phosphate (Januvia) 25 mg PO DAILY [facility] Last Admin: 11/18/18 09:38 Dose: 25 mg Ticagrelor (Brilinta) 90 mg PO Q12 [facility] Last Admin: 11/18/18 09:38 Dose: 90 mg Vitamin A (Vitamin A & D Oint Ud Foilpak) 1 ea TOP DAILY [facility] Last Admin: 11/18/18 09:38 Dose: 1 ea Vitamin B Complex/Vit C/Folic Acid (Nephro-Buster) 1 tab PO DAILY [facility] Last Admin: 11/18/18 09:38 Dose: 1 tab - Labs Labs: 11/18/18 05:41 11/18/18 05:41 - Constitutional Appears: No Acute Distress - Eye Exam Eye Exam: Conjunctival injection - ENT Exam ENT Exam: Mucous Membranes Moist - Respiratory Exam Respiratory Exam: NORMAL BREATHING PATTERN. absent: Chest Wall Tenderness - Cardiovascular Exam Cardiovascular Exam: absent: Gallop, JVD, Rubs - GI/Abdominal Exam GI & Abdominal Exam: Soft, Normal Bowel Sounds - Extremities Exam Extremities Exam: absent: Calf Tenderness - Back Exam Back Exam: absent: CVA tenderness (L) - Neurological Exam Neurological Exam: Alert - Psychiatric Exam Psychiatric exam: Normal Affect - Skin Skin Exam: absent: Cyanosis Assessment and Plan (1) Chronic kidney disease with end stage renal failure on dialysis Assessment & Plan: Assessment: critical fluid overload with exacerbation CHF with pleural effusion S/P acute respi failure recent PC sepsis Diabetic chronic Kidney Disease (E11.22) Hypertensive Chronic Kidney Disease (I12.0) End stage renal disease (N18.6) dependence on hemodialysis (Z99.2) MWF) via PC Anemia (D64.9), Hyperphosphatemia (E83.39), Secondary Hyperparathyroidism (E21.1), HTN (I12.0) Plan: Continue hemodialysis Thursday continue to improve Antibiotics as recommended by ID with vancomycin as noted Continue phosphorus binder Status: Acute
[2018-11-18 12:41] LABS: BASOPHIL 1 % (0-2); EOSINOPHIL 9 % (0-7); LYMPHOCYTE 6 % (20-50); MONOCYTE 10 % (0-10); NEUTROPHIL 74 % (42-75); TOTAL CELLS COUNTED 100
[2018-11-18 12:42] LABS: ANISOCYTOSIS SLIGHT; PLATELET ESTIMATE NORMAL (NORMAL)
[2018-11-18 13:13] LABS: IRON 32 ug/dL (37-170)
[2018-11-18 13:22] LABS: % IRON SATURATION 14 % (20-55); TOTAL IRON BINDING CAPACITY 236 ug/dL (250-450)
[2018-11-18 21:37] LABS: FOLATE > 20.0 ng/mL
[2018-11-19] MEDS: Levothyroxine 50 MCG TAB PO SCH (05:38)
[2018-11-19] MEDS: EPOETIN ALFA 10,000 UNIT/ML ML SC SCH (09:46)
[2018-11-19] MEDS: Multivitamin Vitamin B Complex (Nephro-Vite) Tab PO SCH (09:46)
[2018-11-19] MEDS: Pantoprazole 40 mg EC Tab PO SCH (09:46)
[2018-11-19] MEDS: Vitamins A & D Oint UD Foilpak TOP SCH (09:46)
--- NOTE | 2018-11-19 15:05 | CP.PCM.PN ---
Subjective - Date & Time of Evaluation Date of Evaluation: 11/19/18 Time of Evaluation: 15:04 - Subjective Subjective: Patient conscious and not in acute distress. No nausea no vomiting. No shortness of breath. No chest pain Receiving dialysis shortly Objective - Vital Signs/Intake and Output Vital Signs (last 24 hours): Temp Pulse Resp BP Pulse Ox 98.3 F 81 18 158/68 H 99 11/19/18 12:10 11/19/18 12:10 11/19/18 12:10 11/19/18 12:10 11/19/18 12:10 Intake and Output: 11/19/18 11/19/18 06:59 18:59 Output Total 195 Balance -195 - Medications Medications: Current Medications Acetaminophen (Tylenol 325mg Tab) 650 mg PO Q4 PRN PRN Reason: Temp >100 Last Admin: 11/15/18 21:21 Dose: 650 mg Acetaminophen (Tylenol 325mg Tab) 650 mg PO Q4 PRN PRN Reason: Pain, Mild (1-3) Last Admin: 11/14/18 21:59 Dose: 650 mg Albuterol/Ipratropium (Duoneb 3 Mg/0.5 Mg (3 Ml) Ud) 3 ml IH RQ6 PRN PRN Reason: Shortness of Breath Amlodipine Besylate (Norvasc) 10 mg PO DAILY [facility] Last Admin: 11/19/18 09:47 Dose: Not Given Atorvastatin Calcium (Lipitor) 40 mg PO HS [facility] Last Admin: 11/18/18 21:14 Dose: 40 mg Carvedilol (Coreg) 25 mg PO Q12 [facility] Last Admin: 11/19/18 09:48 Dose: Not Given Docusate Sodium (Colace) 100 mg PO BID [facility] Last Admin: 11/19/18 08:35 Dose: Not Given Epoetin Steve (Procrit) 10,000 unit SC MWF [facility] Last Admin: 11/19/18 09:46 Dose: 10,000 unit Hydralazine HCl (Apresoline) 50 mg PO MWF@0900,1700 [facility] Last Admin: 11/19/18 09:48 Dose: Not Given Hydralazine HCl (Apresoline) 50 mg PO TTS@0900,1300,1700 [facility] Last Admin: 11/18/18 16:47 Dose: 50 mg Hydralazine HCl (Apresoline) 50 mg PO SUN@0900,1300,1700 [facility] Vancomycin HCl 1 gm/ Sodium (Chloride) 250 mls @ 166.667 mls/hr IVPB MWF [facility] Last Admin: 11/15/18 09:10 Dose: 166.667 mls/hr Levothyroxine Sodium (Synthroid) 50 mcg PO DAILY@0630 [facility] Last Admin: 11/19/18 05:38 Dose: 50 mcg Lorazepam (Ativan) 0.5 mg PO DAILY PRN PRN Reason: Anxiety Last Admin: 11/18/18 21:14 Dose: 0.5 mg Losartan Potassium (Cozaar) 100 mg PO DAILY [facility] Last Admin: 11/19/18 09:47 Dose: Not Given Pantoprazole Sodium (Protonix Ec Tab) 40 mg PO DAILY [facility] Last Admin: 11/19/18 09:46 Dose: 40 mg Sennosides (Senokot Tab) 8.6 mg PO HS [facility] Last Admin: 11/18/18 21:14 Dose: 8.6 mg Sevelamer Carbonate (Renvela) 800 mg PO TID [facility] Last Admin: 11/19/18 09:45 Dose: 800 mg Sitagliptin Phosphate (Januvia) 25 mg PO DAILY [facility] Last Admin: 11/19/18 09:46 Dose: 25 mg Ticagrelor (Brilinta) 90 mg PO Q12 [facility] Last Admin: 11/19/18 09:45 Dose: 90 mg Vitamin A (Vitamin A & D Oint Ud Foilpak) 1 ea TOP DAILY [facility] Last Admin: 11/19/18 09:46 Dose: 1 ea Vitamin B Complex/Vit C/Folic Acid (Nephro-Buster) 1 tab PO DAILY [facility] Last Admin: 11/19/18 09:46 Dose: 1 tab - Labs Labs: 11/18/18 05:41 11/18/18 05:41 - Constitutional Appears: No Acute Distress - Eye Exam Eye Exam: Conjunctival injection - ENT Exam ENT Exam: absent: Mucous Membranes Moist - Neck Exam Neck Exam: absent: Lymphadenopathy - Respiratory Exam Respiratory Exam: NORMAL BREATHING PATTERN. absent: Chest Wall Tenderness - Cardiovascular Exam Cardiovascular Exam: absent: Gallop, JVD, Rubs - GI/Abdominal Exam GI & Abdominal Exam: Soft, Normal Bowel Sounds - Extremities Exam Extremities Exam: absent: Calf Tenderness - Back Exam Back Exam: absent: CVA tenderness (L), CVA tenderness (R) - Neurological Exam Neurological Exam: Alert - Psychiatric Exam Psychiatric exam: Normal Affect - Skin Skin Exam: absent: Cyanosis Assessment and Plan (1) Chronic kidney disease with end stage renal failure on dialysis Status: Acute - Assessment and Plan (Free Text) Assessment: Assessment & Plan: Assessment: critical fluid overload with exacerbation CHF with pleural effusion S/P acute respi failure recent PC sepsis Diabetic chronic Kidney Disease (E11.22) Hypertensive Chronic Kidney Disease (I12.0) End stage renal disease (N18.6) dependence on hemodialysis (Z99.2) MWF) via PC Anemia (D64.9), Hyperphosphatemia (E83.39), Secondary Hyperparathyroidism (E21 .1), HTN (I12.0) Plan: Continue hemodialysis Thursday continue to improve Antibiotics as recommended by ID with vancomycin as noted Continue phosphorus binder Anemia with significant drop in hemoglobin patient to receive blood transfusion on dialysis shortly
[2018-11-19 19:02] VITALS: RESP 18
[2018-11-20] MEDS: Levothyroxine 50 MCG TAB PO SCH (06:03)
[2018-11-20] MEDS: Pantoprazole 40 mg EC Tab PO SCH (09:12)
[2018-11-20] MEDS: Multivitamin Vitamin B Complex (Nephro-Vite) Tab PO SCH (09:12)
[2018-11-20] MEDS: Vitamins A & D Oint UD Foilpak TOP SCH (09:14)
[2018-11-20 11:44] VITALS: O2SAT 100
[2018-11-20 15:55] VITALS: BP 149/68; PULSE 65; TEMP 97.6
--- NOTE | 2018-11-20 23:00 | CP.PCM.PN ---
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) Hypertensive Chronic Kidney Disease (I12.0) End stage renal disease (N18.6) dependence on hemodialysis (Z99.2) MWF) via PC Anemia (D64.9), Hyperphosphatemia (E83.39), Secondary Hyperparathyroidism (E21.1), HTN (I12.0) Plan: Continue hemodialysis MWF continue per schedule lytes reviewed bp stable monitor phos levels continue binders Antibiotics as recommended by ID Anemia monitor for possibel discharge today Objective - Vital Signs/Intake and Output Vital Signs (last 24 hours): Temp Pulse Resp BP Pulse Ox 97.6 F 65 18 149/68 100 11/20/18 15:54 11/20/18 15:54 11/20/18 15:54 11/20/18 15:54 11/20/18 15:54 - Labs Labs: 11/18/18 05:41 11/18/18 05:41
== END 2018-11-20 18:30 | DRG 569 ==
LOC: H.ER 08:38 → H.ERHOLD 10:35 → H.TEL 12:25
PROVIDERS: ADMIT Family Medicine; ATTEND Family Medicine
PROC: 5A1D70Z Performance of Urinary Filtration, Intermittent, Less than 6 Hours Per Day (ICD-10-PCS; principal; 2018-11-14)
PROC: 5A1D70Z Performance of Urinary Filtration, Intermittent, Less than 6 Hours Per Day (ICD-10-PCS; 2018-11-15)
PROC: 5A1D70Z Performance of Urinary Filtration, Intermittent, Less than 6 Hours Per Day (ICD-10-PCS; 2018-11-17)
PROC: 5A1D70Z Performance of Urinary Filtration, Intermittent, Less than 6 Hours Per Day (ICD-10-PCS; 2018-11-19)
PROC: 30233N1 Transfusion of Nonautologous Red Blood Cells into Peripheral Vein, Percutaneous Approach (ICD-10-PCS; 2018-11-19)
DX: E11.22 Type 2 diabetes mellitus with diabetic chronic kidney disease (principal); J96.01 Acute respiratory failure with hypoxia; J91.8 Pleural effusion in other conditions classified elsewhere; I13.2 Hypertensive heart and chronic kidney disease with heart failure and with stage 5 chronic kidney disease, or end stage renal disease; I50.9 Heart failure, unspecified; J44.9 Chronic obstructive pulmonary disease, unspecified; N18.6 End stage renal disease; Z79.4 Long term (current) use of insulin; Z68.1 Body mass index [BMI] 19.9 or less, adult; R63.6 Underweight; D63.1 Anemia in chronic kidney disease; E03.9 Hypothyroidism, unspecified; E78.00 Pure hypercholesterolemia, unspecified; E78.5 Hyperlipidemia, unspecified; E83.39 Other disorders of phosphorus metabolism; I25.10 Atherosclerotic heart disease of native coronary artery without angina pectoris; N25.81 Secondary hyperparathyroidism of renal origin; Z87.01 Personal history of pneumonia (recurrent); Z87.891 Personal history of nicotine dependence; Z95.5 Presence of coronary angioplasty implant and graft; Z99.2 Dependence on renal dialysis; M19.90 Unspecified osteoarthritis, unspecified site; Z79.84 Long term (current) use of oral hypoglycemic drugs; Z79.899 Other long term (current) drug therapy

== ENCOUNTER 2018-12-13 10:06 | Inpatient (IN) | payer MEDICAID ==
[2018-12-13 10:06] VITALS: BMI 17.6
--- NOTE | 2018-12-13 11:47 | CARD ---
APPROVED REPORT Date of service: 12/13/2018 EKG Measurement Heart [id number] <Conclusion> Normal sinus rhythm Possible Left atrial enlargement Anterolateral infarct, age undetermined Abnormal ECG
--- NOTE | 2018-12-13 11:48 | RAD ---
Date of service: 12/13/2018 HISTORY: possible admission COMPARISON: 11/18/2018 TECHNIQUE: 1 view obtained. FINDINGS: LUNGS: Extensive left retrocardiac opacity silhouetting the left hemidiaphragmatic border. There opacity at the lateral right lung base as well. There is diffuse ill-defined right-sided opacity. Findings concerning for bilateral pneumonia. Possible atelectasis at left base. PLEURA: Probable bilateral pleural effusion, left greater than right. CARDIOVASCULAR: No aortic atherosclerotic calcification present. Normal heart size. Tunneled central venous dialysis catheter noted. Left chest tube unchanged. No subcutaneous emphysema noted. No definite congestive change. OSSEOUS STRUCTURES: No significant abnormalities. VISUALIZED UPPER ABDOMEN: Normal. OTHER FINDINGS: None. IMPRESSION: Bilateral infiltrates with possible dense consolidation in the left lower lobe. Probable small bilateral pleural effusion, left greater than right. Left chest tube unchanged.
--- NOTE | 2018-12-13 11:52 | ED PDOC ---
HPI: SOB/CHF/COPD Time Seen by Provider: 12/13/18 10:52 Chief Complaint (Nursing): Shortness Of Breath Chief Complaint (Provider): Shortness Of Breath History Per: Patient History/Exam Limitations: no limitations Additional Complaint(s): 58 y/o female with a history of CHF present to the ED complaining of shortness of breath. Patient receives dialysis on Thursday, Thursday, and Thursday and is schedule for the next dialysis this afternoon base on symptoms and distension was sent here. Patient lives in [facility]. Patient denies fever, chest pain, nausea, vomiting, medical changes, recent illness, or any other s ymptoms. PMD: Dr. Stoddard Past Medical History Reviewed: Historical Data, Nursing Documentation, Vital Signs Vital Signs: Last Vital Signs Temp 98.4 F 12/13/18 11:15 Pulse 72 12/13/18 10:09 Resp 20 12/13/18 10:09 BP 157/68 H 12/13/18 10:09 Pulse Ox 99 12/13/18 10:09 Primary Care Provider: Jeremias Calderon - Medical History PMH: Arthritis, CAD, CHF, COPD, Diabetes, HTN, Hypercholesterolemia, Hypothy roidism, Pneumonia, End Stage Renal Disease, Chronic Kidney Disease Denies: HIV - Family History Family History: States: Unknown Family Hx - Immunization History Hx Influenza Vaccination: Yes (2018) Hx Pneumococcal Vaccination: No - Home Medications Home Medications: Ambulatory Orders Medication Instructions Recorded amLODIPine [Norvasc] 10 mg PO DAILY 09/02/18 Acetaminophen [Tylenol 325mg tab] 650 mg PO Q4 PRN 09/24/18 Acetaminophen [Tylenol 325mg tab] 650 mg PO Q4 PRN 09/24/18 Atorvastatin [Lipitor] 40 mg PO HS 09/24/18 B Complex W-C No.20/Folic Acid 1 cap PO DAILY 09/24/18 [Nephrocaps Softgel] Levothyroxine [Synthroid] 50 mcg PO DAILY 09/24/18 Losartan [Cozaar] 100 mg PO DAILY 09/24/18 Sevelamer Carbonate [Renvela] 1,600 mg PO TID 09/24/18 Vitamin A & D [Vitamin A & D Oint 1 appl TOP DAILY 09/24/18 UD Foilpak] hydrALAZINE [Apresoline] 50 mg PO BID 09/24/18 hydrALAZINE [Apresoline] 50 mg PO SUTUTHSA@2100 09/24/18 Pantoprazole [Protonix EC Tab] 40 mg PO DAILY ect 10/01/18 Albuterol/Ipratropium [Duoneb 3 3 ml IH Q6H PRN 10/22/18 mg/0.5 mg (3 ml) UD] Carvedilol [Coreg] 25 mg PO Q12 tab 11/02/18 Alogliptin Benzoate [Alogliptin] 25 mg PO DAILY 12/13/18 Clopidogrel [Plavix] 75 mg PO DAILY 12/13/18 Docusate [Colace] 200 mg PO DAILY PRN 12/13/18 - Allergies Allergies/Adverse Reactions: Allergies Allergy/AdvReac Type Severity Reaction Status Date / Time shrimp Allergy Severe ANAPHYLAXIS Verified 11/29/18 14:23 Review of Systems ROS Statement: Except As Marked, All Systems Reviewed And Found Negative Constitutional: Negative for: Fever Cardiovascular: Negative for: Chest Pain Respiratory: Positive for: Shortness of Breath Gastrointestinal: Negative for: Nausea, Vomiting Physical Exam - Reviewed Nursing Documentation Reviewed: Yes Vital Signs Reviewed: Yes - Physical Exam Appears: Positive for: Well, Non-toxic, No Acute Distress Head Exam: Positive for: ATRAUMATIC, NORMAL INSPECTION, NORMOCEPHALIC Skin: Positive for: Normal Color, Warm, Dry Eye Exam: Positive for: EOMI, Normal appearance, PERRL ENT: Positive for: Normal ENT Inspection Neck: Positive for: Normal, Painless ROM, Supple Cardiovascular/Chest: Positive for: Regular Rate, Rhythm, Other (Dialysis port over the right chest with dressing in place. No surrounding erythema and fluctuant ). Negative for: Murmur Respiratory: Positive for: Normal Breath Sounds, Crackles (Worse on the left) Gastrointestinal/Abdominal: Positive for: Normal Exam, Soft. Negative for: Tenderness Back: Positive for: Normal Inspection. Negative for: L CVA Tenderness, R CVA Tenderness Extremity: Positive for: Normal ROM Neurological/Psych: Positive for: Awake, Alert, Normal Tone, Oriented (x3). Negative for: Motor/Sensory Deficits - Laboratory Results Result Diagrams: 12/14/18 05:15 12/14/18 05:15 - ECG O2 Sat by Pulse Oximetry: 99 Medical Decision Making Medical Decision Making: Time:1108 Impression: Possible for CHF vs fluid overload. No sign of infection at this point. Plan: -Type and screen -Venous blood gas shock panel -EKG -BNP -CMP -Magnesium -Phosphorous -CBC -Partial Thromboplastin -Prothrobin -X-ray -Culture -Urinalysis ScribeAttestation: Documented by Mely Chance, acting as ascribefor Millie Parker ProviderScribeAttestation: All medical record entries made by Marlen at my direction and personally dictated by me. I have reviewed the chart and agree that the record accurately reflects my personal performance of the history, physical exam, medical decision making, and the department course for this patient. I have also personally directed, reviewed, and agree with the discharge instructions and disposition. Disposition - Clinical Impression Clinical Impression: Pleural effusion, Chronic kidney disease with end stage renal failure on dialysis, Recurrent left pleural effusion, CHF (congestive heart failure) - Patient ED Disposition Is Patient to be Admitted: Yes - Disposition Disposition Time: 12:54 Condition: GOOD
[2018-12-13 12:06] LABS: VENOUS BLOOD GAS BASE EXCESS 3.5 mmol/L (0.0-2.0); VENOUS BLOOD GAS PCO2 47 mmHg (40-60); VENOUS BLOOD GAS PO2 34 mm/Hg (30-55)
[2018-12-13 12:06] LABS: BASO # 0.1 K/uL (0.0-0.2); BASO % 1.2 % (0.0-2.0); EOS # 0.2 K/uL (0.0-0.7); EOS % 2.5 % (0.0-4.0); HEMOGLOBIN 10.9 g/dL (12.0-16.0); LYMPH # 0.6 K/uL (1.0-4.3); LYMPH % 7.7 % (20.0-40.0); MEAN CELL VOLUME 87.8 fl (81.0-99.0); MEAN CORPUSCULAR HEMOGLOBIN 29.3 pg (27.0-31.0); MEAN CORPUSCULAR HGB CONC 33.3 g/dL (33.0-37.0); MEAN PLATELET VOLUME 8.7 fl (7.2-11.7); MONO # 0.5 K/uL (0.0-0.8); MONO % 7.1 % (0.0-10.0); NEUT # 5.9 K/uL (1.8-7.0); NEUT % 81.5 % (50.0-75.0); PLATELET COUNT 168 K/uL (130-400); RBC 3.72 Mil/uL (3.80-5.20); RED CELL DISTRIBUTION WIDTH 16.3 % (11.5-14.5); WHITE BLOOD COUNT 7.3 K/uL (4.8-10.8)
[2018-12-13 12:20] LABS: PROTHROMBIN TIME 11.4 Seconds (9.8-13.1)
[2018-12-13 12:22] LABS: PARTIAL THROMBOPLASTIN TIME 36.6 Seconds (25.6-37.1)
[2018-12-13 12:24] LABS: ALBUMIN 3.9 g/dL (3.5-5.0); CALCIUM 8.5 mg/dL (8.4-10.2)
[2018-12-13 13:00] LABS: EOSINOPHIL 2 % (0-7); LYMPHOCYTE 13 % (20-50); MONOCYTE 5 % (0-10); NEUTROPHIL 80 % (42-75); TOTAL CELLS COUNTED 100
[2018-12-13 13:01] LABS: ANISOCYTOSIS SLIGHT; LARGE PLATELETS PRESENT; OVALOCYTES MODERATE; PLATELET ESTIMATE NORMAL (NORMAL)
--- NOTE | 2018-12-13 14:18 | CP.PCM.CON ---
<Itz Gaona - Last Filed: 12/13/18 15:11> History of Present Illness - History of Present Illness History of Present Illness: Surgery Consult Note for Dr. Benito Consult: Pleural effusions HPI: 58 year old female, past medical history significant for ESRD on dialysis, CHF, and DM, who presents to the emergency department with shortness of breath. Patient states since last night she has been having difficulty breathing. Patient custodial resident, states that nurse attempted to drain fluid from the catheter however it was unsuccessful. Patient had pleurx catheter put in at [facility]. States the physicians there told her the catheter can be removed soon after a pleurodesis. Patient was initially placed on non-rebreather but is now on 6L NC, satting 90-92%. Patient denies nausea, vomiting, abdominal pain, chest pain. PMH: See above PSH: Pleurx catheter on left, right sided permacatheter, hysterectomy FH: Mother passed from liver cancer, Father passed from thoracic aneurysm SH: Smoked cigarettes for 20 years now quite, denies alcohol or drug use ALL: shrimp Meds: See MAR Review of Systems - Constitutional Constitutional: Weakness. absent: Chills, Fever, Weight Loss - EENT Eyes: absent: Blurred Vision, Change in Vision Nose/Mouth/Throat: absent: Nasal Congestion, Nasal Discharge - Cardiovascular Cardiovascular: Dyspnea. absent: Chest Pain - Respiratory Respiratory: Dyspnea. absent: Cough, Hemoptysis, Wheezing, Pain on Inspiration, Excessive Mucous Production - Gastrointestinal Gastrointestinal: absent: Abdominal Pain, Bloating, Nausea, Vomiting - Genitourinary Genitourinary: absent: Difficulty Urinating, Dysuria - Musculoskeletal Musculoskeletal: absent: Back Pain, Neck Pain - Integumentary Integumentary: absent: Bleeding Lesions, Changing Lesions - Neurological Neurological: absent: Confusion, Dizziness - Psychiatric Psychiatric: absent: Anxiety, Depression Past Patient History - Infectious Disease Hx of Infectious Diseases: None - Past Medical History & Family History Past Medical History?: Yes - Past Social History Smoking Status: Former Smoker - CARDIAC Hx Congestive Heart Failure: Yes Hx Hypercholesterolemia: Yes Hx Hypertension: Yes - PULMONARY Hx Chronic Obstructive Pulmonary Disease (COPD): Yes Hx Pneumonia: Yes - NEUROLOGICAL Hx Neurological Disorder: No - HEENT Hx HEENT Problems: No - RENAL Hx Chronic Kidney Disease: Yes - ENDOCRINE/METABOLIC Hx Hypothyroidism: Yes - HEMATOLOGICAL/ONCOLOGICAL Hx Human Immunodeficiency Virus (HIV): No - INTEGUMENTARY Hx Dermatological Problems: No - MUSCULOSKELETAL/RHEUMATOLOGICAL Hx Arthritis: Yes - GASTROINTESTINAL Hx Gastrointestinal Disorders: No - GENITOURINARY/GYNECOLOGICAL Hx Uterine Cancer: No - PSYCHIATRIC Hx Psychophysiologic Disorder: No Hx Substance Use: No - SURGICAL HISTORY Hx Hysterectomy: No - ANESTHESIA Hx Anesthesia: Yes Hx Anesthesia Reactions: No Hx Malignant Hyperthermia: No Meds Allergies/Adverse Reactions: Allergies Allergy/AdvReac Type Severity Reaction Status Date / Time shrimp Allergy Severe ANAPHYLAXIS Verified 11/29/18 14:23 Physical Exam - Constitutional Appears: Non-toxic, No Acute Distress, Older Than Stated Age - Head Exam Head Exam: ATRAUMATIC, NORMAL INSPECTION, NORMOCEPHALIC - Eye Exam Eye Exam: EOMI Pupil Exam: PERRL - ENT Exam ENT Exam: Mucous Membranes Dry - Respiratory Exam Respiratory Exam: Decreased Breath Sounds. absent: Accessory Muscle Use, Chest Wall Tenderness, Respiratory Distress - Cardiovascular Exam Additional comments: left pleur-x catheter - GI/Abdominal Exam GI & Abdominal Exam: Normal Bowel Sounds, Soft. absent: Tenderness - Extremities Exam Extremities exam: Positive for: pedal edema, pedal pulses present - Neurological Exam Neurological exam: Alert, Oriented x3 - Psychiatric Exam Psychiatric exam: Normal Affect, Normal Mood - Skin Skin Exam: Dry, Intact, Normal Color, Warm Results - Vital Signs Recent Vital Signs: Last Vital Signs Temp 98.4 F 12/13/18 11:15 Pulse 72 12/13/18 10:09 Resp 22 12/13/18 12:51 BP 146/55 L 12/13/18 14:05 Pulse Ox 98 12/13/18 12:51 - Labs Result Diagrams: 12/13/18 11:45 12/13/18 11:45 Labs: Laboratory Results - last 24 hr 12/13/18 12/13/18 12/13/18 11:45 11:45 11:45 WBC 7.3 RBC 3.72 L Hgb 10.9 L D Hct 32.6 L MCV 87.8 MCH 29.3 MCHC 33.3 RDW 16.3 H Plt Count 168 MPV 8.7 Neut % (Auto) 81.5 H Lymph % (Auto) 7.7 L [place] % (Auto) 7.1 Eos % (Auto) 2.5 Baso % (Auto) 1.2 Neut # (Auto) 5.9 Lymph # (Auto) 0.6 L [place] # (Auto) 0.5 Eos # (Auto) 0.2 Baso # (Auto) 0.1 Neutrophils % (Manual) 80 H Lymphocytes % (Manual) 13 L Monocytes % (Manual) 5 Eosinophils % (Manual) 2 Platelet Estimate Normal Large Platelets Present Anisocytosis (manual) Slight Macrocytosis (manual) Slight Ovalocytes Moderate PT 11.4 INR 1.0 APTT 36.6 pO2 VBG pH VBG pCO2 VBG HCO3 VBG Total CO2 VBG O2 Sat (Calc) VBG Base Excess VBG Potassium Glucose Lactate FiO2 Sodium 132 Potassium 4.5 Chloride 93 L Carbon Dioxide 27 Anion Gap 17 BUN 59 H Creatinine 5.3 H Est GFR ( Amer) 10 Est GFR (Non-Af Amer) 8 POC Glucose (mg/dL) Random Glucose 126 H Calcium 8.5 Phosphorus 4.7 H Magnesium 2.4 H Total Bilirubin 0.7 AST 37 H ALT 20 Alkaline Phosphatase 85 NT-Pro-B Natriuret Pep 42008 H Total Protein 7.8 Albumin 3.9 Globulin 3.9 Albumin/Globulin Ratio 1.0 Venous Blood Potassium Blood Type Antibody Screen BBK History Checked 12/13/18 12/13/18 12/13/18 11:45 11:55 13:25 WBC RBC Hgb Hct MCV MCH MCHC RDW Plt Count MPV Neut % (Auto) Lymph % (Auto) [place] % (Auto) Eos % (Auto) Baso % (Auto) Neut # (Auto) Lymph # (Auto) [place] # (Auto) Eos # (Auto) Baso # (Auto) Neutrophils % (Manual) Lymphocytes % (Manual) Monocytes % (Manual) Eosinophils % (Manual) Platelet Estimate Large Platelets Anisocytosis (manual) Macrocytosis (manual) Ovalocytes PT INR APTT pO2 34 VBG pH 7.40 VBG pCO2 47 VBG HCO3 26.8 VBG Total CO2 30.5 H VBG O2 Sat (Calc) 67.0 H VBG Base Excess 3.5 H VBG Potassium 4.9 Glucose 124 H Lactate 0.9 FiO2 21.0 Sodium 132.0 Potassium Chloride 98.0 Carbon Dioxide Anion Gap BUN Creatinine Est GFR ( Amer) Est GFR (Non-Af Amer) POC Glucose (mg/dL) 116 H Random Glucose Calcium Phosphorus Magnesium Total Bilirubin AST ALT Alkaline Phosphatase NT-Pro-B Natriuret Pep Total Protein Albumin Globulin Albumin/Globulin Ratio Venous Blood Potassium 4.9 Blood Type O POSITIVE Antibody Screen Negative BBK History Checked Patient has bt Assessment & Plan - Assessment and Plan (Free Text) Assessment: 58F w/ bilateral pleural effusions Plan: FU IR consult Recommend nephrology consult Recommend dialysis for patient to aid with fluid reduction Keep O2 saturations > 92% Monitor respiratory status If patient clinical worsens, recommend CT surgery consult No acute surgical intervention at this present time D/w Dr. Benito/Glenroy Gaona PGY1 <Jose Cruz Tim - Last Filed: 12/14/18 11:08> Meds - Medications Medications: Current Medications Acetaminophen (Tylenol 325mg Tab) 650 mg PO Q4 PRN PRN Reason: Temp >100 Acetaminophen (Tylenol 325mg Tab) 650 mg PO Q4 PRN PRN Reason: Pain, Mild (1-3) Last Admin: 12/14/18 01:26 Dose: 650 mg Albuterol/Ipratropium (Duoneb 3 Mg/0.5 Mg (3 Ml) Ud) 3 ml IH Q6H PRN PRN Reason: Shortness of Breath Amlodipine Besylate (Norvasc) 10 mg PO DAILY [facility] Atorvastatin Calcium (Lipitor) 40 mg PO HS [facility] Last Admin: 12/14/18 01:24 Dose: 40 mg Carvedilol (Coreg) 25 mg PO Q12 [facility] Last Admin: 12/14/18 01:25 Dose: 25 mg Clopidogrel Bisulfate (Plavix) 75 mg PO DAILY [facility] Docusate Sodium (Colace) 200 mg PO DAILY PRN PRN Reason: Constipation Epoetin Steve (Procrit) 3,000 unit IV MWF [facility] Hydralazine HCl (Apresoline) 50 mg PO Q8 [facility] Last Admin: 12/14/18 01:24 Dose: 50 mg Ceftriaxone Sodium 1 gm/ (Sodium Chloride) 100 mls @ 100 mls/hr IVPB HS [facility]; Protocol Last Admin: 12/14/18 01:23 Dose: 100 mls/hr Levothyroxine Sodium (Synthroid) 50 mcg PO DAILY@0630 [facility] Last Admin: 12/14/18 06:34 Dose: 50 mcg Losartan Potassium (Cozaar) 100 mg PO DAILY [facility] Pantoprazole Sodium (Protonix Ec Tab) 40 mg PO DAILY [facility] Sevelamer Carbonate (Renvela) 1,600 mg PO TID [facility] Sitagliptin Phosphate (Januvia) 25 mg PO DAILY [facility] Vitamin A (Vitamin A & D Oint Ud Foilpak) 1 ea TOP DAILY [facility] Vitamin B Complex/Vit C/Folic Acid (Nephro-Buster) 1 tab PO DAILY [facility] Results - Vital Signs Recent Vital Signs: Last Vital Signs Temp 98.7 F 12/14/18 07:46 Pulse 71 12/14/18 07:46 Resp 18 12/14/18 07:46 BP 163/63 H 12/14/18 07:46 Pulse Ox 94 L 12/14/18 07:46 - Labs Result Diagrams: 12/14/18 05:15 12/14/18 05:15 Labs: Laboratory Results - last 24 hr 12/13/18 12/13/18 12/13/18 11:45 11:45 11:45 WBC 7.3 RBC 3.72 L Hgb 10.9 L D Hct 32.6 L MCV 87.8 MCH 29.3 MCHC 33.3 RDW 16.3 H Plt Count 168 MPV 8.7 Neut % (Auto) 81.5 H Lymph % (Auto) 7.7 L [place] % (Auto) 7.1 Eos % (Auto) 2.5 Baso % (Auto) 1.2 Neut # (Auto) 5.9 Lymph # (Auto) 0.6 L [place] # (Auto) 0.5 Eos # (Auto) 0.2 Baso # (Auto) 0.1 Neutrophils % (Manual) 80 H Lymphocytes % (Manual) 13 L Monocytes % (Manual) 5 Eosinophils % (Manual) 2 Platelet Estimate Normal Large Platelets Present Anisocytosis (manual) Slight Macrocytosis (manual) Slight Ovalocytes Moderate ESR PT 11.4 INR 1.0 APTT 36.6 pO2 VBG pH VBG pCO2 VBG HCO3 VBG Total CO2 VBG O2 Sat (Calc) VBG Base Excess VBG Potassium Glucose Lactate FiO2 Sodium 132 Potassium 4.5 Chloride 93 L Carbon Dioxide 27 Anion Gap 17 BUN 59 H Creatinine 5.3 H Est GFR ( Amer) 10 Est GFR (Non-Af Amer) 8 POC Glucose (mg/dL) Random Glucose 126 H Calcium 8.5 Phosphorus 4.7 H Magnesium 2.4 H Total Bilirubin 0.7 AST 37 H ALT 20 Alkaline Phosphatase 85 NT-Pro-B Natriuret Pep 39057 H Total Protein 7.8 Albumin 3.9 Globulin 3.9 Albumin/Globulin Ratio 1.0 Triglycerides Cholesterol LDL Cholesterol Direct HDL Cholesterol TSH 3rd Generation Venous Blood Potassium Blood Type Antibody Screen BBK History Checked 12/13/18 12/13/18 12/13/18 11:45 11:55 13:25 WBC RBC Hgb Hct MCV MCH MCHC RDW Plt Count MPV Neut % (Auto) Lymph % (Auto) [place] % (Auto) Eos % (Auto) Baso % (Auto) Neut # (Auto) Lymph # (Auto) [place] # (Auto) Eos # (Auto) Baso # (Auto) Neutrophils % (Manual) Lymphocytes % (Manual) Monocytes % (Manual) Eosinophils % (Manual) Platelet Estimate Large Platelets Anisocytosis (manual) Macrocytosis (manual) Ovalocytes ESR PT INR APTT pO2 34 VBG pH 7.40 VBG pCO2 47 VBG HCO3 26.8 VBG Total CO2 30.5 H VBG O2 Sat (Calc) 67.0 H VBG Base Excess 3.5 H VBG Potassium 4.9 Glucose 124 H Lactate 0.9 FiO2 21.0 Sodium 132.0 Potassium Chloride 98.0 Carbon Dioxide Anion Gap BUN Creatinine Est GFR ( Amer) Est GFR (Non-Af Amer) POC Glucose (mg/dL) 116 H Random Glucose Calcium Phosphorus Magnesium Total Bilirubin AST ALT Alkaline Phosphatase NT-Pro-B Natriuret Pep Total Protein Albumin Globulin Albumin/Globulin Ratio Triglycerides Cholesterol LDL Cholesterol Direct HDL Cholesterol TSH 3rd Generation Venous Blood Potassium 4.9 Blood Type O POSITIVE Antibody Screen Negative BBK History Checked Patient has bt 12/14/18 12/14/18 12/14/18 05:15 05:15 10:15 WBC 6.7 RBC 3.39 L Hgb 10.1 L Hct 29.3 L MCV 86.5 MCH 29.8 MCHC 34.4 RDW 16.4 H Plt Count 141 MPV 8.5 Neut % (Auto) 73.2 Lymph % (Auto) 8.7 L [place] % (Auto) 11.0 H Eos % (Auto) 6.2 H Baso % (Auto) 0.9 Neut # (Auto) 4.9 Lymph # (Auto) 0.6 L [place] # (Auto) 0.7 Eos # (Auto) 0.4 Baso # (Auto) 0.1 Neutrophils % (Manual) Lymphocytes % (Manual) Monocytes % (Manual) Eosinophils % (Manual) Platelet Estimate Large Platelets Anisocytosis (manual) Macrocytosis (manual) Ovalocytes ESR 60 H PT INR APTT pO2 VBG pH VBG pCO2 VBG HCO3 VBG Total CO2 VBG O2 Sat (Calc) VBG Base Excess VBG Potassium Glucose Lactate FiO2 Sodium 135 Potassium 3.1 L Chloride 97 L Carbon Dioxide 27 Anion Gap 14 BUN 22 H Creatinine 2.6 H Est GFR ( Amer) 23 Est GFR (Non-Af Amer) 19 POC Glucose (mg/dL) Random Glucose 110 H Calcium 8.0 L Phosphorus 2.9 3.5 Magnesium 2.0 Total Bilirubin 0.5 AST 32 ALT 12 Alkaline Phosphatase 72 NT-Pro-B Natriuret Pep Total Protein 7.0 Albumin 3.4 L Globulin 3.6 Albumin/Globulin Ratio 0.9 L Triglycerides 78 Cholesterol 120 LDL Cholesterol Direct 41 HDL Cholesterol 55 TSH 3rd Generation 3.13 Venous Blood Potassium Blood Type Antibody Screen BBK History Checked Assessment & Plan - Assessment and Plan (Free Text) Plan: pt seen in emergency room with resident. Pt presented to Ed with complaints of 1 day history of shortness of breath. Pt has a PMHx of CHF, ESRD on HD MWF, hx of pleurex catheter. General surgery consulted for chest tube placement. Pt states they attempted to empty plurex catheter at home and only drained 50cc. Otherwise, pt denies any fever, chills, cp, abdominal pain, diarrhea, bloody stools. gen: awake, alert, NAD, on NC O2 heent: nc/at, eomi, perrla Resp: no acute respiratory distress, decrease BS to b/l lower ramos, pluerex catheter to left chest wall card: [id number] abd: soft, NT, ND, no peritoneal signs ext: no calf tenderness b/l 58yo F with CHF, ESRD, hx of plurex catheter presenting with SOB -CXR evaluated - b/l pleural effusions -pt in no acute respiratory distress -SOB likely due to fluid overload - pt to get Hemodyalisis -cont O2 -monitor respiratory status -IR evaluation of pleurex catheter -no need for emergent chest tube placement
[2018-12-13] MEDS ORDERED: Albuterol-Ipratrop 3 mg / 0.5 (3 ml) UD IH PRN (21:39)
[2018-12-14 06:02] LABS: BASO # 0.1 K/uL (0.0-0.2); BASO % 0.9 % (0.0-2.0); EOS # 0.4 K/uL (0.0-0.7); EOS % 6.2 % (0.0-4.0); HEMOGLOBIN 10.1 g/dL (12.0-16.0); LYMPH # 0.6 K/uL (1.0-4.3); LYMPH % 8.7 % (20.0-40.0); MEAN CELL VOLUME 86.5 fl (81.0-99.0); MEAN CORPUSCULAR HEMOGLOBIN 29.8 pg (27.0-31.0); MEAN CORPUSCULAR HGB CONC 34.4 g/dL (33.0-37.0); MEAN PLATELET VOLUME 8.5 fl (7.2-11.7); MONO # 0.7 K/uL (0.0-0.8); NEUT # 4.9 K/uL (1.8-7.0); NEUT % 73.2 % (50.0-75.0); RBC 3.39 Mil/uL (3.80-5.20); RED CELL DISTRIBUTION WIDTH 16.4 % (11.5-14.5); WHITE BLOOD COUNT 6.7 K/uL (4.8-10.8)
[2018-12-14 06:17] LABS: ALB/GLOB RATIO 0.9 (1.0-2.1); ALBUMIN 3.4 g/dL (3.5-5.0)
[2018-12-14] MEDS: Levothyroxine 50 MCG TAB PO SCH (06:34)
--- NOTE | 2018-12-14 09:16 | CP.PCM.CON ---
History of Present Illness - History of Present Illness History of Present Illness: This patient who is 58 years of age female known to me with chronic end-stage renal disease on maintenance hemodialysis 3 times a week Thursday. She came [facility] and she missed dialysis yesterday and apparently the pleural catheter was not draining as reported by the [facility] and she was sent to the emergency room for further evaluation patient was complaining of shortness of breath and difficulty breathing and chest x-ray noted in the medical record and the patient required to have rather urgent hem odialysis. Patient has numerous of admission in the past and the recent past as well related to respiratory failure congestive heart failure and pneumonia previous sepsis in addition to her past medical history as noted PMH: See above PSH: Pleurx catheter on left, right sided permacatheter, hysterectomy FH: Mother passed from liver cancer, Father passed from thoracic aneurysm SH: Smoked cigarettes for 20 years now quite, denies alcohol or drug use ALL: shrimp Meds: See MAR Review of Systems - Review of Systems Systems not reviewed;Unavailable: Respiratory Distress - Constitutional Constitutional: Anorexia, Malaise - EENT Eyes: absent: Exophthalmos Ears: absent: Tinnitus Nose/Mouth/Throat: absent: Epistaxis - Cardiovascular Cardiovascular: Dyspnea, Edema, Orthopnea. absent: Acrocyanosis, Chest Pain - Respiratory Respiratory: Cough, Dyspnea, Chest Congestion. absent: Hemoptysis - Gastrointestinal Gastrointestinal: Coffee Ground Emesis. absent: Abdominal Pain, Diarrhea - Genitourinary Genitourinary: Nocturia. absent: Dysuria - Musculoskeletal Musculoskeletal: Muscle Weakness. absent: Numbness - Integumentary Integumentary: absent: Acne - Neurological Neurological: absent: Confusion, Numbness, Focal Weakness, Headaches, Syncope - Psychiatric Psychiatric: absent: Difficulty Concentrating - Endocrine Endocrine: Fatigue - Hematologic/Lymphatic Hematologic: absent: Easy Bleeding Past Patient History - Infectious Disease Hx of Infectious Diseases: None - Past Medical History & Family History Past Medical History?: Yes - Past Social History Smoking Status: Never Smoked - CARDIAC Hx Congestive Heart Failure: Yes Hx Hypercholesterolemia: Yes Hx Hypertension: Yes - PULMONARY Hx Chronic Obstructive Pulmonary Disease (COPD): Yes Hx Pneumonia: Yes - NEUROLOGICAL Hx Neurological Disorder: No - HEENT Hx HEENT Problems: No - RENAL Hx Chronic Kidney Disease: Yes - ENDOCRINE/METABOLIC Hx Hypothyroidism: Yes - HEMATOLOGICAL/ONCOLOGICAL Hx AIDS: No Hx Human Immunodeficiency Virus (HIV): No - INTEGUMENTARY Hx Dermatological Problems: No - MUSCULOSKELETAL/RHEUMATOLOGICAL Hx Arthritis: Yes Hx Falls: No - GASTROINTESTINAL Hx Gastrointestinal Disorders: No - GENITOURINARY/GYNECOLOGICAL Hx Uterine Cancer: No - PSYCHIATRIC Hx Psychophysiologic Disorder: No Hx Substance Use: No - SURGICAL HISTORY Hx Hysterectomy: No - ANESTHESIA Hx Anesthesia: Yes Hx Anesthesia Reactions: No Hx Malignant Hyperthermia: No Meds Allergies/Adverse Reactions: Allergies Allergy/AdvReac Type Severity Reaction Status Date / Time shrimp Allergy Severe ANAPHYLAXIS Verified 11/29/18 14:23 - Medications Medications: Current Medications Acetaminophen (Tylenol 325mg Tab) 650 mg PO Q4 PRN PRN Reason: Temp >100 Acetaminophen (Tylenol 325mg Tab) 650 mg PO Q4 PRN PRN Reason: Pain, Mild (1-3) Last Admin: 12/14/18 01:26 Dose: 650 mg Albuterol/Ipratropium (Duoneb 3 Mg/0.5 Mg (3 Ml) Ud) 3 ml IH Q6H PRN PRN Reason: Shortness of Breath Amlodipine Besylate (Norvasc) 10 mg PO DAILY [facility] Atorvastatin Calcium (Lipitor) 40 mg PO HS [facility] Last Admin: 12/14/18 01:24 Dose: 40 mg Carvedilol (Coreg) 25 mg PO Q12 [facility] Last Admin: 12/14/18 01:25 Dose: 25 mg Clopidogrel Bisulfate (Plavix) 75 mg PO DAILY [facility] Docusate Sodium (Colace) 200 mg PO DAILY PRN PRN Reason: Constipation Hydralazine HCl (Apresoline) 50 mg PO Q8 [facility] Last Admin: 12/14/18 01:24 Dose: 50 mg Ceftriaxone Sodium 1 gm/ (Sodium Chloride) 100 mls @ 100 mls/hr IVPB HS [facility]; Protocol Last Admin: 12/14/18 01:23 Dose: 100 mls/hr Levothyroxine Sodium (Synthroid) 50 mcg PO DAILY@0630 [facility] Last Admin: 12/14/18 06:34 Dose: 50 mcg Losartan Potassium (Cozaar) 100 mg PO DAILY [facility] Pantoprazole Sodium (Protonix Ec Tab) 40 mg PO DAILY [facility] Sevelamer Carbonate (Renvela) 1,600 mg PO TID [facility] Sitagliptin Phosphate (Januvia) 25 mg PO DAILY [facility] Vitamin A (Vitamin A & D Oint Ud Foilpak) 1 ea TOP DAILY [facility] Vitamin B Complex/Vit C/Folic Acid (Nephro-Buster) 1 tab PO DAILY [facility] Physical Exam - Constitutional Appears: No Acute Distress - Eye Exam Eye Exam: Conjunctival injection - ENT Exam ENT Exam: Mucous Membranes Moist - Neck Exam Neck exam: Negative for: Lymphadenopathy - Respiratory Exam Respiratory Exam: Rales, Rhonchi - Cardiovascular Exam Cardiovascular Exam: absent: Gallop, JVD, Rubs - GI/Abdominal Exam GI & Abdominal Exam: Normal Bowel Sounds. absent: Guarding - Extremities Exam Extremities exam: Negative for: calf tenderness - Back Exam Back exam: absent: CVA tenderness (L), CVA tenderness (R) - Neurological Exam Neurological exam: Alert - Psychiatric Exam Psychiatric exam: Normal Affect Results - Vital Signs Recent Vital Signs: Last Vital Signs Temp 98.7 F 12/14/18 07:46 Pulse 71 12/14/18 07:46 Resp 18 12/14/18 07:46 BP 163/63 H 12/14/18 07:46 Pulse Ox 94 L 12/14/18 07:46 - Labs Result Diagrams: 12/14/18 05:15 12/14/18 05:15 Labs: Laboratory Results - last 24 hr 12/13/18 12/13/18 12/13/18 11:45 11:45 11:45 WBC 7.3 RBC 3.72 L Hgb 10.9 L D Hct 32.6 L MCV 87.8 MCH 29.3 MCHC 33.3 RDW 16.3 H Plt Count 168 MPV 8.7 Neut % (Auto) 81.5 H Lymph % (Auto) 7.7 L [place] % (Auto) 7.1 Eos % (Auto) 2.5 Baso % (Auto) 1.2 Neut # (Auto) 5.9 Lymph # (Auto) 0.6 L [place] # (Auto) 0.5 Eos # (Auto) 0.2 Baso # (Auto) 0.1 Neutrophils % (Manual) 80 H Lymphocytes % (Manual) 13 L Monocytes % (Manual) 5 Eosinophils % (Manual) 2 Platelet Estimate Normal Large Platelets Present Anisocytosis (manual) Slight Macrocytosis (manual) Slight Ovalocytes Moderate ESR PT 11.4 INR 1.0 APTT 36.6 pO2 VBG pH VBG pCO2 VBG HCO3 VBG Total CO2 VBG O2 Sat (Calc) VBG Base Excess VBG Potassium Glucose Lactate FiO2 Sodium 132 Potassium 4.5 Chloride 93 L Carbon Dioxide 27 Anion Gap 17 BUN 59 H Creatinine 5.3 H Est GFR ( Amer) 10 Est GFR (Non-Af Amer) 8 POC Glucose (mg/dL) Random Glucose 126 H Calcium 8.5 Phosphorus 4.7 H Magnesium 2.4 H Total Bilirubin 0.7 AST 37 H ALT 20 Alkaline Phosphatase 85 NT-Pro-B Natriuret Pep 38682 H Total Protein 7.8 Albumin 3.9 Globulin 3.9 Albumin/Globulin Ratio 1.0 Triglycerides Cholesterol LDL Cholesterol Direct HDL Cholesterol TSH 3rd Generation Venous Blood Potassium Blood Type Antibody Screen BBK History Checked 12/13/18 12/13/18 12/13/18 11:45 11:55 13:25 WBC RBC Hgb Hct MCV MCH MCHC RDW Plt Count MPV Neut % (Auto) Lymph % (Auto) [place] % (Auto) Eos % (Auto) Baso % (Auto) Neut # (Auto) Lymph # (Auto) [place] # (Auto) Eos # (Auto) Baso # (Auto) Neutrophils % (Manual) Lymphocytes % (Manual) Monocytes % (Manual) Eosinophils % (Manual) Platelet Estimate Large Platelets Anisocytosis (manual) Macrocytosis (manual) Ovalocytes ESR PT INR APTT pO2 34 VBG pH 7.40 VBG pCO2 47 VBG HCO3 26.8 VBG Total CO2 30.5 H VBG O2 Sat (Calc) 67.0 H VBG Base Excess 3.5 H VBG Potassium 4.9 Glucose 124 H Lactate 0.9 FiO2 21.0 Sodium 132.0 Potassium Chloride 98.0 Carbon Dioxide Anion Gap BUN Creatinine Est GFR ( Amer) Est GFR (Non-Af Amer) POC Glucose (mg/dL) 116 H Random Glucose Calcium Phosphorus Magnesium Total Bilirubin AST ALT Alkaline Phosphatase NT-Pro-B Natriuret Pep Total Protein Albumin Globulin Albumin/Globulin Ratio Triglycerides Cholesterol LDL Cholesterol Direct HDL Cholesterol TSH 3rd Generation Venous Blood Potassium 4.9 Blood Type O POSITIVE Antibody Screen Negative BBK History Checked Patient has bt 12/14/18 12/14/18 05:15 05:15 WBC 6.7 RBC 3.39 L Hgb 10.1 L Hct 29.3 L MCV 86.5 MCH 29.8 MCHC 34.4 RDW 16.4 H Plt Count 141 MPV 8.5 Neut % (Auto) 73.2 Lymph % (Auto) 8.7 L [place] % (Auto) 11.0 H Eos % (Auto) 6.2 H Baso % (Auto) 0.9 Neut # (Auto) 4.9 Lymph # (Auto) 0.6 L [place] # (Auto) 0.7 Eos # (Auto) 0.4 Baso # (Auto) 0.1 Neutrophils % (Manual) Lymphocytes % (Manual) Monocytes % (Manual) Eosinophils % (Manual) Platelet Estimate Large Platelets Anisocytosis (manual) Macrocytosis (manual) Ovalocytes ESR 60 H PT INR APTT pO2 VBG pH VBG pCO2 VBG HCO3 VBG Total CO2 VBG O2 Sat (Calc) VBG Base Excess VBG Potassium Glucose Lactate FiO2 Sodium 135 Potassium 3.1 L Chloride 97 L Carbon Dioxide 27 Anion Gap 14 BUN 22 H Creatinine 2.6 H Est GFR ( Amer) 23 Est GFR (Non-Af Amer) 19 POC Glucose (mg/dL) Random Glucose 110 H Calcium 8.0 L Phosphorus 2.9 Magnesium 2.0 Total Bilirubin 0.5 AST 32 ALT 12 Alkaline Phosphatase 72 NT-Pro-B Natriuret Pep Total Protein 7.0 Albumin 3.4 L Globulin 3.6 Albumin/Globulin Ratio 0.9 L Triglycerides 78 Cholesterol 120 LDL Cholesterol Direct 41 HDL Cholesterol 55 TSH 3rd Generation 3.13 Venous Blood Potassium Blood Type Antibody Screen BBK History Checked Assessment & Plan - Assessment and Plan (Free Text) Assessment: fluid overload with exacerbation CHF with pleural effusion recent PC sepsis last admission Diabetic chronic Kidney Disease (E11.22) Hypertensive Chronic Kidney Disease (I12.0) End stage renal disease (N18.6) dependence on hemodialysis (Z99.2) MWF) via PC Anemia (D64.9), Hyperphosphatemia (E83.39), Secondary Hyperparathyroidism (E21.1), HTN (I12.0) Plan: Patient completed hemodialysis last night and removed 2500 cc, and MWF Patient feeling much better today Continue management as per pulmonary noted Antibiotics as per primary team Phosphorus binder and EPO as ordered and follow-up phosphorus and PTH
--- NOTE | 2018-12-14 11:10 | CP.PCM.PN ---
Subjective - Date & Time of Evaluation Date of Evaluation: 12/14/18 Time of Evaluation: 11:08 - Subjective Subjective: pt seen at bedside, no overnight events. Pt states she feels much better after Hemodialysis. Pt no longer reports shortness of breath. gen: awake, alert, NAD heent: nc/at, eomi, perrla no acute respiratory distress pt stable from general surgery perspective will sign off, reconsult prn Objective - Vital Signs/Intake and Output Vital Signs (last 24 hours): Temp Pulse Resp BP Pulse Ox 98.7 F 71 18 163/63 H 94 L 12/14/18 07:46 12/14/18 07:46 12/14/18 07:46 12/14/18 07:46 12/14/18 07:46 - Medications Medications: Current Medications Acetaminophen (Tylenol 325mg Tab) 650 mg PO Q4 PRN PRN Reason: Temp >100 Acetaminophen (Tylenol 325mg Tab) 650 mg PO Q4 PRN PRN Reason: Pain, Mild (1-3) Last Admin: 12/14/18 01:26 Dose: 650 mg Albuterol/Ipratropium (Duoneb 3 Mg/0.5 Mg (3 Ml) Ud) 3 ml IH Q6H PRN PRN Reason: Shortness of Breath Amlodipine Besylate (Norvasc) 10 mg PO DAILY [facility] Atorvastatin Calcium (Lipitor) 40 mg PO HS [facility] Last Admin: 12/14/18 01:24 Dose: 40 mg Carvedilol (Coreg) 25 mg PO Q12 [facility] Last Admin: 12/14/18 01:25 Dose: 25 mg Clopidogrel Bisulfate (Plavix) 75 mg PO DAILY [facility] Docusate Sodium (Colace) 200 mg PO DAILY PRN PRN Reason: Constipation Epoetin Steve (Procrit) 3,000 unit IV MWF [facility] Hydralazine HCl (Apresoline) 50 mg PO Q8 [facility] Last Admin: 12/14/18 01:24 Dose: 50 mg Ceftriaxone Sodium 1 gm/ (Sodium Chloride) 100 mls @ 100 mls/hr IVPB [facility]; Protocol Last Admin: 12/14/18 01:23 Dose: 100 mls/hr Levothyroxine Sodium (Synthroid) 50 mcg PO DAILY@0630 [facility] Last Admin: 12/14/18 06:34 Dose: 50 mcg Losartan Potassium (Cozaar) 100 mg PO DAILY [facility] Pantoprazole Sodium (Protonix Ec Tab) 40 mg PO DAILY [facility] Sevelamer Carbonate (Renvela) 1,600 mg PO TID [facility] Sitagliptin Phosphate (Januvia) 25 mg PO DAILY [facility] Vitamin A (Vitamin A & D Oint Ud Foilpak) 1 ea TOP DAILY [facility] Vitamin B Complex/Vit C/Folic Acid (Nephro-Buster) 1 tab PO DAILY [facility] - Labs Labs: 12/14/18 05:15 12/14/18 05:15 PT 11.4 Seconds (9.8-13.1) 12/13/18 11:45 INR 1.0 12/13/18 11:45 APTT 36.6 Seconds (25.6-37.1) 12/13/18 11:45
[2018-12-14] MEDS ORDERED: Lidocaine Hydrochloride 1% 10 ML ONE (11:13)
--- NOTE | 2018-12-14 11:37 | PCM.SURG1 ---
Surgeon's Initial Post Op Note - Surgeon's Notes Surgeon: Nash Lorenzana MD Theatrical Dresser: NONE Type of Anesthesia: Local Pre-Operative Diagnosis: Left pleurx catheter, effusion, dyspnea Operative Findings: US showed small left effusion and trace right effusion. Pleurx catheter valve is defective. Post-Operative Diagnosis: left pleurx catheter, effusion Operation Performed: The pleurx catheter is non functional. Valve was replaced with an Aspira valve and attached to drainage. No fluid could be aspirated. Thoracentes was then performed. 350 cc of fluid was removed. Specimen/Specimens Removed: 350 cc of slight serosanguinous fluid Estimated Blood Loss: EBL {In ML}: 0 Blood Products Given: N/A Drains Used: No Drains Post-Op Condition: Fair Date of Surgery/Procedure: 12/14/18 Time of Surgery/Procedure: 11:35
--- NOTE | 2018-12-14 12:08 | RAD ---
Date of service: 12/14/2018 PROCEDURE: CHEST RADIOGRAPH, 1 VIEW HISTORY: S/P left thoracentesis. COMPARISON: None available. FINDINGS: LUNGS: Vascular congestion right and left lung. PLEURA: No pneumothorax following left thoracentesis. Left pleural drainage catheter is in place coursing from the medial upper lung to the medial lower lung. There is no significant pleural effusion. CARDIOVASCULAR: Cardiomegaly. OSSEOUS STRUCTURES: No significant abnormalities. VISUALIZED UPPER ABDOMEN: Normal. OTHER FINDINGS: Right IJ hemodialysis catheter. IMPRESSION: No pneumothorax following left thoracentesis. Left pleural drainage catheter is identified.
--- NOTE | 2018-12-14 12:09 | CT ---
PROCEDURE: Date of procedure: 12/14/2018 Procedure: 1. Ultrasound-guided left thoracentesis, CPT 78488 2. Valve replacement left PleurX catheter. Medications: 6cc1% Lidocaine HISTORY: Nonfunctional left PleurX catheter secondary defective valve, left pleural effusion, shortness of breath TECHNIQUE: Following informed consent ,the Patients' left chest was marked. Procedure time-out was called, and the patient was placed in the sitting position and limited ultrasound showed a small left effusion. The existing left pleural drainage catheter was inspected. There was noted at the valve of the existing catheter appeared effective with a inverted diaphragm. The valve is removed and a sterile condition replaced with a new valve. The new valve system was set to drainage bag. However, no fluid could be removed. Ultrasound-guided thoracentesis was not performed. After the skin was anesthetized with lidocaine, a drainage catheter was advanced under ultrasound guidance into the pleural space. Ultrasound-guided thoracentesis was performed. A total of 350 cubic centimeters of serosanguineous fluid removed without complication. A Xeroform dressing was applied. IMPRESSION: Ultrasound showed a small amount of pleural effusion. Ultrasound-guided thoracentesis was performed with removal of 350 cubic centimeters of serosanguineous fluid. The existing left pleural drainage catheter is nonfunctional. The position of the catheter is suboptimal for effective long-term pleural drainage. Recommend catheter removal.
[2018-12-14] MEDS ORDERED: Potassium Chloride 20 mEq ER Tab PO ONE (12:10)
[2018-12-14 13:05] LABS: HEPATITIS B SURFACE AG Negative (NEGATIVE)
[2018-12-14] MEDS: Multivitamin Vitamin B Complex (Nephro-Vite) Tab PO SCH (13:52)
[2018-12-14] MEDS: Pantoprazole 40 mg EC Tab PO SCH (13:53)
[2018-12-14] MEDS: Vitamins A & D Oint UD Foilpak TOP SCH (13:54)
[2018-12-14 14:24] LABS: HEPATITIS B CORE AB NEGATIVE (NEGATIVE)
[2018-12-14] MEDS ORDERED: Albuterol-Ipratrop 3 mg / 0.5 (3 ml) UD INH STA (22:47)
[2018-12-15 05:52] LABS: ALBUMIN 3.6 g/dL (3.5-5.0); CALCIUM 8.1 mg/dL (8.4-10.2)
[2018-12-15] MEDS: Levothyroxine 50 MCG TAB PO SCH (06:51)
--- NOTE | 2018-12-15 09:40 | CP.PCM.PN ---
Subjective - Date & Time of Evaluation Date of Evaluation: 12/15/18 Time of Evaluation: 09:37 - Subjective Subjective: RENAL s: seen and examined feels fatigued pe: VSS gen: nad sclera: anicteric peerla nekc: supple op: clear nml dentition cv: +S1+s2 no rub lungs: reduced bs at bases + pleurex cath abd: soft nt nd no organomegaly ext: no edema neuro: a+ox3 no focal deficit psych:nml affect skin no rash labs and imaging reviewed imp: ESRD/ Hypertensive kidney disease/ Diabetic kidney disease/ Pleural effusion/ Anemia of renal disease/ Secondary hyperpara/hyperphosphatemia plan: HD MWF for HD today bp stable dm: per primary team pleural effusion per primary team hgb stable on epo continue phos at goal on renvela Objective - Vital Signs/Intake and Output Vital Signs (last 24 hours): Temp Pulse Resp BP Pulse Ox 97.9 F 78 18 156/63 H 95 12/15/18 08:00 12/15/18 08:00 12/15/18 08:00 12/15/18 08:00 12/15/18 08:00 - Medications Medications: Current Medications Acetaminophen (Tylenol 325mg Tab) 650 mg PO Q4 PRN PRN Reason: Temp >100 Acetaminophen (Tylenol 325mg Tab) 650 mg PO Q4 PRN PRN Reason: Pain, Mild (1-3) Last Admin: 12/14/18 01:26 Dose: 650 mg Albuterol/Ipratropium (Duoneb 3 Mg/0.5 Mg (3 Ml) Ud) 3 ml IH Q6H PRN PRN Reason: Shortness of Breath Amlodipine Besylate (Norvasc) 10 mg PO DAILY [facility] Last Admin: 12/14/18 13:52 Dose: 10 mg Atorvastatin Calcium (Lipitor) 40 mg PO HS [facility] Last Admin: 12/14/18 21:12 Dose: 40 mg Carvedilol (Coreg) 25 mg PO Q12 [facility] Last Admin: 12/14/18 21:12 Dose: 25 mg Clopidogrel Bisulfate (Plavix) 75 mg PO DAILY [facility] Last Admin: 12/14/18 13:52 Dose: 75 mg Docusate Sodium (Colace) 200 mg PO DAILY PRN PRN Reason: Constipation Epoetin Steve (Procrit) 3,000 unit IV MWF [facility] Hydralazine HCl (Apresoline) 50 mg PO Q8 [facility] Last Admin: 12/15/18 01:21 Dose: 50 mg Ceftriaxone Sodium 1 gm/ (Sodium Chloride) 100 mls @ 100 mls/hr IVPB [facility]; Protocol Last Admin: 12/14/18 21:13 Dose: 100 mls/hr Levothyroxine Sodium (Synthroid) 50 mcg PO DAILY@0630 [facility] Last Admin: 12/15/18 06:51 Dose: 50 mcg Losartan Potassium (Cozaar) 100 mg PO DAILY [facility] Last Admin: 12/14/18 13:43 Dose: 100 mg Pantoprazole Sodium (Protonix Ec Tab) 40 mg PO DAILY [facility] Last Admin: 12/14/18 13:53 Dose: 40 mg Sevelamer Carbonate (Renvela) 1,600 mg PO TID [facility] Last Admin: 12/14/18 18:14 Dose: 1,600 mg Sitagliptin Phosphate (Januvia) 25 mg PO DAILY [facility] Last Admin: 12/14/18 13:43 Dose: 25 mg Vitamin A (Vitamin A & D Oint Ud Foilpak) 1 ea TOP DAILY [facility] Last Admin: 12/14/18 13:54 Dose: 1 ea Vitamin B Complex/Vit C/Folic Acid (Nephro-Buster) 1 tab PO DAILY [facility] Last Admin: 12/14/18 13:52 Dose: 1 tab - Labs Labs: 12/14/18 05:15 12/15/18 05:10 PT 11.4 Seconds (9.8-13.1) 12/13/18 11:45 INR 1.0 12/13/18 11:45 APTT 36.6 Seconds (25.6-37.1) 12/13/18 11:45
[2018-12-15 10:11] LABS: ABG ALLEN TEST YES; ARTERIAL BLOOD GAS HCO3 23.9 mmol/L (21-28); ARTERIAL BLOOD GAS HEMOGLOBIN 10.7 g/dL (11.7-17.4); ARTERIAL BLOOD GAS O2 CAPACITY 14.6 mL/dL (16-24); ARTERIAL BLOOD GAS O2 CONTENT 8.8 ML/dL (15-23); ARTERIAL BLOOD GAS O2 SAT 60.4 % (95-98); ARTERIAL BLOOD GAS PCO2 37 mm/Hg (35-45); ARTERIAL BLOOD GAS PH 7.42 (7.35-7.45); ARTERIAL BLOOD GAS PO2 27 mm/Hg (80-100); ARTERIAL BLOOD GAS TCO2 25.1 mmol/L (22-28)
--- NOTE | 2018-12-15 10:39 | CP.PCM.CON ---
History of Present Illness - History of Present Illness History of Present Illness: Cardiothoracic Surgery Note for Dr. Gabriel Reason for consult: pleurx catheter removal 58 F with past medical history significant for ESRD on dialysis, CHF, and DM, who was admitted for shortness of breath and recurrent pleural effusion. Patient is a [facility] resident and states that nurse attempted to drain fluid from the catheter however it was unsuccessful. Patient [place] [facility] [place] States the physicians there told her the catheter can be removed soon after a pleurodesis. Patient was initially on non-rebreather but is now on HFNC. Patient denies fever/chills, cp, SOB, nausea/vomiting, abdominal pain, chest pain. PMH: as above PSH: Pleurx catheter on left, right sided permacatheter, hysterectomy FH: Mother passed from liver cancer, Father passed from thoracic aneurysm SH: Smoked cigarettes for 20 years now quite, denies alcohol or drug use ALL: shrimp Review of Systems - Review of Systems All systems: reviewed and no additional remarkable complaints except (as per HPI) Past Patient History - Infectious Disease Hx of Infectious Diseases: None - Past Medical History & Family History Past Medical History?: Yes - Past Social History Smoking Status: Never Smoked - CARDIAC Hx Congestive Heart Failure: Yes Hx Hypercholesterolemia: Yes Hx Hypertension: Yes - PULMONARY Hx Chronic Obstructive Pulmonary Disease (COPD): Yes Hx Pneumonia: Yes - NEUROLOGICAL Hx Neurological Disorder: No - HEENT Hx HEENT Problems: No - RENAL Hx Chronic Kidney Disease: Yes - ENDOCRINE/METABOLIC Hx Hypothyroidism: Yes - HEMATOLOGICAL/ONCOLOGICAL Hx Human Immunodeficiency Virus (HIV): No - INTEGUMENTARY Hx Dermatological Problems: No - MUSCULOSKELETAL/RHEUMATOLOGICAL Hx Arthritis: Yes - GASTROINTESTINAL Hx Gastrointestinal Disorders: No - GENITOURINARY/GYNECOLOGICAL Hx Uterine Cancer: No - PSYCHIATRIC Hx Psychophysiologic Disorder: No Hx Substance Use: No - SURGICAL HISTORY Hx Hysterectomy: No - ANESTHESIA Hx Anesthesia: Yes Hx Anesthesia Reactions: No Hx Malignant Hyperthermia: No Meds Allergies/Adverse Reactions: Allergies Allergy/AdvReac Type Severity Reaction Status Date / Time shrimp Allergy Severe ANAPHYLAXIS Verified 11/29/18 14:23 - Medications Medications: Current Medications Acetaminophen (Tylenol 325mg Tab) 650 mg PO Q4 PRN PRN Reason: Temp >100 Acetaminophen (Tylenol 325mg Tab) 650 mg PO Q4 PRN PRN Reason: Pain, Mild (1-3) Last Admin: 12/14/18 01:26 Dose: 650 mg Albuterol/Ipratropium (Duoneb 3 Mg/0.5 Mg (3 Ml) Ud) 3 ml IH Q6H PRN PRN Reason: Shortness of Breath Amlodipine Besylate (Norvasc) 10 mg PO DAILY [facility] Last Admin: 12/14/18 13:52 Dose: 10 mg Atorvastatin Calcium (Lipitor) 40 mg PO HS [facility] Last Admin: 12/14/18 21:12 Dose: 40 mg Carvedilol (Coreg) 25 mg PO Q12 [facility] Last Admin: 12/14/18 21:12 Dose: 25 mg Clopidogrel Bisulfate (Plavix) 75 mg PO DAILY [facility] Last Admin: 12/14/18 13:52 Dose: 75 mg Docusate Sodium (Colace) 200 mg PO DAILY PRN PRN Reason: Constipation Epoetin Steve (Procrit) 3,000 unit IV MWF [facility] Hydralazine HCl (Apresoline) 50 mg PO Q8 [facility] Last Admin: 12/15/18 01:21 Dose: 50 mg Ceftriaxone Sodium 1 gm/ (Sodium Chloride) 100 mls @ 100 mls/hr IVPB HS [facility]; Protocol Last Admin: 12/14/18 21:13 Dose: 100 mls/hr Levothyroxine Sodium (Synthroid) 50 mcg PO DAILY@0630 [facility] Last Admin: 12/15/18 06:51 Dose: 50 mcg Losartan Potassium (Cozaar) 100 mg PO DAILY [facility] Last Admin: 12/14/18 13:43 Dose: 100 mg Pantoprazole Sodium (Protonix Ec Tab) 40 mg PO DAILY [facility] Last Admin: 12/14/18 13:53 Dose: 40 mg Sevelamer Carbonate (Renvela) 1,600 mg PO TID [facility] Last Admin: 12/14/18 18:14 Dose: 1,600 mg Sitagliptin Phosphate (Januvia) 25 mg PO DAILY [facility] Last Admin: 12/14/18 13:43 Dose: 25 mg Vitamin A (Vitamin A & D Oint Ud Foilpak) 1 ea TOP DAILY [facility] Last Admin: 12/14/18 13:54 Dose: 1 ea Vitamin B Complex/Vit C/Folic Acid (Nephro-Buster) 1 tab PO DAILY [facility] Last Admin: 12/14/18 13:52 Dose: 1 tab Physical Exam - Constitutional Appears: No Acute Distress - Head Exam Head Exam: ATRAUMATIC, NORMOCEPHALIC - Eye Exam Eye Exam: Normal appearance - ENT Exam ENT Exam: Mucous Membranes Moist - Respiratory Exam Respiratory Exam: Decreased Breath Sounds, Rales Additional comments: HFNC Left sided pleurx catheter - Cardiovascular Exam Cardiovascular Exam: REGULAR RHYTHM - GI/Abdominal Exam GI & Abdominal Exam: Normal Bowel Sounds, Soft. absent: Tenderness - Extremities Exam Extremities exam: Positive for: normal capillary refill - Back Exam Back exam: absent: CVA tenderness (L), CVA tenderness (R) - Neurological Exam Neurological exam: Alert - Psychiatric Exam Psychiatric exam: Normal Affect, Normal Mood - Skin Skin Exam: Dry, Intact, Warm Results - Vital Signs Recent Vital Signs: Last Vital Signs Temp 97.9 F 12/15/18 08:00 Pulse 78 12/15/18 08:00 Resp 18 12/15/18 08:00 BP 156/63 H 12/15/18 08:00 Pulse Ox 95 12/15/18 08:00 - Labs Result Diagrams: 12/14/18 05:15 12/15/18 05:10 Labs: Laboratory Results - last 24 hr 12/14/18 12/14/18 12/14/18 05:15 05:15 05:15 pCO2 pO2 HCO3 ABG pH ABG Total CO2 ABG O2 Saturation ABG O2 Content ABG Base Excess ABG Hemoglobin ABG Carboxyhemoglobin POC ABG HHb (Measured) ABG Methemoglobin ABG O2 Capacity Praveen Test A-a O2 Difference Hgb O2 Saturation Vent Mode FiO2 Blood Gas Comments Crit Value Called To Crit Value Called By Crit Value Read Back Blood Gas Notified Time Sodium Potassium Chloride Carbon Dioxide Anion Gap BUN Creatinine Est GFR ( Amer) Est GFR (Non-Af Amer) Random Glucose Hemoglobin A1c 5.0 Calcium Phosphorus Magnesium Total Bilirubin AST ALT Alkaline Phosphatase Total Protein Albumin Globulin Albumin/Globulin Ratio Hep Bs Antigen Negative Hep Bs Antibody Negative Hep B Core IgM Ab Negative 12/14/18 12/15/18 12/15/18 10:15 05:10 10:04 pCO2 37 pO2 27 L* HCO3 23.9 ABG pH 7.42 ABG Total CO2 25.1 ABG O2 Saturation 60.4 L ABG O2 Content 8.8 L ABG Base Excess -0.3 ABG Hemoglobin 10.7 L ABG Carboxyhemoglobin 1.7 H POC ABG HHb (Measured) 38.3 H ABG Methemoglobin 1.6 ABG O2 Capacity 14.6 L Praveen Test Yes A-a O2 Difference 283.0 Hgb O2 Saturation 58.4 L Vent Mode Vm FiO2 50.0 Blood Gas Comments Vm 50% Crit Value Called To Dr. gopal soto m.d. Crit Value Called By Nisa Crijose ramon Value Read Back Y Blood Gas Notified Time 1011 Sodium 135 Potassium 4.7 Chloride 99 Carbon Dioxide 26 Anion Gap 15 BUN 37 H Creatinine 4.0 H Est GFR ( Amer) 14 Est GFR (Non-Af Amer) 11 Random Glucose 108 H Hemoglobin A1c Calcium 8.1 L Phosphorus 3.5 3.9 Magnesium 2.1 Total Bilirubin 0.6 AST 29 ALT 18 Alkaline Phosphatase 69 Total Protein 7.3 Albumin 3.6 Globulin 3.7 Albumin/Globulin Ratio 1.0 Hep Bs Antigen Hep Bs Antibody Hep B Core IgM Ab Assessment & Plan - Assessment and Plan (Free Text) Assessment: 58 F with past medical history significant for ESRD on dialysis, CHF, and DM, who was admitted for shortness of breath and recurrent pleural effusion Plan: -Plan for pleurx catheter removal at bedside 12/16 -f/u CXR -HFNC -management as per primary team -Discussed with Dr. Nery Esteves PGY2 - Date & Time Date: 12/15/18 Time: 11:30
[2018-12-15] MEDS: Multivitamin Vitamin B Complex (Nephro-Vite) Tab PO SCH (10:52)
[2018-12-15] MEDS: Pantoprazole 40 mg EC Tab PO SCH (10:53)
[2018-12-15] MEDS: Vitamins A & D Oint UD Foilpak TOP SCH (10:54)
--- NOTE | 2018-12-15 11:02 | RAD ---
Date of service: 12/15/2018 HISTORY: SOB COMPARISON: 12/14/2008 TECHNIQUE: 1 view obtained. FINDINGS: Study is limited over penetration over each apex LUNGS: Bilateral coalescent airspace opacities have increased. Coalescent areas of pulmonary edema with or without coalescing patchy infiltrates left mid to lower lung zone are favored considerations. PLEURA: No pleural effusions left greater than right noted. Study is markedly limited in terms of assessing for any potential pneumothorax. In this regard consider repeat upright view in expiration. CARDIOVASCULAR: No aortic atherosclerotic calcification present. Cardiomegaly. Pulmonary venous congestion present and increased since prior exam. Right large caliber central line/dialysis catheter at cavoatrial junction. Apparent left-sided pleural drainage catheter present is position and contour of the left hemithorax is similar. Correlate clinically. OSSEOUS STRUCTURES: No significant abnormalities. VISUALIZED UPPER ABDOMEN: Normal. OTHER FINDINGS: None. IMPRESSION: Limited exam particular in regards to assessing for any pneumothorax. Please see above considerations/recommendations. Interval worsening bilateral patchy opacities especially in left mid lung zone. In addition to worsening pulmonary venous congestion pulmonary edema, concomitant patchy infiltrates especially over the left mid and lower lung zone are a consideration. Elements of subsegmental atelectasis are also likely present the left lung base. Bilateral pleural effusions. Catheters drainage the lines are as above.
[2018-12-15] MEDS: Epoetin Alfa 20000 UNIT/ML (RENAL DOSE) IV SCH ×2 (14:03→14:50)
--- NOTE | 2018-12-15 15:12 | RAD ---
Date of service: 12/15/2018 HISTORY: Evaluate for pneumo thorax. Relevant interventional procedure(s): December 14, 2018. Thoracentesis and PleurX catheter placement left pleural space. COMPARISON: December 15, 2018. Study performed 10:26. FINDINGS: LUNGS: Stable pulmonary vascular congestion. PLEURA: Stable bilateral pleural effusions left larger than right. Redemonstration of PleurX catheter left pleural space. CARDIOVASCULAR: No atherosclerotic calcification present Venous access catheter in stable, satisfactory position. OSSEOUS STRUCTURES: No significant abnormalities. VISUALIZED UPPER ABDOMEN: Normal. OTHER FINDINGS: None. IMPRESSION: Stable position of PleurX catheter left pleural space. No pneumothorax detected. Stable pulmonary vascular congestion and bilateral pleural effusions.
--- NOTE | 2018-12-15 20:31 | CON ---
DATE: 12/15/2018 HISTORY OF PRESENT ILLNESS: Ms. Francisco is a 58-year-old female who was referred for Pulmonary evaluation because of shortness of breath and worsening pleural effusion. She is status post thoracentesis, pleural effusion, and had drainage of more than 400 mL of pleural fluid. She also has a history of end-stage renal failure with recurrent pleural effusion, for which she has had PleurX catheter placed, but apparently the catheter has not been draining adequately. She was remanded to [facility], but has been admitted to [facility] on multiple occasions for similar problems. Her last admission was in 10/2018 for similar problems. She had poor functioning of PleurX catheter. PAST MEDICAL HISTORY: Remarkable for end-stage renal disease, on hemodialysis; bilateral pleural effusion; pneumonia; congestive heart failure; uterine cancer; hypertension; hyperlipidemia; hypothyroidism; and chronic obstructive pulmonary disease with coronary artery disease and congestive heart failure. FAMILY HISTORY: Nonrevealing. SOCIAL HISTORY: She does not smoke and does not drink and presently resides at [facility]. PHYSICAL EXAMINATION: GENERAL: The patient is alert and oriented, is dyspneic at rest. VITAL SIGNS: Remarkable for blood pressure of 156/53 with pulse of 78, respiratory rate 18. She is afebrile. O2 sat 95% on nonrebreather, drops down to the 70s off oxygen. SKIN: Shows fair turgor. HEENT: Pupils are equal and reactive to light and accommodation. Mouth shows fair hygiene. LUNGS: Poor aeration bilaterally with dullness at both lung bases, left worse than right. HEART: S1, S2. ABDOMEN: Soft, nontender. No organomegaly. EXTREMITIES: Shows no edema or cyanosis. CENTRAL NERVOUS SYSTEM: The patient is alert and oriented, has no gross deficits. LABORATORY DATA: Remarkable for a chest x-ray that shows cardiomegaly with left pleural effusion, worse than right. There is dialysis catheter placed over the right side of the chest. WBC 6.7, hemoglobin 10.1, platelet count of 141,000. Sodium 135, potassium 4.7, BUN 37, creatinine 4. Arterial blood gas done on 11/14 shows a pH of 7.42, pCO2 49, pO2 of 36, O2 saturation 74.7. IMPRESSION: Acute respiratory failure with severe hypoxemia and hypercapnia, moderate left pleural effusion, end-stage renal disease, malfunctioning PleurX catheter, history of hypothyroidism, history of congestive heart failure in the past, history of coronary artery disease, and hyperlipidemia. PLAN: Change the patient to high-flow oxygen. The patient will probably need Thoracic Surgery evaluation to determine replacement of PleurX catheter or appropriate drainage of pleural fluid or possible pleurodesis. We will continue IV antibiotic therapy. We will continue to follow with you. Further therapy will depend on clinical findings and improvement. Steffen Grajeda MD
--- NOTE | 2018-12-16 00:21 | CP.PCM.HP ---
History of Present Illness - History of Present Illness History of Present Illness: This is a 58 y/o female with CKD and on HD 3x a week was admitted for worsening of SOB. She had multiple hospitalizations in the past for the same and noted to have chronic pleural effusiion. She is on pleural cath drain. Past Patient History - Infectious Disease Hx of Infectious Diseases: None - Past Medical History & Family History Past Medical History?: Yes - Past Social History Smoking Status: Never Smoked - CARDIAC Hx Congestive Heart Failure: Yes Hx Hypercholesterolemia: Yes Hx Hypertension: Yes - PULMONARY Hx Chronic Obstructive Pulmonary Disease (COPD): Yes Hx Pneumonia: Yes - NEUROLOGICAL Hx Neurological Disorder: No - HEENT Hx HEENT Problems: No - RENAL Hx Chronic Kidney Disease: Yes - ENDOCRINE/METABOLIC Hx Hypothyroidism: Yes - HEMATOLOGICAL/ONCOLOGICAL Hx Human Immunodeficiency Virus (HIV): No - INTEGUMENTARY Hx Dermatological Problems: No - MUSCULOSKELETAL/RHEUMATOLOGICAL Hx Arthritis: Yes - GASTROINTESTINAL Hx Gastrointestinal Disorders: No - GENITOURINARY/GYNECOLOGICAL Hx Uterine Cancer: No - PSYCHIATRIC Hx Psychophysiologic Disorder: No Hx Substance Use: No - SURGICAL HISTORY Hx Hysterectomy: No - ANESTHESIA Hx Anesthesia: Yes Hx Anesthesia Reactions: No Hx Malignant Hyperthermia: No Meds Allergies/Adverse Reactions: Allergies Allergy/AdvReac Type Severity Reaction Status Date / Time shrimp Allergy Severe ANAPHYLAXIS Verified 11/29/18 14:23 Results - Vital Signs Recent Vital Signs: Last Vital Signs Temp 98.3 F 12/15/18 19:43 Pulse 73 12/15/18 22:19 Resp 16 12/15/18 20:13 BP 165/82 H 12/15/18 22:19 Pulse Ox 100 12/15/18 19:43 - Labs Result Diagrams: 12/14/18 05:15 12/15/18 05:10 Labs: Laboratory Results - last 24 hr 12/14/18 12/15/18 12/15/18 10:15 05:10 10:04 pCO2 37 pO2 27 L* HCO3 23.9 ABG pH 7.42 ABG Total CO2 25.1 ABG O2 Saturation 60.4 L ABG O2 Content 8.8 L ABG Base Excess -0.3 ABG Hemoglobin 10.7 L ABG Carboxyhemoglobin 1.7 H POC ABG HHb (Measured) 38.3 H ABG Methemoglobin 1.6 ABG O2 Capacity 14.6 L Praveen Test Yes A-a O2 Difference 283.0 Hgb O2 Saturation 58.4 L Vent Mode Vm FiO2 50.0 Blood Gas Comments Vm 50% Crit Value Called To Dr. gopal soto m.d. Crit Value Called By Nisa Crijose ramon Value Read Back Y Blood Gas Notified Time 1011 Sodium 135 Potassium 4.7 Chloride 99 Carbon Dioxide 26 Anion Gap 15 BUN 37 H Creatinine 4.0 H Est GFR ( Amer) 14 Est GFR (Non-Af Amer) 11 Random Glucose 108 H Calcium 8.1 L Phosphorus 3.9 Magnesium 2.1 Total Bilirubin 0.6 AST 29 ALT 18 Alkaline Phosphatase 69 Total Protein 7.3 Albumin 3.6 Globulin 3.7 Albumin/Globulin Ratio 1.0 PTH Intact Whole Molec 131 H
--- NOTE | 2018-12-16 00:23 | CP.PCM.PN ---
Subjective - Date & Time of Evaluation Date of Evaluation: 12/15/18 Time of Evaluation: 11:00 - Subjective Subjective: Noted to have increasing SOB. ABG;s showed severe hypoxemia with pO2 of 27 Objective - Vital Signs/Intake and Output Vital Signs (last 24 hours): Temp Pulse Resp BP Pulse Ox 98.3 F 73 16 165/82 H 100 12/15/18 19:43 12/15/18 22:19 12/15/18 20:13 12/15/18 22:19 12/15/18 19:43 - Medications Medications: Current Medications Acetaminophen (Tylenol 325mg Tab) 650 mg PO Q4 PRN PRN Reason: Temp >100 Last Admin: 12/15/18 22:19 Dose: 650 mg Acetaminophen (Tylenol 325mg Tab) 650 mg PO Q4 PRN PRN Reason: Pain, Mild (1-3) Last Admin: 12/14/18 01:26 Dose: 650 mg Albuterol/Ipratropium (Duoneb 3 Mg/0.5 Mg (3 Ml) Ud) 3 ml IH Q6H PRN PRN Reason: Shortness of Breath Amlodipine Besylate (Norvasc) 10 mg PO DAILY [facility] Last Admin: 12/15/18 10:52 Dose: 10 mg Atorvastatin Calcium (Lipitor) 40 mg PO HS [facility] Last Admin: 12/15/18 22:22 Dose: 40 mg Carvedilol (Coreg) 25 mg PO Q12 [facility] Last Admin: 12/15/18 22:19 Dose: 25 mg Clopidogrel Bisulfate (Plavix) 75 mg PO DAILY [facility] Last Admin: 12/15/18 10:53 Dose: 75 mg Docusate Sodium (Colace) 200 mg PO DAILY PRN PRN Reason: Constipation Epoetin Steve (Procrit) 3,000 unit IV MWF [facility] Last Admin: 12/15/18 14:50 Dose: 3,000 unit Hydralazine HCl (Apresoline) 50 mg PO Q8 [facility] Last Admin: 12/15/18 18:45 Dose: 50 mg Ceftriaxone Sodium 1 gm/ (Sodium Chloride) 100 mls @ 100 mls/hr IVPB HS [facility]; Protocol Last Admin: 12/15/18 22:22 Dose: 100 mls/hr Levothyroxine Sodium (Synthroid) 50 mcg PO DAILY@0630 [facility] Last Admin: 12/15/18 06:51 Dose: 50 mcg Losartan Potassium (Cozaar) 100 mg PO DAILY [facility] Last Admin: 12/15/18 10:52 Dose: 100 mg Pantoprazole Sodium (Protonix Ec Tab) 40 mg PO DAILY [facility] Last Admin: 12/15/18 10:53 Dose: 40 mg Sevelamer Carbonate (Renvela) 1,600 mg PO TID [facility] Last Admin: 12/15/18 18:46 Dose: 1,600 mg Sitagliptin Phosphate (Januvia) 25 mg PO DAILY [facility] Last Admin: 12/15/18 10:52 Dose: 25 mg Vitamin A (Vitamin A & D Oint Ud Foilpak) 1 ea TOP DAILY [facility] Last Admin: 12/15/18 10:54 Dose: 1 ea Vitamin B Complex/Vit C/Folic Acid (Nephro-Buster) 1 tab PO DAILY [facility] Last Admin: 12/15/18 10:52 Dose: 1 tab - Labs Labs: 12/14/18 05:15 12/15/18 05:10 PT 11.4 Seconds (9.8-13.1) 12/13/18 11:45 INR 1.0 12/13/18 11:45 APTT 36.6 Seconds (25.6-37.1) 12/13/18 11:45
[2018-12-16 06:05] LABS: HEMOGLOBIN 10.1 g/dL (12.0-16.0); MEAN CELL VOLUME 87.3 fl (81.0-99.0); MEAN CORPUSCULAR HEMOGLOBIN 29.6 pg (27.0-31.0); MEAN CORPUSCULAR HGB CONC 33.9 g/dL (33.0-37.0); RBC 3.4 Mil/uL (3.80-5.20); RED CELL DISTRIBUTION WIDTH 16.6 % (11.5-14.5); WHITE BLOOD COUNT 6.6 K/uL (4.8-10.8)
[2018-12-16] MEDS: Levothyroxine 50 MCG TAB PO SCH (06:29)
[2018-12-16 06:31] LABS: CALCIUM 8.1 mg/dL (8.4-10.2)
--- NOTE | 2018-12-16 08:03 | CP.PCM.PN ---
Subjective - Date & Time of Evaluation Date of Evaluation: 12/16/18 Time of Evaluation: 07:00 - Subjective Subjective: Cardiothoracic Surgery Note for Dr. Gabriel Patient seen and examined at bedside. no acute event overnight. Patient reports improvement in SOB. She remains on HFNC. Objective - Vital Signs/Intake and Output Vital Signs (last 24 hours): Temp Pulse Resp BP Pulse Ox 98.2 F 72 18 157/66 H 98 12/16/18 05:00 12/16/18 05:00 12/16/18 07:32 12/16/18 05:00 12/16/18 05:00 - Medications Medications: Current Medications Acetaminophen (Tylenol 325mg Tab) 650 mg PO Q4 PRN PRN Reason: Temp >100 Last Admin: 12/15/18 22:19 Dose: 650 mg Acetaminophen (Tylenol 325mg Tab) 650 mg PO Q4 PRN PRN Reason: Pain, Mild (1-3) Last Admin: 12/14/18 01:26 Dose: 650 mg Albuterol/Ipratropium (Duoneb 3 Mg/0.5 Mg (3 Ml) Ud) 3 ml IH Q6H PRN PRN Reason: Shortness of Breath Amlodipine Besylate (Norvasc) 10 mg PO DAILY [facility] Last Admin: 12/15/18 10:52 Dose: 10 mg Atorvastatin Calcium (Lipitor) 40 mg PO HS [facility] Last Admin: 12/15/18 22:22 Dose: 40 mg Carvedilol (Coreg) 25 mg PO Q12 [facility] Last Admin: 12/15/18 22:19 Dose: 25 mg Clopidogrel Bisulfate (Plavix) 75 mg PO DAILY [facility] Last Admin: 12/15/18 10:53 Dose: 75 mg Docusate Sodium (Colace) 200 mg PO DAILY PRN PRN Reason: Constipation Epoetin Steve (Procrit) 3,000 unit IV MWF [facility] Last Admin: 12/15/18 14:50 Dose: 3,000 unit Hydralazine HCl (Apresoline) 50 mg PO Q8 [facility] Last Admin: 12/16/18 00:22 Dose: 50 mg Ceftriaxone Sodium 1 gm/ (Sodium Chloride) 100 mls @ 100 mls/hr IVPB HS [facility]; Protocol Last Admin: 12/15/18 22:22 Dose: 100 mls/hr Levothyroxine Sodium (Synthroid) 50 mcg PO DAILY@0630 [facility] Last Admin: 12/16/18 06:29 Dose: 50 mcg Losartan Potassium (Cozaar) 100 mg PO DAILY [facility] Last Admin: 12/15/18 10:52 Dose: 100 mg Pantoprazole Sodium (Protonix Ec Tab) 40 mg PO DAILY [facility] Last Admin: 12/15/18 10:53 Dose: 40 mg Sevelamer Carbonate (Renvela) 1,600 mg PO TID [facility] Last Admin: 12/15/18 18:46 Dose: 1,600 mg Sitagliptin Phosphate (Januvia) 25 mg PO DAILY [facility] Last Admin: 12/15/18 10:52 Dose: 25 mg Vitamin A (Vitamin A & D Oint Ud Foilpak) 1 ea TOP DAILY [facility] Last Admin: 12/15/18 10:54 Dose: 1 ea Vitamin B Complex/Vit C/Folic Acid (Nephro-Buster) 1 tab PO DAILY [facility] Last Admin: 12/15/18 10:52 Dose: 1 tab - Labs Labs: 12/16/18 05:40 12/16/18 05:40 PT 11.4 Seconds (9.8-13.1) 12/13/18 11:45 INR 1.0 12/13/18 11:45 APTT 36.6 Seconds (25.6-37.1) 12/13/18 11:45 - Constitutional Appears: No Acute Distress - Head Exam Head Exam: ATRAUMATIC, NORMOCEPHALIC - Eye Exam Eye Exam: Normal appearance - ENT Exam ENT Exam: Mucous Membranes Moist - Respiratory Exam Respiratory Exam: NORMAL BREATHING PATTERN. absent: Respiratory Distress Additional comments: HFNC - Cardiovascular Exam Cardiovascular Exam: REGULAR RHYTHM - GI/Abdominal Exam GI & Abdominal Exam: Soft. absent: Tenderness - Extremities Exam Extremities Exam: Normal Capillary Refill - Neurological Exam Neurological Exam: Alert, Awake, Oriented x3 - Psychiatric Exam Psychiatric exam: Normal Affect, Normal Mood - Skin Skin Exam: Dry, Intact, Warm Assessment and Plan - Assessment and Plan (Free Text) Assessment: 58 F with past medical history significant for ESRD on dialysis, CHF, and DM, who was admitted for shortness of breath and recurrent pleural effusion Plan: -Will remove pleurx catheter at bedside -Wean from HFNC -management as per primary team -Discussed with Dr. Nery Esteves PGY2
[2018-12-16] MEDS: Multivitamin Vitamin B Complex (Nephro-Vite) Tab PO SCH (08:35)
[2018-12-16] MEDS: Pantoprazole 40 mg EC Tab PO SCH (08:36)
--- NOTE | 2018-12-16 08:41 | CP.PCM.PN ---
Subjective - Date & Time of Evaluation Date of Evaluation: 12/16/18 Time of Evaluation: 08:40 - Subjective Subjective: SOB IMPROVED POST-DIALYSIS AND WITH HIGH FLOW O2 Objective - Vital Signs/Intake and Output Vital Signs (last 24 hours): Temp Pulse Resp BP Pulse Ox 98.2 F 72 18 157/66 H 98 12/16/18 05:00 12/16/18 05:00 12/16/18 07:32 12/16/18 05:00 12/16/18 05:00 - Medications Medications: Current Medications Acetaminophen (Tylenol 325mg Tab) 650 mg PO Q4 PRN PRN Reason: Temp >100 Last Admin: 12/15/18 22:19 Dose: 650 mg Acetaminophen (Tylenol 325mg Tab) 650 mg PO Q4 PRN PRN Reason: Pain, Mild (1-3) Last Admin: 12/14/18 01:26 Dose: 650 mg Albuterol/Ipratropium (Duoneb 3 Mg/0.5 Mg (3 Ml) Ud) 3 ml IH Q6H PRN PRN Reason: Shortness of Breath Amlodipine Besylate (Norvasc) 10 mg PO DAILY [facility] Last Admin: 12/15/18 10:52 Dose: 10 mg Atorvastatin Calcium (Lipitor) [address] [facility] Last Admin: 12/15/18 22:22 Dose: 40 mg Carvedilol (Coreg) 25 mg PO Q12 [facility] Last Admin: 12/15/18 22:19 Dose: 25 mg Clopidogrel Bisulfate (Plavix) 75 mg PO DAILY [facility] Last Admin: 12/15/18 10:53 Dose: 75 mg Docusate Sodium (Colace) 200 mg PO DAILY PRN PRN Reason: Constipation Epoetin Steve (Procrit) 3,000 unit IV MWF [facility] Last Admin: 12/15/18 14:50 Dose: 3,000 unit Hydralazine HCl (Apresoline) 50 mg PO Q8 [facility] Last Admin: 12/16/18 00:22 Dose: 50 mg Ceftriaxone Sodium 1 gm/ (Sodium Chloride) 100 mls @ 100 mls/hr IVPB [facility]; Protocol Last Admin: 12/15/18 22:22 Dose: 100 mls/hr Levothyroxine Sodium (Synthroid) 50 mcg PO DAILY@0630 [facility] Last Admin: 12/16/18 06:29 Dose: 50 mcg Losartan Potassium (Cozaar) 100 mg PO DAILY [facility] Last Admin: 12/15/18 10:52 Dose: 100 mg Pantoprazole Sodium (Protonix Ec Tab) 40 mg PO DAILY [facility] Last Admin: 12/16/18 08:36 Dose: 40 mg Sevelamer Carbonate (Renvela) 1,600 mg PO TID [facility] Last Admin: 12/16/18 08:36 Dose: 1,600 mg Sitagliptin Phosphate (Januvia) 25 mg PO DAILY [facility] Last Admin: 12/16/18 08:35 Dose: 25 mg Vitamin A (Vitamin A & D Oint Ud Foilpak) 1 ea TOP DAILY [facility] Last Admin: 12/15/18 10:54 Dose: 1 ea Vitamin B Complex/Vit C/Folic Acid (Nephro-Buster) 1 tab PO DAILY [facility] Last Admin: 12/16/18 08:35 Dose: 1 tab - Labs Labs: 12/16/18 05:40 12/16/18 05:40 PT 11.4 Seconds (9.8-13.1) 12/13/18 11:45 INR 1.0 12/13/18 11:45 APTT 36.6 Seconds (25.6-37.1) 12/13/18 11:45 - Constitutional Appears: No Acute Distress - Head Exam Head Exam: ATRAUMATIC, NORMAL INSPECTION, NORMOCEPHALIC - Eye Exam Eye Exam: EOMI, Normal appearance, PERRL Pupil Exam: NORMAL ACCOMODATION, PERRL - ENT Exam ENT Exam: Mucous Membranes Moist, Normal Exam - Neck Exam Neck Exam: Full ROM, Normal Inspection. absent: Lymphadenopathy - Respiratory Exam Respiratory Exam: Decreased Breath Sounds, Prolonged Expiratory Phase, NORMAL BREATHING PATTERN - Cardiovascular Exam Cardiovascular Exam: REGULAR RHYTHM, +S1, +S2. absent: Murmur - GI/Abdominal Exam GI & Abdominal Exam: Soft, Normal Bowel Sounds. absent: Tenderness - Rectal Exam Rectal Exam: NORMAL INSPECTION - Extremities Exam Extremities Exam: Full ROM, Normal Capillary Refill, Normal Inspection. absent: Joint Swelling, Pedal Edema - Back Exam Back Exam: NORMAL INSPECTION - Neurological Exam Neurological Exam: Alert, Awake, CN II-XII Intact, Normal Gait, Oriented x3 - Psychiatric Exam Psychiatric exam: Normal Affect, Normal Mood - Skin Skin Exam: Dry, Intact, Normal Color, Warm Assessment and Plan - Assessment and Plan (Free Text) Assessment: ESRD PLEURAL EFFUSION PULMONARY CONGESTION IMPROVED Plan: FOR REMOVAL OF PLEUREX CATH TODAY BY SURGICAL TEAM
[2018-12-16] MEDS: Vitamins A & D Oint UD Foilpak TOP SCH (08:50)
[2018-12-16 08:55] VITALS: O2SAT 100
--- NOTE | 2018-12-16 10:58 | PCM.PCON ---
History of Present Illness - History of Present Illness History of Present Illness: Patient is a 58 year old female who presented to the ED on 12/13 complaining of SOB. She has a history of CHF with a Pleurx catheter placed at [facility]. At halfway, patient says that staff was unable to drain from it at [facility]. Pleurx catheter to be removed today. Patient currently admitted for recurrent left Pleural effusion and CHF. PMH: Arthritis, CAD, CHF, COPD, DM, HTN, Hypercholesterolemia, Hypothroidism, Pneumonia, ESRD, CKD, Soc hx: From NH, Former smoker, denies alcohol and drug use Fam hx: Mom had liver ca, Father had Thoracic aneurysm 12/14 Left Thoracentesis- 300cc removed 12/15 CXR: NO Pneumothorax detected, Stable pulmonary vascular congestion and Bilateral pleural effusions Review of Systems - Review of Systems Review of Systems: obtained from patient at the bedside - Constitutional Constitutional: Fatigue - Cardiovascular Cardiovascular: Dyspnea - Respiratory Respiratory: Dyspnea - Gastrointestinal Additional comments: decreased appetite Physical Exam - Constitutional Appears: Chronically Ill - Head Exam Head Exam: ATRAUMATIC, NORMAL INSPECTION, NORMOCEPHALIC - Eye Exam Eye Exam: PERRL - ENT Exam ENT Exam: Mucous Membranes Moist - Respiratory Exam Respiratory Exam: Decreased Breath Sounds Additional comments: on high flow O2 - Cardiovascular Exam Cardiovascular Exam: REGULAR RHYTHM - GI/Abdominal Exam GI & Abdominal Exam: Normal Bowel Sounds - Neurological Exam Neurological exam: Alert, Oriented x3 - Psychiatric Exam Psychiatric exam: Flat Affect - Skin Skin Exam: Pallor, Warm Palliative Care Assessment - Modified MRC Dyspnea Scale Modified MRC Dyspnea Scale: Too breathless to leave the house,or breathless dressing or undressing Grade: 5 - Pain Scale Pain Score: 0 Pain Scale Used: Numeric - Reddy Scale Sensory Perception: No Impairment Moisture: Occasionally Moist Activity: Walks Occasionally Mobility: Slightly Impaired Nutrition: Probably Inadequate Friction & Shear: Potential Problem Total Score - Skin Risk Assessment: 17 Palliative Care - Goals Goal(s) of care: Goals of care discussion began with patient. Patient unable to complete conversation as she stated she is too fatigued at the moment and would like to sleep. Will continue GOC conversations tomorrow. Treatment Goal(s): Alleviate symptoms, Improve ADLs, Improve quality of life Assessment & Plan - Assessment and Plan (Free Text) Assessment: Full code: There is no advanced directive in the chart Palliative Performance Scale is 40% I reviewed medical records, diagnostic tests, examined and interviewed the patient in Bed Impression ESRD CHF Will continue Goals of Care discussions tomorrow Palliative care will remain on board as needed Time Spent with patient 55 min
--- NOTE | 2018-12-16 15:36 | CP.PCM.PN ---
Subjective - Date & Time of Evaluation Date of Evaluation: 12/16/18 Time of Evaluation: 15:34 - Subjective Subjective: RENAL Note s: seen and examined feels better. SOB better but still on high flow O2 no CP/nausea pe: VSS gen: nad sclera: anicteric peerla nekc: supple op: clear nml dentition cv: +S1+s2 no rub lungs: reduced bs at bases + pleurex cath abd: soft nt nd no organomegaly ext: no edema neuro: a+ox3 no focal deficit psych:nml affect skin no rash labs and imaging reviewed imp: ESRD/ Hypertensive kidney disease/ Diabetic kidney disease/ Pleural effusion/ Anemia of renal disease/ Secondary hyperpara/hyperphosphatemia plan: HD MWF for HD tomorrow. continue nephrovite daily bp high increased hydralazine 100 tid dm: per primary team pleural effusion per primary team hgb stable on epo continue phos at goal on renvela PTH 131 at goal Please call if any Qs Objective - Vital Signs/Intake and Output Vital Signs (last 24 hours): Temp Pulse Resp BP Pulse Ox 98.1 F 62 18 154/65 H 100 12/16/18 12:33 12/16/18 12:44 12/16/18 12:33 12/16/18 12:44 12/16/18 12:33 - Medications Medications: Current Medications Acetaminophen (Tylenol 325mg Tab) 650 mg PO Q4 PRN PRN Reason: Temp >100 Last Admin: 12/15/18 22:19 Dose: 650 mg Acetaminophen (Tylenol 325mg Tab) 650 mg PO Q4 PRN PRN Reason: Pain, Mild (1-3) Last Admin: 12/14/18 01:26 Dose: 650 mg Albuterol/Ipratropium (Duoneb 3 Mg/0.5 Mg (3 Ml) Ud) 3 ml IH Q6H PRN PRN Reason: Shortness of Breath Amlodipine Besylate (Norvasc) 10 mg PO DAILY [facility] Last Admin: 12/16/18 08:49 Dose: 10 mg Atorvastatin Calcium (Lipitor) 40 mg PO HS [facility] Last Admin: 12/15/18 22:22 Dose: 40 mg Carvedilol (Coreg) 25 mg PO Q12 [facility] Last Admin: 12/16/18 08:48 Dose: 25 mg Clopidogrel Bisulfate (Plavix) 75 mg PO DAILY [facility] Last Admin: 12/16/18 08:50 Dose: 75 mg Docusate Sodium (Colace) 200 mg PO DAILY PRN PRN Reason: Constipation Epoetin Steve (Procrit) 3,000 unit IV MWF [facility] Last Admin: 12/15/18 14:50 Dose: 3,000 unit Hydralazine HCl (Apresoline) 100 mg PO TID [facility] Last Admin: 12/16/18 12:44 Dose: 100 mg Ceftriaxone Sodium 1 gm/ (Sodium Chloride) 100 mls @ 100 mls/hr IVPB HS [facility]; Protocol Last Admin: 12/15/18 22:22 Dose: 100 mls/hr Levothyroxine Sodium (Synthroid) 50 mcg PO DAILY@0630 [facility] Last Admin: 12/16/18 06:29 Dose: 50 mcg Losartan Potassium (Cozaar) 100 mg PO DAILY [facility] Last Admin: 12/16/18 08:49 Dose: 100 mg Pantoprazole Sodium (Protonix Ec Tab) 40 mg PO DAILY [facility] Last Admin: 12/16/18 08:36 Dose: 40 mg Sevelamer Carbonate (Renvela) 1,600 mg PO TID [facility] Last Admin: 12/16/18 12:45 Dose: 1,600 mg Sitagliptin Phosphate (Januvia) 25 mg PO DAILY [facility] Last Admin: 12/16/18 08:35 Dose: 25 mg Vitamin A (Vitamin A & D Oint Ud Foilpak) 1 ea TOP DAILY [facility] Last Admin: 12/16/18 08:50 Dose: 1 ea Vitamin B Complex/Vit C/Folic Acid (Nephro-Buster) 1 tab PO DAILY [facility] Last Admin: 12/16/18 08:35 Dose: 1 tab - Labs Labs: 12/16/18 05:40 12/16/18 05:40 PT 11.4 Seconds (9.8-13.1) 12/13/18 11:45 INR 1.0 12/13/18 11:45 APTT 36.6 Seconds (25.6-37.1) 12/13/18 11:45
[2018-12-17] MEDS: Levothyroxine 50 MCG TAB PO SCH (06:25)
--- NOTE | 2018-12-17 07:40 | CP.PCM.PN ---
Subjective - Date & Time of Evaluation Date of Evaluation: 12/17/18 Time of Evaluation: 09:40 - Subjective Subjective: Cardiothoracic Surgery Note for Dr. Gabriel Patient seen and examined at bedside. No acute event overnight. Patient denies any SOB. She is still requiring HFNC. Patient tolerating diet. Pleural tunneled catheter to be removed at bedside this AM. Objective - Vital Signs/Intake and Output Vital Signs (last 24 hours): Temp Pulse Resp BP Pulse Ox 98.2 F 85 18 162/65 H 100 12/17/18 04:56 12/17/18 04:56 12/17/18 04:56 12/17/18 04:56 12/17/18 04:56 - Medications Medications: Current Medications Acetaminophen (Tylenol 325mg Tab) 650 mg PO Q4 PRN PRN Reason: Temp >100 Last Admin: 12/15/18 22:19 Dose: 650 mg Acetaminophen (Tylenol 325mg Tab) 650 mg PO Q4 PRN PRN Reason: Pain, Mild (1-3) Last Admin: 12/14/18 01:26 Dose: 650 mg Albuterol/Ipratropium (Duoneb 3 Mg/0.5 Mg (3 Ml) Ud) 3 ml IH Q6H PRN PRN Reason: Shortness of Breath Amlodipine Besylate (Norvasc) 10 mg PO DAILY [facility] Last Admin: 12/16/18 08:49 Dose: 10 mg Atorvastatin Calcium (Lipitor) 40 mg PO [facility] Last Admin: 12/16/18 21:16 Dose: 40 mg Carvedilol (Coreg) 25 mg PO Q12 [facility] Last Admin: 12/16/18 21:16 Dose: 25 mg Clopidogrel Bisulfate (Plavix) 75 mg PO DAILY [facility] Last Admin: 12/16/18 08:50 Dose: 75 mg Docusate Sodium (Colace) 200 mg PO DAILY PRN PRN Reason: Constipation Epoetin Steve (Procrit) 3,000 unit IV MWF [facility] Last Admin: 12/15/18 14:50 Dose: 3,000 unit Hydralazine HCl (Apresoline) 100 mg PO TID [facility] Last Admin: 12/16/18 16:51 Dose: 100 mg Ceftriaxone Sodium 1 gm/ (Sodium Chloride) 100 mls @ 100 mls/hr IVPB [facility]; Protocol Last Admin: 12/16/18 21:17 Dose: 100 mls/hr Levothyroxine Sodium (Synthroid) 50 mcg PO DAILY@0630 [facility] Last Admin: 12/17/18 06:25 Dose: 50 mcg Losartan Potassium (Cozaar) 100 mg PO DAILY [facility] Last Admin: 12/16/18 08:49 Dose: 100 mg Pantoprazole Sodium (Protonix Ec Tab) 40 mg PO DAILY [facility] Last Admin: 12/16/18 08:36 Dose: 40 mg Sevelamer Carbonate (Renvela) 1,600 mg PO TID [facility] Last Admin: 12/16/18 16:52 Dose: 1,600 mg Sitagliptin Phosphate (Januvia) 25 mg PO DAILY [facility] Last Admin: 12/16/18 08:35 Dose: 25 mg Vitamin A (Vitamin A & D Oint Ud Foilpak) 1 ea TOP DAILY [facility] Last Admin: 12/16/18 08:50 Dose: 1 ea Vitamin B Complex/Vit C/Folic Acid (Nephro-Buster) 1 tab PO DAILY [facility] Last Admin: 12/16/18 08:35 Dose: 1 tab - Labs Labs: 12/16/18 05:40 12/16/18 05:40 PT 11.4 Seconds (9.8-13.1) 12/13/18 11:45 INR 1.0 12/13/18 11:45 APTT 36.6 Seconds (25.6-37.1) 12/13/18 11:45 - Additional Findings Additional findings: - Constitutional Appears: No Acute Distress - Head Exam Head Exam: ATRAUMATIC, NORMOCEPHALIC - Eye Exam Eye Exam: Normal appearance - ENT Exam ENT Exam: Mucous Membranes Moist - Respiratory Exam Respiratory Exam: NORMAL BREATHING PATTERN. absent: Respiratory Distress Additional comments: HFNC tunneled pleural catheter removed at bedside, site with steri-strips telfa and tegaderm - clean dry and intact SaO2 100% - Cardiovascular Exam Cardiovascular Exam: REGULAR RHYTHM - GI/Abdominal Exam GI & Abdominal Exam: Soft. absent: Tenderness - Extremities Exam Extremities Exam: Normal Capillary Refill - Neurological Exam Neurological Exam: Alert, Awake, Oriented x3 - Psychiatric Exam Psychiatric exam: Normal Affect, Normal Mood - Skin Skin Exam: Dry, Intact, Warm Assessment and Plan - Assessment and Plan (Free Text) Assessment: 58 F with past medical history significant for ESRD on dialysis, CHF, and DM, who was admitted for shortness of breath and recurrent pleural effusion s/p bedside tunneled pleural catheter removal Plan: -tunneled pleural catheter removed at bedside -Patient tolerated proceudre well with no complications -SaO2 100% on HFNC -Wean from HFNC -management as per primary team -No further surgical intervention needed at this time -Discussed with Dr. Nery Esteves PGY2
[2018-12-17] MEDS ORDERED: Bupivacaine 0.5% 50 ML IJ ONE (07:51)
[2018-12-17] MEDS ORDERED: Povidone Iodine Topical 10% Sol ONE (08:37)
--- NOTE | 2018-12-17 09:40 | PCM.SURG1 ---
Surgeon's Initial Post Op Note - Surgeon's Notes Surgeon: Dr. Gabriel Refrigeration Unit Repairer: Danielito PGY2 Type of Anesthesia: Local Pre-Operative Diagnosis: Malfunctioning tunneled pleural catheter Operative Findings: Malfunctioning tunneled pleural catheter Post-Operative Diagnosis: Malfunctioning tunneled pleural catheter Operation Performed: Bedside removal of Malfunctioning tunneled pleural catheter Specimen/Specimens Removed: N/A Estimated Blood Loss: EBL {In ML}: 5 Blood Products Given: N/A Drains Used: No Drains Post-Op Condition: Good Date of Surgery/Procedure: 12/17/18 Time of Surgery/Procedure: 08:30
--- NOTE | 2018-12-17 09:43 | CP.PCM.PN ---
Subjective - Date & Time of Evaluation Date of Evaluation: 12/17/18 Time of Evaluation: 09:45 - Subjective Subjective: DENIES CHEST PAINS OR SOB L CHEST TUBE REMOVED TODAY---NO PLANS FOR FURTHER SURGICAL INTERVENTION INCLUDING PLEURODYSES AFEBRILE Objective - Vital Signs/Intake and Output Vital Signs (last 24 hours): Temp Pulse Resp BP Pulse Ox 98.0 F 71 20 158/62 H 100 12/17/18 08:01 12/17/18 08:01 12/17/18 08:01 12/17/18 08:01 12/17/18 08:01 - Medications Medications: Current Medications Acetaminophen (Tylenol 325mg Tab) 650 mg PO Q4 PRN PRN Reason: Temp >100 Last Admin: 12/15/18 22:19 Dose: 650 mg Acetaminophen (Tylenol 325mg Tab) 650 mg PO Q4 PRN PRN Reason: Pain, Mild (1-3) Last Admin: 12/14/18 01:26 Dose: 650 mg Albuterol/Ipratropium (Duoneb 3 Mg/0.5 Mg (3 Ml) Ud) 3 ml IH Q6H PRN PRN Reason: Shortness of Breath Amlodipine Besylate (Norvasc) 10 mg PO DAILY [facility] Last Admin: 12/16/18 08:49 Dose: 10 mg Atorvastatin Calcium (Lipitor) 40 mg PO [facility] Last Admin: 12/16/18 21:16 Dose: 40 mg Carvedilol (Coreg) 25 mg PO Q12 [facility] Last Admin: 12/16/18 21:16 Dose: 25 mg Clopidogrel Bisulfate (Plavix) 75 mg PO DAILY [facility] Last Admin: 12/16/18 08:50 Dose: 75 mg Docusate Sodium (Colace) 200 mg PO DAILY PRN PRN Reason: Constipation Epoetin Steve (Procrit) 3,000 unit IV MWF [facility] Last Admin: 12/15/18 14:50 Dose: 3,000 unit Hydralazine HCl (Apresoline) 100 mg PO TID [facility] Last Admin: 12/16/18 16:51 Dose: 100 mg Ceftriaxone Sodium 1 gm/ (Sodium Chloride) 100 mls @ 100 mls/hr IVPB [facility]; Protocol Last Admin: 12/16/18 21:17 Dose: 100 mls/hr Levothyroxine Sodium (Synthroid) 50 mcg PO DAILY@0630 [facility] Last Admin: 12/17/18 06:25 Dose: 50 mcg Losartan Potassium (Cozaar) 100 mg PO DAILY [facility] Last Admin: 12/16/18 08:49 Dose: 100 mg Pantoprazole Sodium (Protonix Ec Tab) 40 mg PO DAILY [facility] Last Admin: 12/16/18 08:36 Dose: 40 mg Sevelamer Carbonate (Renvela) 1,600 mg PO TID [facility] Last Admin: 12/16/18 16:52 Dose: 1,600 mg Sitagliptin Phosphate (Januvia) 25 mg PO DAILY [facility] Last Admin: 12/16/18 08:35 Dose: 25 mg Vitamin A (Vitamin A & D Oint Ud Foilpak) 1 ea TOP DAILY [facility] Last Admin: 12/16/18 08:50 Dose: 1 ea Vitamin B Complex/Vit C/Folic Acid (Nephro-Buster) 1 tab PO DAILY [facility] Last Admin: 12/16/18 08:35 Dose: 1 tab - Labs Labs: 12/16/18 05:40 12/16/18 05:40 PT 11.4 Seconds (9.8-13.1) 12/13/18 11:45 INR 1.0 12/13/18 11:45 APTT 36.6 Seconds (25.6-37.1) 12/13/18 11:45 - Constitutional Appears: Well, No Acute Distress - Head Exam Head Exam: ATRAUMATIC, NORMAL INSPECTION, NORMOCEPHALIC - Eye Exam Eye Exam: EOMI, Normal appearance, PERRL Pupil Exam: NORMAL ACCOMODATION, PERRL - ENT Exam ENT Exam: Mucous Membranes Moist, Normal Exam - Neck Exam Neck Exam: Full ROM, Normal Inspection. absent: Lymphadenopathy - Respiratory Exam Respiratory Exam: Decreased Breath Sounds, Prolonged Expiratory Phase, Rales, NORMAL BREATHING PATTERN - Cardiovascular Exam Cardiovascular Exam: REGULAR RHYTHM, +S1, +S2. absent: Murmur - GI/Abdominal Exam GI & Abdominal Exam: Soft, Normal Bowel Sounds. absent: Tenderness - Rectal Exam Rectal Exam: NORMAL INSPECTION - Extremities Exam Extremities Exam: Full ROM, Normal Capillary Refill, Normal Inspection. absent: Joint Swelling, Pedal Edema - Back Exam Back Exam: NORMAL INSPECTION - Neurological Exam Neurological Exam: Alert, Awake, CN II-XII Intact, Normal Gait, Oriented x3 - Psychiatric Exam Psychiatric exam: Normal Affect, Normal Mood - Skin Skin Exam: Dry, Intact, Normal Color, Warm Assessment and Plan - Assessment and Plan (Free Text) Assessment: ESRD PLEURAL EFFUSIONS IMPROVED POST-THORACENTESES S/P PLEUREX CATH REMOVAL COPD-STABLE Plan: REPEAT CXR FOR DIALYSIS OK TO D/C IN AM TO [facility] IF CLINICALLY STABLE WILL WEAN OFF HIGH FLOW O2
[2018-12-17] MEDS: Multivitamin Vitamin B Complex (Nephro-Vite) Tab PO SCH (10:24)
[2018-12-17] MEDS: Pantoprazole 40 mg EC Tab PO SCH (10:25)
--- NOTE | 2018-12-17 11:00 | PCM.PPROG ---
History of Present Illness - History of Present Illness History of Present Illness: Patient is a 58 year old female who presented to the ED on 12/13 complaining of SOB. She has a history of CHF with a [place] [facility], patient says that staff was unable to drain from it at [place] [address] eurx catheter was removed today. Patient currently on 4L nc. PMH: Arthritis, CAD, CHF, COPD, DM, HTN, Hypercholesterolemia, Hypothroidism, Pneumonia, ESRD, CKD, Soc hx: From NH, Former smoker, denies alcohol and drug use Fam hx: Mom had liver ca, Father had Thoracic aneurysm 12/14 Left Thoracentesis- 300cc removed 12/15 CXR: NO Pneumothorax detected, Stable pulmonary vascular congestion and Bi lateral pleural effusions Review of Systems - Review of Systems Review of Systems: ROS obtained from patient at the bedside - Constitutional Constitutional: Fatigue - Respiratory Respiratory: Dyspnea on Exertion - Gastrointestinal Additional comments: decrease in appetite Physical Exam - Constitutional Appears: No Acute Distress, Chronically Ill - Head Exam Head Exam: ATRAUMATIC, NORMAL INSPECTION, NORMOCEPHALIC - Eye Exam Eye Exam: Normal appearance - ENT Exam ENT Exam: Mucous Membranes Moist - Respiratory Exam Additional comments: on 4L nc - Cardiovascular Exam Cardiovascular Exam: REGULAR RHYTHM - GI/Abdominal Exam GI & Abdominal Exam: Normal Bowel Sounds - Neurological Exam Neurological exam: Alert, Oriented x3 - Psychiatric Exam Psychiatric exam: Normal Mood - Skin Skin Exam: Dry, Pallor, Warm Palliative Care Assessment - Modified MRC Dyspnea Scale Modified MRC Dyspnea Scale: Too breathless to leave the house,or breathless dressing or undressing Grade: 5 - Pain Scale Pain Score: 0 Pain Scale Used: Numeric - Reddy Scale Sensory Perception: No Impairment Moisture: Occasionally Moist Activity: Walks Occasionally Mobility: Slightly Impaired Nutrition: Probably Inadequate Friction & Shear: No Apparent Problem Total Score - Skin Risk Assessment: 18 - Psychosocial Distress Patient screened for psychosocial distress: Yes Palliative Care - Goals Goal(s) of care: Goals of care discussion had with patient . Patient named her 2 sisters Alyssa and Veronica as her decision makers and documented that along with her wishes on a POLST form. POLST form placed in the chart. Primary RN made aware. Code Status: discussed with patient and she verbalized understanding. Patient wishes to be DNI. Treatment Goal(s): Alleviate symptoms, Improve ADLs, Improve quality of life End of life care discussed: Yes Assessment & Plan - Assessment and Plan (Free Text) Assessment: Patient reports feeling much better today. pending discharge Impression ESRD CHF POLST form placed in patient's chart Patient will be discharged back to [place]. Thank you for this consult
--- NOTE | 2018-12-17 11:56 | CP.PCM.PN ---
Subjective - Date & Time of Evaluation Date of Evaluation: 12/17/18 Time of Evaluation: 11:55 - Subjective Subjective: RENAL Note s: seen and examined feels better. SOB better but still on high flow O2 no CP/nausea pe: VSS gen: nad sclera: anicteric peerla nekc: supple op: clear nml dentition cv: +S1+s2 no rub lungs: reduced bs at bases + pleurex cath abd: soft nt nd no organomegaly ext: no edema neuro: a+ox3 no focal deficit psych:nml affect skin no rash labs and imaging reviewed imp: ESRD/ Hypertensive kidney disease/ Diabetic kidney disease/ Pleural effusion/ Anemia of renal disease/ Secondary hyperpara/hyperphosphatemia plan: HD MWF for HD today. continue nephrovite daily bp high increased hydralazine 100 tid, now BP better/stable dm: per primary team pleural effusion per primary team/pulmonary hgb stable on epo continue phos at goal on renvela PTH 131 at goal Please call if any Qs Objective - Vital Signs/Intake and Output Vital Signs (last 24 hours): Temp Pulse Resp BP Pulse Ox 98.0 F 71 16 158/62 H 100 12/17/18 08:01 12/17/18 08:01 12/17/18 10:19 12/17/18 08:01 12/17/18 08:01 - Medications Medications: Current Medications Acetaminophen (Tylenol 325mg Tab) 650 mg PO Q4 PRN PRN Reason: Temp >100 Last Admin: 12/15/18 22:19 Dose: 650 mg Acetaminophen (Tylenol 325mg Tab) 650 mg PO Q4 PRN PRN Reason: Pain, Mild (1-3) Last Admin: 12/14/18 01:26 Dose: 650 mg Albuterol/Ipratropium (Duoneb 3 Mg/0.5 Mg (3 Ml) Ud) 3 ml IH Q6H PRN PRN Reason: Shortness of Breath Amlodipine Besylate (Norvasc) 10 mg PO DAILY [facility] Last Admin: 12/17/18 10:24 Dose: Not Given Atorvastatin Calcium (Lipitor) 40 mg PO HS [facility] Last Admin: 12/16/18 21:16 Dose: 40 mg Carvedilol (Coreg) 25 mg PO Q12 [facility] Last Admin: 12/17/18 10:21 Dose: Not Given Clopidogrel Bisulfate (Plavix) 75 mg PO DAILY [facility] Last Admin: 12/17/18 10:25 Dose: 75 mg Docusate Sodium (Colace) 200 mg PO DAILY PRN PRN Reason: Constipation Epoetin Steve (Procrit) 3,000 unit IV MWF [facility] Last Admin: 12/15/18 14:50 Dose: 3,000 unit Hydralazine HCl (Apresoline) 100 mg PO TID [facility] Last Admin: 12/17/18 10:20 Dose: Not Given Ceftriaxone Sodium 1 gm/ (Sodium Chloride) 100 mls @ 100 mls/hr IVPB HS [facility]; Protocol Last Admin: 12/16/18 21:17 Dose: 100 mls/hr Levothyroxine Sodium (Synthroid) 50 mcg PO DAILY@0630 [facility] Last Admin: 12/17/18 06:25 Dose: 50 mcg Losartan Potassium (Cozaar) 100 mg PO DAILY [facility] Last Admin: 12/17/18 10:21 Dose: Not Given Pantoprazole Sodium (Protonix Ec Tab) 40 mg PO DAILY [facility] Last Admin: 12/17/18 10:25 Dose: 40 mg Sevelamer Carbonate (Renvela) 1,600 mg PO TID [facility] Last Admin: 12/17/18 10:25 Dose: 1,600 mg Sitagliptin Phosphate (Januvia) 25 mg PO DAILY [facility] Last Admin: 12/17/18 10:23 Dose: 25 mg Vitamin A (Vitamin A & D Oint Ud Foilpak) 1 ea TOP DAILY [facility] Last Admin: 12/16/18 08:50 Dose: 1 ea Vitamin B Complex/Vit C/Folic Acid (Nephro-Buster) 1 tab PO DAILY [facility] Last Admin: 12/17/18 10:24 Dose: 1 tab - Labs Labs: 12/16/18 05:40 12/16/18 05:40 PT 11.4 Seconds (9.8-13.1) 12/13/18 11:45 INR 1.0 12/13/18 11:45 APTT 36.6 Seconds (25.6-37.1) 12/13/18 11:45
[2018-12-17] MEDS: Epoetin Alfa 20000 UNIT/ML (RENAL DOSE) IV SCH (12:33)
[2018-12-17] MEDS: Vitamins A & D Oint UD Foilpak TOP SCH (12:34)
--- NOTE | 2018-12-17 17:01 | RAD ---
Date of service: 12/17/2018 HISTORY: PLEURAL EFFUSION COMPARISON: Comparison made with prior study 12/15/2018. TECHNIQUE: 1 view obtained. FINDINGS: No change right IJ dialysis catheter with tips in the SVC. LUNGS: Interval decrease in fluid overload and/or pulmonary venous congestion. Small right-sided effusion and moderate-sized left-sided effusion remain though effusions may have diminished in size as well. Mild bibasilar atelectasis left greater than right. PLEURA: As above. No pneumothorax apparent. CARDIOVASCULAR: Heart remains enlarged. No aortic atherosclerotic calcification present. Normal cardiac size. No pulmonary vascular congestion. OSSEOUS STRUCTURES: No significant abnormalities. VISUALIZED UPPER ABDOMEN: Normal. OTHER FINDINGS: None. IMPRESSION: Interval decrease in fluid overload and/or pulmonary venous congestion. Small right-sided effusion and moderate-sized left-sided effusion remain though effusions may have diminished in size as well. Mild bibasilar atelectasis left greater than right.
[2018-12-18] MEDS: Levothyroxine 50 MCG TAB PO SCH (05:58)
[2018-12-18 07:56] VITALS: RESP 20
[2018-12-18] MEDS: Multivitamin Vitamin B Complex (Nephro-Vite) Tab PO SCH (09:08)
[2018-12-18] MEDS: Vitamins A & D Oint UD Foilpak TOP SCH (09:09)
[2018-12-18] MEDS: Pantoprazole 40 mg EC Tab PO SCH (09:09)
--- NOTE | 2018-12-18 10:14 | CP.PCM.PN ---
Subjective - Date & Time of Evaluation Date of Evaluation: 12/18/18 Time of Evaluation: 10:14 - Subjective Subjective: NO NEW CLINICAL FINDINGS NO CHEST PAINS/SOB Objective - Vital Signs/Intake and Output Vital Signs (last 24 hours): Temp Pulse Resp BP Pulse Ox 98.4 F 78 20 166/70 H 100 12/18/18 07:55 12/18/18 09:08 12/18/18 07:55 12/18/18 09:08 12/18/18 07:55 - Medications Medications: Current Medications Acetaminophen (Tylenol 325mg Tab) 650 mg PO Q4 PRN PRN Reason: Temp >100 Last Admin: 12/15/18 22:19 Dose: 650 mg Acetaminophen (Tylenol 325mg Tab) 650 mg PO Q4 PRN PRN Reason: Pain, Mild (1-3) Last Admin: 12/14/18 01:26 Dose: 650 mg Albuterol/Ipratropium (Duoneb 3 Mg/0.5 Mg (3 Ml) Ud) 3 ml IH Q6H PRN PRN Reason: Shortness of Breath Amlodipine Besylate (Norvasc) 10 mg PO DAILY [facility] Last Admin: 12/18/18 09:08 Dose: 10 mg Atorvastatin Calcium (Lipitor) 40 mg PO [facility] Last Admin: 12/17/18 21:32 Dose: 40 mg Carvedilol (Coreg) 25 mg PO Q12 [facility] Last Admin: 12/18/18 09:07 Dose: 25 mg Clopidogrel Bisulfate (Plavix) 75 mg PO DAILY [facility] Last Admin: 12/18/18 09:08 Dose: 75 mg Docusate Sodium (Colace) 200 mg PO DAILY PRN PRN Reason: Constipation Epoetin Steve (Procrit) 3,000 unit IV MWF [facility] Last Admin: 12/17/18 12:33 Dose: 3,000 unit Hydralazine HCl (Apresoline) 100 mg PO TID [facility] Last Admin: 12/18/18 09:06 Dose: 100 mg Ceftriaxone Sodium 1 gm/ (Sodium Chloride) 100 mls @ 100 mls/hr IVPB [facility]; Protocol Last Admin: 12/17/18 21:33 Dose: 100 mls/hr Levothyroxine Sodium (Synthroid) 50 mcg PO DAILY@0630 [facility] Last Admin: 12/18/18 05:58 Dose: 50 mcg Losartan Potassium (Cozaar) 100 mg PO DAILY [facility] Last Admin: 12/18/18 09:07 Dose: 100 mg Pantoprazole Sodium (Protonix Ec Tab) 40 mg PO DAILY [facility] Last Admin: 12/18/18 09:09 Dose: 40 mg Sevelamer Carbonate (Renvela) 1,600 mg PO TID [facility] Last Admin: 12/18/18 09:09 Dose: 1,600 mg Sitagliptin Phosphate (Januvia) 25 mg PO DAILY [facility] Last Admin: 12/18/18 09:08 Dose: 25 mg Vitamin A (Vitamin A & D Oint Ud Foilpak) 1 ea TOP DAILY [facility] Last Admin: 12/18/18 09:09 Dose: 1 ea Vitamin B Complex/Vit C/Folic Acid (Nephro-Buster) 1 tab PO DAILY [facility] Last Admin: 12/18/18 09:08 Dose: 1 tab - Labs Labs: 12/16/18 05:40 12/16/18 05:40 PT 11.4 Seconds (9.8-13.1) 12/13/18 11:45 INR 1.0 12/13/18 11:45 APTT 36.6 Seconds (25.6-37.1) 12/13/18 11:45 - Constitutional Appears: No Acute Distress - Head Exam Head Exam: ATRAUMATIC, NORMAL INSPECTION, NORMOCEPHALIC - Eye Exam Eye Exam: EOMI, Normal appearance, PERRL Pupil Exam: NORMAL ACCOMODATION, PERRL - ENT Exam ENT Exam: Mucous Membranes Moist, Normal Exam - Neck Exam Neck Exam: Full ROM, Normal Inspection. absent: Lymphadenopathy - Respiratory Exam Respiratory Exam: Prolonged Expiratory Phase, NORMAL BREATHING PATTERN - Cardiovascular Exam Cardiovascular Exam: REGULAR RHYTHM, +S1, +S2. absent: Murmur - GI/Abdominal Exam GI & Abdominal Exam: Soft, Normal Bowel Sounds. absent: Tenderness - Rectal Exam Rectal Exam: NORMAL INSPECTION - Extremities Exam Extremities Exam: Full ROM, Normal Capillary Refill, Normal Inspection. absent: Joint Swelling, Pedal Edema - Back Exam Back Exam: NORMAL INSPECTION - Neurological Exam Neurological Exam: Alert, Awake, CN II-XII Intact, Normal Gait, Oriented x3 - Psychiatric Exam Psychiatric exam: Normal Affect, Normal Mood - Skin Skin Exam: Dry, Intact, Normal Color, Warm Assessment and Plan - Assessment and Plan (Free Text) Assessment: ESRD PLEURAL EFFUSION RESOLVED PLEUREX CATH REMOVED Plan: OK TO D/C TO [facility] NO FURTHER PULMONARY INTERVENTION FOR NOW CASE DISCUSSED WITH DR SULLIVAN
[2018-12-18 11:47] VITALS: BP 166/72; PULSE 85; TEMP 98.3
--- NOTE | 2018-12-22 11:53 | PQF ---
PROVIDER RESPONSE TEXT: Heart Failure, Diastolic, chronic REVIEWER QUERY TEXT: Heart Failure Acuity and Type Exacerbation Congestive Heart Failure is documented in the Medical Record. Please document the type i f known: Such as: Type: -- Combined systolic and diastolic (heart failure with reduced ejection fraction and diastolic) dysfu nction -- Diastolic (HFpEF) -- Systolic (HFrEF) -- Left heart failure -- Right heart failure -- Right heart failure due to left heart failure -- High output failure -- End stage heart failure -- Other, please specify 12/14 Renal consult includes:Assessment: fluid overload with exacerbation CHF with pleural effusion; hx. of ESRD/Dialysis 12/14 IR: Ultrasound-guided thoracentesis was performed.A total of 350 cubic centimeters of serosangu ineous fluid removed without complication The patient's Clinical Indicators include: -- Query created by: Nisa Duarte on 12/16/2018 11:07 AM Electronically signed by: Atul Higginbotham MD 12/22/2018 11:50 AM
== END 2018-12-18 12:45 | DRG 544 ==
LOC: H.ER 10:06 → H.ERHOLD 12:54 → H.TEL 18:25
PROVIDERS: ADMIT Family Medicine; ATTEND Family Medicine
PROC: 0W9B3ZZ Drainage of Left Pleural Cavity, Percutaneous Approach (ICD-10-PCS; principal; 2018-12-13)
PROC: 5A1D70Z Performance of Urinary Filtration, Intermittent, Less than 6 Hours Per Day (ICD-10-PCS; 2018-12-15)
PROC: 0WPBX3Z Removal of Infusion Device from Left Pleural Cavity, External Approach (ICD-10-PCS; 2018-12-17)
PROC: 5A1D70Z Performance of Urinary Filtration, Intermittent, Less than 6 Hours Per Day (ICD-10-PCS; 2018-12-17)
DX: I13.2 Hypertensive heart and chronic kidney disease with heart failure and with stage 5 chronic kidney disease, or end stage renal disease (principal); J96.02 Acute respiratory failure with hypercapnia; J96.01 Acute respiratory failure with hypoxia; I50.32 Chronic diastolic (congestive) heart failure; N18.6 End stage renal disease; E11.22 Type 2 diabetes mellitus with diabetic chronic kidney disease; J90 Pleural effusion, not elsewhere classified; J44.9 Chronic obstructive pulmonary disease, unspecified; D63.1 Anemia in chronic kidney disease; N25.81 Secondary hyperparathyroidism of renal origin; Z99.2 Dependence on renal dialysis; E03.9 Hypothyroidism, unspecified; E78.00 Pure hypercholesterolemia, unspecified; E78.5 Hyperlipidemia, unspecified; E83.39 Other disorders of phosphorus metabolism; I25.10 Atherosclerotic heart disease of native coronary artery without angina pectoris; Z95.2 Presence of prosthetic heart valve; Z79.4 Long term (current) use of insulin; Z79.02 Long term (current) use of antithrombotics/antiplatelets; Z79.890 Hormone replacement therapy; Z85.42 Personal history of malignant neoplasm of other parts of uterus; Z90.710 Acquired absence of both cervix and uterus; Z87.01 Personal history of pneumonia (recurrent); Z87.891 Personal history of nicotine dependence; Z91.013 Allergy to seafood